=== PATIENT | male | born 1955 | race Caucasian/White ===

== ENCOUNTER 2016-03-16 15:25 | Inpatient (IN) | payer MEDICARE, OTHER ==
[~2016-03-16] VITALS: Ht 172.7 cm; Wt 88.5 kg
[2016-03-16] VITALS (8 sets, daily range): BP systolic 135–156; BP diastolic 63–73; PULSE 76–83; RESP 20; TEMP 98.2; Ht 172.7 cm; Wt 88.5 kg
[~2016-03-16 15:25] MED LIST: ASPI-664 PO; ATEN-51 PO; ATOR80TA18 PO; BENA5TAB2 PO; CELE200C PO; COLC0.6T6 PO; DEXL60CA2 PO; FENO145T19 PO; FISH OIL 1,2001 EAC2 PO; GEMF600T60 PO; HYDR-3671 PO; INSU100C3 SC; LORA10TA3 PO; MEGE40TA17 PO; NAPR-685 PO; NIFE90TA21 PO; SEVE800T7 PO
--- NOTE | 2016-03-16 20:37 | RADRPT ---
PROCEDURE: XR Chest. CLINICAL INDICATION: Chest pain. Abdominal pain TECHNIQUE: Portable AP semi erect view of the chest was obtained. COMPARISON: 09/30/2014 FINDINGS: The cardiomediastinal silhouette is mildly enlarged, stable. Bilateral lower lobe consolidation is likely atelectasis. Mild basilar dominant pulmonary vascular congestion and small pleural effusions are new. Sternotomy wires are present with mediastinal clips presumably from prior CABG. There is no evidence for acute osseous abnormality. RPTAT:HJJR IMPRESSION: 1. Development of pulmonary vascular congestion and small pleural effusions in this patient with sta ble cardiomegaly and post CABG changes is concerning for congestive heart failure in the proper clin ical setting. 2. Bibasilar subsegmental atelectasis. Physician Marquita Date Time Electronically viewed and signed by Physician Marquita on 03/16/2016 20:37 /
[2016-03-16] MEDS ORDERED: NPH SQ (20:40)
[2016-03-16] MEDS ORDERED: GEMF600T60 PO (20:41)
[2016-03-16] MEDS ORDERED: BENA20TA48 PO (20:41)
[2016-03-16] MEDS ORDERED: ALLO100T PO (20:41)
[2016-03-16] MEDS ORDERED: CNC30T PO (20:42)
[2016-03-16] MEDS ORDERED: FENO145T19 PO (20:42)
--- NOTE | 2016-03-16 20:42 | RADRPT ---
PROCEDURE: CT Brain without. CLINICAL INDICATION: Headache, concern for bleed. TECHNIQUE: A CT of the brain was performed on multidetector high-resolution CT scanner utilizing a xial sections from the skull base through the vertex without contrast. The scan was reviewed in sof t tissue brain and high frequency resolution bone algorithm windows. Images were reviewed on a high -resolution PACS workstation. One or more the following does reduction techniques were utilized: Aut omated exposure control, adjustment of the mA/ or kV according to patient's size, or use of iterativ e reconstruction technique. The exam CTDI = 43.40 mGy and the DLP = 720.23 mGy-cm. COMPARISON: None available. FINDINGS: There is subtle linear hyperdensity in the right cerebellar hemisphere sulcus which is concerning fo r a tiny hemorrhage versus artifact. The ventricles and sulci are mildly prominent indicative of volume loss. There is no intracranial he morrhage, mass effect or midline shift. No abnormal intra-axial or extra-axial fluid collections ar e seen. The grover/white matter differentiation is preserved. There are mild scattered foci of hypoattenuation in the white matter, which are nonspecific in etiol ogy but likely reflect chronic small vessel ischemic changes. There are mild intracranial vascular calcifications consistent with atherosclerosis. The visualized paranasal sinuses are essentially bouchra ar. The right mastoid air cells are underpneumatized. The left mastoid air cells are essentially cl ear. IMPRESSION: 1. Subtle hyperdensity in the right cerebellar hemisphere sulcus which is concerning for a tiny hem orrhage versus artifact. Follow-up CT or MR can be obtained as clinically warranted. 2. No acute intracranial transcortical infarction or mass effect. 3. Mild intracranial atherosclerosis and chronic small vessel ischemic changes. 4. Mild generalized cerebral volume loss. A call report was made and above findings were discussed and acknowledged by Dr. Kee on 03/16/19 17 8:38 PM. RPTAT: HH .Timmy Echols MD, Date Time Electronically viewed and signed by .Timmy Echols MD, MD on 03/16/2016 20:42 .N/
[2016-03-16] MEDS ORDERED: ASPI-664 PO (20:43)
[2016-03-16] MEDS ORDERED: HYDR-3671 PO (20:43)
[2016-03-16] MEDS ORDERED: LORA10TA3 PO (20:44)
[2016-03-16] MEDS ORDERED: OMEP20CA16 PO (20:45)
[2016-03-16 20:52] LABS: HEMATOCRIT 19.2 % (42.0-52.0); MEAN CORPUSCULAR HEMOGLOBIN 31.7 pg (29.0-33.0); MEAN CORPUSCULAR HGB CONC 34.4 g/dl (32.0-37.0); MEAN CORPUSCULAR VOLUME 92.2 fl (82.0-101.0); MEAN PLATELET VOLUME 10.8 fl (7.4-10.4); PLATELET COUNT 187 10^3/UL (140-440); RED BLOOD COUNT 2.09 10^6/ul (4.70-6.10); RED CELL DISTRIBUTION WIDTH 14.7 % (11.5-14.5); UNCORRECTED WBC 10.9 10^3/ul (4.8-10.8); WHITE BLOOD COUNT 10.9 10^3/ul (4.8-10.8)
[2016-03-16 20:59] LABS: CONDITION 1; HEMOGLOBIN 6.6 g/dl (14.0-18.0); LH ANALYZER COMMENTS 1
[2016-03-16] MEDS ORDERED: CEFTRIAXONE 1 GM/50 ML (PMX) 50 ML IVPB ONE (21:00)
[2016-03-16] MEDS ORDERED: CALCIUM GLUCONATE 10% 1 GM in SOD CHLORIDE 0.9% 100 ML IVPB ONE (21:00)
[2016-03-16 21:02] LABS: ALBUMIN/GLOBULIN RATIO 1.42; CALCIUM 8.1 mg/dl (8.4-10.2); TOTAL PROTEIN 6.8 g/dl (6.1-8.1)
[2016-03-16 21:14] LABS: POTASSIUM 7.1 mmol/L (3.5-5.1); TROPONIN-I 0.024 ng/ml (0.00-0.12)
[2016-03-16 21:15] LABS: CREATININE 16.33 mg/dl (0.61-1.24)
--- NOTE | 2016-03-16 21:15 | ERA ---
ER Documentation Chief Complaint Date/Time DATE: 03/16/16 TIME: 21:13 Chief Complaint HEADACHE DIARRHEA FOR 3 DAYS. FEELING VERY WEAK. NO BLOOD IN STOOL HPI 60-year-old man brought in by for headache, diarrhea, and feeling very weak for the last 3 days. He has end-stage kidney disease and has not had his last 2 dialysis sessions, one was due today which she did not go to. Patient has had no vomiting or chest pain, no fevers or chills, no slurred speech or focal weakness, no melena or blood per rectum. ROS All systems reviewed and are negative except as per history of present illness. Medications Home Meds Reported Medications Omeprazole* (Omeprazole*) 20 Mg Capsule.dr, 20 MG PO BID, #60 CAP 03/16/16 Loratadine* (Loratadine*) 10 Mg Tablet, 10 MG PO DAILY, #30 TAB 03/16/16 Aspirin* (Aspirin* EC) 81 Mg Tablet.dr, 81 MG PO DAILY, TAB 03/16/16 Hydralazine Hcl* (Hydralazine Hcl*) 25 Mg Tab, 25 MG PO Q8, #90 TAB 03/16/16 Fenofibrate Nanocrystallized* (Fenofibrate*) 145 Mg Tablet, 145 MG PO DAILY, TAB 03/16/16 Cinacalcet* (Sensipar*) 30 Mg Tab, 30 MG PO BID, TAB 03/16/16 Benazepril Hcl* (Benazepril Hcl*) 20 Mg Tablet, 20 MG PO DAILY, #30 TAB 03/16/16 Gemfibrozil* (Gemfibrozil*) 600 Mg Tablet, 600 MG PO BID, TAB 03/16/16 Allopurinol* (Allopurinol*) 100 Mg Tablet, 100 MG PO DAILY, TAB 03/16/16 Insulin Human Nph (Novolin-N) 100 Units/Ml Susp, 2 UNITS SQ TID 03/16/16 Discontinued Reported Medications Dexlansoprazole (Dexilant) 60 Mg Cap., 60 MG PO QAM, CAP 09/30/14 Nifedipine* (Nifedipine ER*) 90 Mg Tablet.sa, 90 MG PO DAILY, TAB.SA 08/07/14 Gemfibrozil* (Gemfibrozil*) 600 Mg Tablet, 600 MG PO BID, TAB 08/07/14 Celecoxib* (Celebrex*) 200 Mg Capsule, 200 MG PO DAILY, CAP 08/07/14 Naproxen* (Naproxen*) 375 Mg Tablet, 375 MG PO BID, TAB 08/07/14 Hydralazine Hcl* (Hydralazine Hcl*) 25 Mg Tab, 25 MG PO TID, TAB 08/07/14 Benazepril Hcl* (Benazepril Hcl*) 5 Mg Tablet, 5 MG PO DAILY, TAB 08/07/14 Fenofibrate Nanocrystallized* (Fenofibrate*) 145 Mg Tablet, 145 MG PO DAILY, TAB 08/07/14 Megestrol Acetate* (Megestrol Acetate*) 40 Mg Tablet, 40 MG PO DAILY, TAB 08/07/14 Colchicine* (Colcrys*) 0.6 Mg Tablet, 0.6 MG PO BID, TAB 08/07/14 Loratadine* (Loratadine*) 10 Mg Tablet, 10 MG PO DAILY, TAB 08/07/14 Insulin Aspart (Novolog) 100 U/Ml Cartridge, 0 SC SLIDING SCALE ACHS, EA 04/30/14 Sevelamer Carbonate* (Renvela*) 800 Mg Tablet, 2400 TAB PO TID 06/19/13 Aspirin* (Aspirin* EC) 81 Mg Tablet.dr, 81 MG PO DAILY 06/19/13 Dorothy-3 Fatty Acids/Fish Oil (FISH OIL 1,200 MG SOFTGEL) 1 Each Capsule, 1 TAB PO DAILY 06/19/13 Atenolol* (Atenolol*) 25 Mg Tablet, 25 MG PO DAILY 06/21/12 Atorvastatin (Lipitor) 80 Mg Tablet, 80 MG PO QHS 08/09/11 Allergies Allergies: Coded Allergies: No Known Drug Allergies (Verified Allergy, Mild, 03/16/16) PMhx/Soc Hypertension, end-stage kidney disease on hemodialysis, hypercholesterolemia, diabetes mellitus, obesity History of Surgery: Yes (TRIPLE BYPASS) Anesthesia Reaction: No Hx Neurological Disorder: No Hx Respiratory Disorders: No Hx Cardiac Disorders: Yes (CAD) Hx Psychiatric Problems: No Hx Miscellaneous Medical Probl: Yes (HTN, HIGH CHOLESTEROL, DM, DYALISIS) Hx Alcohol Use: No Hx Substance Use: No Hx Tobacco Use: No Smoking Status: Never smoker FmHx Family History: diabetes Physical Exam Vitals Vital Signs Date Time Temp Pulse Resp B/P Pulse Ox O2 Delivery O2 Flow Rate FiO2 03/16/16 21:57 98.2 76 20 156/68 100 Nasal Cannula 3.0 03/16/16 21:25 69 22 100 Nasal Cannula 3.0 03/16/16 19:10 Nasal Cannula 3 03/16/16 15:30 96.4 64 20 113/52 97 Physical Exam GENERAL: Well-developed, well-nourished, well-hydrated, in no apparent distress , nauseous, afebrile HEENT: Moist mucous membranes, pale conjunctival no cervical spine tenderness or step-off deformities, no goiter, no jaundice or icterus, extraocular movements intact without pain. No submandibular induration, and no pharyngeal erythema NEURO: Alert and oriented 3, cranial nerves II through XII intact bilaterally, pupils equal round reactive to light, no focal deficits or facial asymmetry, sensation intact distally Strength 5/5 in upper and lower extremities bilaterally CARDIAC: Regular rate and rhythm, no murmurs rubs or gallops LUNGS: Clear bilaterally no wheezing crackles or stridor ABDOMEN: Soft nontender, no guarding, no rigidity, no rebound, no psoas sign no obturator sign. Normoactive bowel sounds SKIN: Warm and dry to touch, no abrasions, contusions, or hematomas, no lacerations, no ecchymosis, no target lesions, and without ulcers EXTREMITIES: No clubbing cyanosis or edema, calves are bilaterally symmetrical, no Homans sign, no popliteal cord sign. Distal pulses equal and bilateral PSYCH: Normal affect without agitation or irritability Result Diagram: 03/16/16202903/16/162029 Results 24 hrs Laboratory Tests Test 03/16/16 15:33 03/16/16 20:30 03/16/16 22:00 Bedside Glucose 156mg/dL Alanine Aminotransferase (ALT/SGPT) 15IU/L Albumin 4.0g/dl Albumin/Globulin Ratio 1.42 Alkaline Phosphatase 134IU/L Anion Gap 32 Anisocytosis 1+ Aspartate Amino Transf (AST/SGOT) 15IU/L Band Neutrophils % 1.0% Basophils # 0.110^3/ul Basophils % 1.0% Blood Morphology Comment Blood Urea Nitrogen 120mg/dl Calcium Level 8.1mg/dl Carbon Dioxide Level 17mmol/L Chloride Level 100mmol/L Creatinine 16.33mg/dl Direct Bilirubin 0.00mg/dl Eosinophils # 0.210^3/ul Eosinophils % 2.0% Globulin 2.80g/dl Glucose Level 114mg/dl Hematocrit 19.2% Hemoglobin 6.6g/dl Indirect Bilirubin 0.0mg/dl Lipase 503U/L Lymphocytes # 0.210^3/ul Lymphocytes % 2.0% Mean Corpuscular Hemoglobin 31.7pg Mean Corpuscular Hemoglobin Concent 34.4g/dl Mean Corpuscular Volume 92.2fl Mean Platelet Volume 10.8fl Monocytes # 0.810^3/ul Monocytes % 7.0% Neutrophils # 9.510^3/ul Neutrophils % 87.0% Platelet Count 89161^3/UL Platelet Estimate PLT APPEAR ADEQUATE Potassium Level 7.1mmol/L Red Blood Count 2.0910^6/ul Red Cell Distribution Width 14.7% Sodium Level 142mmol/L Total Bilirubin 0.0mg/dl Total Protein 6.8g/dl Troponin I 0.024ng/ml White Blood Count 10.910^3/ul Urine Bilirubin NEGATIVE Urine Clarity CLEAR Urine Color LT. YELLOW Urine Glucose 0.1%% Urine Hemoglobin 1+ Urine Ketones NEGATIVE Urine Leukocyte Esterase TRACE Urine Microscopic RBC Pending Urine Microscopic WBC Pending Urine Nitrite NEGATIVE Urine Specific [place] 1.010 Urine Total Protein 2+ Urine Urobilinogen 0.2 E.U./dL Urine pH 7.5 Current Medications Medications (Trade) Dose Ordered Sig/Josefina Route PRN Reason Start Time Stop Time Status Last Admin Dose Admin Calcium Gluconate 1 gm/Sodium Chloride 110 ml @ 110 mls/hr ONCE ONCE IVPB 03/16/16 21:00 03/16/16 21:59 DC 03/16/16 21:42 Ceftriaxone Sodium (Rocephin) 50 ml @ 100 mls/hr ONCE ONCE IVPB 03/16/16 21:00 03/16/16 21:29 DC 03/16/16 21:22 Albuterol (Proventil 0.5% (Neb)) 10 mg ONCE STAT NEB 03/16/16 21:16 03/16/16 21:17 DC 03/16/16 21:25 Dextrose (D50w Syringe) 50 ml ONCE STAT IV 03/16/16 21:18 03/16/16 21:19 DC 03/16/16 21:26 Insulin Human Regular (Humulin R) 8 unit ONCE ONCE IV 03/16/16 21:30 03/16/16 21:31 DC 03/16/16 21:27 Procedures/MDM IV line was established patient was placed on phototypesetting equipment monitor rhythm strip revealed a sinus rhythm at about 70 bpm. Patient was afebrile. Urine culture has been ordered results are pending I will follow-up. Given his headache a CT scan of the brain was performed that was negative for acute bleed mass or shift although a hyperdensity was noted in the right cerebellar hemisphere concerning for tiny hemorrhage versus artifact, recommendation was for follow-up MRI. My suspicion for acute hemorrhage is low although this will have to be followed up. Patient's neurologic exam is without focal deficits. EKG performed, read by me revealed a normal sinus rhythm at 66 bpm, normal axis , narrow QRS complex with peaked tented T waves in all leads concerning for hyperkalemia. One view chest x-ray performed, read by me there is bilateral pulmonary vascular congestion and cardiomegaly, sternotomy wires in place, no acute infiltrates, no pneumothorax. CBC reveals anemia with a hemoglobin of 6.6, electrolytes are abnormal with a BUN/creatinine of 120/16, potassium critically elevated at 7.1, liver function tests unremarkable, troponin was negative. Urinalysis was unremarkable. Patient was given ceftriaxone 1 g IV empirically. I administered calcium gluconate 1 g IV, also administered dextrose 25 g IV and regular insulin 8 units IV, and albuterol 10 mg via nebulizer for hyperkalemia. I transfused 2 units PRBCs IV over 4 hours for severe anemia. Critical Care: Time: 40 minutes, this was time separate from other procedures. Treatments/Evaluations: Close monitoring and treatment of unstable vital signs, cardiorespiratory, and neurologic status, while maintaining tight balance of fluid, respiratory, and cardiac interventions. Patient will be admitted to telemetry setting for continued medical management and emergent dialysis. Support Services Rep is Dr. Hahn. Departure Diagnosis: Primary Impression: Diarrhea Qualified Code: R19.7 - Diarrhea, unspecified type Additional Impressions: Severe anemia Hyperkalemia End stage kidney disease Pulmonary edema Qualified Code: J81.0 - Acute pulmonary edema Headache Qualified Code: R51 - Acute nonintractable headache, unspecified headache type Condition: Serious LASHAY NAVARRO MD Mar 16, 2016 21:15
[2016-03-16] MEDS ORDERED: ALBUTEROL 0.5% (NEB) 2.5 MG/0.5 ML AMP NEB STA (21:16)
[2016-03-16] MEDS ORDERED: DEXTROSE 50% 50 ML SYRINGE IV STA (21:18)
[2016-03-16] MEDS ORDERED: INSULIN REGULAR, HUMAN 100 UNIT/1 ML 3ML VIAL IV ONE (21:30)
[2016-03-16 21:46] LABS: BASOPHIL # 0.1 10^3/ul (0.0-0.1); EOSINOPHILS # 0.2 10^3/ul (0.0-0.5); LYMPHOCYTES # 0.2 10^3/ul (0.8-2.9); MONOCYTE # 0.8 10^3/ul (0.3-0.9); NEUTROPHIL # 9.5 10^3/ul (1.6-7.5)
[2016-03-16 21:47] LABS: ANISOCYTOSIS 1+
[2016-03-16 21:55] LABS: PLATELET ESTIMATE PLT APPEAR ADEQUATE
[2016-03-16 22:21] LABS: ADD UMIC YES; URINE BILIRUBIN (Dip) NEGATIVE (NEGATIVE); URINE BLOOD (Dip) 1+ (NEGATIVE); URINE COLOR LT. YELLOW (YELLOW); URINE KETONES (Dip) NEGATIVE (NEGATIVE); URINE LEUKOCYTE ESTERASE (Dip) TRACE (NEGATIVE); URINE NITRITE (Dip) NEGATIVE (NEGATIVE); URINE TOTAL PROTEIN (Dip) 2+ (NEGATIVE); URINE UROBILINOGEN (Dip) 0.2 E.U./dL (0.1-1.0)
[2016-03-16 22:37] LABS: BACTERIA,URINE FEW; SQUAMOUS EPITHELIAL CELL,UR FEW
[2016-03-17] VITALS (25 sets, daily range): BP systolic 112–177; BP diastolic 53–79; PULSE 53–76; RESP 16–20
--- NOTE | 2016-03-17 06:35 | CONS ---
Date/Time of Note Date/Time of Note DATE: 03/17/16 TIME: 06:33 Assessment/Plan Assessment/Plan Additional Assessment/Plan 60 yo Male with 1) Severe Anemia likely acute blood loss, Pt with baseline Anemia Chronic Disease, ESRD 2) Dark Stool, Possible GIB 3) ESRD on HD, TTS 4) Chronic, Hypertension 5) Diabetes Mellitus 6) Mineral bone disease, CKD 7) Hyperkalemia Pt is S/p HD last night without complication, -2.5L UF S/p PRBC transfusion Please repeat CBC and Chemistry this am Plan for another HD session today as well Repeat CXR in AM Consultation Date/Type/Reason Admit Date/Time Mar 16, 2016 at 22:13 Date of Consultation: Mar 17, 2016 Type of Consultation: Nephrology Reason for Consultation ESRD Referring Provider: MIKE SCHAFER Hx of Present Illness 60 yo male with ESRD on HD every TTS, missed HD yesterday due to feeling unwell and fatigued, has been have dark stool now x 4 days, presented to ED at [facility] and found to have severe anemia, hyperkalemia and admitted to hospital. S/p HD last night, no complication, S/p 1 unit PRBC transfusion. Nephrology consultated for ESRD management. Constitutional: No requiring O2 Past Medical History Medical History: renal disease Past Surgical History Past Surgical Hx: other (AVF) Family History Significant Family History: no pertinent family hx Social History Alcohol Use: none Smoking Status: Never smoker Drug Use: none Exam/Review of Systems Vital Signs Vitals Vital Signs Date Time Temp Pulse Resp B/P Pulse Ox O2 Delivery O2 Flow Rate FiO2 03/17/16 04:28 66 03/17/16 04:00 98.2 20 155/70 98 03/16/16 22:00 Nasal Cannula 2.0 Intake and Output 03/16/16 03/16/16 03/17/16 15:00 23:00 07:00 Intake Total 1600 ml Output Total 6000 ml Balance -4400 ml Exam Constitutional: No distress ENMT: mucosa pink and moist Neck: No jvd Respiratory: No crackles/rales, No diminished breath sounds, No labored breathing Cardiovascular: regular rate and rhythm, No edema Gastrointestinal: non-tender, soft, No distended, No rebound or guarding Neurological: ESCALATOR MECHANIC II-XII intact, nl mental status, No confused, No lethargic Skin: other (LUE AVF, good thrill), No diaphoresis Results Result Diagram: 03/16/16202903/16/162029 Results 24 hrs Laboratory Tests Test 03/16/16 15:33 03/16/16 20:30 03/16/16 22:00 Bedside Glucose 156 Alanine Aminotransferase (ALT/SGPT) 15 Albumin 4.0 Albumin/Globulin Ratio 1.42 Alkaline Phosphatase 134 H Anion Gap 32 H Anisocytosis 1+ Aspartate Amino Transf (AST/SGOT) 15 Band Neutrophils % 1.0 Basophils # 0.1 Basophils % 1.0 Blood Morphology Comment Blood Urea Nitrogen 120 H Calcium Level 8.1 L Carbon Dioxide Level 17 L Chloride Level 100 Creatinine 16.33 H Direct Bilirubin 0.00 Eosinophils # 0.2 Eosinophils % 2.0 Globulin 2.80 Glucose Level 114 Hematocrit 19.2 #L Hemoglobin 6.6 #*L Indirect Bilirubin 0.0 Lipase 503 H Lymphocytes # 0.2 L Lymphocytes % 2.0 L Mean Corpuscular Hemoglobin 31.7 Mean Corpuscular Hemoglobin Concent 34.4 Mean Corpuscular Volume 92.2 Mean Platelet Volume 10.8 H Monocytes # 0.8 Monocytes % 7.0 Neutrophils # 9.5 H Neutrophils % 87.0 H Platelet Count 187 Platelet Estimate PLT APPEAR ADEQUATE Potassium Level 7.1 *H Red Blood Count 2.09 #L Red Cell Distribution Width 14.7 H Sodium Level 142 Total Bilirubin 0.0 L Total Protein 6.8 Troponin I 0.024 White Blood Count 10.9 #H Urine Bacteria FEW Urine Bilirubin NEGATIVE Urine Clarity CLEAR Urine Color LT. YELLOW Urine Glucose 0.1% H Urine Hemoglobin 1+ H Urine Ketones NEGATIVE Urine Leukocyte Esterase TRACE H Urine Microscopic RBC 2-5 Urine Microscopic WBC 5-10 Urine Nitrite NEGATIVE Urine Specific [place] 1.010 Urine Squamous Epithelial Cells FEW Urine Total Protein 2+ H Urine Urobilinogen 0.2 E.U./dL Urine pH 7.5 Procedures Procedures PROCEDURE: XR Chest. CLINICAL INDICATION: Chest pain. Abdominal pain TECHNIQUE: Portable AP semi erect view of the chest was obtained. COMPARISON: 09/30/2014 FINDINGS: The cardiomediastinal silhouette is mildly enlarged, stable. Bilateral lower lobe consolidation is likely atelectasis. Mild basilar dominant pulmonary vascular congestion and small pleural effusions are new. Sternotomy wires are present with mediastinal clips presumably from prior CABG. There is no evidence for acute osseous abnormality. RPTAT:HJJR IMPRESSION: 1. Development of pulmonary vascular congestion and small pleural effusions in this patient with stable cardiomegaly and post CABG changes is concerning for congestive heart failure in the proper clinical setting. 2. Bibasilar subsegmental atelectasis. Physician Marquita Date Time Electronically viewed and signed by Everett Perrin Physician on 03/16/2016 20:37 RAPHAEL WINTERS MD Mar 17, 2016 06:35
[2016-03-17] MEDS ORDERED: PANTOPRAZOLE 40 MG INJ IV SCH ×2 (07:30→18:00)
--- NOTE | 2016-03-17 09:10 | HP ---
DATE OF ADMISSION: 03/16/2016 PRESENTING COMPLAINT: Headache. Lethargy and previous diarrhea. HISTORY OF PRESENTING COMPLAINT: Mr. Herbert is a 60-year-old pleasant gentleman with a history of end-stage renal disease on hemodialysis who usually receives his care in [place] under the care o narda Hahn, who was brought in by his yesterday after he had missed 2 sessions of dialysis . The patient reports being very lethargic and weak for the last couple of days and being unable to walk. Based on that, he missed his dialysis on Tuesday. He usually goes Tuesdays, and Saturdays; however he went to see his primary physician who ordered lab work on him and told him to return on Tuesday for results. He returned on Tuesday to his primary care physician, however, the resu lts were not ready and they told him the results would be ready by Tuesday, which is the day of his presentation in the ER. Also, that was the day today he was supposed to get his dialysis but because he continued to feel very ill he chose to come to the emergency room instead of going to dialysis. In the emergency room, he was found to be severely anemic with a hemoglobin of 6.6 and imaging stud ies showed pulmonary vascular congestion concerning for congestive heart failure on his chest x-ray. Upon further evaluation the patient has been having diarrhea and he does report a 4-day history of dark stools prior to presentation. The patient also was found to have a potassium of 7.1 and is caitlin ng admitted for emergent dialysis as well as transfusion and probable GI review. PAST MEDICAL HISTORY: 1. End-stage renal disease. 2. GERD. 3. Diabetes mellitus. 4. Coronary artery disease, status post coronary artery bypass graft in 2012. 5. Hypertension. 6. Dyslipidemia. PAST SURGICAL HISTORY: CABG. ALLERGIES: NO KNOWN DRUG ALLERGIES. SOCIAL HISTORY: Denies tobacco, alcohol or illicit drug use. FAMILY HISTORY: Positive for diabetes and cardiac disease in mother and siblings. REVIEW OF SYSTEMS: A 12-point review of system was done. The patient denies chest pain, denies pal pitations, denies passing out episodes. Denies extremity weakness or swelling. Denies skin changes . PHYSICAL EXAMINATION VITAL SIGNS: Temperature 98.2, pulse 76, respirations 20, blood pressure 156/60, saturations 100% o n oxygen via nasal cannula at 3 liters a minute. GENERAL: Obese male, alert and oriented. Currently comfortable. HEENT: Head normocephalic. Pupils equal and reactive. No scleral jaundice. Positive conjunctival pallor. Mucous membranes dry. Posterior pharynx clear of exudate. NECK: Supple without JVD. CHEST: With reduced air entry bilaterally, but clear to auscultation. CARDIOVASCULAR: Heart sounds S1 and S2, no added sounds or murmurs. ABDOMEN: Obese, soft, nontender, nondistended, normoactive bowel sounds. EXTREMITIES: There was no lower extremity edema. NEUROLOGIC: No gross focal deficits. PSYCHIATRIC: Calm, cooperative with exam. LABORATORY VALUES: The following abnormalities were concerning: a WBC of 10.9, mildly elevated. He moglobin of 6.6 with hematocrit of 19.2, platelet count of 187, neutrophilia with a 7% bandemia of 1 %. His chemistry: Potassium was 7.1. Anion gap of 32 with a carbon dioxide of 17, BUN of 120, cre atinine of 16, glucose was 156, calcium 8.1, low. Alkaline phosphatase mildly elevated at 134, lipa se elevated at 5.3. Urinalysis was done shows trace leukocyte esterase, 5 to 10 white cells, few ba cteria, 1+ hemoglobin, glycosuria as well as proteinuria. IMAGING: A chest x-ray showed the development of pulmonary vascular congestion and small pleural effusions in this patient with stable cardiomegaly and post-CABG changes concerning for 1. Congestive heart failure. 2. Bibasilar subsegmental atelectasis. A CT scan of the brain showed subtotal hyperdensity in the right cerebellar hemisphere so it was con cerning for a tiny hemorrhage versus infarct without any acute intracranial infarction or mass effec t. Also noted was atherosclerosis and chronic small vessel ischemic changes and mild generalized cer ebral volume loss. EKG: Reviewed by myself and it was concerning for some tall T waves that was suggestive of hy perkalemia. ASSESSMENT: A 60-year-old male who has been having lethargy and diarrhea for the last 4 to 5 days w ith the followin. Severe anemia with a history of black stools concerning for gastrointestinal bleed. 2. Fluid overload secondary to missed dialysis. 3. Generalized weakness likely secondary to severe anemia. 4. Small tiny cerebellar hemorrhage versus artifact on CT. 5. Mild pancreatitis. 6. End-stage renal disease on hemodialysis. 7. History of gastroesophageal reflux disease. 8. Systemic inflammatory response syndrome with bandemia, rule out an occult infection. 9. Hyperkalemia with EKG abnormalities. PLAN OF CARE: Admit the patient to a telemetry monitored floor and I have spoken with Dr. Eyad grove who will assist in instituting emergent dialysis tonight with hyperkalemia and concerning EKG f indings. The patient to be given 1 unit of packed red cells during dialysis, Dr. Tello is okay with this. We will rule out sepsis because the patient has mild hypothermia. He is also having bandemia and so we will get urinalysis and urine cultures. We will also obtain blood cultures and will cons ider repeating the chest x-ray after dialysis to make sure that there is no underlying pneumonia. T he patient had a history of diarrhea, but has had no further diarrheal episodes now but if he does w e will obtain stool for Clostridium difficile testing as well. For his hyperkalemia, he is being tr eated with calcium as well as insulin and D50. Again, he is going to get dialysis tonight. For his pancreatitis, we will trend his lipase levels. This could be reactive. We will not aggressively r ehydrate at this time because of his fluid overload, but will basically closely monitor him and star t him on IV PPI therapy for comfort. So this plan of care has been discussed with the patient and hi s . We will also be doing an MRI of the brain to evaluate this bleed versus artifact and get I w ill get him a 2D echo as well to evaluate for CHF. Of note is that patient has had no chest pain, b ut he could have some demand ischemia, so we will complete an ACS rule out as well. So this plan of care has been discussed with the patient and his . Questions have been answered. For further i nformation and clarification, please review the patient's chart and my orders. For prophylaxis, the patient will be on SCDs only because of concerns of GI bleed versus intracranial hemorrhage and int ravenous proton pump inhibitor. Dictated By: MIKE SCHAFER MD, BA/FATOU Conf#: [id number] DID#: [id number]
--- NOTE | 2016-03-17 10:39 | RADRPT ---
PROCEDURE: MRI Brain without contrast. CLINICAL INDICATION: Headache TECHNIQUE: Multiplanar MRI of the brain without contrast was performed on a 3.0 T scanner with the following sequences obtained: T1-weighted, T2-weighted/FLAIR, diffusion weighted (with ADC map), GR E. COMPARISON: CT brain 03/16/2016 FINDINGS: No acute/recent ischemic infarction or intracranial hemorrhage / blood degradation products are iden tified. No extra-axial fluid collection is seen. There is no mass effect. No midline shift is identified. The ventricles and sulci are mildly enlarged, compatible with generalized volume loss. Subtle tiny chronic infarcts are identified in the bilateral cerebellar hemispheres. Mild areas of increased T2 / FLAIR signal intensity are present in the periventricular and deep white matter, nons pecific but likely related to chronic small vessel ischemic changes. Flow voids are identified in the proximal intracranial arteries and dural sinuses suggesting patency . There is partial left mastoid air cell opacification and mild right maxillary sinus mucosal thickeni ng. IMPRESSION: 1. No evidence of acute intracranial pathology. 2. Tiny chronic bilateral cerebellar infarcts. 3. Mild generalized volume loss, with mild chronic small vessel ischemic changes. RPTAT: VV .Fracisco Womack MD, MD Date Time Electronically viewed and signed by .Fracisco Womack MD, on 03/17/2016 10:39 .O/
[2016-03-17 10:58] LABS: BASOPHILS % 0.6 % (0.0-2.0); EOSINOPHILS # 0.1 10^3/ul (0.0-0.5); EOSINOPHILS % 1.4 % (0.0-7.0); HEMATOCRIT 23.3 % (42.0-52.0); HEMOGLOBIN 8.1 g/dl (14.0-18.0); LYMPHOCYTES # 0.7 10^3/ul (0.8-2.9); LYMPHOCYTES % 10.3 % (15.0-51.0); MEAN CORPUSCULAR HEMOGLOBIN 31.5 pg (29.0-33.0); MEAN CORPUSCULAR HGB CONC 34.7 g/dl (32.0-37.0); MEAN CORPUSCULAR VOLUME 90.9 fl (82.0-101.0); MEAN PLATELET VOLUME 9.6 fl (7.4-10.4); MONOCYTE # 0.7 10^3/ul (0.3-0.9); MONOCYTES % 9.8 % (0.0-11.0); NEUTROPHIL # 5.2 10^3/ul (1.6-7.5); NEUTROPHILS % 77.9 % (39.0-77.0); PLATELET COUNT 159 10^3/UL (140-440); RED BLOOD COUNT 2.56 10^6/ul (4.70-6.10); RED CELL DISTRIBUTION WIDTH 14.7 % (11.5-14.5); UNCORRECTED WBC 6.6 10^3/ul (4.8-10.8); WHITE BLOOD COUNT 6.6 10^3/ul (4.8-10.8)
[2016-03-17 10:59] LABS: CONDITION 1; LH ANALYZER COMMENTS 1
[2016-03-17] MEDS ORDERED: EPOETIN 4000 UNITS/1 ML INJ (ESRD) IV ONE (11:00)
[2016-03-17 11:11] LABS: AMYLASE 137 U/L (11-123); MAGNESIUM 2.3 mg/dl (1.7-2.5)
[2016-03-17 11:16] LABS: POTASSIUM 5.1 mmol/L (3.5-5.1)
[2016-03-17 11:18] LABS: CREATININE 11.29 mg/dl (0.61-1.24)
[2016-03-17 11:19] LABS: CALCIUM 7.7 mg/dl (8.4-10.2)
[2016-03-17 11:23] LABS: CK-MB 2.04 ng/ml (0.0-2.4)
--- NOTE | 2016-03-17 11:35 | CONS ---
Date/Time of Note Date/Time of Note DATE: 03/17/16 TIME: 11:30 Assessment/Plan Assessment/Plan Additional Assessment/Plan Anemia * Monitor H&H every 6 hours, transfuse 2 units for hemoglobin less than 7.5 * PPI therapy * Stool OB Diarrhea * CT abdomen * C. difficile stool test ESRD * Continue hemodialysis per nephrology Hypertension Diabetes mellitus type 2 Further recommendations depend on clinical course Patient seen in collaboration with Dr. Lopez Consultation Date/Type/Reason Admit Date/Time Mar 16, 2016 at 22:13 Type of Consultation: GI Hx of Present Illness 60 YO M presented to ED due to increased weakness. Pt reports melena stool, nausea, and non bloody bilious vomiting that started last . Pt also reported chills and non bloody diarrhea that has since resolved. Pt reports previous colonoscopy last year but unaware of results and timing to repeat procedure. Pt denies fever, abdominal pain, sick contacts, new medications, EtOH consumption, and previous episode. Pt has PMH of ESRD on HD, HTN, and DM2. Constitutional: No requiring O2 Past Medical History Medical History: diabetes, hypertension, renal disease Past Surgical History Past Surgical Hx: other (AVF) Social History Alcohol Use: none Smoking Status: Never smoker Drug Use: none Exam/Review of Systems Vital Signs Vitals Vital Signs Date Time Temp Pulse Resp B/P Pulse Ox O2 Delivery O2 Flow Rate FiO2 03/17/16 11:20 97.9 59 18 130/59 98 03/16/16 22:00 Nasal Cannula 2.0 Intake and Output 03/16/16 03/16/16 03/17/16 15:00 23:00 07:00 Intake Total 1600 ml Output Total 6000 ml Balance -4400 ml Exam Constitutional: alert, oriented, well developed Psych: nl mood/affect Head: normocephalic Eyes: EOMI, nl conjunctiva, nl lids ENMT: nl external ears & nose, nl lips & teeth, nl nasal mucosa & septum Respiratory: clear to auscultation Cardiovascular: regular rate and rhythm Gastrointestinal: non-tender, soft Musculoskeletal: nl extremities to inspection Results Result Diagram: 03/17/16 1045 03/17/16 1045 Results 24 hrs Laboratory Tests Test 03/16/16 15:33 03/16/16 20:30 03/16/16 22:00 03/17/16 10:45 Bedside Glucose 156 Alanine Aminotransferase (ALT/SGPT) 15 Albumin 4.0 Albumin/Globulin Ratio 1.42 Alkaline Phosphatase 134 H Anion Gap 32 H 23 #H Anisocytosis 1+ Aspartate Amino Transf (AST/SGOT) 15 Band Neutrophils % 1.0 Basophils # 0.1 0.0 Basophils % 1.0 0.6 Blood Morphology Comment Blood Urea Nitrogen 120 H 82 #H Calcium Level 8.1 L 7.7 L Carbon Dioxide Level 17 L 27 # Chloride Level 100 93 L Creatinine 16.33 H 11.29 #H Direct Bilirubin 0.00 Eosinophils # 0.2 0.1 Eosinophils % 2.0 1.4 Globulin 2.80 Glucose Level 114 146 Hematocrit 19.2 #L 23.3 #L Hemoglobin 6.6 #*L 8.1 #L Indirect Bilirubin 0.0 Lipase 503 H 466 H Lymphocytes # 0.2 L 0.7 L Lymphocytes % 2.0 L 10.3 L Mean Corpuscular Hemoglobin 31.7 31.5 Mean Corpuscular Hemoglobin Concent 34.4 34.7 Mean Corpuscular Volume 92.2 90.9 Mean Platelet Volume 10.8 H 9.6 Monocytes # 0.8 0.7 Monocytes % 7.0 9.8 Neutrophils # 9.5 H 5.2 Neutrophils % 87.0 H 77.9 H Platelet Count 187 159 Platelet Estimate PLT APPEAR ADEQUATE Potassium Level 7.1 *H 5.1 # Red Blood Count 2.09 #L 2.56 #L Red Cell Distribution Width 14.7 H 14.7 H Sodium Level 142 138 Total Bilirubin 0.0 L Total Protein 6.8 Troponin I 0.024 Pending White Blood Count 10.9 #H 6.6 # Urine Bacteria FEW Urine Bilirubin NEGATIVE Urine Clarity CLEAR Urine Color LT. YELLOW Urine Glucose 0.1% H Urine Hemoglobin 1+ H Urine Ketones NEGATIVE Urine Leukocyte Esterase TRACE H Urine Microscopic RBC 2-5 Urine Microscopic WBC 5-10 Urine Nitrite NEGATIVE Urine Specific [place] 1.010 Urine Squamous Epithelial Cells FEW Urine Total Protein 2+ H Urine Urobilinogen 0.2 E.U./dL Urine pH 7.5 Amylase Level 137 H Cholesterol Level 132 Cholesterol/HDL Ratio 6.0 Creatine Kinase 236 H Creatine Kinase Index 0.9 Creatinine Kinase MB (Mass) 2.04 HDL Cholesterol 22 L LDL Cholesterol, Calculated 56 Magnesium Level 2.3 Nucleated Red Blood Cells # 0.0 Nucleated Red Blood Cells % 0.0 Triglycerides Level 271 H Medications Medications Current Medications Pantoprazole (Protonix Iv) 40 mg DAILY@06 IV Last administered on 03/17/16t 07: 59; Admin Dose 40 MG; Start 03/17/16 at 07:[address] MAYNARD Mar 17, 2016 11:34
[2016-03-17 11:44] LABS: TROPONIN-I 0.173 ng/ml (0.00-0.12)
--- NOTE | 2016-03-17 14:11 | PN ---
Date/Time of Note Date/Time of Note DATE: 03/17/16 TIME: 14:05 Assessment/Plan VTE Prophylaxis VTE Prophylaxis Intervention: contraindicated VTE Contraindication Reason: bleeding Lines/Catheters IV [facility]ter [facility]from [facility] Saline Lock Urinary Cath still in place: No Assessment/Plan Assessment/Plan A 60-year-old male who has been having lethargy and diarrhea for the last 4 to 5 days with the followin. Severe anemia with a history of black stools concerning for gastrointestinal bleed - appreciate GI recs, f/u CT abd/pelvis - protonix 2. Fluid overload secondary to missed dialysis - dialyze as per renal 3. Generalized weakness likely secondary to severe anemia - monitor acute changes 4. Small tiny cerebellar hemorrhage versus artifact on CT - possible new CVA vs old - MRI shows chronic - will consult neurology 5. Mild pancreatitis - NPO 6. End-stage renal disease on hemodialysis - as per renal 7. Gastroesophageal reflux disease - protonix 8. Systemic inflammatory response syndrome with bandemia, rule out an occult infection - CT abd/pelvis pending 9. Hyperkalemia with EKG abnormalities - 2/2 missed dialysis, k protocol called - monitor acute changes 10. GI ppx - protonix 11. DVT ppx - scds dispo - f/u recs, monitor acute changes. as per clinical course. this progress note took greater than 40 minutes to complete Subjective 24 Hr Interval Summary Free Text/Dictation Patient admitted overnight for abdominal pain and dark stools. the patient states that he has had generalized weakness for quite some time. Otherwise spoke to him about the results of the MRI brain. The son was at bedside, and conversed with him as well. 30 minutes spent. Exam/Review of Systems Vital Signs Vitals Vital Signs Date Time Temp Pulse Resp B/P Pulse Ox O2 Delivery O2 Flow Rate FiO2 03/17/16 12:28 60 03/17/16 11:20 97.9 18 130/59 98 03/16/16 22:00 Nasal Cannula 2.0 Intake and Output 03/16/16 03/16/16 03/17/16 15:00 23:00 07:00 Intake Total 1600 ml Output Total 6000 ml Balance -4400 ml Exam Gen Raul: mild distress 2/2 headache, AAOx4 HEENT: NC/AT, PERRLA, EOMI, no pharyngeal erythema, no tonsillar exudates, no lymphadenopathy, no JVD, no carotid bruits NECK: supple, no thyromegaly THORAX: symmetrical, no obvious deformities CV: S1S2, RRR, no M/G/R Lungs: CTAB no W/C/R/R Abd: soft, NT/ND, +BS, no rebound, no guarding, neg HSM EXT: no edema, no ecchymosis, no clubbing, FROM, left upper extremity bruit heard Neuro: CN II-XII grossly intact, no focal deficits Psych: fair mood and affect Skin: C/D/I Results Result Diagram: 03/17/16 1045 03/17/16 1045 Results 24 hrs Laboratory Tests Test 03/16/16 15:33 03/16/16 20:30 03/16/16 22:00 03/17/16 10:45 Bedside Glucose 156 Alanine Aminotransferase (ALT/SGPT) 15 Albumin 4.0 Albumin/Globulin Ratio 1.42 Alkaline Phosphatase 134 H Anion Gap 32 H 23 #H Anisocytosis 1+ Aspartate Amino Transf (AST/SGOT) 15 Band Neutrophils % 1.0 Basophils # 0.1 0.0 Basophils % 1.0 0.6 Blood Morphology Comment Blood Urea Nitrogen 120 H 82 #H Calcium Level 8.1 L 7.7 L Carbon Dioxide Level 17 L 27 # Chloride Level 100 93 L Creatinine 16.33 H 11.29 #H Direct Bilirubin 0.00 Eosinophils # 0.2 0.1 Eosinophils % 2.0 1.4 Globulin 2.80 Glucose Level 114 146 Hematocrit 19.2 #L 23.3 #L Hemoglobin 6.6 #*L 8.1 #L Indirect Bilirubin 0.0 Lipase 503 H 466 H Lymphocytes # 0.2 L 0.7 L Lymphocytes % 2.0 L 10.3 L Mean Corpuscular Hemoglobin 31.7 31.5 Mean Corpuscular Hemoglobin Concent 34.4 34.7 Mean Corpuscular Volume 92.2 90.9 Mean Platelet Volume 10.8 H 9.6 Monocytes # 0.8 0.7 Monocytes % 7.0 9.8 Neutrophils # 9.5 H 5.2 Neutrophils % 87.0 H 77.9 H Platelet Count 187 159 Platelet Estimate PLT APPEAR ADEQUATE Potassium Level 7.1 *H 5.1 # Red Blood Count 2.09 #L 2.56 #L Red Cell Distribution Width 14.7 H 14.7 H Sodium Level 142 138 Total Bilirubin 0.0 L Total Protein 6.8 Troponin I 0.024 0.173 *H White Blood Count 10.9 #H 6.6 # Urine Bacteria FEW Urine Bilirubin NEGATIVE Urine Clarity CLEAR Urine Color LT. YELLOW Urine Glucose 0.1% H Urine Hemoglobin 1+ H Urine Ketones NEGATIVE Urine Leukocyte Esterase TRACE H Urine Microscopic RBC 2-5 Urine Microscopic WBC 5-10 Urine Nitrite NEGATIVE Urine Specific [place] 1.010 Urine Squamous Epithelial Cells FEW Urine Total Protein 2+ H Urine Urobilinogen 0.2 E.U./dL Urine pH 7.5 Amylase Level 137 H Cholesterol Level 132 Cholesterol/HDL Ratio 6.0 Creatine Kinase 236 H Creatine Kinase Index 0.9 Creatinine Kinase MB (Mass) 2.04 HDL Cholesterol 22 L LDL Cholesterol, Calculated 56 Magnesium Level 2.3 Nucleated Red Blood Cells # 0.0 Nucleated Red Blood Cells % 0.0 Triglycerides Level 271 H Medications Medications Current Medications Bisacodyl (Dulcolax) 10 mg ONCE ONCE PO ; Start 03/18/16 at 14:00; Stop 03/18/16 at 14:01 Magnesium Citrate (Citroma) 300 ml ONCE ONCE PO ; Start 03/18/16 at 16:00; Stop 03/18/16 at 16:01 Polyethylene Glycol (Miralax) 119 gm ONCE ONCE PO ; Start 03/18/16 at 18:00; Stop 03/18/16 at 18:01 Pantoprazole (Protonix Iv) 40 mg BID@06,18 IV ; Start 03/17/16 at 18:00 Procedures Procedures MRI brain IMPRESSION: 1. No evidence of acute intracranial pathology. 2. Tiny chronic bilateral cerebellar infarcts. 3. Mild generalized volume loss, with mild chronic small vessel ischemic changes. BRII JAVED MD Mar 17, 2016 14:11
[2016-03-17] MEDS: PANTOPRAZOLE IV 80 MG in SOD CHLORIDE 0.9% 100 ML IV SCH ×2 (15:39→22:41)
--- NOTE | 2016-03-17 20:30 | CONS ---
DATE OF ADMISSION: 03/16/2016 DATE OF CONSULTATION: TYPE OF CONSULTATION: Neurology. Thank you, Dr. Vallecillo, for the kind referral for evaluation of headache, possible stroke. HISTORY OF PRESENT ILLNESS: The patient is a 60-year-old gentleman with extensive past medical hist ory of end-stage renal disease, diabetes, coronary artery disease, hypertension, dyslipidemia, GERD. The patient missed a couple sessions of dialysis and developed severe lethargy, generalized weakne ss and inability to walk. In the emergency room, he was also found to be severely anemic, hemoglobi n 6.6. A chest x-ray showed pulmonary congestion, possible congestive heart failure. Also, the pat ient complained of several days of dark stool prior to admission. The patient also had urinalysis w ith trace of leukocyte esterase, 5 to 10 WBCs and WBC count on CBC was 11, mildly elevated, but band emia, though neutrophils were only 9.5%. The patient had his dialysis, started on antibiotics, rece ived CAT scan of the head which shows a subtle hyperdensity in the right cerebellar hemisphere, sulc us concerning for a tiny hemorrhage versus artifact. MRI of the brain was done showing no evidence of acute pathology, tiny chronic bilateral cerebellar infarcts, generalized volume loss, white matte r disease. His mental status has improved. Currently, has no complaints and no headache. His hemoglobin 8.1, hematocrit 23.3 after transfusion. CURRENT MEDICATIONS: MiraLax, Dulcolax, pantoprazole. Repeated WBC count 6.6. Chemistry most recent which is today, chloride 93, bicarb 27, BUN 82, creat inine 11. He came with potassium 7.1 and BUN 120, creatinine 16. ALLERGIES: NONE. SOCIAL HISTORY: No alcohol, tobacco, drug use. FAMILY HISTORY: Noncontributory. REVIEW OF SYSTEMS: All pertinent positives included in the above history of present illness. PHYSICAL EXAMINATION: VITAL SIGNS: Today, 98.1 temperature, 55 pulse, 18 respirations, 159/70 blood pressure. GENERAL: Not in acute distress, lying in bed. HEENT: Normocephalic, atraumatic head. NECK: No carotid bruits. No thyromegaly. LUNGS: Clear to auscultation bilaterally. CARDIAC: Normal cardiac rhythm and sounds. ABDOMEN: Soft, nontender, present bowel sounds. EXTREMITIES: No cyanosis, clubbing or edema. NEUROLOGIC: He is awake, alert, and oriented x3 with fluent speech. Cranial nerve examination show s intact visual syed bilaterally. Pupils postsurgical bilaterally, fixed about 2 mm on the right and very sluggish also maybe 2.5 mm on the left. Extraocular movements intact without nystagmus. S ymmetrical face. Preserved facial strength and sensation. Tongue is in midline. Palate elevates s ymmetrically. Motor strength examination seems to be preserved in all extremities. Normal bulk, to ne, and strength. Sensory examination grossly intact to light touch and pain, though vibration perc eption is diminished in the toes and fingers. Deep tendon reflexes 2+ upper extremities, absent in lower extremities. Downgoing toes bilaterally. Coordination preserved on [id number] testing. No dysmetria or tremor. Gait was not assessed. According to the patient, has no abnormality of g ait. IMPRESSION: Transient encephalopathy in patient with multiple ongoing medical problems was related to toxic metabolic reasons and seems to be resolved by now. Medical problems included severe anemia , worsening of renal insufficiency as the patient missed several dialysis, congestive heart failure, hyperkalemia. Some cerebellar hyperdense lesions on CAT scan, more likely artifactual given that MRI does not show presence of any blood, but tiny old lacunes. Continue current treatment. No other suggestions for patient's management. Given multiple risk factors for stroke, patient could have benefited from an tiplatelet treatment but not in his case of severe recent anemia, so maybe in the future if his H an d H are stable that could be considered. Again, workup for etiology of blood loss per primary docto r. Thank you very much for this interesting consultation. Dictated By: LUIS GRUBBS/FATOU Conf#: [id number] DID#: [id number]
--- NOTE | 2016-03-17 21:26 | RADRPT ---
PROCEDURE: CT Abdomen and Pelvis without contrast. CLINICAL INDICATION: Diarrhea. TECHNIQUE: Multiple contiguous axial CT images of the abdomen and pelvis were obtained without the administration of intravenous contrast. Coronal and sagittal reconstructions were also performed. CTDIvol (mGy): 16.36; Total Exam DLP (mGy-cm): 1090.95. One or more of the following dose reduction techniques were utilized: - Automated exposure control. - Adjustment of the mA and/or kV according to patient size. - Use of iterative reconstruction technique. COMPARISON: 07/10/2014. FINDINGS: Limited imaging of the lower thorax demonstrates trace bilateral pleural effusions and scattered sub segmental atelectasis. The liver and spleen are homogeneous in density. Tiny stones layer dependently within the gallbladd er lumen. The pancreas and adrenal glands are unremarkable. The kidneys are symmetric in size. Bilateral cortical thinning is present. There are no nephrourete ral stones. There is no hydronephrosis or abnormal perinephric inflammation. Renal vascular calcif ications are present. Scattered tiny The abdominal aorta is normal in caliber. Atherosclerotic calcification is present. There is no pe riaortic / retroperitoneal lymphadenopathy. The stomach and small and large intestines are unremarkable. The appendix is normal. There are no focal inflammatory changes of the mesentery. There is no mesenteric lymphadenopathy. There is no a scites. The bladder is collapsed. The prostate is enlarged measuring approximately 4.8 x 4.7 x 4.6 cm yield ing a volume of 54 cc. The seminal vesicles are unremarkable. There is no free pelvic fluid. There is no pelvic sidewall or inguinal lymphadenopathy. There is a tiny fat containing left inguinal her marino. Degenerative changes of the spine are present. Body wall soft tissues are unremarkable. IMPRESSION: No evidence of abdominopelvic mass, lymphadenopathy or acute inflammatory pathology. Trace bilateral pleural effusions with scattered basilar atelectasis. Enlarged prostate. Cholelithiasis. RPTAT: HLST .Chata Mccollum MD, Date Time Electronically viewed and signed by .Chata Mccollum MD, on 03/17/2016 21:25 .T/
--- NOTE | 2016-03-17 21:49 | RADRPT ---
Echocardiogram Report Patient Name: TAHIR HENDERSON Gender: Male Date: 1955 Study Date: 17-Mar-2016 Parachute Packer: Ryan Russ MARCUS Location: [id number] Ref. Physician: MIKE SCHAFER Quality: Good Procedures: Transthoracic echocardiogram with complete 2D, M-Mode, and doppler examination. Indications: Congestive Heart Failure. 2D/M Mode Doppler Measurement Value Normal Ranges Measurement Value Normal Ranges LVIDd 2D 5.5 3.5 - 5.6 cm AV Peak Thiago 1.5 m/sec LVIDs 2D 3.3 2.1 - 4.1 cm AV Peak PG 9.2 mmHg LVPWd 2D 1.0 0.6 - 1.1 cm LVOT Peak Thiago 1.0 m/sec IVSd 2D 0.9 0.6 - 1.1 cm LVOT Peak PG 4.3 mmHg AoR Diam 2D 2.6 2.0 - 3.7 cm MV E Peak Thiago 1.2 m/sec EDV 2D 146.6 cm3 MV A Peak Thiago 1.3 m/sec ESV 2D 36.2 cm3 MV E/A 1.0 LA Dimen 2D 4.4 2.3 - 4.0 cm MV Decel Time 221 msec MV Decel [place] 6 MV E/A 1.0 TR Peak Thiago 3.2 m/sec TR Peak PG 40.5 mmHg RVSP 44.0 mmHg Findings Left Ventricle: Normal left ventricular systolic function. Normal left ventricular cavity size. Normal left ventricular wall thickness. Ejection fraction is visually estimated at 65 %. Tissue Doppler/Mitral Doppler indices are consistent with impaired relaxation (Stage I diastolic dysfunction). Right Ventricle: Normal right ventricular size. Normal right ventricular systolic function. Left Atrium: There is mild enlargement of left atrium. Right Atrium: The right atrium is normal in size. Mitral Valve: Mitral valve leaflets appear mildly thickened. Mild mitral annular calcification. Mild mitral valve regurgitation. Aortic Valve: No hemodynamically significant aortic stenosis by doppler. Aortic cusps appear mildly calcified. Trace aortic valve regurgitation. Tricuspid Valve: Normal appearance and function of the tricuspid valve with trace physiologic regurgitation. Estimated peak PA systolic pressure 44 mmHg. Pericardium: Normal pericardium with no significant pericardial effusion. Aorta: Normal aortic root. IVC: Normal size and normal respiratory collapse consistent with normal right atrial pressure. Conclusions Normal left ventricular systolic function. Normal left ventricular cavity size. Normal left ventricular wall thickness. Ejection fraction is visually estimated at 65 %. Tissue Doppler/Mitral Doppler indices are consistent with impaired relaxation (Stage I diastolic dysfunction). Normal right ventricular size. Normal right ventricular systolic function. There is mild enlargement of left atrium. The right atrium is normal in size. Mild mitral valve regurgitation. Estimated peak PA systolic pressure 44 mmHg. No significant valvular stenosis or regurgitation seen of remaining visualized valves. Normal pericardium with no significant pericardial effusion. Electronically Signed By: Piero Junior 17-Mar-2016 21:49:11 -0800 Patient Name: TAHIR HENDERSON Study Date: 17-Mar-2016 [id number]
[2016-03-18] VITALS (14 sets, daily range): BP systolic 130–197; BP diastolic 63–89; PULSE 58–96; RESP 16–20
[2016-03-18] MEDS: PANTOPRAZOLE IV 80 MG in SOD CHLORIDE 0.9% 100 ML IV SCH (00:30)
[2016-03-18 09:52] LABS: POTASSIUM 5.1 mmol/L (3.5-5.1)
[2016-03-18 09:53] LABS: BASOPHIL # 0.1 10^3/ul (0.0-0.1); BASOPHILS % 1.2 % (0.0-2.0); EOSINOPHILS # 0.2 10^3/ul (0.0-0.5); EOSINOPHILS % 2.7 % (0.0-7.0); HEMATOCRIT 27.6 % (42.0-52.0); HEMOGLOBIN 9.1 g/dl (14.0-18.0); LYMPHOCYTES # 0.8 10^3/ul (0.8-2.9); LYMPHOCYTES % 13.3 % (15.0-51.0); MEAN CORPUSCULAR HEMOGLOBIN 30.5 pg (29.0-33.0); MEAN CORPUSCULAR VOLUME 92.6 fl (82.0-101.0); MEAN PLATELET VOLUME 11.7 fl (7.4-10.4); MONOCYTE # 0.7 10^3/ul (0.3-0.9); MONOCYTES % 12.5 % (0.0-11.0); NEUTROPHIL # 4.2 10^3/ul (1.6-7.5); NEUTROPHILS % 70.1 % (39.0-77.0); PLATELET COUNT 177 10^3/UL (140-440); RED BLOOD COUNT 2.98 10^6/ul (4.70-6.10); RED CELL DISTRIBUTION WIDTH 13.6 % (11.5-14.5); WHITE BLOOD COUNT 5.9 10^3/ul (4.8-10.8)
[2016-03-18 09:55] LABS: CREATININE 10.59 mg/dl (0.61-1.24)
[2016-03-18 09:56] LABS: CALCIUM 8.2 mg/dl (8.4-10.2)
--- NOTE | 2016-03-18 10:10 | PN ---
Date/Time of Note Date/Time of Note DATE: 03/18/16 TIME: 10:05 Assessment/Plan VTE Prophylaxis VTE Prophylaxis Intervention: contraindicated VTE Contraindication Reason: bleeding Lines/Catheters IV [facility] (from [facility]): Saline Lock Urinary Cath still in place: No Assessment/Plan Assessment/Plan A 60-year-old male who has been having lethargy and diarrhea for the last 4 to 5 days with the followin. Severe anemia with a history of black stools concerning for gastrointestinal bleed - appreciate GI recs, CT abd/pelvis- negative for acute infection/inflammatory process. Colonoscopy and EGD tomorrow 2. Fluid overload secondary to missed dialysis - dialyze as per renal 3. Generalized weakness likely secondary to severe anemia - monitor acute changes 4. 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 Mild pancreatitis - NPO 6. End-stage renal disease on hemodialysis - as per renal 7. Gastroesophageal reflux disease - protonix 8. Systemic inflammatory response syndrome with bandemia, rule out an occult infection - CT abd/pelvis negative 9. Hyperkalemia with EKG abnormalities - 2/2 missed dialysis, k protocol called - monitor acute changes 10. GI ppx - protonix 11. DVT ppx - scds dispo - f/u recs, monitor acute changes. as per clinical course. EGD/ Colonoscopy tomorrow this progress note took greater than 30 minutes to complete Subjective 24 Hr Interval Summary Free Text/Dictation Patient is doing better. He still complaining of bilateral lower extremity weakness. No other complaints. Spoke to him about the care plan. 15 minutes spent. Exam/Review of Systems Vital Signs Vitals Vital Signs Date Time Temp Pulse Resp B/P Pulse Ox O2 Delivery O2 Flow Rate FiO2 03/18/16 08:30 64 03/18/16 07:27 98.6 16 161/67 96 03/16/16 22:00 Nasal Cannula 2.0 Intake and Output 03/17/16 03/17/16 03/18/16 15:00 23:00 07:00 Intake Total 240 ml 830 ml 60 ml Output Total 3000 ml Balance 240 ml -2170 ml 60 ml Exam Gen Raul: mild distress 2/2 headache, AAOx4 HEENT: NC/AT, PERRLA, EOMI, no pharyngeal erythema, no tonsillar exudates, no lymphadenopathy, no JVD, no carotid bruits NECK: supple, no thyromegaly THORAX: symmetrical, no obvious deformities CV: S1S2, RRR, no M/G/R Lungs: CTAB no W/C/R/R Abd: soft, NT/ND, +BS, no rebound, no guarding, neg HSM EXT: no edema, no ecchymosis, no clubbing, FROM, left upper extremity bruit heard, lower extremities 4/5 strength Neuro: CN II-XII grossly intact, no focal deficits Psych: fair mood and affect Skin: C/D/I Results Result Diagram: 03/18/1615 03/18/1615 Results 24 hrs Laboratory Tests Test 03/17/16 10:45 03/17/16 14:45 03/18/16 09:15 Amylase Level 137 H Anion Gap 23 #H 21 H Basophils # 0.0 0.1 Basophils % 0.6 1.2 Blood Morphology Comment Blood Urea Nitrogen 82 #H 59 H Calcium Level 7.7 L 8.2 L Carbon Dioxide Level 27 # 29 Chloride Level 93 L 93 L Cholesterol Level 132 Cholesterol/HDL Ratio 6.0 Creatine Kinase 236 H Creatine Kinase Index 0.9 Creatinine 11.29 #H 10.59 H Creatinine Kinase MB (Mass) 2.04 Eosinophils # 0.1 0.2 Eosinophils % 1.4 2.7 Glucose Level 146 110 HDL Cholesterol 22 L Hematocrit 23.3 #L 27.6 L Hemoglobin 8.1 #L 9.1 L LDL Cholesterol, Calculated 56 Lipase 466 H Lymphocytes # 0.7 L 0.8 Lymphocytes % 10.3 L 13.3 L Magnesium Level 2.3 Mean Corpuscular Hemoglobin 31.5 30.5 Mean Corpuscular Hemoglobin Concent 34.7 33.0 Mean Corpuscular Volume 90.9 92.6 Mean Platelet Volume 9.6 11.7 #H Monocytes # 0.7 0.7 Monocytes % 9.8 12.5 H Neutrophils # 5.2 4.2 Neutrophils % 77.9 H 70.1 Nucleated Red Blood Cells # 0.0 0.0 Nucleated Red Blood Cells % 0.0 0.0 Platelet Count 159 177 Potassium Level 5.1 # 5.1 Red Blood Count 2.56 #L 2.98 L Red Cell Distribution Width 14.7 H 13.6 Sodium Level 138 138 Triglycerides Level 271 H Troponin I 0.173 *H White Blood Count 6.6 # 5.9 Stool Occult Blood NEGATIVE Medications Medications Current Medications Bisacodyl (Dulcolax) 10 mg ONCE ONCE PO ; Start 03/18/16 at 14:00; Stop 03/18/16 at 14:01 Magnesium Citrate (Citroma) 300 ml ONCE ONCE PO ; Start 03/18/16 at 16:00; Stop 03/18/16 at 16:01 Polyethylene Glycol 119 gm 119 gm ONCE ONCE PO ; Start 03/18/16 at 18:00; Stop 03/18/16 at 18:01 Pantoprazole/ Sodium Chloride (Protonix Iv/NS) 100 ml @ 10 mls/hr Q10H IV Last administered on 03/17/16t 22:41; Admin Dose 10 MLS/HR; Start 03/17/16 at 14: [address] abd/pelvis IMPRESSION: No evidence of abdominopelvic mass, lymphadenopathy or acute inflammatory pathology. Trace bilateral pleural effusions with scattered basilar atelectasis. Enlarged prostate. Cholelithiasis. BRII JAVED MD Mar 18, 2016 10:10
--- NOTE | 2016-03-18 11:29 | CONS ---
Date/Time of Note Date/Time of Note DATE: 03/18/16 TIME: 11:25 Assessment/Plan Assessment/Plan Chief Complaint/Hosp Course 60 YO M presented to ED due to increased weakness. Pt reports melena stool, nausea, and non bloody bilious vomiting that started last . Pt also reported chills and non bloody diarrhea that has since resolved. Pt reports previous colonoscopy last year but unaware of results and timing to repeat procedure. Pt denies fever, abdominal pain, sick contacts, new medications, EtOH consumption, and previous episode. Pt has PMH of ESRD on HD, HTN, and DM2. Problems: Additional Assessment/Plan Anemia * Monitor H&H every 6 hours, transfuse 2 units for hemoglobin less than 7.5 * PPI therapy * Stool OB, negative * Iron profile * EGD and colonoscopy tomorrow afternoon Diarrhea * CT abdomen 03-17-16: No evidence of abdominopelvic mass, lymphadenopathy or acute inflammatory pathology. Enlarged prostate. Cholelithiasis. Trace bilateral pleural effusions with scattered basilar atelectasis. * C. difficile stool test ESRD * Continue hemodialysis per nephrology Hypertension Diabetes mellitus type 2 Further recommendations depend on clinical course Patient seen in collaboration with Dr. Lopez Consultation Date/Type/Reason Admit Date/Time Mar 16, 2016 at 22:13 Initial Consult Date 03/17/16 Type of Consultation: GI Referring Provider: MIKE SCHAFER 24 HR Interval Summary Free Text/Dictation Tolerating diet EGD and [place] planned for tomorrow Exam/Review of Systems Vital Signs Vitals Vital Signs Date Time Temp Pulse Resp B/P Pulse Ox O2 Delivery O2 Flow Rate FiO2 03/18/16 11:06 97.9 60 18 170/76 98 03/16/16 22:00 Nasal Cannula 2.0 Intake and Output 03/17/16 03/17/16 03/18/16 14:59 22:59 06:59 Intake Total 240 ml 830 ml 60 ml Output Total 3000 ml Balance 240 ml -2170 ml 60 ml Exam Constitutional: alert, oriented, well developed Psych: nl mood/affect Head: normocephalic Eyes: EOMI, nl conjunctiva, nl lids ENMT: nl external ears & nose, nl lips & teeth, nl nasal mucosa & septum Respiratory: clear to auscultation Cardiovascular: regular rate and rhythm Gastrointestinal: non-tender, soft Musculoskeletal: nl extremities to inspection Results Result Diagram: 03/18/1615 03/18/16 0915 Results 24 hrs Laboratory Tests Test 03/17/16 14:45 03/18/16 09:15 Stool Occult Blood NEGATIVE Anion Gap 21 H Basophils # 0.1 Basophils % 1.2 Blood Urea Nitrogen 59 H Calcium Level 8.2 L Carbon Dioxide Level 29 Chloride Level 93 L Creatinine 10.59 H Eosinophils # 0.2 Eosinophils % 2.7 Glucose Level 110 Hematocrit 27.6 L Hemoglobin 9.1 L Lymphocytes # 0.8 Lymphocytes % 13.3 L Mean Corpuscular Hemoglobin 30.5 Mean Corpuscular Hemoglobin Concent 33.0 Mean Corpuscular Volume 92.6 Mean Platelet Volume 11.7 #H Monocytes # 0.7 Monocytes % 12.5 H Neutrophils # 4.2 Neutrophils % 70.1 Nucleated Red Blood Cells # 0.0 Nucleated Red Blood Cells % 0.0 Platelet Count 177 Potassium Level 5.1 Red Blood Count 2.98 L Red Cell Distribution Width 13.6 Sodium Level 138 White Blood Count 5.9 Medications Medications Current Medications Bisacodyl (Dulcolax) 10 mg ONCE ONCE PO ; Start 03/18/16 at 14:00; Stop 03/18/16 at 14:01 Magnesium Citrate (Citroma) 300 ml ONCE ONCE PO ; Start 03/18/16 at 16:00; Stop 03/18/16 at 16:01 Polyethylene Glycol (Miralax) 119 gm ONCE ONCE PO ; Start 03/18/16 at 18:00; Stop 03/18/16 at 18:01 Pantoprazole (Protonix Iv) 40 mg BID@18 IV ; Start 03/18/16 at 18:[address] MAYNARD Mar 18, 2016 11:29
[2016-03-18 11:46] LABS: IRON 44 ug/dl (35-150)
[2016-03-18 11:55] LABS: TOTAL IRON BINDING CAPACITY 261 ug/dl (241-421)
[2016-03-18] MEDS ORDERED: hydrALAzine 20 MG INJ IV SCH (12:00)
[2016-03-18] MEDS ORDERED: hydrALAzine 20 MG INJ IV PRN (12:30)
[2016-03-18] MEDS ORDERED: BISACODYL (EC) 5 MG TAB PO ONE ×2 (14:00→20:00)
[2016-03-18] MEDS ORDERED: MAGNESIUM CITRATE 300 ML BTL PO ONE (16:00)
[2016-03-18] MEDS: PANTOPRAZOLE 40 MG INJ IV SCH (17:37)
[2016-03-18] MEDS ORDERED: POLYETHYLENE GLYCOL 3350 119 GM POWDER PO ONE ×2 (18:00→20:00)
--- NOTE | 2016-03-18 22:11 | CONS ---
Date/Time of Note Date/Time of Note DATE: 03/18/16 TIME: 22:10 Assessment/Plan Assessment/Plan Additional Assessment/Plan Await GI Plans, meanwhile continue HD per schedule Consultation Date/Type/Reason Admit Date/Time Mar 16, 2016 at 22:13 Initial Consult Date 03/17/16 Type of Consultation: renal Referring Provider: MIKE SCHAFER 24 HR Interval Summary Free Text/Dictation Son & at bedside, has several questions Pt to get colonoscopy in AM Will realign HD Schedule Hct ok, may give one more unit RBC Constitutional: improved Exam/Review of Systems Vital Signs Vitals Vital Signs Date Time Temp Pulse Resp B/P Pulse Ox O2 Delivery O2 Flow Rate FiO2 03/18/16 21:33 65 130/63 03/18/16 20:00 97.8 20 100 03/16/16 22:00 Nasal Cannula 2.0 Intake and Output 03/17/16 03/17/16 03/18/16 15:00 23:00 07:00 Intake Total 240 ml 830 ml 60 ml Output Total 3000 ml Balance 240 ml -2170 ml 60 ml Exam Constitutional: alert, oriented, well developed Psych: nl mood/affect, no complaints Head: atraumatic, normocephalic Eyes: EOMI, PERRL, nl conjunctiva, nl lids, nl sclera ENMT: nl external ears & nose, nl lips & teeth, nl nasal mucosa & septum Neck: non-tender, supple Respiratory: clear to auscultation, normal air movement Cardiovascular: nl pulses, regular rate and rhythm Gastrointestinal: nl liver, spleen, non-tender, soft Musculoskeletal: nl extremities to inspection, nl gait and stance Extremities: other (AVF functioning lt arm ) 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, nl mental status, nl speech, nl strength Skin: nl turgor, No rash or lesions Additional Comments wbc nl, chemistry stable Results Result Diagram: 03/18/1615 03/18/16 0915 Results 24 hrs Laboratory Tests Test 03/18/16 07:15 03/18/16 09:15 Iron Level 44 Percent Iron Saturation 17 L Total Iron Binding Capacity 261 Anion Gap 21 H Basophils # 0.1 Basophils % 1.2 Blood Urea Nitrogen 59 H Calcium Level 8.2 L Carbon Dioxide Level 29 Chloride Level 93 L Creatinine 10.59 H Eosinophils # 0.2 Eosinophils % 2.7 Glucose Level 110 Hematocrit 27.6 L Hemoglobin 9.1 L Lymphocytes # 0.8 Lymphocytes % 13.3 L Mean Corpuscular Hemoglobin 30.5 Mean Corpuscular Hemoglobin Concent 33.0 Mean Corpuscular Volume 92.6 Mean Platelet Volume 11.7 #H Monocytes # 0.7 Monocytes % 12.5 H Neutrophils # 4.2 Neutrophils % 70.1 Nucleated Red Blood Cells # 0.0 Nucleated Red Blood Cells % 0.0 Platelet Count 177 Potassium Level 5.1 Red Blood Count 2.98 L Red Cell Distribution Width 13.6 Sodium Level 138 White Blood Count 5.9 Medications Medications Current Medications Pantoprazole (Protonix Iv) 40 mg BID@06,18 IV Last administered on 03/18/16 17: 37; Admin Dose 40 MG; Start 03/18/16 at 18:00 Hydralazine HCl (Apresoline) 10 mg Q6 PRN IV sbp over 160 Last administered on 03/18/16 20:36; Admin Dose 10 MG; Start 03/18/16 at 12:30 CHAN EL MD Mar 18, 2016 22:11
[2016-03-19] VITALS (16 sets, daily range): BP systolic 97–181; BP diastolic 48–76; PULSE 58–70; RESP 14–20
[2016-03-19] MEDS: PANTOPRAZOLE 40 MG INJ IV SCH ×2 (04:13→18:35)
[2016-03-19 06:25] LABS: INR 1.11; PROTIME 14.3 Sec (12.2-14.2); PT RATIO 1.1
[2016-03-19 06:26] LABS: PARTIAL THROMBOPLASTIN TIME 32.6 Sec (25.0-35.0)
[2016-03-19 07:05] LABS: ADD SCAN DIFF NO
[2016-03-19 07:07] LABS: BASOPHIL # 0.1 10^3/ul (0.0-0.1); BASOPHILS % 0.9 % (0.0-2.0); EOSINOPHILS # 0.3 10^3/ul (0.0-0.5); HEMATOCRIT 27.1 % (42.0-52.0); HEMOGLOBIN 8.9 g/dl (14.0-18.0); LYMPHOCYTES # 0.9 10^3/ul (0.8-2.9); MEAN CORPUSCULAR HEMOGLOBIN 30.6 pg (29.0-33.0); MEAN CORPUSCULAR HGB CONC 32.8 g/dl (32.0-37.0); MEAN CORPUSCULAR VOLUME 93.1 fl (82.0-101.0); MONOCYTE # 0.9 10^3/ul (0.3-0.9); MONOCYTES % 13.2 % (0.0-11.0); NEUTROPHIL # 4.4 10^3/ul (1.6-7.5); NEUTROPHILS % 67.7 % (39.0-77.0); PLATELET COUNT 193 10^3/UL (140-415); RED BLOOD COUNT 2.91 10^6/ul (4.70-6.10); RED CELL DISTRIBUTION WIDTH 13.4 % (11.5-14.5); WHITE BLOOD COUNT 6.5 10^3/ul (4.8-10.8)
[2016-03-19 07:10] LABS: POTASSIUM 4.9 mmol/L (3.5-5.1)
[2016-03-19 07:12] LABS: CREATININE 13.05 mg/dl (0.61-1.24)
[2016-03-19 07:13] LABS: CALCIUM 8.3 mg/dl (8.4-10.2)
--- NOTE | 2016-03-19 11:07 | PN ---
Date/Time of Note Date/Time of Note DATE: 03/19/16 TIME: 11:05 Assessment/Plan VTE Prophylaxis VTE Prophylaxis Intervention: contraindicated VTE Contraindication Reason: bleeding Lines/Catheters IV [facility]from [facility] Saline Lock Urinary Cath still in place: No Assessment/Plan Assessment/Plan A 60-year-old male who has been having lethargy and diarrhea for the last 4 to 5 days with the followin. Severe anemia with a history of black stools concerning for gastrointestinal bleed - appreciate GI recs, CT abd/pelvis- negative for acute infection/inflammatory process. Colonoscopy and EGD today 2. Fluid overload secondary to missed dialysis - dialyze as per renal - dialysis today or tomorrow needed 3. Generalized weakness likely secondary to severe anemia - monitor acute changes 4. 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 Mild pancreatitis - NPO 6. End-stage renal disease on hemodialysis - as per renal 7. Gastroesophageal reflux disease - protonix 8. Systemic inflammatory response syndrome with bandemia, rule out an occult infection - CT abd/pelvis negative 9. Hyperkalemia with EKG abnormalities - 2/2 missed dialysis, k protocol called - monitor acute changes 10. GI ppx - protonix 11. DVT ppx - scds dispo - f/u recs, monitor acute changes. as per clinical course. EGD/ Colonoscopy today this progress note took greater than 30 minutes to complete Subjective 24 Hr Interval Summary Free Text/Dictation Patient is scheduled for EGD/Colonoscopy today. He still has lower extremity weakness. Spoke to him about the care plan. 15 minutes spent. Exam/Review of Systems Vital Signs Vitals Vital Signs Date Time Temp Pulse Resp B/P Pulse Ox O2 Delivery O2 Flow Rate FiO2 03/19/16 08:29 63 03/19/16 07:48 98.1 17 147/65 98 03/19/16 04:08 Room Air 03/16/16 22:00 2.0 Intake and Output 03/18/16 03/18/16 03/19/16 15:00 23:00 07:00 Intake Total 1220 ml Balance 1220 ml Exam Gen Raul: mild distress 2/2 generalized weakness, AAOx4 HEENT: NC/AT, PERRLA, EOMI, no pharyngeal erythema, no tonsillar exudates, no lymphadenopathy, no JVD, no carotid bruits NECK: supple, no thyromegaly THORAX: symmetrical, no obvious deformities CV: S1S2, RRR, no M/G/R Lungs: CTAB no W/C/R/R Abd: soft, NT/ND, +BS, no rebound, no guarding, neg HSM EXT: no edema, no ecchymosis, no clubbing, FROM, left upper extremity bruit heard, lower extremities 4/5 strength Neuro: CN II-XII grossly intact, no focal deficits Psych: fair mood and affect Skin: C/D/I Results Result Diagram: 03/19/16 0550 03/19/16 0550 Results 24 hrs Laboratory Tests Test 03/19/16 05:50 Activated Partial Thromboplast Time 32.6 Anion Gap 24 H Basophils # 0.1 Basophils % 0.9 Blood Urea Nitrogen 73 H Calcium Level 8.3 L Carbon Dioxide Level 25 Chloride Level 95 L Creatinine 13.05 #H Eosinophils # 0.3 Eosinophils % 4.0 Glucose Level 79 Hematocrit 27.1 L Hemoglobin 8.9 L INR International Normalized Ratio 1.11 Lymphocytes # 0.9 Lymphocytes % 14.0 L Mean Corpuscular Hemoglobin 30.6 Mean Corpuscular Hemoglobin Concent 32.8 Mean Corpuscular Volume 93.1 Mean Platelet Volume 12.0 H Monocytes # 0.9 Monocytes % 13.2 H Neutrophils # 4.4 Neutrophils % 67.7 Nucleated Red Blood Cells # 0.0 Nucleated Red Blood Cells % 0.0 Platelet Count 193 Potassium Level 4.9 Prothrombin Time 14.3 H Prothrombin Time Ratio 1.1 Red Blood Count 2.91 L Red Cell Distribution Width 13.4 Sodium Level 139 White Blood Count 6.5 Medications Medications Current Medications Pantoprazole (Protonix Iv) 40 mg BID@06,18 IV Last administered on 03/19/16 04 :13; Admin Dose 40 MG; Start 03/18/16 at 18:00 Hydralazine HCl (Apresoline) 10 mg Q6 PRN IV sbp over 160 Last administered on 03/18/16 20:36; Admin Dose 10 MG; Start 03/18/16 at 12:30 BRII JAVED MD Mar 19, 2016 11:07
[2016-03-19] MEDS ORDERED: MIDAZOLAM 1 MG/ML 2 ML INJ ONE ×2 (16:02→16:03)
[2016-03-19] MEDS ORDERED: PROPOFOL 20 ML ONE (16:02)
--- NOTE | 2016-03-19 20:59 | CONS ---
Date/Time of Note Date/Time of Note DATE: 03/19/16 TIME: 20:51 Assessment/Plan Assessment/Plan Additional Assessment/Plan Await colonoscopy & further GI Plans Cont'd Hospitalization Reason: Continue monitoring Hct closelly Consultation Date/Type/Reason Admit Date/Time Mar 16, 2016 at 22:13 Initial Consult Date 03/17/16 Type of Consultation: renal Referring Provider: MIKE SCHAFER 24 HR Interval Summary Free Text/Dictation No new complaints, no bleeding from any source Constitutional: improved Exam/Review of Systems Vital Signs Vitals Vital Signs Date Time Temp Pulse Resp B/P Pulse Ox O2 Delivery O2 Flow Rate FiO2 03/19/16 20:40 70 03/19/16 19:11 97.5 19 143/63 99 03/19/16 17:09 Room Air 03/16/16 22:00 2.0 Intake and Output 03/18/16 03/18/16 03/19/16 15:00 23:00 07:00 Intake Total 1220 ml Balance 1220 ml Exam Constitutional: alert, oriented, well developed Psych: nl mood/affect, no complaints Head: atraumatic, normocephalic Eyes: EOMI, PERRL, nl conjunctiva, nl lids, nl sclera ENMT: nl external ears & nose, nl lips & teeth, nl nasal mucosa & septum Neck: non-tender, supple Respiratory: clear to auscultation, normal air movement Cardiovascular: nl pulses, regular rate and rhythm Gastrointestinal: nl liver, spleen, non-tender, soft Musculoskeletal: nl extremities to inspection, nl gait and stance Extremities: normal pulses, other (AVF lt arm) 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, nl mental status, nl speech, nl strength Skin: nl turgor, No rash or lesions Results HD in AM to return to pts' schedule of TTS HD COntinue epo for anemia Result Diagram: 03/19/16 0550 03/19/16 0550 Results 24 hrs Laboratory Tests Test 03/19/16 05:50 Activated Partial Thromboplast Time 32.6 Anion Gap 24 H Basophils # 0.1 Basophils % 0.9 Blood Urea Nitrogen 73 H Calcium Level 8.3 L Carbon Dioxide Level 25 Chloride Level 95 L Creatinine 13.05 #H Eosinophils # 0.3 Eosinophils % 4.0 Glucose Level 79 Hematocrit 27.1 L Hemoglobin 8.9 L INR International Normalized Ratio 1.11 Lymphocytes # 0.9 Lymphocytes % 14.0 L Mean Corpuscular Hemoglobin 30.6 Mean Corpuscular Hemoglobin Concent 32.8 Mean Corpuscular Volume 93.1 Mean Platelet Volume 12.0 H Monocytes # 0.9 Monocytes % 13.2 H Neutrophils # 4.4 Neutrophils % 67.7 Nucleated Red Blood Cells # 0.0 Nucleated Red Blood Cells % 0.0 Platelet Count 193 Potassium Level 4.9 Prothrombin Time 14.3 H Prothrombin Time Ratio 1.1 Red Blood Count 2.91 L Red Cell Distribution Width 13.4 Sodium Level 139 White Blood Count 6.5 Medications Medications Current Medications Pantoprazole (Protonix Iv) 40 mg BID@06,18 IV Last administered on 03/19/16 18 :35; Admin Dose 40 MG; Start 03/18/16 at 18:00 Hydralazine HCl (Apresoline) 10 mg Q6 PRN IV sbp over 160 Last administered on 03/18/16 20:36; Admin Dose 10 MG; Start 03/18/16 at 12:30 CHAN EL MD Mar 19, 2016 20:59
[2016-03-20] VITALS (19 sets, daily range): BP systolic 121–162; BP diastolic 56–78; PULSE 60–70; RESP 16–20
[2016-03-20] MEDS: PANTOPRAZOLE 40 MG INJ IV SCH (05:46)
[2016-03-20 07:25] LABS: ADD SCAN DIFF NO
[2016-03-20 07:35] LABS: BASOPHIL # 0.1 10^3/ul (0.0-0.1); BASOPHILS % 1.1 % (0.0-2.0); EOSINOPHILS # 0.4 10^3/ul (0.0-0.5); EOSINOPHILS % 6.3 % (0.0-7.0); HEMOGLOBIN 8.7 g/dl (14.0-18.0); LYMPHOCYTES # 1.1 10^3/ul (0.8-2.9); LYMPHOCYTES % 17.9 % (15.0-51.0); MEAN CORPUSCULAR HEMOGLOBIN 31.8 pg (29.0-33.0); MEAN CORPUSCULAR HGB CONC 34.6 g/dl (32.0-37.0); MEAN CORPUSCULAR VOLUME 91.9 fl (82.0-101.0); MEAN PLATELET VOLUME 9.8 fl (7.4-10.4); MONOCYTE # 0.6 10^3/ul (0.3-0.9); MONOCYTES % 9.8 % (0.0-11.0); NEUTROPHIL # 3.9 10^3/ul (1.6-7.5); NEUTROPHILS % 64.9 % (39.0-77.0); PLATELET COUNT 205 10^3/UL (140-440); RED BLOOD COUNT 2.73 10^6/ul (4.70-6.10); RED CELL DISTRIBUTION WIDTH 14.2 % (11.5-14.5)
[2016-03-20 07:40] LABS: POTASSIUM 4.9 mmol/L (3.5-5.1)
[2016-03-20 07:43] LABS: CALCIUM 7.6 mg/dl (8.4-10.2)
[2016-03-20 07:54] LABS: CREATININE 15.61 mg/dl (0.61-1.24)
--- NOTE | 2016-03-20 09:54 | PN ---
Date/Time of Note Date/Time of Note DATE: 03/20/16 TIME: 09:52 Assessment/Plan VTE Prophylaxis VTE Prophylaxis Intervention: contraindicated VTE Contraindication Reason: bleeding Lines/Catheters IV [facility] Peripheral IV Urinary Cath still in place: No Assessment/Plan Assessment/Plan A 60-year-old male who has been having lethargy and diarrhea for the last 4 to 5 days with the followin. Severe anemia with a history of black stools concerning for gastrointestinal bleed - appreciate GI recs, CT abd/pelvis- negative for acute infection/inflammatory process. Colonoscopy -- large hemorrhoids, polyp 4mm bx awaiting path, EGD - moderate esophagitis/gastritis - protonix bid 2. Fluid overload secondary to missed dialysis - dialyze as per renal - dialysis today or tomorrow needed 3. Generalized weakness likely secondary to severe anemia - monitor acute changes 4. 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 Mild pancreatitis - NPO 6. End-stage renal disease on hemodialysis - as per renal 7. Gastroesophageal reflux disease - protonix 8. Systemic inflammatory response syndrome with bandemia, rule out an occult infection - CT abd/pelvis negative 9. Hyperkalemia with EKG abnormalities - 2/2 missed dialysis, k protocol called - monitor acute changes 10. GI ppx - protonix 11. DVT ppx - scds dispo - f/u recs, monitor acute changes. as per clinical course.continue with current care - possible dc tomorrow if cleared by consultants this progress note took greater than 30 minutes to complete Subjective 24 Hr Interval Summary Free Text/Dictation Patient underwent successful EGD/Colonoscopy yesterday. He also was able to participate with PT. He is asking about undergoing dialysis. Otherwise no other acute complaints. Spoke to him about the care plan. 15 minutes spent. Exam/Review of Systems Vital Signs Vitals Vital Signs Date Time Temp Pulse Resp B/P Pulse Ox O2 Delivery O2 Flow Rate FiO2 03/20/16 08:26 64 03/20/16 07:51 98.4 18 160/70 97 03/20/16 04:00 Room Air 03/16/16 22:00 2.0 Intake and Output 03/19/16 03/19/16 03/20/16 15:00 23:00 07:00 Intake Total 360 ml 250 ml Output Total 850 ml Balance -490 ml 250 ml Exam Gen Raul: mild distress 2/2 generalized weakness, AAOx4 HEENT: NC/AT, PERRLA, EOMI, no pharyngeal erythema, no tonsillar exudates, no lymphadenopathy, no JVD, no carotid bruits NECK: supple, no thyromegaly THORAX: symmetrical, no obvious deformities CV: S1S2, RRR, no M/G/R Lungs: CTAB no W/C/R/R Abd: soft, NT/ND, +BS, no rebound, no guarding, neg HSM EXT: no edema, no ecchymosis, no clubbing, FROM, left upper extremity bruit heard, lower extremities 4/5 strength Neuro: CN II-XII grossly intact, no focal deficits Psych: fair mood and affect Skin: C/D/I Results Result Diagram: 03/20/16 0630 03/20/16 0630 Results 24 hrs Laboratory Tests Test 03/20/16 06:30 Anion Gap 27 H Basophils # 0.1 Basophils % 1.1 Blood Urea Nitrogen 89 H Calcium Level 7.6 L Carbon Dioxide Level 22 Chloride Level 95 L Creatinine 15.61 #H Eosinophils # 0.4 Eosinophils % 6.3 Glucose Level 130 # Hematocrit 25.0 L Hemoglobin 8.7 L Lymphocytes # 1.1 Lymphocytes % 17.9 Mean Corpuscular Hemoglobin 31.8 Mean Corpuscular Hemoglobin Concent 34.6 Mean Corpuscular Volume 91.9 Mean Platelet Volume 9.8 Monocytes # 0.6 Monocytes % 9.8 Neutrophils # 3.9 Neutrophils % 64.9 Nucleated Red Blood Cells # 0.0 Nucleated Red Blood Cells % 0.0 Platelet Count 205 Potassium Level 4.9 Red Blood Count 2.73 L Red Cell Distribution Width 14.2 Sodium Level 139 White Blood Count 6.0 Medications Medications Current Medications Pantoprazole (Protonix Iv) 40 mg BID@06,18 IV Last administered on 03/20/16 05 :46; Admin Dose 40 MG; Start 03/18/16 at 18:00 Hydralazine HCl (Apresoline) 10 mg Q6 PRN IV sbp over 160 Last administered on 03/18/16 20:36; Admin Dose 10 MG; Start 03/18/16 at 12:30 Epoetin Eze (Epogen (Esrd)) 6,000 units [email or web address] [place] ; Start 03/20/16 at 17:00 BRII JAVED MD Mar 20, 2016 09:54
[2016-03-20] MEDS ORDERED: GLUCAGON 1 MG INJ IM PRN (10:30)
[2016-03-20] MEDS ORDERED: DEXTROSE 50% 50 ML SYRINGE IV PRN ×2 (10:30)
[2016-03-20] MEDS ORDERED: GLUCOSE GEL 15 GRAM TUBE PO PRN ×2 (10:30)
[2016-03-20] MEDS ORDERED: GLUCOSE GEL 15 GRAM TUBE BUCCAL PRN (10:30)
--- NOTE | 2016-03-20 10:54 | GILP ---
DATE OF PROCEDURE: 03/19/2016 DATE: 03/19/2016 NAME OF PROCEDURE: Esophagogastroduodenoscopy with biopsies. SURGEON: Aly Lopez MD. PREMEDICATION: Monitored anesthesia care by anesthesiologist. INSTRUMENT USED: Olympus panendoscope. TECHNIQUE: After informed consent, with the patient/relatives understanding the procedure, its indic ations, potential risks and complications, including but not limited to: allergic reaction, bleeding , perforation or infection, and after all pertinent questions were answered to the patients satisfac tion, the patient/relatives signed witnessed informed consent. Following this, premedication was administered slowly IV push under careful cardiovascular and respi ratory monitoring with pulse oximetry, automatic blood pressure and voting machine mechanic. Once the sedative effect was achieved the patient was place in the left lateral decubitus, the panen doscope was introduced and advanced under visual control. Careful examination of the upper gastrointestinal tract, both on insertion as well as withdrawal of the instrument disclosed the following findings: ESOPHAGUS: The distal esophagus shows erythema and edema of the mucosa of a moderate degree. STOMACH: Upon entrance to the stomach air was insufflated, the gastric ramsey distended normally. The re is erythema and edema of a moderate degree. Biopsies were obtained to rule out H. pylori infecti on. . PYLORUS: The pylorus appears patent and within normal limits, with no evidence of gastric outlet obs truction. DUODENUM: The duodenal mucosa was carefully examined in the duodenal bulb as well as the second port ion of the duodenum and appears unremarkable with no evidence of duodenitis, ulcer or neoplasm. The instrument was then withdrawn, the patient tolerated the procedure well and was transfer out of the endoscopy suite awake, and in good condition to continue recovery under observation IMPRESSION: 1. Distal esophagitis. 2. Gastritis, rule out H. pylori infection. Biopsies obtained. RECOMMENDATIONS: The patient will be treated with PPIs. Further recommendation will depend on the p atient's clinical course as well as review of biopsies. Dictated By: ALY LOPEZ MS/FATOU Conf#: [id number] DID#: [id number] CC: ALY LOPEZ;*EndCC*
--- NOTE | 2016-03-20 11:00 | GILP ---
DATE OF PROCEDURE: 03/19/2016 DATE: 03/19/2016 NAME OF PROCEDURE: Colonoscopy with polyp ablation. PREMEDICATION: Monitored anesthesia care by anesthesiologist. SURGEON: Aly Lopez MD. INSTRUMENT USED: Olympus colonoscope. PREPARATION: Adequate. TECHNIQUE: After informed consent, with the patient/relatives understanding the procedure, its indic ations potential risks and complications, including but not limited to allergic reaction, bleeding, perforation, infection, missed lesions and after all pertinent questions were answered to the patien t's satisfaction, the patient/relatives signed the witnessed informed consent. Following this, premedication was administered slowly IV push by under careful cardiovascular and re spiratory monitoring with pulse oximetry, automatic blood pressure and ocean freight forwarder. Once the sedativ e effect was achieved, the patient was placed in the left lateral decubitus position, digital rectal examination was performed. The colonoscope was then introduced and advanced under visual control th roughout all segments of the colon including: the rectum, sigmoid, descending colon, splenic flexure , transverse colon, hepatic flexure, ascending colon and finally reaching the cecum which was clearl y identified by transillumination, finger indentation and the ileocecal valve. Careful examination o f the mucosa of the lower gastrointestinal tract both on insertion as well as withdrawal of the inst rument disclosed the following findings: Rectal Examination: Normal. No evidence of perirectal disease, no masses. Colonic findings: There was a 4 mm polyp in the descending colon which was ablated with biopsy force ps. Two smaller 3 and 2 mm polyps were noted in the rectum and were also ablated with biopsy forceps . The remainder of colonic mucosa was unremarkable. The ileocecal valve was clearly identified and appears unremarkable. Instrument was withdrawn. On withdrawal of the instrument, no additional ab normalities are noted with exception of large internal hemorrhoids. The patient tolerated the procedure well and was transferred out of the Endoscopy Suite awake and in good condition to continue recovery under observation. IMPRESSION: 1. A 4 mm polyp descending colon ablated. 2. Two 3 and 2 mm polyps in the rectum ablated. 3. Large internal hemorrhoids. PLAN: Pathology will be reviewed as soon as available. Further recommendation will depend on patie nt's clinical course. Colonoscopy in 5 years is recommended. Annual Hemoccult stool testing is als o recommended. Dictated By: ALY LOPEZ MS/FATOU Conf#: [id number] [facility]#: [id number]
[2016-03-20] MEDS: NPH, HUMAN INSULIN ISOPHANE 3ML VIAL SC SCH ×2 (13:27→21:17)
--- NOTE | 2016-03-20 16:01 | PN ---
Date/Time of Note Date/Time of Note DATE: 03/20/16 TIME: 15:54 Assessment/Plan VTE Prophylaxis VTE Prophylaxis Intervention: SCD's Lines/Catheters IV [facility]from [facility] Peripheral IV Urinary Cath still in place: No Assessment/Plan Assessment/Plan Anemia * EGD 03/19/16 * Distal esophagitis. * Gastritis, rule out H. pylori infection. Biopsies obtained. * Colonoscopy 03/19/16 * 4 mm polyp descending colon ablated. * Two 3 and 2 mm polyps in the rectum ablated. * Large internal hemorrhoids. Diarrhea/improved ESRD * Continue hemodialysis per nephrology Hypertension Diabetes mellitus type 2 Plan: * Continue present regimen * Review pathology as soon as available Subjective 24 Hr Interval Summary Free Text/Dictation Records reviewed with nursing staff Undergoing dialysis at this point Denies abdominal pain or diarrhea Tolerating diet without problems Exam/Review of Systems Vital Signs Vitals Vital Signs Date Time Temp Pulse Resp B/P Pulse Ox O2 Delivery O2 Flow Rate FiO2 03/20/16 14:15 62 03/20/16 13:15 14 03/20/16 11:51 98.2 121/56 98 03/20/16 04:00 Room Air 03/16/16 22:00 2.0 Intake and Output 03/19/16 03/19/16 03/20/16 14:59 22:59 06:59 Intake Total 360 ml 250 ml Output Total 850 ml Balance -490 ml 250 ml Exam Constitutional: alert, oriented, well developed Head: atraumatic, normocephalic Neck: non-tender, supple Respiratory: clear to auscultation, normal air movement Cardiovascular: nl pulses, regular rate and rhythm Gastrointestinal: nl liver, spleen, non-tender, soft Musculoskeletal: nl extremities to inspection Extremities: normal pulses Neurological: MFG ASSOC II-XII intact, nl mental status, nl speech, nl strength Skin: nl turgor, No rash or lesions Lymph: nl lymph nodes Results Result Diagram: 03/20/16 0630 03/20/16 0630 Results 24 hrs Laboratory Tests Test 03/20/16 06:30 03/20/16 13:22 Anion Gap 27 H Basophils # 0.1 Basophils % 1.1 Blood Urea Nitrogen 89 H Calcium Level 7.6 L Carbon Dioxide Level 22 Chloride Level 95 L Creatinine 15.61 #H Eosinophils # 0.4 Eosinophils % 6.3 Glucose Level 130 # Hematocrit 25.0 L Hemoglobin 8.7 L Lymphocytes # 1.1 Lymphocytes % 17.9 Mean Corpuscular Hemoglobin 31.8 Mean Corpuscular Hemoglobin Concent 34.6 Mean Corpuscular Volume 91.9 Mean Platelet Volume 9.8 Monocytes # 0.6 Monocytes % 9.8 Neutrophils # 3.9 Neutrophils % 64.9 Nucleated Red Blood Cells # 0.0 Nucleated Red Blood Cells % 0.0 Platelet Count 205 Potassium Level 4.9 Red Blood Count 2.73 L Red Cell Distribution Width 14.2 Sodium Level 139 White Blood Count 6.0 Bedside Glucose 209 Medications Medications Current Medications Epoetin Eze (Epogen (Esrd)) 6,000 units TuThSa@17 SC ; Start 03/20/16 at 17:00 Allopurinol (Zyloprim) 100 mg DAILY PO ; Start 03/21/16 at 09:00 Benazepril HCl (Lotensin) 20 mg DAILY PO ; Start 03/21/16 at 09:00 Cinacalcet (Sensipar) 30 mg BID PO ; Start 03/20/16 at 21:00 Fenofibrate (Tricor) 145 mg DAILY PO ; Start 03/21/16 at 09:00 Gemfibrozil (Lopid) 600 mg BID PO ; Start 03/20/16 at 21:00 Hydralazine HCl (Apresoline) 25 mg Q8 PO Last administered on 03/20/16 13:22; Admin Dose 25 MG; Start 03/20/16 at 14:00 Insulin Human NPH (Humulin N) 2 unit TID SC Last administered on 03/20/16 13: 27; Admin Dose 2 UNIT; Start 03/20/16 at 13:00 Loratadine (Claritin) 10 mg DAILY PO ; Start 03/21/16 at 09:00 Miscellaneous Information 1 ea NOTE XX ; Start 03/20/16 at 10:30 Glucose (Glutose) 15 gm Q15M PRN PO DECREASED GLUCOSE; Start 03/20/16 at 10:30 Glucose (Glutose) 22.5 gm Q15M PRN PO DECREASED GLUCOSE; Start 03/20/16 at 10: 30 Dextrose (D50w Syringe) 25 ml Q15M PRN IV DECREASED GLUCOSE; Start 03/20/16 at 10:30 Dextrose (D50w Syringe) 50 ml Q15M PRN IV DECREASED GLUCOSE; Start 03/20/16 at 10:30 Glucagon (Glucagen) 1 mg Q15M PRN IM DECREASED GLUCOSE; Start 03/20/16 at 10:30 Glucose (Glutose) 15 gm Q15M PRN BUCCAL DECREASED GLUCOSE; Start 03/20/16 at 10 :30 Pantoprazole (Protonix Tab) 40 mg DAILY@06 PO ; Start 03/21/16 at 06:00 ALY PARRY MD Mar 20, 2016 16:00
[2016-03-20] MEDS ORDERED: EPOETIN 3000 UNITS/1 ML INJ (ESRD) SC SCH (17:00)
[2016-03-20] MEDS: CINACALCET 30 MG TAB PO SCH (20:07)
[2016-03-20] MEDS: GEMFIBROZIL 600 MG TAB PO SCH (20:07)
--- NOTE | 2016-03-20 22:03 | CONS ---
Date/Time of Note Date/Time of Note DATE: 03/20/16 TIME: 21:56 Assessment/Plan Assessment/Plan Additional Assessment/Plan Transfuse one unit Consultation Date/Type/Reason Admit Date/Time Mar 16, 2016 at 22:13 Initial Consult Date 03/17/16 Type of Consultation: renal Referring Provider: MIKE SCHAFER 24 HR Interval Summary Free Text/Dictation Pt quite comfortable & denies complaints. Exam/Review of Systems Vital Signs Vitals Vital Signs Date Time Temp Pulse Resp B/P Pulse Ox O2 Delivery O2 Flow Rate FiO2 03/20/16 16:30 70 03/20/16 16:30 15 03/20/16 16:29 98.3 162/67 98 03/20/16 04:00 Room Air 03/16/16 22:00 2.0 Intake and Output 03/19/16 03/19/16 03/20/16 15:00 23:00 07:00 Intake Total 360 ml 250 ml Output Total 850 ml Balance -490 ml 250 ml Exam Constitutional: alert, oriented, well developed Psych: nl mood/affect, no complaints Head: atraumatic, normocephalic Eyes: EOMI, PERRL, nl conjunctiva, nl lids, nl sclera ENMT: nl external ears & nose, nl lips & teeth, nl nasal mucosa & septum Neck: non-tender, supple Respiratory: clear to auscultation, normal air movement Cardiovascular: nl pulses, regular rate and rhythm Gastrointestinal: nl liver, spleen, non-tender, other (GI Note reviewed: Pt has multiple polyps which were ablated & he also has gastritis), soft Musculoskeletal: nl extremities to inspection, nl gait and stance Extremities: normal pulses Neurological: PRODUCT MGR II-XII intact, nl mental status, nl speech, nl strength Skin: nl turgor, No rash or lesions Additional Comments Note high Creat, hct has dropped Results Result Diagram: 03/20/16 0630 03/20/16 0630 Results 24 hrs Laboratory Tests Test 03/20/16 06:30 03/20/16 13:22 03/20/16 21:06 Anion Gap 27 H Basophils # 0.1 Basophils % 1.1 Blood Urea Nitrogen 89 H Calcium Level 7.6 L Carbon Dioxide Level 22 Chloride Level 95 L Creatinine 15.61 #H Eosinophils # 0.4 Eosinophils % 6.3 Glucose Level 130 # Hematocrit 25.0 L Hemoglobin 8.7 L Lymphocytes # 1.1 Lymphocytes % 17.9 Mean Corpuscular Hemoglobin 31.8 Mean Corpuscular Hemoglobin Concent 34.6 Mean Corpuscular Volume 91.9 Mean Platelet Volume 9.8 Monocytes # 0.6 Monocytes % 9.8 Neutrophils # 3.9 Neutrophils % 64.9 Nucleated Red Blood Cells # 0.0 Nucleated Red Blood Cells % 0.0 Platelet Count 205 Potassium Level 4.9 Red Blood Count 2.73 L Red Cell Distribution Width 14.2 Sodium Level 139 White Blood Count 6.0 Bedside Glucose 209 175 Medications Medications Current Medications Epoetin Eze (Epogen (Esrd)) 6,000 units TuThSa@17 SC Last administered on 03/20 17:31; Admin Dose 6,000 UNITS; Start 03/20/16 at 17:00 Allopurinol (Zyloprim) 100 mg DAILY PO ; Start 03/21/16 at 09:00 Benazepril HCl (Lotensin) 20 mg DAILY PO ; Start 03/21/16 at 09:00 Cinacalcet (Sensipar) 30 mg BID PO Last administered on 03/20/16 20:07; Admin Dose 30 MG; Start 03/20/16 at 21:00 Fenofibrate (Tricor) 145 mg DAILY PO ; Start 03/21/16 at 09:00 Gemfibrozil (Lopid) 600 mg BID PO Last administered on 03/20/16 20:07; Admin Dose 600 MG; Start 03/20/16 at 21:00 Hydralazine HCl (Apresoline) 25 mg Q8 PO Last administered on 03/20/16 21:07; Admin Dose 25 MG; Start 03/20/16 at 14:00 Insulin Human NPH (Humulin N) 2 unit TID SC Last administered on 03/20/16 21: 17; Admin Dose 2 UNIT; Start 03/20/16 at 13:00 Loratadine (Claritin) 10 mg DAILY PO ; Start 03/21/16 at 09:00 Miscellaneous Information 1 ea NOTE XX ; Start 03/20/16 at 10:30 Glucose (Glutose) 15 gm Q15M PRN PO DECREASED GLUCOSE; Start 03/20/16 at 10:30 Glucose (Glutose) 22.5 gm Q15M PRN PO DECREASED GLUCOSE; Start 03/20/16 at 10: 30 Dextrose (D50w Syringe) 25 ml Q15M PRN IV DECREASED GLUCOSE; Start 03/20/16 at 10:30 Dextrose (D50w Syringe) 50 ml Q15M PRN IV DECREASED GLUCOSE; Start 03/20/16 at 10:30 Glucagon (Glucagen) 1 mg Q15M PRN IM DECREASED GLUCOSE; Start 03/20/16 at 10:30 Glucose (Glutose) 15 gm Q15M PRN BUCCAL DECREASED GLUCOSE; Start 03/20/16 at 10 :30 Pantoprazole (Protonix Tab) 40 mg DAILY@06 PO ; Start 03/21/16 at 06:00 CHAN EL MD Mar 20, 2016 22:03
[2016-03-21] VITALS (22 sets, daily range): BP systolic 122–182; BP diastolic 63–79; PULSE 62–72; RESP 17–20
[2016-03-21] MEDS: PANTOPRAZOLE (EC) 40 MG TAB PO SCH (06:28)
[2016-03-21 07:34] LABS: BASOPHIL # 0.1 10^3/ul (0.0-0.1); BASOPHILS % 1.3 % (0.0-2.0); EOSINOPHILS # 0.3 10^3/ul (0.0-0.5); EOSINOPHILS % 5.2 % (0.0-7.0); HEMATOCRIT 27.6 % (42.0-52.0); HEMOGLOBIN 9.4 g/dl (14.0-18.0); LYMPHOCYTES # 1.1 10^3/ul (0.8-2.9); LYMPHOCYTES % 16.2 % (15.0-51.0); MEAN CORPUSCULAR HEMOGLOBIN 31.4 pg (29.0-33.0); MEAN CORPUSCULAR HGB CONC 34.2 g/dl (32.0-37.0); MEAN CORPUSCULAR VOLUME 91.8 fl (82.0-101.0); MEAN PLATELET VOLUME 9.3 fl (7.4-10.4); MONOCYTE # 0.5 10^3/ul (0.3-0.9); MONOCYTES % 8.2 % (0.0-11.0); NEUTROPHIL # 4.5 10^3/ul (1.6-7.5); NEUTROPHILS % 69.1 % (39.0-77.0); PLATELET COUNT 195 10^3/UL (140-440); RED BLOOD COUNT 3.01 10^6/ul (4.70-6.10); RED CELL DISTRIBUTION WIDTH 13.7 % (11.5-14.5); UNCORRECTED WBC 6.5 10^3/ul (4.8-10.8); WHITE BLOOD COUNT 6.5 10^3/ul (4.8-10.8)
[2016-03-21 07:42] LABS: CONDITION 1
[2016-03-21 07:48] LABS: POTASSIUM 4.3 mmol/L (3.5-5.1)
[2016-03-21 07:51] LABS: CREATININE 9.9 mg/dl (0.61-1.24)
[2016-03-21 07:52] LABS: CALCIUM 7.9 mg/dl (8.4-10.2)
[2016-03-21] MEDS: LORATADINE 10 MG TAB PO SCH (08:14)
[2016-03-21] MEDS: BENAZEPRIL 20 MG TAB PO SCH (08:15)
[2016-03-21] MEDS: GEMFIBROZIL 600 MG TAB PO SCH ×2 (08:15→20:49)
[2016-03-21] MEDS: ALLOPURINOL 100 MG TAB PO SCH (08:15)
[2016-03-21] MEDS: FENOFIBRATE 145 MG TAB PO SCH (08:16)
[2016-03-21] MEDS: NPH, HUMAN INSULIN ISOPHANE 3ML VIAL SC SCH ×3 (08:19→20:59)
[2016-03-21] MEDS: CINACALCET 30 MG TAB PO SCH ×2 (08:37→20:49)
--- NOTE | 2016-03-21 10:17 | PN ---
Date/Time of Note Date/Time of Note DATE: 03/21/16 TIME: 10:16 Assessment/Plan VTE Prophylaxis VTE Prophylaxis Intervention: contraindicated VTE Contraindication Reason: bleeding Lines/Catheters IV Catheter Type (from Nrs): Peripheral IV Urinary Cath still in place: No Assessment/Plan Assessment/Plan A 60-year-old male who has been having lethargy and diarrhea for the last 4 to 5 days with the followin. Severe anemia with a history of black stools concerning for gastrointestinal bleed - appreciate GI recs, CT abd/pelvis- negative for acute infection/inflammatory process. Colonoscopy -- large hemorrhoids, polyp 4mm bx awaiting path, EGD - moderate esophagitis/gastritis - protonix bid - path pending 2. Fluid overload secondary to missed dialysis - dialyze as per renal - dialysis completed yesterday 3. Generalized weakness likely secondary to severe anemia - monitor acute changes 4. 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 Mild pancreatitis - restart diet -renal 6. End-stage renal disease on hemodialysis - as per renal 7. Gastroesophageal reflux disease - protonix 8. Systemic inflammatory response syndrome with bandemia, rule out an occult infection - CT abd/pelvis negative 9. Hyperkalemia with EKG abnormalities - 2/2 missed dialysis, k protocol called - monitor acute changes 10. GI ppx - protonix 11. DVT ppx - scds dispo - f/u recs, monitor acute changes. as per clinical course.continue with current care - possible dc tomorrow if cleared by consultants and if path is negative this progress note took greater than 30 minutes to complete Subjective 24 Hr Interval Summary Free Text/Dictation Patient had no overnight events. Spoke to him in regards to the care plan. awaiting pathology to determine care plan. 15 minutes spent. Exam/Review of Systems Vital Signs Vitals Vital Signs Date Time Temp Pulse Resp B/P Pulse Ox O2 Delivery O2 Flow Rate FiO2 03/21/16 08:47 62 03/21/16 08:02 98.3 20 173/75 98 03/21/16 00:27 Room Air Intake and Output 03/20/16 03/20/16 03/21/16 15:00 23:00 07:00 Intake Total 2130 ml 350 ml Output Total 2350 ml Balance -220 ml 350 ml Exam Gen Raul: mild distress 2/2 generalized weakness, AAOx4 HEENT: NC/AT, PERRLA, EOMI, no pharyngeal erythema, no tonsillar exudates, no lymphadenopathy, no JVD, no carotid bruits NECK: supple, no thyromegaly THORAX: symmetrical, no obvious deformities CV: S1S2, RRR, no M/G/R Lungs: CTAB no W/C/R/R Abd: soft, NT/ND, +BS, no rebound, no guarding, neg HSM EXT: no edema, no ecchymosis, no clubbing, FROM, left upper extremity bruit heard, lower extremities 4/5 strength Neuro: CN II-XII grossly intact, no focal deficits Psych: fair mood and affect Skin: C/D/I Results Result Diagram: 03/21/16 0610 03/21/16 0610 Results 24 hrs Laboratory Tests Test 03/20/16 13:22 03/20/16 21:06 03/21/16 06:10 Bedside Glucose 209 175 Anion Gap 20 #H Basophils # 0.1 Basophils % 1.3 Blood Urea Nitrogen 45 #H Calcium Level 7.9 L Carbon Dioxide Level 29 Chloride Level 96 L Creatinine 9.90 #H Eosinophils # 0.3 Eosinophils % 5.2 Glucose Level 102 Hematocrit 27.6 L Hemoglobin 9.4 L Lymphocytes # 1.1 Lymphocytes % 16.2 Mean Corpuscular Hemoglobin 31.4 Mean Corpuscular Hemoglobin Concent 34.2 Mean Corpuscular Volume 91.8 Mean Platelet Volume 9.3 Monocytes # 0.5 Monocytes % 8.2 Neutrophils # 4.5 Neutrophils % 69.1 Nucleated Red Blood Cells # 0.0 Nucleated Red Blood Cells % 0.0 Platelet Count 195 Potassium Level 4.3 Red Blood Count 3.01 L Red Cell Distribution Width 13.7 Sodium Level 141 White Blood Count 6.5 Medications Medications Current Medications Epoetin Eze (Epogen (Esrd)) 6,000 units TuThSa@17 SC Last administered on 03/20 17:31; Admin Dose 6,000 UNITS; Start 03/20/16 at 17:00 Allopurinol (Zyloprim) 100 mg DAILY PO Last administered on 03/21/16 08:15; Admin Dose 100 MG; Start 03/21/16 at 09:00 Benazepril HCl (Lotensin) 20 mg DAILY PO Last administered on 03/21/16 08:15; Admin Dose 20 MG; Start 03/21/16 at 09:00 Cinacalcet (Sensipar) 30 mg BID PO Last administered on 03/21/16 08:37; Admin Dose 30 MG; Start 03/20/16 at 21:00 Fenofibrate (Tricor) 145 mg DAILY PO Last administered on 03/21/16 08:16; Admin Dose 145 MG; Start 03/21/16 at 09:00 Gemfibrozil (Lopid) 600 mg BID PO Last administered on 03/21/16 08:15; Admin Dose 600 MG; Start 03/20/16 at 21:00 Hydralazine HCl (Apresoline) 25 mg Q8 PO Last administered on 03/21/16 06:28; Admin Dose 25 MG; Start 03/20/16 at 14:00 Insulin Human NPH (Humulin N) 2 unit TID SC Last administered on 03/21/16 08: 19; Admin Dose 2 UNIT; Start 03/20/16 at 13:00 Loratadine (Claritin) 10 mg DAILY PO Last administered on 03/21/16 08:14; Admin Dose 10 MG; Start 03/21/16 at 09:00 Miscellaneous Information 1 ea NOTE XX ; Start 03/20/16 at 10:30 Glucose (Glutose) 15 gm Q15M PRN PO DECREASED GLUCOSE; Start 03/20/16 at 10:30 Glucose (Glutose) 22.5 gm Q15M PRN PO DECREASED GLUCOSE; Start 03/20/16 at 10: 30 Dextrose (D50w Syringe) 25 ml Q15M PRN IV DECREASED GLUCOSE; Start 03/20/16 at 10:30 Dextrose (D50w Syringe) 50 ml Q15M PRN IV DECREASED GLUCOSE; Start 03/20/16 at 10:30 Glucagon (Glucagen) 1 mg Q15M PRN IM DECREASED GLUCOSE; Start 03/20/16 at 10:30 Glucose (Glutose) 15 gm Q15M PRN BUCCAL DECREASED GLUCOSE; Start 03/20/16 at 10 :30 Pantoprazole (Protonix Tab) 40 mg DAILY@06 PO Last administered on 03/21/16 06 :28; Admin Dose 40 MG; Start 03/21/16 at 06:00 BRII JAVED MD Mar 21, 2016 10:17
--- NOTE | 2016-03-21 10:49 | PN ---
Date/Time of Note Date/Time of Note DATE: 03/21/16 TIME: 10:47 Assessment/Plan VTE Prophylaxis VTE Prophylaxis Intervention: other Lines/Catheters Urinary Cath still in place: No Assessment/Plan Problems: (1) End stage kidney disease Status: Chronic (2) Severe anemia Status: Chronic (3) Headache Status: Chronic Qualifiers: Headache type: unspecified Headache chronicity pattern: acute headache Intractability: not intractable Qualified Code: R51 - Acute nonintractable headache, unspecified headache type Assessment/Plan [id number] on hd d/w hd nurse Subjective 24 Hr Interval Summary Constitutional: no complaints Exam/Review of Systems Vital Signs Vitals Vital Signs Date Time Temp Pulse Resp B/P Pulse Ox O2 Delivery O2 Flow Rate FiO2 03/21/16 08:47 62 03/21/16 08:02 98.3 20 173/75 98 03/21/16 00:27 Room Air Intake and Output 03/20/16 03/20/16 03/21/16 15:00 23:00 07:00 Intake Total 2130 ml 350 ml Output Total 2350 ml Balance -220 ml 350 ml Exam Constitutional: alert, oriented, well developed Psych: no complaints Eyes: nl conjunctiva Neck: supple Respiratory: clear to auscultation, normal air movement Cardiovascular: nl pulses, regular rate and rhythm Gastrointestinal: nl liver, spleen, soft Extremities: normal pulses Results Result Diagram: 03/21/16 0610 03/21/16 0610 Results 24 hrs Laboratory Tests Test 03/20/16 13:22 03/20/16 21:06 03/21/16 06:10 Bedside Glucose 209 175 Anion Gap 20 #H Basophils # 0.1 Basophils % 1.3 Blood Urea Nitrogen 45 #H Calcium Level 7.9 L Carbon Dioxide Level 29 Chloride Level 96 L Creatinine 9.90 #H Eosinophils # 0.3 Eosinophils % 5.2 Glucose Level 102 Hematocrit 27.6 L Hemoglobin 9.4 L Lymphocytes # 1.1 Lymphocytes % 16.2 Mean Corpuscular Hemoglobin 31.4 Mean Corpuscular Hemoglobin Concent 34.2 Mean Corpuscular Volume 91.8 Mean Platelet Volume 9.3 Monocytes # 0.5 Monocytes % 8.2 Neutrophils # 4.5 Neutrophils % 69.1 Nucleated Red Blood Cells # 0.0 Nucleated Red Blood Cells % 0.0 Platelet Count 195 Potassium Level 4.3 Red Blood Count 3.01 L Red Cell Distribution Width 13.7 Sodium Level 141 White Blood Count 6.5 Medications Medications Current Medications Epoetin Eze (Epogen (Esrd)) 6,000 units TuThSa@17 SC Last administered on 03/20 17:31; Admin Dose 6,000 UNITS; Start 03/20/16 at 17:00 Allopurinol (Zyloprim) 100 mg DAILY PO Last administered on 03/21/16 08:15; Admin Dose 100 MG; Start 03/21/16 at 09:00 Benazepril HCl (Lotensin) 20 mg DAILY PO Last administered on 03/21/16 08:15; Admin Dose 20 MG; Start 03/21/16 at 09:00 Cinacalcet (Sensipar) 30 mg BID PO Last administered on 03/21/16 08:37; Admin Dose 30 MG; Start 03/20/16 at 21:00 Fenofibrate (Tricor) 145 mg DAILY PO Last administered on 03/21/16 08:16; Admin Dose 145 MG; Start 03/21/16 at 09:00 Gemfibrozil (Lopid) 600 mg BID PO Last administered on 03/21/16 08:15; Admin Dose 600 MG; Start 03/20/16 at 21:00 Hydralazine HCl (Apresoline) 25 mg Q8 PO Last administered on 03/21/16 06:28; Admin Dose 25 MG; Start 03/20/16 at 14:00 Insulin Human NPH (Humulin N) 2 unit TID SC Last administered on 03/21/16 08: 19; Admin Dose 2 UNIT; Start 03/20/16 at 13:00 Loratadine (Claritin) 10 mg DAILY PO Last administered on 03/21/16 08:14; Admin Dose 10 MG; Start 03/21/16 at 09:00 Miscellaneous Information 1 ea NOTE XX ; Start 03/20/16 at 10:30 Glucose (Glutose) 15 gm Q15M PRN PO DECREASED GLUCOSE; Start 03/20/16 at 10:30 Glucose (Glutose) 22.5 gm Q15M PRN PO DECREASED GLUCOSE; Start 03/20/16 at 10: 30 Dextrose (D50w Syringe) 25 ml Q15M PRN IV DECREASED GLUCOSE; Start 03/20/16 at 10:30 Dextrose (D50w Syringe) 50 ml Q15M PRN IV DECREASED GLUCOSE; Start 03/20/16 at 10:30 Glucagon (Glucagen) 1 mg Q15M PRN IM DECREASED GLUCOSE; Start 03/20/16 at 10:30 Glucose (Glutose) 15 gm Q15M PRN BUCCAL DECREASED GLUCOSE; Start 03/20/16 at 10 :30 Pantoprazole (Protonix Tab) 40 mg DAILY@06 PO Last administered on 03/21/16t 06 :28; Admin Dose 40 MG; Start 03/21/16 at 06:00 MARIA TERESA UGALDE MD Mar 21, 2016 10:49
--- NOTE | 2016-03-21 12:06 | PN ---
Date/Time of Note Date/Time of Note DATE: 03/21/16 TIME: 12:04 Assessment/Plan VTE Prophylaxis VTE Prophylaxis Intervention: SCD's Lines/Catheters Urinary Cath still in place: No Assessment/Plan Assessment/Plan Assessment: Anemia * EGD 03/19/16 * Distal esophagitis. * Gastritis, rule out H. pylori infection. Biopsies obtained. * Colonoscopy 03/19/16 * 4 mm polyp descending colon ablated. * Two 3 and 2 mm polyps in the rectum ablated. * Large internal hemorrhoids. Diarrhea/improved ESRD * Continue hemodialysis per nephrology Hypertension Diabetes mellitus type 2 Plan: * Continue present regimen * Review pathology as soon as available * Patient appears safe for outpatient follow-up Subjective 24 Hr Interval Summary Free Text/Dictation Course reviewed with nursing staff Patient is comfortable with no specific complaints Tolerating diet No diarrhea Pathology pending Exam/Review of Systems Vital Signs Vitals Vital Signs Date Time Temp Pulse Resp B/P Pulse Ox O2 Delivery O2 Flow Rate FiO2 03/21/16 12:00 63 20 03/21/16 11:43 98.3 168/75 100 03/21/16 00:27 Room Air Intake and Output 03/20/16 03/20/16 03/21/16 15:00 23:00 07:00 Intake Total 2130 ml 350 ml Output Total 2350 ml Balance -220 ml 350 ml Exam Constitutional: alert, obese, oriented, well developed Head: atraumatic, normocephalic Neck: non-tender, supple Respiratory: clear to auscultation, normal air movement Cardiovascular: nl pulses, regular rate and rhythm Gastrointestinal: nl liver, spleen, non-tender, soft Results Result Diagram: 03/21/16 0610 03/21/16 0610 Results 24 hrs Laboratory Tests Test 03/20/16 13:22 03/20/16 21:06 03/21/16 06:10 Bedside Glucose 209 175 Anion Gap 20 #H Basophils # 0.1 Basophils % 1.3 Blood Urea Nitrogen 45 #H Calcium Level 7.9 L Carbon Dioxide Level 29 Chloride Level 96 L Creatinine 9.90 #H Eosinophils # 0.3 Eosinophils % 5.2 Glucose Level 102 Hematocrit 27.6 L Hemoglobin 9.4 L Lymphocytes # 1.1 Lymphocytes % 16.2 Mean Corpuscular Hemoglobin 31.4 Mean Corpuscular Hemoglobin Concent 34.2 Mean Corpuscular Volume 91.8 Mean Platelet Volume 9.3 Monocytes # 0.5 Monocytes % 8.2 Neutrophils # 4.5 Neutrophils % 69.1 Nucleated Red Blood Cells # 0.0 Nucleated Red Blood Cells % 0.0 Platelet Count 195 Potassium Level 4.3 Red Blood Count 3.01 L Red Cell Distribution Width 13.7 Sodium Level 141 White Blood Count 6.5 Medications Medications Current Medications Epoetin Eze (Epogen (Esrd)) 6,000 units TuThSa@17 SC Last administered on 03/20 17:31; Admin Dose 6,000 UNITS; Start 03/20/16 at 17:00 Allopurinol (Zyloprim) 100 mg DAILY PO Last administered on 03/21/16 08:15; Admin Dose 100 MG; Start 03/21/16 at 09:00 Benazepril HCl (Lotensin) 20 mg DAILY PO Last administered on 03/21/16 08:15; Admin Dose 20 MG; Start 03/21/16 at 09:00 Cinacalcet (Sensipar) 30 mg BID PO Last administered on 03/21/16 08:37; Admin Dose 30 MG; Start 03/20/16 at 21:00 Fenofibrate (Tricor) 145 mg DAILY PO Last administered on 03/21/16 08:16; Admin Dose 145 MG; Start 03/21/16 at 09:00 Gemfibrozil (Lopid) 600 mg BID PO Last administered on 03/21/16 08:15; Admin Dose 600 MG; Start 03/20/16 at 21:00 Hydralazine HCl (Apresoline) 25 mg Q8 PO Last administered on 03/21/16 06:28; Admin Dose 25 MG; Start 03/20/16 at 14:00 Insulin Human NPH (Humulin N) 2 unit TID SC Last administered on 03/21/16 08: 19; Admin Dose 2 UNIT; Start 03/20/16 at 13:00 Loratadine (Claritin) 10 mg DAILY PO Last administered on 03/21/16 08:14; Admin Dose 10 MG; Start 03/21/16 at 09:00 Miscellaneous Information 1 ea NOTE XX ; Start 03/20/16 at 10:30 Glucose (Glutose) 15 gm Q15M PRN PO DECREASED GLUCOSE; Start 03/20/16 at 10:30 Glucose (Glutose) 22.5 gm Q15M PRN PO DECREASED GLUCOSE; Start 03/20/16 at 10: 30 Dextrose (D50w Syringe) 25 ml Q15M PRN IV DECREASED GLUCOSE; Start 03/20/16 at 10:30 Dextrose (D50w Syringe) 50 ml Q15M PRN IV DECREASED GLUCOSE; Start 03/20/16 at 10:30 Glucagon (Glucagen) 1 mg Q15M PRN IM DECREASED GLUCOSE; Start 03/20/16 at 10:30 Glucose (Glutose) 15 gm Q15M PRN BUCCAL DECREASED GLUCOSE; Start 03/20/16 at 10 :30 Pantoprazole (Protonix Tab) 40 mg DAILY@06 PO Last administered on 03/21/16t 06 :28; Admin Dose 40 MG; Start 03/21/16 at 06:00 ALY PARRY MD Mar 21, 2016 12:06
[2016-03-22] VITALS (13 sets, daily range): BP systolic 129–188; BP diastolic 60–83; PULSE 63–85; RESP 18–20
[2016-03-22] MEDS ORDERED: hydrALAzine 20 MG INJ IV PRN ×2 (00:30→10:30)
[2016-03-22 06:17] LABS: BASOPHIL # 0.1 10^3/ul (0.0-0.1); BASOPHILS % 1.5 % (0.0-2.0); EOSINOPHILS # 0.4 10^3/ul (0.0-0.5); EOSINOPHILS % 6.4 % (0.0-7.0); HEMATOCRIT 31.2 % (42.0-52.0); HEMOGLOBIN 10.6 g/dl (14.0-18.0); LYMPHOCYTES # 0.9 10^3/ul (0.8-2.9); LYMPHOCYTES % 15.6 % (15.0-51.0); MEAN CORPUSCULAR HEMOGLOBIN 31.4 pg (29.0-33.0); MEAN CORPUSCULAR VOLUME 92.3 fl (82.0-101.0); MONOCYTE # 0.6 10^3/ul (0.3-0.9); MONOCYTES % 10.3 % (0.0-11.0); NEUTROPHILS % 66.2 % (39.0-77.0); PLATELET COUNT 223 10^3/UL (140-440); RED BLOOD COUNT 3.38 10^6/ul (4.70-6.10); RED CELL DISTRIBUTION WIDTH 14.2 % (11.5-14.5); UNCORRECTED WBC 6.1 10^3/ul (4.8-10.8); WHITE BLOOD COUNT 6.1 10^3/ul (4.8-10.8)
[2016-03-22] MEDS: PANTOPRAZOLE (EC) 40 MG TAB PO SCH (06:18)
[2016-03-22 06:20] LABS: POTASSIUM 4.6 mmol/L (3.5-5.1)
[2016-03-22 06:22] LABS: CREATININE 9.23 mg/dl (0.61-1.24)
[2016-03-22 06:23] LABS: CALCIUM 8.5 mg/dl (8.4-10.2)
[2016-03-22 06:26] LABS: CONDITION 1
[2016-03-22] MEDS: BENAZEPRIL 20 MG TAB PO SCH (08:58)
[2016-03-22] MEDS: LORATADINE 10 MG TAB PO SCH (08:58)
[2016-03-22] MEDS: GEMFIBROZIL 600 MG TAB PO SCH ×2 (08:58→21:29)
[2016-03-22] MEDS: CINACALCET 30 MG TAB PO SCH ×2 (08:58→21:29)
[2016-03-22] MEDS: ALLOPURINOL 100 MG TAB PO SCH (08:59)
[2016-03-22] MEDS: FENOFIBRATE 145 MG TAB PO SCH (08:59)
[2016-03-22] MEDS: NPH, HUMAN INSULIN ISOPHANE 3ML VIAL SC SCH ×3 (09:05→21:42)
--- NOTE | 2016-03-22 09:59 | PN ---
Date/Time of Note Date/Time of Note DATE: 03/22/16 TIME: 09:52 Assessment/Plan VTE Prophylaxis VTE Prophylaxis Intervention: contraindicated VTE Contraindication Reason: bleeding Lines/Catheters [facility] [place] [facility] Urinary Cath still in place: No Assessment/Plan Chief Complaint/Hosp Course Assessment/Plan: 60-year-old male who has been having lethargy and diarrhea for the last 4 to 5 days with the followin. Severe anemia - with a history of black stools concerning for gastrointestinal bleed - appreciate GI recs, CT abd/pelvis- negative for acute infection/inflammatory process. Colonoscopy -- large hemorrhoids, polyp 4mm bx awaiting path, EGD - moderate esophagitis/gastritis - protonix bid - path pending. H/H stable. - monitor, f/u path results and GI rec's. 2. Fluid overload secondary to missed dialysis - - dialysis completed yesterday -continue dialyze as per renal 3. Generalized weakness likely secondary to severe anemia - monitor acute changes 4. Small tiny cerebellar hemorrhage versus artifact on CT - possible new CVA vs old - MRI shows chronic - appreciate neurology recs - monitor 5. Mild pancreatitis - stable now - restart diet -renal 6. End-stage renal disease on hemodialysis - as per renal 7. Gastroesophageal reflux disease - protonix 8. Systemic inflammatory response syndrome with bandemia, rule out an occult infection - CT abd/pelvis negative 9. Hyperkalemia with EKG abnormalities - 2/2 missed dialysis, k protocol called - K levels stable now - monitor acute changes 10. GI ppx - protonix 11. DVT ppx - scds dispo - f/u recs, monitor acute changes. as per clinical course.continue with current care - possible dc tomorrow if cleared by consultants and if path is negative Problems: Subjective 24 Hr Interval Summary Free Text/Dictation No acute events overnight, had HD yesterday. Exam/Review of Systems Vital Signs Vitals Vital Signs Date Time Temp Pulse Resp B/P Pulse Ox O2 Delivery O2 Flow Rate FiO2 03/22/16 09:44 69 03/22/16 07:46 98.1 18 135/60 99 Room Air Intake and Output 03/21/16 03/21/16 03/22/16 15:00 23:00 07:00 Intake Total 500 ml 850 ml 350 ml Output Total 3000 ml Balance -2500 ml 850 ml 350 ml Exam Gen Raul: sleeping, NAD, AAOx4 HEENT: NC/AT, PERRLA, EOMI NECK: supple, no thyromegaly THORAX: symmetrical, no obvious deformities CV: S1S2, RRR, no M/G/R Lungs: CTAB no W/C/R/R Abd: soft, NT/ND, +BS, no rebound, no guarding, neg HSM EXT: no edema, no ecchymosis, no clubbing, FROM, left upper extremity bruit heard, lower extremities 4/5 strength Neuro: CN II-XII grossly intact, no focal deficits Psych: fair mood and affect Skin: C/D/I Results Result Diagram: 03/22/1635 03/22/16534 Results 24 hrs Laboratory Tests Test 03/21/16 20:52 03/22/16 05:35 03/22/16 07:43 Bedside Glucose 126 130 Anion Gap 20 H Basophils # 0.1 Basophils % 1.5 Blood Urea Nitrogen 39 H Calcium Level 8.5 Carbon Dioxide Level 28 Chloride Level 101 Creatinine 9.23 H Eosinophils # 0.4 Eosinophils % 6.4 Glucose Level 115 Hematocrit 31.2 L Hemoglobin 10.6 L Lymphocytes # 0.9 Lymphocytes % 15.6 Mean Corpuscular Hemoglobin 31.4 Mean Corpuscular Hemoglobin Concent 34.0 Mean Corpuscular Volume 92.3 Mean Platelet Volume 9.0 Monocytes # 0.6 Monocytes % 10.3 Neutrophils # 4.0 Neutrophils % 66.2 Nucleated Red Blood Cells # 0.0 Nucleated Red Blood Cells % 0.0 Platelet Count 223 Potassium Level 4.6 Red Blood Count 3.38 L Red Cell Distribution Width 14.2 Sodium Level 144 White Blood Count 6.1 Medications Medications Current Medications Epoetin Eze (Epogen (Esrd)) 6,000 units TuThSa@17 SC Last administered on 03/20 17:31; Admin Dose 6,000 UNITS; Start 03/20/16 at 17:00 Allopurinol (Zyloprim) 100 mg DAILY PO Last administered on 03/22/16 08:59; Admin Dose 100 MG; Start 03/21/16 at 09:00 Benazepril HCl (Lotensin) 20 mg DAILY PO Last administered on 03/22/16 08:58; Admin Dose 20 MG; Start 03/21/16 at 09:00 Cinacalcet (Sensipar) 30 mg BID PO Last administered on 03/22/16 08:58; Admin Dose 30 MG; Start 03/20/16 at 21:00 Fenofibrate (Tricor) 145 mg DAILY PO Last administered on 03/22/16 08:59; Admin Dose 145 MG; Start 03/21/16 at 09:00 Gemfibrozil (Lopid) 600 mg BID PO Last administered on 03/22/16 08:58; Admin Dose 600 MG; Start 03/20/16 at 21:00 Hydralazine HCl (Apresoline) 25 mg Q8 PO Last administered on 03/22/16 06:18; Admin Dose 25 MG; Start 03/20/16 at 14:00 Insulin Human NPH (Humulin N) 2 unit TID SC Last administered on 03/22/16 09: 05; Admin Dose 2 UNIT; Start 03/20/16 at 13:00 Loratadine (Claritin) 10 mg DAILY PO Last administered on 03/22/16 08:58; Admin Dose 10 MG; Start 03/21/16 at 09:00 Miscellaneous Information 1 ea NOTE XX ; Start 03/20/16 at 10:30 Glucose (Glutose) 15 gm Q15M PRN PO DECREASED GLUCOSE; Start 03/20/16 at 10:30 Glucose (Glutose) 22.5 gm Q15M PRN PO DECREASED GLUCOSE; Start 03/20/16 at 10: 30 Dextrose (D50w Syringe) 25 ml Q15M PRN IV DECREASED GLUCOSE; Start 03/20/16 at 10:30 Dextrose (D50w Syringe) 50 ml Q15M PRN IV DECREASED GLUCOSE; Start 03/20/16 at 10:30 Glucagon (Glucagen) 1 mg Q15M PRN IM DECREASED GLUCOSE; Start 03/20/16 at 10:30 Glucose (Glutose) 15 gm Q15M PRN BUCCAL DECREASED GLUCOSE; Start 03/20/16 at 10 :30 Pantoprazole (Protonix Tab) 40 mg DAILY@06 PO Last administered on 03/22/16 06 :18; Admin Dose 40 MG; Start 03/21/16 at 06:00 Hydralazine HCl (Apresoline) 20 mg Q6H PRN IV ELEVATED BLOOD PRESSURE Last administered on 03/22/16t 00:42; Admin Dose 20 MG; Start 03/22/16 at 00:30 RAJAN STAHL Mar 22, 2016 09:58
--- NOTE | 2016-03-22 18:15 | CONS ---
Date/Time of Note Date/Time of Note DATE: 03/22/16 TIME: 18:08 Assessment/Plan Assessment/Plan Additional Assessment/Plan Await GI plans If still here will need hd in the hosp Consultation Date/Type/Reason Admit Date/Time Mar 16, 2016 at 22:13 Initial Consult Date 03/17/16 Type of Consultation: renal Referring Provider: MIKE SCHAFER 24 HR Interval Summary Free Text/Dictation pt denies complaints of gi bleeding Exam/Review of Systems Vital Signs Vitals Vital Signs Date Time Temp Pulse Resp B/P Pulse Ox O2 Delivery O2 Flow Rate FiO2 03/22/16 17:15 98.2 70 18 135/63 99 Room Air Intake and Output 03/21/16 03/21/16 03/22/16 15:00 23:00 07:00 Intake Total 500 ml 850 ml 350 ml Output Total 3000 ml Balance -2500 ml 850 ml 350 ml Exam Constitutional: alert, oriented, well developed Psych: nl mood/affect, no complaints Head: atraumatic, normocephalic Eyes: EOMI, PERRL, nl conjunctiva, nl lids, nl sclera ENMT: nl external ears & nose, nl lips & teeth, nl nasal mucosa & septum Neck: non-tender, supple Respiratory: clear to auscultation, normal air movement Cardiovascular: nl pulses, regular rate and rhythm Gastrointestinal: nl liver, spleen, non-tender, soft Musculoskeletal: nl extremities to inspection, nl gait and stance, other Extremities: normal pulses Neurological: LEGAL REFEREE II-XII intact, nl mental status, nl speech, nl strength Skin: nl turgor, No rash or lesions Additional Comments lt arm avf Results Hct improved 31% Result Diagram: 03/22/16 0535 03/22/16 0535 Results 24 hrs Laboratory Tests Test 03/21/16 20:52 03/22/16 05:35 03/22/16 07:43 Bedside Glucose 126 130 Anion Gap 20 H Basophils # 0.1 Basophils % 1.5 Blood Urea Nitrogen 39 H Calcium Level 8.5 Carbon Dioxide Level 28 Chloride Level 101 Creatinine 9.23 H Eosinophils # 0.4 Eosinophils % 6.4 Glucose Level 115 Hematocrit 31.2 L Hemoglobin 10.6 L Lymphocytes # 0.9 Lymphocytes % 15.6 Mean Corpuscular Hemoglobin 31.4 Mean Corpuscular Hemoglobin Concent 34.0 Mean Corpuscular Volume 92.3 Mean Platelet Volume 9.0 Monocytes # 0.6 Monocytes % 10.3 Neutrophils # 4.0 Neutrophils % 66.2 Nucleated Red Blood Cells # 0.0 Nucleated Red Blood Cells % 0.0 Platelet Count 223 Potassium Level 4.6 Red Blood Count 3.38 L Red Cell Distribution Width 14.2 Sodium Level 144 White Blood Count 6.1 Medications Medications Current Medications Epoetin Eze (Epogen (Esrd)) 6,000 units TuThSa@17 SC Last administered on 03/20 17:31; Admin Dose 6,000 UNITS; Start 03/20/16 at 17:00 Allopurinol (Zyloprim) 100 mg DAILY PO Last administered on 03/22/16 08:59; Admin Dose 100 MG; Start 03/21/16 at 09:00 Benazepril HCl (Lotensin) 20 mg DAILY PO Last administered on 03/22/16 08:58; Admin Dose 20 MG; Start 03/21/16 at 09:00 Cinacalcet (Sensipar) 30 mg BID PO Last administered on 03/22/16 08:58; Admin Dose 30 MG; Start 03/20/16 at 21:00 Fenofibrate (Tricor) 145 mg DAILY PO Last administered on 03/22/16 08:59; Admin Dose 145 MG; Start 03/21/16 at 09:00 Gemfibrozil (Lopid) 600 mg BID PO Last administered on 03/22/16 08:58; Admin Dose 600 MG; Start 03/20/16 at 21:00 Hydralazine HCl (Apresoline) 25 mg Q8 PO Last administered on 03/22/16 13:22; Admin Dose 25 MG; Start 03/20/16 at 14:00 Insulin Human NPH (Humulin N) 2 unit TID SC Last administered on 03/22/16 13: 25; Admin Dose 2 UNIT; Start 03/20/16 at 13:00 Loratadine (Claritin) 10 mg DAILY PO Last administered on 03/22/16 08:58; Admin Dose 10 MG; Start 03/21/16 at 09:00 Miscellaneous Information 1 ea NOTE XX ; Start 03/20/16 at 10:30 Glucose (Glutose) 15 gm Q15M PRN PO DECREASED GLUCOSE; Start 03/20/16 at 10:30 Glucose (Glutose) 22.5 gm Q15M PRN PO DECREASED GLUCOSE; Start 03/20/16 at 10: 30 Dextrose (D50w Syringe) 25 ml Q15M PRN IV DECREASED GLUCOSE; Start 03/20/16 at 10:30 Dextrose (D50w Syringe) 50 ml Q15M PRN IV DECREASED GLUCOSE; Start 03/20/16 at 10:30 Glucagon (Glucagen) 1 mg Q15M PRN IM DECREASED GLUCOSE; Start 03/20/16 at 10:30 Glucose (Glutose) 15 gm Q15M PRN BUCCAL DECREASED GLUCOSE; Start 03/20/16 at 10 :30 Pantoprazole (Protonix Tab) 40 mg DAILY@06 PO Last administered on 03/22/16t 06 :18; Admin Dose 40 MG; Start 03/21/16 at 06:00 Hydralazine HCl (Apresoline) 10 mg Q4H PRN IV ELEVATED BLOOD PRESSURE; Start at 10:30 CHAN EL MD Mar 22, 2016 18:15
[2016-03-23] VITALS (10 sets, daily range): BP systolic 120–171; BP diastolic 60–91; PULSE 72–82; RESP 19–20
[2016-03-23] MEDS: PANTOPRAZOLE (EC) 40 MG TAB PO SCH (06:18)
[2016-03-23 07:14] LABS: BASOPHIL # 0.1 10^3/ul (0.0-0.1); BASOPHILS % 1.3 % (0.0-2.0); EOSINOPHILS # 0.5 10^3/ul (0.0-0.5); EOSINOPHILS % 8.7 % (0.0-7.0); HEMOGLOBIN 9.9 g/dl (14.0-18.0); LYMPHOCYTES # 1.2 10^3/ul (0.8-2.9); MEAN CORPUSCULAR HEMOGLOBIN 31.6 pg (29.0-33.0); MEAN CORPUSCULAR HGB CONC 34.1 g/dl (32.0-37.0); MEAN CORPUSCULAR VOLUME 92.5 fl (82.0-101.0); MEAN PLATELET VOLUME 9.3 fl (7.4-10.4); MONOCYTE # 0.5 10^3/ul (0.3-0.9); NEUTROPHIL # 3.6 10^3/ul (1.6-7.5); PLATELET COUNT 214 10^3/UL (140-440); RED BLOOD COUNT 3.13 10^6/ul (4.70-6.10); RED CELL DISTRIBUTION WIDTH 13.9 % (11.5-14.5); UNCORRECTED WBC 5.8 10^3/ul (4.8-10.8); WHITE BLOOD COUNT 5.8 10^3/ul (4.8-10.8)
[2016-03-23 07:24] LABS: CREATININE 11.31 mg/dl (0.61-1.24)
[2016-03-23 07:25] LABS: CALCIUM 8.1 mg/dl (8.4-10.2)
[2016-03-23 07:36] LABS: CONDITION 1
[2016-03-23] MEDS: LORATADINE 10 MG TAB PO SCH ×2 (09:00→12:12)
[2016-03-23] MEDS: ALLOPURINOL 100 MG TAB PO SCH ×2 (09:00→12:11)
[2016-03-23] MEDS: CINACALCET 30 MG TAB PO SCH ×2 (09:00→12:12)
[2016-03-23] MEDS: GEMFIBROZIL 600 MG TAB PO SCH ×2 (09:00→12:12)
[2016-03-23] MEDS: BENAZEPRIL 20 MG TAB PO SCH ×2 (09:00→12:11)
[2016-03-23] MEDS: FENOFIBRATE 145 MG TAB PO SCH ×2 (09:00→12:12)
[2016-03-23] MEDS: NPH, HUMAN INSULIN ISOPHANE 3ML VIAL SC SCH ×2 (09:39→12:22)
--- NOTE | 2016-03-23 10:57 | PDOCDIS ---
Discharge Instructions CONDITION Patient Condition: Stable HOME CARE INSTRUCTIONS: Special Diet: renal diet ACTIVITY: Activity Restrictions: Slowly Increase Activity FOLLOW UP/APPOINTMENTS Appointments Take your medications, see your clinic doctor in 1 week. RAJAN STAHL. Mar 23, 2016 10:57
[2016-03-23] MEDS ORDERED: EPOE3000 SC (10:59)
[2016-03-23] MEDS ORDERED: PANT40TA4 PO (10:59)
--- NOTE | 2016-03-23 16:39 | DS ---
DATE OF ADMISSION: 03/16/2016 DATE OF DISCHARGE: 03/23/2016 A 60-year-old male originally admitted on 03/17/2014, being discharged home on 03/23/2016. HOSPITAL COURSE: Patient initially came in with headache and lethargy. He was admitted and seen by renal team during this hospital stay. He was also found with severe anemia and complaining of sherri k tarry stools. He was also seen by GI team during this hospital stay. He underwent echocardiogram initially that showed ejection fraction of 65%, normal left ventricular systolic function, normal l eft ventricular cavity size. There is some stage I diastolic dysfunction, however. Regarding his a nemia, he received a PRBC blood transfusion. He also had an EGD performed on that showed distal esophagitis and gastritis. He also had a colonoscopy the same day that showed a 4 mm polyp i n the descending colon that was ablated, and 3 and 2-mm polyps in the rectum that were ablated, and large internal hemorrhoids. The patient's hemoglobin was stable. His diarrhea improved. His patho logy results were negative for any signs of any malignancy of the polyps as well as of the stomach. Eventually, he continued dialysis under the care of the renal team. He was able to tolerate a p.o. diet. His vital signs were stable, and he will be discharged home later today in [facility]. MEDICATIONS: He will be sent with the following medications: 1. Epogen 6000 units 3 times a week. 2. Protonix 40 mg daily. 3. Allopurinol 100 mg daily. 4. Aspirin 81 mg daily. 5. Benazepril 20 mg daily. 6. Sensipar 30 mg b.i.d. 7. Fenofibrate 145 mg daily. 8. Gemfibrozil 600 mg b.i.d. 9. Hydralazine 25 mg q.8 h. 10. NPH insulin 2 units subcutaneous t.i.d. 11. Loratadine 10 mg daily. He will need to follow up with the primary care doctor and renal doctor in the clinic in the next 1 to 2 weeks. FINAL DIAGNOSES: 1. Severe anemia with history of black stools, with findings of gastritis and esophagitis on the es ophagogastroduodenoscopy, and also large internal hemorrhoids on colonoscopy this admission, now sta tus post packed red blood cell transfusion with stable hemoglobin. 2. Fluid overload secondary to missed dialysis, now improved. 3. Generalized weakness secondary to severe anemia, improved. 4. Mild pancreatitis, resolved. 5. End-stage renal disease on dialysis. 6. Gastroesophageal reflux disease. 7. Hyperkalemia, resolved. 8. Hypertension, essential. 9. Type 2 diabetes 10. History of coronary artery disease, status post coronary artery bypass grafting in 2012. Total time spent on patient was 45 minutes. Dictated By: RAJAN GUTIERREZ Conf#: [id number] DID#: [id number]
== END 2016-03-23 15:15 | disposition home or self-care (01) | DRG 811 ==
LOC: E/R 15:25 → TEL 22:05
PROVIDERS: ADMIT Family Medicine; ATTEND Family Medicine
PROC: 30233N1 Transfusion of Nonautologous Red Blood Cells into Peripheral Vein, Percutaneous Approach (ICD-10-PCS; principal; 2016-03-16)
PROC: 5A1D60Z (ICD-10-PCS; 2016-03-16)
PROC: 0DB78ZX Excision of Stomach, Pylorus, Via Natural or Artificial Opening Endoscopic, Diagnostic (ICD-10-PCS; 2016-03-19)
PROC: 0DBK8ZZ Excision of Ascending Colon, Via Natural or Artificial Opening Endoscopic (ICD-10-PCS; 2016-03-19)
PROC: 0DBP8ZX Excision of Rectum, Via Natural or Artificial Opening Endoscopic, Diagnostic (ICD-10-PCS; 2016-03-19)
DX: D62 Acute posthemorrhagic anemia (principal); N18.6 End stage renal disease; J81.0 Acute pulmonary edema; G92 Toxic encephalopathy; K85.90 Acute pancreatitis without necrosis or infection, unspecified; I12.0 Hypertensive chronic kidney disease with stage 5 chronic kidney disease or end stage renal disease; R65.10 Systemic inflammatory response syndrome (SIRS) of non-infectious origin without acute organ dysfunction; E87.70 Fluid overload, unspecified; K92.2 Gastrointestinal hemorrhage, unspecified; Z99.2 Dependence on renal dialysis; E87.5 Hyperkalemia; R51 Headache; Z95.1 Presence of aortocoronary bypass graft; K21.9 Gastro-esophageal reflux disease without esophagitis; R19.7 Diarrhea, unspecified; K20.9 Esophagitis, unspecified; K29.70 Gastritis, unspecified, without bleeding; K64.8 Other hemorrhoids; D12.2 Benign neoplasm of ascending colon; K62.1 Rectal polyp
CPT/HCPCS: 36415; 36430; 70450; 70551; 71010; 74176; 80048; 80053; 80061; 81001; 81003; 82150; 82270; 82550; 82553; 82962; 83540; 83690; 83735; 84484; 85025; 85610; 85730; 86850; 86900; 86901; 86920; 87040; 87075; 87081; 87086; 88305; 88312; 90935; 93005; 93306; 94664; 96374; 96375; 97162; C9113; J0360; J0610; J0696; J0886; J1815; J2250; P9016

== ENCOUNTER 2016-07-16 20:01 | Inpatient (IN) | payer MEDICARE, OTHER ==
[~2016-07-16] VITALS: Ht 172.7 cm; Wt 84.6 kg
[~2016-07-16 20:01] MED LIST changes: +ALLO100T PO; -ATEN-51 PO; -ATOR80TA18 PO; +BENA20TA48 PO; -BENA5TAB2 PO; -CELE200C PO; +CNC30T PO; -COLC0.6T6 PO; -DEXL60CA2 PO; +EPOE3000 SC; -FISH OIL 1,2001 EAC2 PO; -INSU100C3 SC; -MEGE40TA17 PO; -NAPR-685 PO; -NIFE90TA21 PO; +NPH SQ; +PANT40TA4 PO; -SEVE800T7 PO
--- NOTE | 2016-07-16 22:10 | ERA ---
ER Documentation Chief Complaint Date/Time DATE: 07/16/16 TIME: 22:10 Chief Complaint weaknes of both legs, hypertension, chest pain, dialyzed today HPI The patient is a 60-year-old male, presenting to the ER because of left-sided chest pain that began about 5 PM today, nonradiating. He vomited mostly mucus in the ER. He also complains of bilateral lower extremity weakness, but temporal headache and dizziness that began today. He denies dyspnea, denies chest pain with exertion or diaphoresis. He complains of epigastric abdominal pain of the vomiting, denies dysuria, diarrhea, constipation. He had dialysis today. He does not smoke or drink Past medical history: Chronic kidney disease, dyslipidemia, hypertension, diabetes mellitus, he had EGD and colonoscopy in March 2016 that showed esophagitis and hemorrhoids, GERD, CAD, migraine Past surgical history: CABG in 2012 ROS All systems reviewed and are negative except as per history of present illness. Medications Home Meds Active Scripts Epoetin vick* (Epogen*) 3,000 Unit/1 Ml Vial, 6000 UNITS SC TuThSa@17 for 30 Days, VIAL 2 Refills Prov:RAJAN STALH S. 03/23/16 Pantoprazole* (Pantoprazole*) 40 Mg Tablet., 40 MG PO DAILY@06, #30 3 Refills Prov:RAJAN STAHL S. 03/23/16 Reported Medications Acetaminophen* (Acetaminophen*) 500 MG Extra Strength Tablet, 500 MG PO Q4H Y for PAIN AND OR ELEVATED TEMP, TAB 07/16/16 Loratadine* (Loratadine*) 10 Mg Tablet, 10 MG PO DAILY, #30 TAB 03/16/16 Aspirin* (Aspirin* EC) 81 Mg Tablet., 81 MG PO DAILY, TAB 03/16/16 Fenofibrate Nanocrystallized* (Fenofibrate*) 145 Mg Tablet, 145 MG PO DAILY, TAB 03/16/16 Cinacalcet* (Sensipar*) 30 Mg Tab, 30 MG PO BID, TAB 03/16/16 Benazepril Hcl* (Benazepril Hcl*) 20 Mg Tablet, 20 MG PO DAILY, #30 TAB 03/16/16 Gemfibrozil* (Gemfibrozil*) 600 Mg Tablet, 600 MG PO BID, TAB 03/16/16 Allopurinol* (Allopurinol*) 100 Mg Tablet, 100 MG PO DAILY, TAB 03/16/16 Insulin Human Nph (Novolin-N) 100 Units/Ml Susp, 2 UNITS SQ TID 03/16/16 Discontinued Reported Medications Hydralazine Hcl* (Hydralazine Hcl*) 25 Mg Tab, 25 MG PO Q8, #90 TAB 03/16/16 Allergies Allergies: Coded Allergies: No Known Drug Allergies (Unverified Allergy, Mild, 07/16/16) PMhx/Soc History of Surgery: Yes (CABG (2012)) Anesthesia Reaction: No Hx Neurological Disorder: No Hx Respiratory Disorders: No Hx Cardiac Disorders: Yes (CABG, HTN, HYPERLIPIDEMIA) Hx Psychiatric Problems: No Hx Miscellaneous Medical Probl: Yes (OVERWEIGHT) Hx Alcohol Use: No Hx Substance Use: No Hx Tobacco Use: No Physical Exam Vitals Vital Signs Date Time Temp Pulse Resp B/P Pulse Ox O2 Delivery O2 Flow Rate FiO2 07/17/16 02:11 98.9 79 16 181/74 99 Room Air 07/16/16 20:05 97.7 67 20 234/95 99 Physical Exam Const: No acute distress. Head: Atraumatic. Eyes: Normal Conjunctiva. ENT: Normal External Ears, Nose and Mouth. Neck: Full range of motion. No meningismus. Resp: Clear to auscultation bilaterally. Cardio: Regular rate and rhythm. Abd: Soft, non distended, normal bowel sounds, non tender. Skin: No petechiae or rashes. Back: No midline or flank tenderness. Ext: No cyanosis, or edema. Neur: Awake and alert. No focal deficit Psych: Normal Mood and Affect. Result Diagram: 07/16/16 2215 07/16/16 2215 Results 24 hrs Laboratory Tests Test 07/16/16 22:15 07/16/16 22:51 White Blood Count 7.610^3/ul Red Blood Count 4.9410^6/ul Hemoglobin 13.7g/dl Hematocrit 41.4% Mean Corpuscular Volume 83.8fl Mean Corpuscular Hemoglobin 27.7pg Mean Corpuscular Hemoglobin Concent 33.1g/dl Red Cell Distribution Width 14.3% Platelet Count 69294^3/UL Mean Platelet Volume 11.4fl Neutrophils % 77.4% Lymphocytes % 11.7% Monocytes % 8.0% Eosinophils % 1.8% Basophils % 0.8% Nucleated Red Blood Cells % 0.0/100WBC Neutrophils # 5.910^3/ul Lymphocytes # 0.910^3/ul Monocytes # 0.610^3/ul Eosinophils # 0.110^3/ul Basophils # 0.110^3/ul Nucleated Red Blood Cells # 0.010^3/ul Prothrombin Time 13.5Sec Prothrombin Time Ratio 1.1 INR International Normalized Ratio 1.03 Activated Partial Thromboplast Time 30.3Sec Sodium Level 138mmol/L Potassium Level 4.7mmol/L Chloride Level 96mmol/L Carbon Dioxide Level 23mmol/L Anion Gap 24 Blood Urea Nitrogen 36mg/dl Creatinine 7.71mg/dl Glucose Level 119mg/dl Calcium Level 7.8mg/dl Phosphorus Level 6.7mg/dl Magnesium Level 2.5mg/dl Total Bilirubin 0.0mg/dl Direct Bilirubin 0.00mg/dl Indirect Bilirubin 0.0mg/dl Aspartate Amino Transf (AST/SGOT) 17IU/L Alanine Aminotransferase (ALT/SGPT) 22IU/L Alkaline Phosphatase 127IU/L Troponin I 0.028ng/ml Total Protein 8.4g/dl Albumin 5.2g/dl Globulin 3.20g/dl Albumin/Globulin Ratio 1.62 Lipase 322U/L Bedside Glucose 130mg/dL Current Medications Medications (Trade) Dose Ordered Sig/Josefina Route PRN Reason Start Time Stop Time Status Last Admin Dose Admin Ondansetron HCl (Zofran Inj) 4 mg ONCE STAT IV 07/16/16 22:16 07/16/16 22:18 DC 07/16/16 22:35 Hydralazine HCl (Apresoline) 20 mg ONCE ONCE IV 07/17/16 00:30 07/17/16 00:31 DC 07/17/16 00:16 Aspirin (Aspirin) 81 mg ONCE ONCE PO 07/17/16 00:30 07/17/16 00:31 DC 07/17/16 00:16 Nitroglycerin (Nitroglycerin 2% Oint) 1 inch ONCE ONCE TD 07/17/16 00:30 07/17/16 00:31 DC 07/17/16 00:17 Metoclopramide HCl (Reglan) 10 mg ONCE ONCE IV 07/17/16 01:00 07/17/16 01:01 DC 07/17/16 00:53 Lorazepam (Ativan) 0.5 mg ONCE ONCE IV 07/17/16 01:30 07/17/16 01:31 DC 07/17/16 01:32 Lorazepam (Ativan) 0.5 mg ONCE ONCE IV 07/17/16 01:30 07/17/16 01:31 DC Hydralazine HCl (Apresoline) 20 mg ONCE ONCE IV 07/17/16 02:30 07/17/16 02:31 DC 07/17/16 02:36 Prochlorperazine (Compazine Inj) 5 mg ONCE ONCE IV 07/17/16 02:30 07/17/16 02:31 DC 07/17/16 02:36 Procedures/[place] [address] Radiology Main Line: [phone] DIAGNOSTIC IMAGING REPORT Patient: TAHIR HENDERSON : 1955 Age: 60 Sex: M MR #: [id number] DOS: 07/16/16 2216 Ordering MD: HALYEY DEL REAL MD Location: E/R Room/Bed: PROCEDURE: XR Chest. CLINICAL INDICATION: Chest pain. TECHNIQUE: Single frontal view of the chest. COMPARISON: 03/16/2016. FINDINGS: Cardiomegaly. Discoid atelectasis at the left lung base at the costophrenic angle is similar in appearance to prior examination, given differences in plane film technique. Resolved failure. Improved lung inflation over interval. No signs of pleural fluid or pneumothorax are seen. The osseous structures and soft tissues are unremarkable. IMPRESSION: 1. Resolved failure. 2. Discoid atelectasis persists at the left costophrenic angle. RPTAT: [facility] Physician Jaelyn Date Time Electronically viewed and signed by Physician Jaelyn on 07/16/2016 23:24 RS/ CC: HAYLEY DEL REAL MD EKG: At 2026 hrs. read by emergency physician Rate/Rhythm: Normal Sinus Rhythm 66 beats/min QRS, ST, T-waves: No ST elevation, no T inversion, LVH, prolonged QT Impression: Abnormal EKG EKG: At 2307 hrs. read by emergency physician Rate/Rhythm: Normal Sinus Rhythm 63 beats/min QRS, ST, T-waves: No ST elevation, no T inversion, LVH, prolonged QT Impression: Abnormal EKG MEDICAL MAKING DECISION: The patient is a 60-year-old male with multiple cardiac risk factors, presenting with acute chest pain that is concerning for acute ACS, acute accelerated hypertension, acute hyperphosphatemia and acute vomiting of unclear etiology. He was treated with Zofran 4 mg IV 2, Reglan 10 mg IV 1, Compazine 5 mg IV for acute vomiting, Ativan 0.5 g IV for acute anxiety, rising 20 mg IV 2 for acute accelerated hypertension, aspirin 81 mg and 1 inch of nitroglycerin ointment to the chest wall for acute chest pain with good response The differential diagnoses considered include but are not limited to acute coronary syndrome, acute myocardial infarction, pericarditis, pulmonary embolism , aortic dissection, pneumonia, pleural effusion, pneumothorax, GERD, chest wall pain. Critical Care: Time: 35 minutes excluding all billable procedures. Treatments/Evaluations: Close monitoring and treatment of unstable vital signs, cardiorespiratory, and neurologic status, while maintaining tight balance of fluid, respiratory, and cardiac interventions. Departure Diagnosis: Primary Impression: Chest pain Additional Impressions: Accelerated hypertension Hyperphosphatemia Anemia Condition: Stable Comments I discussed the findings with the patient. I discussed the patient with the on- call hospitalist Dr. Pruett at 215 hours who was made aware of the lab, the treatment, the patient condition. The patient is admitted to telemetry HAYLEY DEL REAL MD Jul 16, 2016 22:10
[2016-07-16] MEDS ORDERED: ONDANSETRON 4 MG INJ IV STA (22:16)
[2016-07-16 22:50] LABS: ADD SCAN DIFF NO
[2016-07-16 22:51] LABS: BASOPHIL # 0.1 10^3/ul (0.0-0.1); BASOPHILS % 0.8 % (0.0-2.0); EOSINOPHILS # 0.1 10^3/ul (0.0-0.5); EOSINOPHILS % 1.8 % (0.0-7.0); HEMATOCRIT 41.4 % (42.0-52.0); HEMOGLOBIN 13.7 g/dl (14.0-18.0); LYMPHOCYTES # 0.9 10^3/ul (0.8-2.9); LYMPHOCYTES % 11.7 % (15.0-51.0); MEAN CORPUSCULAR HEMOGLOBIN 27.7 pg (29.0-33.0); MEAN CORPUSCULAR HGB CONC 33.1 g/dl (32.0-37.0); MEAN CORPUSCULAR VOLUME 83.8 fl (82.0-101.0); MEAN PLATELET VOLUME 11.4 fl (7.4-10.4); MONOCYTE # 0.6 10^3/ul (0.3-0.9); NEUTROPHIL # 5.9 10^3/ul (1.6-7.5); NEUTROPHILS % 77.4 % (39.0-77.0); PLATELET COUNT 223 10^3/UL (140-415); RED BLOOD COUNT 4.94 10^6/ul (4.70-6.10); RED CELL DISTRIBUTION WIDTH 14.3 % (11.5-14.5); WHITE BLOOD COUNT 7.6 10^3/ul (4.8-10.8)
[2016-07-16 23:12] LABS: INR 1.03; PROTIME 13.5 Sec (12.2-14.2); PT RATIO 1.1
[2016-07-16 23:13] LABS: PARTIAL THROMBOPLASTIN TIME 30.3 Sec (25.0-35.0)
[2016-07-16 23:14] LABS: ALBUMIN 5.2 g/dl (3.3-4.9); ALBUMIN/GLOBULIN RATIO 1.62; CALCIUM 7.8 mg/dl (8.4-10.2); CREATININE 7.71 mg/dl (0.61-1.24); POTASSIUM 4.7 mmol/L (3.5-5.1); TOTAL PROTEIN 8.4 g/dl (6.1-8.1)
[2016-07-16 23:15] LABS: MAGNESIUM 2.5 mg/dl (1.7-2.5); PHOSPHORUS 6.7 mg/dl (2.5-4.9)
[2016-07-16 23:25] LABS: TROPONIN-I 0.028 ng/ml (0.00-0.12)
--- NOTE | 2016-07-16 23:25 | RADRPT ---
PROCEDURE: XR Chest. CLINICAL INDICATION: Chest pain. TECHNIQUE: Single frontal view of the chest. COMPARISON: 03/16/2016. FINDINGS: Cardiomegaly. Discoid atelectasis at the left lung base at the costophrenic angle is similar in juan die[place] earance to prior examination, given differences in plane film technique. Resolved failure. Improve d lung inflation over interval. No signs of pleural fluid or pneumothorax are seen. The osseous stru ctures and soft tissues are unremarkable. IMPRESSION: 1. Resolved failure. 2. Discoid atelectasis persists at the left costophrenic angle. RPTAT: [facility] Physician Jaelyn Date Time Electronically viewed and signed by Physician Jaelyn on 07/16/2016 23:24 RS/
[2016-07-16] MEDS ORDERED: ACET-141 PO (23:48)
[2016-07-17] VITALS (12 sets, daily range): BP systolic 123–189; BP diastolic 60–87; PULSE 67–73; RESP 16–18; TEMP 98.9; Ht 172.7 cm; Wt 84.6 kg
[2016-07-17] MEDS ORDERED: hydrALAzine 20 MG INJ IV ONE ×2 (00:30→02:30)
[2016-07-17] MEDS ORDERED: NITROGLYCERIN 2% 1 GM OINT PKT TD ONE (00:30)
[2016-07-17] MEDS ORDERED: ASPIRIN 81 MG TAB PO ONE (00:30)
[2016-07-17] MEDS ORDERED: METOCLOPRAMIDE 10 MG INJ IV ONE (01:00)
[2016-07-17] MEDS ORDERED: LORAZEPAM 2 MG INJ IV ONE ×2 (01:30)
[2016-07-17] MEDS ORDERED: PROCHLORPERAZINE 10 MG INJ IV ONE (02:30)
[2016-07-17] MEDS ORDERED: ALBUTEROL/IPRATROPIUM (NEB) 3 ML AMP HHN PRN (04:00)
[2016-07-17] MEDS ORDERED: ACETAMINOPHEN 500 MG TAB PO PRN (04:00)
[2016-07-17] MEDS ORDERED: morphine 2 MG INJ IV PRN (04:00)
[2016-07-17] MEDS ORDERED: GLUCAGON 1 MG INJ IM PRN (04:00)
[2016-07-17] MEDS ORDERED: NACL 0.9% 3 ML SYG IV SCH (04:00)
[2016-07-17] MEDS ORDERED: LORAZEPAM 0.5 MG TAB PO PRN (04:00)
[2016-07-17] MEDS ORDERED: GLUCOSE GEL 15 GRAM TUBE PO PRN ×2 (04:00)
[2016-07-17] MEDS ORDERED: DEXTROSE 50% 50 ML SYRINGE IV PRN ×2 (04:00)
[2016-07-17] MEDS ORDERED: NITROGLYCERIN (SL) 0.4 MG TAB SL PRN (04:00)
[2016-07-17] MEDS ORDERED: ACETAMINOPHEN 325 MG TAB PO PRN (04:00)
[2016-07-17] MEDS ORDERED: ONDANSETRON 4 MG INJ IV PRN (04:00)
[2016-07-17] MEDS ORDERED: GLUCOSE GEL 15 GRAM TUBE BUCCAL PRN (04:00)
[2016-07-17] MEDS: PANTOPRAZOLE (EC) 40 MG TAB PO SCH (05:40)
--- NOTE | 2016-07-17 06:25 | HP ---
DATE OF ADMISSION: 07/17/2016 TIME SEEN: 3 a.m. CHIEF COMPLAINT: Headache and chest pain. HISTORY OF PRESENT ILLNESS: The patient is a 60-year-old male with a history of hypertension, diabe yoselyn, GERD, anemia, gastritis, esophagitis, hemorrhoid, coronary artery disease, status post CABG, an d end-stage renal disease, on dialysis on Tuesday, and Saturdays. The patient presented co mplaining of a headache and chest pain. The headache is diffuse and it was associated with "pain in the back of my eyes". The chest pain is left-sided with no radiation and described as sharp. The p atient's main focus is his headache, as well as his associated nausea and nonbilious, nonbloody emes is, and he is really minimizing his chest pain and not really concerned about it. According to the patient and family who is at the bedside, the patient's systolic blood pressure is usually in the 20 0s. The patient usually gets his dialysis on Tuesday, and Tuesday, but this week he was d ialyzed both on and Tuesday, which was yesterday. The reason for the extra dialysis is ridge use "I wasn't feeling well". The patient was last admitted to this hospital in March of this yea r after he presented with dark stool. At that time he had an EGD and colonoscopy which showed dista l esophagitis and gastritis, as well as polyps and large internal hemorrhoids. When the patient presented to the ER today his blood pressure was severely elevated at 234/95. Othe rwise, the rest of his vitals were stable. He was given 20 mg of IV hydralazine x2. Laboratory valu e shows BUN 36, creatinine 7.71, calcium 7.8 with albumin of 5.2, phosphorus 6.7. Otherwise, the re st of CBC and CMP are within acceptable range. First troponin is 0.028. Chest x-ray shows discoid atelectasis persists at the left costophrenic angle and the previously seen failure is resolved as c ompared to a chest x-ray from March of this year. The patient was also given 81 mg of aspirin an d nitroglycerin ointment while he was in the ER. REVIEW OF SYSTEMS: A 12-point review of systems was performed and negative except as mentioned in th e HPI. PAST SURGICAL HISTORY: 1. CABG in 2013. 2. Bilateral cataract surgery. 3. AV fistula placement. SOCIAL HISTORY: Denied a history of tobacco, alcohol or illicit drug use. ALLERGIES: NO KNOWN DRUG ALLERGIES. HOME MEDICATIONS: 1. Loratadine. 2. Epogen. 3. Benazepril. 4. Fenofibrate. 5. Gemfibrozil. 6. Tylenol. 7. Aspirin. 8. Protonix. 9. Insulin. 10. Allopurinol. 11. Sensipar. PHYSICAL EXAMINATION: VITAL SIGNS: Blood pressure 167/91, heart rate 76, respiratory rate 22, temperature 98.9, oxygen sa turation 99% on room air. GENERAL: The patient is sleepy but arousable, but at times he goes back to sleep again during inter view. Otherwise in no acute distress. HEENT: No obvious head deformity. Pupils are reactive to light. Extraocular muscles are intact. CARDIOVASCULAR: Regular rate and rhythm, with no extra sounds. LUNGS: Clear. ABDOMEN: Soft, nontender, nondistended. Positive bowel sounds. EXTREMITIES: No edema. NEUROLOGIC: No focal deficits. LABORATORY: Pertinent positives as mentioned in the HPI. IMAGING: Chest x-ray results as mentioned in the HPI. IMPRESSION: 1. Hypertensive urgency. 2. Headache, most likely secondary to severely elevated blood pressure. 3. Chest pain, currently resolved, but will rule out acute coronary syndrome. 4. History of coronary artery disease with a history of coronary artery bypass graft. 5. History of type 2 diabetes. 6. History of gastritis/esophagitis. 7. End stage renal disease, on dialysis on Tuesday, and Tuesday. PLAN: The patient's headache is most likely secondary to severely elevated blood pressure. His blo od pressure is better controlled now. Will continue to monitor/adjust medication for better blood p ressure control. The patient is currently sleepy and it is most likely secondary to the morphine th at he received in the ER. If the patient continues to be sleepy or if he does show any neurological abnormality, then will obtain a CT of the brain, but I do not think it is warranted at this point. His first troponin is negative, but will send additional troponins to rule out ACS. The patient ely d a 2D echo about 4 months ago which showed a preserved EF of 65%, with stage I diastolic dysfunctio n and mild mitral regurgitation, otherwise it was normal. Will not be repeating an echo at this poi nt, but will do so as needed. Will consider a cardiology consult as needed. As far as his dialysis is concerned, will notify his finish sander, Dr. Hahn. The patient will also be continued with his h ome medication, with adjustment as needed. For diabetes he will be placed on insulin. Further workup and management per clinical course. Dictated By: LACY VALLE/FATOU Conf#: [id number] DID#: [id number]
[2016-07-17 07:16] LABS: ADD SCAN DIFF NO
[2016-07-17 07:37] LABS: ABNORMAL IP MESSAGE 1; BASOPHILS % 0.3 % (0.0-2.0); EOSINOPHILS % 0.2 % (0.0-7.0); HEMATOCRIT 38.8 % (42.0-52.0); HEMOGLOBIN 12.6 g/dl (14.0-18.0); LYMPHOCYTES # 0.5 10^3/ul (0.8-2.9); MEAN CORPUSCULAR HEMOGLOBIN 27.8 pg (29.0-33.0); MEAN CORPUSCULAR HGB CONC 32.5 g/dl (32.0-37.0); MEAN CORPUSCULAR VOLUME 85.5 fl (82.0-101.0); MEAN PLATELET VOLUME 11.3 fl (7.4-10.4); MONOCYTE # 0.3 10^3/ul (0.3-0.9); MONOCYTES % 4.4 % (0.0-11.0); NEUTROPHIL # 5.8 10^3/ul (1.6-7.5); NEUTROPHILS % 87.8 % (39.0-77.0); PLATELET COUNT 191 10^3/UL (140-415); RED BLOOD COUNT 4.54 10^6/ul (4.70-6.10); RED CELL DISTRIBUTION WIDTH 14.5 % (11.5-14.5); WHITE BLOOD COUNT 6.6 10^3/ul (4.8-10.8)
[2016-07-17] MEDS: INSULIN ASPART [NOVOLOG] 3 ML PEN SC SCH ×4 (07:55→21:00)
[2016-07-17] MEDS: ASPIRIN (EC) 81 MG TAB PO SCH (08:05)
[2016-07-17] MEDS: LORATADINE 10 MG TAB PO SCH (08:05)
[2016-07-17] MEDS: BENAZEPRIL 20 MG TAB PO SCH (08:06)
[2016-07-17] MEDS: GEMFIBROZIL 600 MG TAB PO SCH ×2 (08:06→20:59)
[2016-07-17 08:07] LABS: ALBUMIN 4.7 g/dl (3.3-4.9); ALBUMIN/GLOBULIN RATIO 1.95; CALCIUM 7.6 mg/dl (8.4-10.2); CHOL/HDL RATIO 5.1 RATIO; CREATININE 8.18 mg/dl (0.61-1.24); POTASSIUM 4.8 mmol/L (3.5-5.1); TOTAL PROTEIN 7.1 g/dl (6.1-8.1)
[2016-07-17] MEDS: FENOFIBRATE 145 MG TAB PO SCH (08:07)
[2016-07-17] MEDS: ALLOPURINOL 100 MG TAB PO SCH (08:07)
[2016-07-17 08:08] LABS: TROPONIN-I 0.023 ng/ml (0.00-0.12)
[2016-07-17 08:10] LABS: CK-MB 1.35 ng/ml (0.0-2.4)
[2016-07-17] MEDS: INSULIN GLARGINE [LANtus] 3 ML PEN SC SCH (08:10)
[2016-07-17 08:28] LABS: THYROID STIMULATING HORMONE 1.29 MIU/L (0.465-4.680)
[2016-07-17] MEDS ORDERED: CINACALCET 30 MG TAB PO SCH (09:00)
[2016-07-17 10:48] LABS: TROPONIN-I 0.024 ng/ml (0.00-0.12)
[2016-07-17 10:55] LABS: CK-MB 1.18 ng/ml (0.0-2.4)
--- NOTE | 2016-07-17 15:29 | CONS ---
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 Consultation Date/Type/Reason Admit Date/Time Jul 17, 2016 at 02:35 Date of Consultation: Jul 17, 2016 Type of Consultation: Nephrology Reason for Consultation ESRD Referring Provider: LACY DORMAN MD Hx of Present Illness 60-year-old male with a history ESRD 2nd to hypertension/ nephrosclerosis and diabetes, GERD, anemia, gastritis, esophagitis, hemorrhoid, coronary artery disease, status post CABG who present with headache and chest pain. His normal schedule for HD is TTS however had HD yesterday at outpt center. In the ER blood pressure was elevated to 234/95 and was given 20 mg of IV hydralazine with improvement. Pt admitted to telemetry under hospitalist and nephrology consulted for ESRD. Constitutional: No requiring O2 Respiratory: shortness of breath Cardiovascular: chest pain Neurologic: dizziness Past Medical History Medical History: coronary artery disease, hypertension, renal disease Past Surgical History Past Surgical Hx: coronary bypass surgery, other (avf) Family History Significant Family History: no pertinent family hx Social History Alcohol Use: none Smoking Status: Never smoker Drug Use: none Exam/Review of Systems Vital Signs Vitals Vital Signs Date Time Temp Pulse Resp B/P Pulse Ox O2 Delivery O2 Flow Rate FiO2 07/17/16 15:20 98.5 68 18 156/70 95 07/17/16 02:38 Room Air Intake and Output 07/16/16 07/16/16 07/17/16 15:00 23:00 07:00 Intake Total 50 ml Balance 50 ml Exam Constitutional: alert, oriented, No distress Head: atraumatic, normocephalic Eyes: EOMI ENMT: mucosa pink and moist Neck: No jvd Respiratory: clear to auscultation, No crackles/rales, No diminished breath sounds, No labored breathing Cardiovascular: regular rate and rhythm, No edema Gastrointestinal: non-tender, soft, No distended, No rebound or guarding Musculoskeletal: nl extremities to inspection Extremities: No edema Neurological: TRAFFIC INSPECTOR II-XII intact, nl mental status, nl speech, nl strength, No confused, No focal weakness, No lethargic, No numbness Skin: nl turgor, No diaphoresis, No rash or lesions Results Result Diagram: 07/17/1662607/17/16626 Results 24 hrs Laboratory Tests Test 07/16/16 22:15 07/16/16 22:51 07/17/16 06:27 07/17/16 07:32 White Blood Count 7.6 # 6.6 Red Blood Count 4.94 # 4.54 L Hemoglobin 13.7 #L 12.6 L Hematocrit 41.4 #L 38.8 L Mean Corpuscular Volume 83.8 85.5 Mean Corpuscular Hemoglobin 27.7 L 27.8 L Mean Corpuscular Hemoglobin Concent 33.1 32.5 Red Cell Distribution Width 14.3 14.5 Platelet Count 223 191 Mean Platelet Volume 11.4 #H 11.3 H Neutrophils % 77.4 H 87.8 H Lymphocytes % 11.7 L 7.0 L Monocytes % 8.0 4.4 Eosinophils % 1.8 0.2 Basophils % 0.8 0.3 Nucleated Red Blood Cells % 0.0 0.0 Neutrophils # 5.9 5.8 Lymphocytes # 0.9 0.5 L Monocytes # 0.6 0.3 Eosinophils # 0.1 0.0 Basophils # 0.1 0.0 Nucleated Red Blood Cells # 0.0 0.0 Prothrombin Time 13.5 Prothrombin Time Ratio 1.1 INR International Normalized Ratio 1.03 Activated Partial Thromboplast Time 30.3 Sodium Level 138 137 Potassium Level 4.7 4.8 Chloride Level 96 L 95 L Carbon Dioxide Level 23 26 Anion Gap 24 H 21 H Blood Urea Nitrogen 36 H 42 H Creatinine 7.71 H 8.18 H Glucose Level 119 120 Calcium Level 7.8 L 7.6 L Phosphorus Level 6.7 H Magnesium Level 2.5 Total Bilirubin 0.0 L 0.0 L Direct Bilirubin 0.00 0.00 Indirect Bilirubin 0.0 0.0 Aspartate Amino Transf (AST/SGOT) 17 15 Alanine Aminotransferase (ALT/SGPT) 22 24 Alkaline Phosphatase 127 H 105 Troponin I 0.028 0.023 Total Protein 8.4 H 7.1 # Albumin 5.2 H 4.7 Globulin 3.20 2.40 Albumin/Globulin Ratio 1.62 1.95 Lipase 322 H Bedside Glucose 130 108 Hemoglobin A1c 5.8 Creatine Kinase 113 Creatine Kinase Index 1.2 Creatinine Kinase MB (Mass) 1.35 Triglycerides Level 158 H Cholesterol Level 150 LDL Cholesterol, Calculated 89 HDL Cholesterol 29 L Cholesterol/HDL Ratio 5.1 Thyroid Stimulating Hormone (TSH) 1.290 Test 07/17/16 09:43 07/17/16 11:22 Creatine Kinase 127 Creatine Kinase Index 0.9 Creatinine Kinase MB (Mass) 1.18 Troponin I 0.024 Bedside Glucose 95 Medications Medications Current Medications Lorazepam (Ativan) 0.5 mg Q8H PRN PO ANXIETY; Start 07/17/16 at 04:00 Ondansetron HCl (Zofran Inj) 4 mg Q6H PRN IV NAUSEA AND/OR VOMITING; Start 11/23 at 04:00 Nitroglycerin (Nitroglycerin (Sl Tab) 0.4 Mg) 1 tab Q5M PRN SL CHEST PAIN; Start 07/17/16 at 04:00 Acetaminophen (Tylenol Tab) 650 mg Q6H PRN PO PAIN LEVEL 1-3 OR FEVER; Start at 04:00 Morphine Sulfate (morphine) 2 mg Q4H PRN IV PAIN LEVEL 7-10; Start 07/17/16 at 04:00 Insulin Glargine (Lantus) 12 unit DAILY@08 SC Last administered on 07/17/16 08 :10; Admin Dose 12 UNIT; Start 07/17/16 at 08:00 Hydralazine HCl (Apresoline) 10 mg Q4H PRN IV SBP > 160; Start 07/17/16 at 04: 00 Acetaminophen (Tylenol Tab) 500 mg Q4H PRN PO PAIN AND OR ELEVATED TEMP; Start 07/17/16 at 04:00 Allopurinol (Zyloprim) 100 mg DAILY PO Last administered on 07/17/16 08:07; Admin Dose 100 MG; Start 07/17/16 at 09:00 Aspirin (Halfprin) 81 mg DAILY PO Last administered on 07/17/16 08:05; Admin Dose 81 MG; Start 07/17/16 at 09:00 Benazepril HCl (Lotensin) 20 mg DAILY PO Last administered on 07/17/16 08:06; Admin Dose 20 MG; Start 07/17/16 at 09:00 Cinacalcet (Sensipar) 30 mg BID PO Last administered on 07/17/16 08:06; Admin Dose 30 MG; Start 07/17/16 at 09:00 Epoetin Eze (Epogen (Neserd)) 6,000 units TuThSa@17 SC ; Start 07/17/16 at 17: 00 Fenofibrate (Tricor) 145 mg DAILY PO Last administered on 07/17/16 08:07; Admin Dose 145 MG; Start 07/17/16 at 09:00 Gemfibrozil (Lopid) 600 mg BID PO Last administered on 07/17/16 08:06; Admin Dose 600 MG; Start 07/17/16 at 09:00 Loratadine (Claritin) 10 mg DAILY PO Last administered on 07/17/16 08:05; Admin Dose 10 MG; Start 07/17/16 at 09:00 Pantoprazole (Protonix Tab) 40 mg DAILY@06 PO Last administered on 07/17/16 05 :40; Admin Dose 40 MG; Start 07/17/16 at 06:00 Diagnostic Test (Pha) (Accu-Chek) 1 ea 02 XX ; Start 07/18/16 at 02:00 Miscellaneous Information 1 ea NOTE XX ; Start 07/17/16 at 04:00 Glucose (Glutose) 15 gm Q15M PRN PO DECREASED GLUCOSE; Start 07/17/16 at 04:00 Glucose (Glutose) 22.5 gm Q15M PRN PO DECREASED GLUCOSE; Start 07/17/16 at 04: 00 Dextrose (D50w Syringe) 25 ml Q15M PRN IV DECREASED GLUCOSE; Start 07/17/16 at 04:00 Dextrose (D50w Syringe) 50 ml Q15M PRN IV DECREASED GLUCOSE; Start 07/17/16 at 04:00 Glucagon (Glucagen) 1 mg Q15M PRN IM DECREASED GLUCOSE; Start 07/17/16 at 04:00 Glucose (Glutose) 15 gm Q15M PRN BUCCAL DECREASED GLUCOSE; Start 07/17/16 at 04 :00 Procedures Procedures PROCEDURE: XR Chest. CLINICAL INDICATION: Chest pain. TECHNIQUE: Single frontal view of the chest. COMPARISON: 03/16/2016. FINDINGS: Cardiomegaly. Discoid atelectasis at the left lung base at the costophrenic angle is similar in appearance to prior examination, given differences in plane film technique. Resolved failure. Improved lung inflation over interval. No signs of pleural fluid or pneumothorax are seen. The osseous structures and soft tissues are unremarkable. IMPRESSION: 1. Resolved failure. 2. Discoid atelectasis persists at the left costophrenic angle. RPTAT: [facility] Physician Jaelyn Date Time Electronically viewed and signed by Physician Jaelyn on 07/16/2016 23:24 RAPHAEL WINTERS MD Jul 17, 2016 15:29
[2016-07-17] MEDS ORDERED: EPOETIN ALFA (NESRD) 3,000 UNITS/ML VIAL SC SCH (17:00)
[2016-07-18] VITALS (21 sets, daily range): BP systolic 140–198; BP diastolic 60–98; PULSE 67–79; RESP 16–18
[2016-07-18] MEDS: hydrALAzine 20 MG INJ IV PRN ×2 (00:42→11:40)
[2016-07-18] MEDS: ACCU-CHEK XX SCH (02:00)
[2016-07-18] MEDS: PANTOPRAZOLE (EC) 40 MG TAB PO SCH (05:49)
[2016-07-18 07:13] LABS: ADD SCAN DIFF NO
[2016-07-18 07:19] LABS: BASOPHILS % 0.6 % (0.0-2.0); EOSINOPHILS # 0.1 10^3/ul (0.0-0.5); EOSINOPHILS % 1.9 % (0.0-7.0); HEMATOCRIT 39.5 % (42.0-52.0); HEMOGLOBIN 12.5 g/dl (14.0-18.0); LYMPHOCYTES % 16.1 % (15.0-51.0); MEAN CORPUSCULAR HEMOGLOBIN 26.9 pg (29.0-33.0); MEAN CORPUSCULAR HGB CONC 31.6 g/dl (32.0-37.0); MEAN CORPUSCULAR VOLUME 85.1 fl (82.0-101.0); MEAN PLATELET VOLUME 11.3 fl (7.4-10.4); MONOCYTE # 0.7 10^3/ul (0.3-0.9); MONOCYTES % 10.9 % (0.0-11.0); NEUTROPHIL # 4.5 10^3/ul (1.6-7.5); NEUTROPHILS % 70.3 % (39.0-77.0); PLATELET COUNT 199 10^3/UL (140-415); RED BLOOD COUNT 4.64 10^6/ul (4.70-6.10); RED CELL DISTRIBUTION WIDTH 14.4 % (11.5-14.5); WHITE BLOOD COUNT 6.4 10^3/ul (4.8-10.8)
[2016-07-18 07:42] LABS: CALCIUM 7.3 mg/dl (8.4-10.2); CREATININE 10.67 mg/dl (0.61-1.24); MAGNESIUM 2.5 mg/dl (1.7-2.5); PHOSPHORUS 9.4 mg/dl (2.5-4.9); POTASSIUM 4.5 mmol/L (3.5-5.1)
[2016-07-18] MEDS: INSULIN ASPART [NOVOLOG] 3 ML PEN SC SCH ×4 (07:55→20:48)
[2016-07-18] MEDS: INSULIN GLARGINE [LANtus] 3 ML PEN SC SCH ×2 (08:00→09:42)
[2016-07-18] MEDS: LORATADINE 10 MG TAB PO SCH (08:29)
[2016-07-18] MEDS: ASPIRIN (EC) 81 MG TAB PO SCH (08:29)
[2016-07-18] MEDS: GEMFIBROZIL 600 MG TAB PO SCH ×2 (08:29→20:47)
[2016-07-18] MEDS: ALLOPURINOL 100 MG TAB PO SCH (08:31)
[2016-07-18] MEDS: BENAZEPRIL 20 MG TAB PO SCH (08:31)
[2016-07-18] MEDS: FENOFIBRATE 145 MG TAB PO SCH (08:31)
--- NOTE | 2016-07-18 11:23 | PN ---
Date/Time of Note Date/Time of Note DATE: 07/18/16 TIME: : Assessment/Plan VTE Prophylaxis VTE Prophylaxis Intervention: SCD's Lines/Catheters IV [facility]ter Type (from [facility] Saline Lock Urinary Cath still in place: No Assessment/Plan Chief Complaint/Hosp Course Assessment and plan 1. Hypertensive urgency. Noted with uncontrolled blood pressure still. Amlodipine added. Will follow. 2. Headache secondary to #1. Improved at present. Will provide with analgesics as needed 3. Chest pain secondary to #1. ACS ruled out. Will continue with measures for better blood pressure control. 4. History of CAD. Continue on ASA for now. Continue on gemfibrozil medication 5. Diabetes. Continue his regimen. Stable at present. 6. End-stage renal disease. 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 Patient to be continued on his dialysis Tuesday, , Tuesday. History of gastritis. Continue PPI medication Disposition and plan: Still with uncontrolled blood pressure. Medications adjusted. Will await for clinical improvement. Discussed plan of care with Dr. Servin Problems: Subjective 24 Hr Interval Summary Free Text/Dictation no reported chest pain or headache at this time Exam/Review of Systems Vital Signs Vitals Vital Signs Date Time Temp Pulse Resp B/P Pulse Ox O2 Delivery O2 Flow Rate FiO2 07/18/16 08:11 75 07/18/16 08:05 198/85 07/18/16 07:22 97.6 18 97 07/17/16 02:38 Room Air Intake and Output 07/17/16 07/17/16 07/18/16 14:59 22:59 06:59 Intake Total 650 ml 350 ml Balance 650 ml 350 ml Exam Constitutional: alert, oriented Psych: no complaints Head: normocephalic Eyes: nl conjunctiva Neck: supple, No jvd Respiratory: clear to auscultation Gastrointestinal: non-tender, soft Extremities: normal pulses Neurological: [employer] OPERATIONS SUPERINTENDENT II-XII intact, nl mental status, nl speech Skin: nl turgor Results Result Diagram: 07/18/16 0607/18/16 0605 Results 24 hrs Laboratory Tests Test 07/17/16 11:22 07/17/16 17:31 07/17/16 20:18 07/18/16 06:05 Bedside Glucose 95 89 108 White Blood Count 6.4 Red Blood Count 4.64 L Hemoglobin 12.5 L Hematocrit 39.5 L Mean Corpuscular Volume 85.1 Mean Corpuscular Hemoglobin 26.9 L Mean Corpuscular Hemoglobin Concent 31.6 L Red Cell Distribution Width 14.4 Platelet Count 199 Mean Platelet Volume 11.3 H Neutrophils % 70.3 Lymphocytes % 16.1 Monocytes % 10.9 Eosinophils % 1.9 Basophils % 0.6 Nucleated Red Blood Cells % 0.0 Neutrophils # 4.5 Lymphocytes # 1.0 Monocytes # 0.7 Eosinophils # 0.1 Basophils # 0.0 Nucleated Red Blood Cells # 0.0 Sodium Level 137 Potassium Level 4.5 Chloride Level 94 L Carbon Dioxide Level 25 Anion Gap 23 H Blood Urea Nitrogen 58 H Creatinine 10.67 #H Glucose Level 66 #L Calcium Level 7.3 L Phosphorus Level 9.4 #H Magnesium Level 2.5 Test 07/18/16 07:57 07/18/16 08:23 07/18/16 08:46 Bedside Glucose 66 L 83 111 Medications Medications Current Medications Lorazepam (Ativan) 0.5 mg Q8H PRN PO ANXIETY; Start 07/17/16 at 04:00 Ondansetron HCl (Zofran Inj) 4 mg Q6H PRN IV NAUSEA AND/OR VOMITING; Start 11/23 at 04:00 Nitroglycerin (Nitroglycerin (Sl Tab) 0.4 Mg) 1 tab Q5M PRN SL CHEST PAIN; Start 07/17/16 at 04:00 Acetaminophen (Tylenol Tab) 650 mg Q6H PRN PO PAIN LEVEL 1-3 OR FEVER; Start at 04:00 Morphine Sulfate (morphine) 2 mg Q4H PRN IV PAIN LEVEL 7-10; Start 07/17/16 at 04:00 Hydralazine HCl (Apresoline) 10 mg Q4H PRN IV SBP > 160 Last administered on t 00:42; Admin Dose 10 MG; Start 07/17/16 at 04:00 Acetaminophen (Tylenol Tab) 500 mg Q4H PRN PO PAIN AND OR ELEVATED TEMP; Start 07/17/16 at 04:00 Allopurinol (Zyloprim) 100 mg DAILY PO Last administered on 07/18/16t 08:31; Admin Dose 100 MG; Start 07/17/16 at 09:00 Aspirin (Halfprin) 81 mg DAILY PO Last administered on 07/18/16 08:29; Admin Dose 81 MG; Start 07/17/16 at 09:00 Benazepril HCl (Lotensin) 20 mg DAILY PO Last administered on 07/18/16 08:31; Admin Dose 20 MG; Start 07/17/16 at 09:00 Fenofibrate (Tricor) 145 mg DAILY PO Last administered on 07/18/16 08:31; Admin Dose 145 MG; Start 07/17/16 at 09:00 Gemfibrozil (Lopid) 600 mg BID PO Last administered on 07/18/16 08:29; Admin Dose 600 MG; Start 07/17/16 at 09:00 Loratadine (Claritin) 10 mg DAILY PO Last administered on 07/18/16 08:29; Admin Dose 10 MG; Start 07/17/16 at 09:00 Pantoprazole (Protonix Tab) 40 mg DAILY@06 PO Last administered on 07/18/16 05 :49; Admin Dose 40 MG; Start 07/17/16 at 06:00 Diagnostic Test (Pha) (Accu-Chek) 1 ea 02 XX ; Start 07/18/16 at 02:00 Miscellaneous Information 1 ea NOTE XX ; Start 07/17/16 at 04:00 Glucose (Glutose) 15 gm Q15M PRN PO DECREASED GLUCOSE; Start 07/17/16 at 04:00 Glucose (Glutose) 22.5 gm Q15M PRN PO DECREASED GLUCOSE; Start 07/17/16 at 04: 00 Dextrose (D50w Syringe) 25 ml Q15M PRN IV DECREASED GLUCOSE; Start 07/17/16 at 04:00 Dextrose (D50w Syringe) 50 ml Q15M PRN IV DECREASED GLUCOSE; Start 07/17/16 at 04:00 Glucagon (Glucagen) 1 mg Q15M PRN IM DECREASED GLUCOSE; Start 07/17/16 at 04:00 Glucose (Glutose) 15 gm Q15M PRN BUCCAL DECREASED GLUCOSE; Start 07/17/16 at 04 :00 Insulin Glargine (Lantus) 9 unit DAILY@08 SC Last administered on 07/18/16 09: 42; Admin Dose 9 UNIT; Start 07/19/16 at 08:00 Amlodipine Besylate (Norvasc) 5 mg BID PO ; Start 07/18/16 at 11:00 CHRISTIANO LAO Jul 18, 2016 11:23
[2016-07-18] MEDS: AMLODIPINE 5 MG TAB PO SCH ×2 (11:39→20:47)
--- NOTE | 2016-07-18 18:33 | CONS ---
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 Consultation Date/Type/Reason Admit Date/Time Jul 17, 2016 at 02:35 Initial Consult Date 07/17/16 Type of Consultation: Nephrology Referring Provider: LACY DORMAN MD 24 HR Interval Summary Free Text/Dictation Still has Dizziness, S/p HD this am Constitutional: No requiring O2 Exam/Review of Systems Vital Signs Vitals Vital Signs Date Time Temp Pulse Resp B/P Pulse Ox O2 Delivery O2 Flow Rate FiO2 07/18/16 17:40 79 07/18/16 15:44 98.1 17 140/69 98 07/17/16 02:38 Room Air Intake and Output 07/17/16 07/17/16 07/18/16 15:00 23:00 07:00 Intake Total 650 ml 350 ml Balance 650 ml 350 ml Exam Constitutional: alert, oriented, No distress ENMT: mucosa pink and moist Neck: No jvd Respiratory: No diminished breath sounds, No labored breathing Cardiovascular: regular rate and rhythm, No edema Gastrointestinal: non-tender, soft Neurological: STATE'S ATTORNEY II-XII intact, nl speech, nl strength, No confused, No lethargic Skin: No diaphoresis Results Result Diagram: 07/18/16 0605 07/18/16 0605 Results 24 hrs Laboratory Tests Test 07/17/16 20:18 07/18/16 06:05 07/18/16 07:57 07/18/16 08:23 Bedside Glucose 108 66 L 83 White Blood Count 6.4 Red Blood Count 4.64 L Hemoglobin 12.5 L Hematocrit 39.5 L Mean Corpuscular Volume 85.1 Mean Corpuscular Hemoglobin 26.9 L Mean Corpuscular Hemoglobin Concent 31.6 L Red Cell Distribution Width 14.4 Platelet Count 199 Mean Platelet Volume 11.3 H Neutrophils % 70.3 Lymphocytes % 16.1 Monocytes % 10.9 Eosinophils % 1.9 Basophils % 0.6 Nucleated Red Blood Cells % 0.0 Neutrophils # 4.5 Lymphocytes # 1.0 Monocytes # 0.7 Eosinophils # 0.1 Basophils # 0.0 Nucleated Red Blood Cells # 0.0 Sodium Level 137 Potassium Level 4.5 Chloride Level 94 L Carbon Dioxide Level 25 Anion Gap 23 H Blood Urea Nitrogen 58 H Creatinine 10.67 #H Glucose Level 66 #L Calcium Level 7.3 L Phosphorus Level 9.4 #H Magnesium Level 2.5 Test 07/18/16 08:46 07/18/16 11:43 07/18/16 17:11 Bedside Glucose 111 115 135 Medications Medications Current Medications Lorazepam (Ativan) 0.5 mg Q8H PRN PO ANXIETY; Start 07/17/16 at 04:00 Ondansetron HCl (Zofran Inj) 4 mg Q6H PRN IV NAUSEA AND/OR VOMITING; Start 11/23 at 04:00 Nitroglycerin (Nitroglycerin (Sl Tab) 0.4 Mg) 1 tab Q5M PRN SL CHEST PAIN; Start 07/17/16 at 04:00 Acetaminophen (Tylenol Tab) 650 mg Q6H PRN PO PAIN LEVEL 1-3 OR FEVER; Start at 04:00 Morphine Sulfate (morphine) 2 mg Q4H PRN IV PAIN LEVEL 7-10; Start 07/17/16 at 04:00 Hydralazine HCl (Apresoline) 10 mg Q4H PRN IV SBP > 160 Last administered on 11:40; Admin Dose 10 MG; Start 07/17/16 at 04:00 Acetaminophen (Tylenol Tab) 500 mg Q4H PRN PO PAIN AND OR ELEVATED TEMP; Start 07/17/16 at 04:00 Allopurinol (Zyloprim) 100 mg DAILY PO Last administered on 07/18/16 08:31; Admin Dose 100 MG; Start 07/17/16 at 09:00 Aspirin (Halfprin) 81 mg DAILY PO Last administered on 07/18/16 08:29; Admin Dose 81 MG; Start 07/17/16 at 09:00 Benazepril HCl (Lotensin) 20 mg DAILY PO Last administered on 07/18/16 08:31; Admin Dose 20 MG; Start 07/17/16 at 09:00 Fenofibrate (Tricor) 145 mg DAILY PO Last administered on 07/18/16 08:31; Admin Dose 145 MG; Start 07/17/16 at 09:00 Gemfibrozil (Lopid) 600 mg BID PO Last administered on 07/18/16 08:29; Admin Dose 600 MG; Start 07/17/16 at 09:00 Loratadine (Claritin) 10 mg DAILY PO Last administered on 07/18/16 08:29; Admin Dose 10 MG; Start 07/17/16 at 09:00 Pantoprazole (Protonix Tab) 40 mg DAILY@06 PO Last administered on 07/18/16 05 :49; Admin Dose 40 MG; Start 07/17/16 at 06:00 Diagnostic Test (Pha) (Accu-Chek) 1 ea 02 XX ; Start 07/18/16 at 02:00 Miscellaneous Information 1 ea NOTE XX ; Start 07/17/16 at 04:00 Glucose (Glutose) 15 gm Q15M PRN PO DECREASED GLUCOSE; Start 07/17/16 at 04:00 Glucose (Glutose) 22.5 gm Q15M PRN PO DECREASED GLUCOSE; Start 07/17/16 at 04: 00 Dextrose (D50w Syringe) 25 ml Q15M PRN IV DECREASED GLUCOSE; Start 07/17/16 at 04:00 Dextrose (D50w Syringe) 50 ml Q15M PRN IV DECREASED GLUCOSE; Start 07/17/16 at 04:00 Glucagon (Glucagen) 1 mg Q15M PRN IM DECREASED GLUCOSE; Start 07/17/16 at 04:00 Glucose (Glutose) 15 gm Q15M PRN BUCCAL DECREASED GLUCOSE; Start 07/17/16 at 04 :00 Insulin Glargine (Lantus) 9 unit DAILY@08 SC Last administered on 07/18/16 09: 42; Admin Dose 9 UNIT; Start 07/19/16 at 08:00 Amlodipine Besylate (Norvasc) 5 mg BID PO Last administered on 07/18/16 11:39 ; Admin Dose 5 MG; Start 07/18/16 at 11:00 RAPHAEL WINTERS MD Jul 18, 2016 18:33
[2016-07-19] VITALS (11 sets, daily range): BP systolic 148–182; BP diastolic 67–78; PULSE 65–79; RESP 16–20
[2016-07-19] MEDS: ACCU-CHEK XX SCH (02:00)
[2016-07-19] MEDS: PANTOPRAZOLE (EC) 40 MG TAB PO SCH (05:36)
[2016-07-19 05:43] LABS: ADD SCAN DIFF NO
[2016-07-19 06:01] LABS: BASOPHIL # 0.1 10^3/ul (0.0-0.1); BASOPHILS % 0.8 % (0.0-2.0); EOSINOPHILS # 0.3 10^3/ul (0.0-0.5); HEMATOCRIT 39.1 % (42.0-52.0); HEMOGLOBIN 12.5 g/dl (14.0-18.0); LYMPHOCYTES % 16.5 % (15.0-51.0); MEAN CORPUSCULAR HEMOGLOBIN 26.9 pg (29.0-33.0); MEAN CORPUSCULAR VOLUME 84.3 fl (82.0-101.0); MEAN PLATELET VOLUME 11.4 fl (7.4-10.4); MONOCYTE # 0.9 10^3/ul (0.3-0.9); MONOCYTES % 13.6 % (0.0-11.0); NEUTROPHIL # 4.1 10^3/ul (1.6-7.5); NEUTROPHILS % 64.9 % (39.0-77.0); PLATELET COUNT 205 10^3/UL (140-415); RED BLOOD COUNT 4.64 10^6/ul (4.70-6.10); RED CELL DISTRIBUTION WIDTH 14.4 % (11.5-14.5); WHITE BLOOD COUNT 6.3 10^3/ul (4.8-10.8)
[2016-07-19 06:25] LABS: CALCIUM 7.7 mg/dl (8.4-10.2); CREATININE 9.89 mg/dl (0.61-1.24); POTASSIUM 4.6 mmol/L (3.5-5.1)
[2016-07-19] MEDS ORDERED: HYDROCODONE/APAP (5/325) TAB PO PRN (06:30)
[2016-07-19] MEDS: INSULIN ASPART [NOVOLOG] 3 ML PEN SC SCH ×4 (07:47→21:00)
[2016-07-19] MEDS: AMLODIPINE 5 MG TAB PO SCH (09:21)
[2016-07-19] MEDS: LORATADINE 10 MG TAB PO SCH (09:21)
[2016-07-19] MEDS: ALLOPURINOL 100 MG TAB PO SCH (09:21)
[2016-07-19] MEDS: GEMFIBROZIL 600 MG TAB PO SCH ×2 (09:21→21:27)
[2016-07-19] MEDS: FENOFIBRATE 145 MG TAB PO SCH (09:21)
[2016-07-19] MEDS: ASPIRIN (EC) 81 MG TAB PO SCH (09:21)
[2016-07-19] MEDS: BENAZEPRIL 20 MG TAB PO SCH (09:21)
[2016-07-19] MEDS: INSULIN GLARGINE [LANtus] 3 ML PEN SC SCH (09:27)
--- NOTE | 2016-07-19 14:54 | PN ---
Date/Time of Note Date/Time of Note DATE: 07/19/16 TIME: 14:53 Assessment/Plan VTE Prophylaxis VTE Prophylaxis Intervention: SCD's Lines/Catheters IV Catheter Type (from Nrs): Saline Lock Urinary Cath still in place: No Assessment/Plan Assessment/Plan 60 yo M with ESRD on HD 2/2 HTN admitted for LAUREN and HTN urgency. BPs improved with HD and adjustement of BP meds though still suboptimal. 1. Hypertensive urgency. Noted with uncontrolled blood pressure still. inc home benezapril to 40 mg daily goal for hospital stay is <160/90 2. Headache secondary to #1. resolved 3. Chest pain secondary to #1. ACS ruled out. Will continue with measures for better blood pressure control. 4. History of CAD. Continue on ASA for now. Continue on gemfibrozil medication 5. Diabetes. Continue his regimen. Stable at present. 6. End-stage renal disease. 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 Patient to be continued on his dialysis Tuesday, , Tuesday. History of gastritis. Continue PPI medication Disposition and plan: Still with uncontrolled blood pressure. Medications adjusted. Will await for clinical improvement. Subjective 24 Hr Interval Summary Free Text/Dictation Pt feels well today. Headache has totally resolved. Exam/Review of Systems Vital Signs Vitals Vital Signs Date Time Temp Pulse Resp B/P Pulse Ox O2 Delivery O2 Flow Rate FiO2 07/19/16 12:11 65 07/19/16 11:26 98.0 19 182/78 99 07/17/16 02:38 Room Air Intake and Output 07/18/16 07/18/16 07/19/16 15:00 23:00 07:00 Intake Total 400 ml 480 ml 400 ml Output Total 2400 ml Balance -2000 ml 480 ml 400 ml Exam nad, laying in bed no mrg lungs clear abd soft no le edema Results Result Diagram: 07/19/16 0520 07/19/16 0520 Results 24 hrs Laboratory Tests Test 07/18/16 17:11 07/18/16 20:21 07/19/16 05:20 07/19/16 07:44 Bedside Glucose 135 113 74 White Blood Count 6.3 Red Blood Count 4.64 L Hemoglobin 12.5 L Hematocrit 39.1 L Mean Corpuscular Volume 84.3 Mean Corpuscular Hemoglobin 26.9 L Mean Corpuscular Hemoglobin Concent 32.0 Red Cell Distribution Width 14.4 Platelet Count 205 Mean Platelet Volume 11.4 H Neutrophils % 64.9 Lymphocytes % 16.5 Monocytes % 13.6 H Eosinophils % 4.0 Basophils % 0.8 Nucleated Red Blood Cells % 0.0 Neutrophils # 4.1 Lymphocytes # 1.0 Monocytes # 0.9 Eosinophils # 0.3 Basophils # 0.1 Nucleated Red Blood Cells # 0.0 Sodium Level 136 Potassium Level 4.6 Chloride Level 94 L Carbon Dioxide Level 26 Anion Gap 21 H Blood Urea Nitrogen 52 H Creatinine 9.89 H Glucose Level 92 Calcium Level 7.7 L Test 07/19/16 11:54 Bedside Glucose 109 Medications Medications Current Medications Lorazepam (Ativan) 0.5 mg Q8H PRN PO ANXIETY; Start 07/17/16 at 04:00 Ondansetron HCl (Zofran Inj) 4 mg Q6H PRN IV NAUSEA AND/OR VOMITING; Start 11/23 at 04:00 Nitroglycerin (Nitroglycerin (Sl Tab) 0.4 Mg) 1 tab Q5M PRN SL CHEST PAIN; Start 07/17/16 at 04:00 Acetaminophen (Tylenol Tab) 650 mg Q6H PRN PO PAIN LEVEL 1-3 OR FEVER Last administered on 07/18/16 20:19; Admin Dose 650 MG; Start 07/17/16 at 04:00 Morphine Sulfate (morphine) 2 mg Q4H PRN IV PAIN LEVEL 7-10; Start 07/17/16 at 04:00 Hydralazine HCl (Apresoline) 10 mg Q4H PRN IV SBP > 160 Last administered on 11:40; Admin Dose 10 MG; Start 07/17/16 at 04:00 Acetaminophen (Tylenol Tab) 500 mg Q4H PRN PO PAIN AND OR ELEVATED TEMP; Start 07/17/16 at 04:00 Allopurinol (Zyloprim) 100 mg DAILY PO Last administered on 07/19/16 09:21; Admin Dose 100 MG; Start 07/17/16 at 09:00 Aspirin (Halfprin) 81 mg DAILY PO Last administered on 07/19/16 09:21; Admin Dose 81 MG; Start 07/17/16 at 09:00 Benazepril HCl (Lotensin) 20 mg DAILY PO Last administered on 07/19/16 09:21; Admin Dose 20 MG; Start 07/17/16 at 09:00 Fenofibrate (Tricor) 145 mg DAILY PO Last administered on 07/19/16 09:21; Admin Dose 145 MG; Start 07/17/16 at 09:00 Gemfibrozil (Lopid) 600 mg BID PO Last administered on 07/19/16 09:21; Admin Dose 600 MG; Start 07/17/16 at 09:00 Loratadine (Claritin) 10 mg DAILY PO Last administered on 07/19/16 09:21; Admin Dose 10 MG; Start 07/17/16 at 09:00 Pantoprazole (Protonix Tab) 40 mg DAILY@06 PO Last administered on 07/19/16 05 :36; Admin Dose 40 MG; Start 07/17/16 at 06:00 Diagnostic Test (Pha) (Accu-Chek) 1 ea 02 XX ; Start 07/18/16 at 02:00 Miscellaneous Information 1 ea NOTE XX ; Start 07/17/16 at 04:00 Glucose (Glutose) 15 gm Q15M PRN PO DECREASED GLUCOSE; Start 07/17/16 at 04:00 Glucose (Glutose) 22.5 gm Q15M PRN PO DECREASED GLUCOSE; Start 07/17/16 at 04: 00 Dextrose (D50w Syringe) 25 ml Q15M PRN IV DECREASED GLUCOSE; Start 07/17/16 at 04:00 Dextrose (D50w Syringe) 50 ml Q15M PRN IV DECREASED GLUCOSE; Start 07/17/16 at 04:00 Glucagon (Glucagen) 1 mg Q15M PRN IM DECREASED GLUCOSE; Start 07/17/16 at 04:00 Glucose (Glutose) 15 gm Q15M PRN BUCCAL DECREASED GLUCOSE; Start 07/17/16 at 04 :00 Insulin Glargine (Lantus) 9 unit DAILY@08 SC Last administered on 07/19/16 09: 27; Admin Dose 9 UNIT; Start 07/19/16 at 08:00 Amlodipine Besylate (Norvasc) 5 mg BID PO Last administered on 07/19/16 09:21 ; Admin Dose 5 MG; Start 07/18/16 at 11:00 Acetaminophen/ Hydrocodone Bitart ([place] (5/325)) 1 tab Q4H PRN PO PAIN; Start 07/19/16 at 06:30 MELISSA HADDAD MD Jul 19, 2016 14:54
[2016-07-19] MEDS ORDERED: BENAZEPRIL 20 MG TAB PO ONE (15:00)
--- NOTE | 2016-07-19 20:35 | CONS ---
Date/Time of Note Date/Time of Note DATE: 07/19/16 TIME: 20:22 Assessment/Plan Assessment/Plan Chief Complaint/Hosp Course Pt on Heparin drip for Supefician Vein thrombosis. Will leave further plans per PM with this regard Problems: Additional Assessment/Plan BP continues to fluctuate tho a reading of over 180 systolic just recorded In light of that I'd add low dose nitely procordia Cont'd Hospitalization Reason: HD tomorrow per schedule. Wi;ll also add meclizine for dizziness & obseve Consultation Date/Type/Reason Admit Date/Time Jul 19, 2016 at 14:51 Initial Consult Date 07/17/16 Type of Consultation: Nephrology Referring Provider: LACY DORMAN MD 24 HR Interval Summary Free Text/Dictation c/o dizziness Exam/Review of Systems Vital Signs Vitals Vital Signs Date Time Temp Pulse Resp B/P Pulse Ox O2 Delivery O2 Flow Rate FiO2 07/19/16 20:05 98.0 75 20 159/71 97 07/17/16 02:38 Room Air Intake and Output 07/18/16 07/18/16 07/19/16 15:00 23:00 07:00 Intake Total 400 ml 480 ml 400 ml Output Total 2400 ml Balance -2000 ml 480 ml 400 ml Exam Pt is sitting up comfortably in his chair Constitutional: alert, oriented, well developed Psych: nl mood/affect, no complaints Head: atraumatic, normocephalic Eyes: EOMI, PERRL, nl conjunctiva, nl lids, nl sclera ENMT: nl external ears & nose, nl lips & teeth, nl nasal mucosa & septum Neck: non-tender, supple Respiratory: clear to auscultation, normal air movement Cardiovascular: nl pulses, regular rate and rhythm Gastrointestinal: nl liver, spleen, non-tender, soft Musculoskeletal: nl extremities to inspection, nl gait and stance Extremities: normal pulses, other (lt arm avf bruit +) Neurological: 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 ENGINEER II-XII 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, nl mental status, nl speech, nl strength Skin: nl turgor, No rash or lesions Lymph: nl lymph nodes Results Hct stable at 39% Result Diagram: 07/19/16 0520 07/19/16 0520 Results 24 hrs Laboratory Tests Test 07/19/16 05:20 07/19/16 07:44 07/19/16 11:54 07/19/16 17:38 White Blood Count 6.3 Red Blood Count 4.64 L Hemoglobin 12.5 L Hematocrit 39.1 L Mean Corpuscular Volume 84.3 Mean Corpuscular Hemoglobin 26.9 L Mean Corpuscular Hemoglobin Concent 32.0 Red Cell Distribution Width 14.4 Platelet Count 205 Mean Platelet Volume 11.4 H Neutrophils % 64.9 Lymphocytes % 16.5 Monocytes % 13.6 H Eosinophils % 4.0 Basophils % 0.8 Nucleated Red Blood Cells % 0.0 Neutrophils # 4.1 Lymphocytes # 1.0 Monocytes # 0.9 Eosinophils # 0.3 Basophils # 0.1 Nucleated Red Blood Cells # 0.0 Sodium Level 136 Potassium Level 4.6 Chloride Level 94 L Carbon Dioxide Level 26 Anion Gap 21 H Blood Urea Nitrogen 52 H Creatinine 9.89 H Glucose Level 92 Calcium Level 7.7 L Bedside Glucose 74 109 99 Medications Medications Current Medications Lorazepam (Ativan) 0.5 mg Q8H PRN PO ANXIETY; Start 07/17/16 at 04:00 Ondansetron HCl (Zofran Inj) 4 mg Q6H PRN IV NAUSEA AND/OR VOMITING; Start 11/23 at 04:00 Nitroglycerin (Nitroglycerin (Sl Tab) 0.4 Mg) 1 tab Q5M PRN SL CHEST PAIN; Start 07/17/16 at 04:00 Morphine Sulfate (morphine) 2 mg Q4H PRN IV PAIN LEVEL 7-10; Start 07/17/16 at 04:00 Acetaminophen (Tylenol Tab) 500 mg Q4H PRN PO PAIN AND OR ELEVATED TEMP; Start 07/17/16 at 04:00 Allopurinol (Zyloprim) 100 mg DAILY PO Last administered on 07/19/16 09:21; Admin Dose 100 MG; Start 07/17/16 at 09:00 Aspirin (Halfprin) 81 mg DAILY PO Last administered on 07/19/16 09:21; Admin Dose 81 MG; Start 07/17/16 at 09:00 Fenofibrate (Tricor) 145 mg DAILY PO Last administered on 07/19/16 09:21; Admin Dose 145 MG; Start 07/17/16 at 09:00 Gemfibrozil (Lopid) 600 mg BID PO Last administered on 07/19/16 09:21; Admin Dose 600 MG; Start 07/17/16 at 09:00 Loratadine (Claritin) 10 mg DAILY PO Last administered on 07/19/16 09:21; Admin Dose 10 MG; Start 07/17/16 at 09:00 Pantoprazole (Protonix Tab) 40 mg DAILY@06 PO Last administered on 07/19/16 05 :36; Admin Dose 40 MG; Start 07/17/16 at 06:00 Diagnostic Test (Pha) (Accu-Chek) 1 ea 02 XX ; Start 07/18/16 at 02:00 Miscellaneous Information 1 ea NOTE XX ; Start 07/17/16 at 04:00 Glucose (Glutose) 15 gm Q15M PRN PO DECREASED GLUCOSE; Start 07/17/16 at 04:00 Glucose (Glutose) 22.5 gm Q15M PRN PO DECREASED GLUCOSE; Start 07/17/16 at 04: 00 Dextrose (D50w Syringe) 25 ml Q15M PRN IV DECREASED GLUCOSE; Start 07/17/16 at 04:00 Dextrose (D50w Syringe) 50 ml Q15M PRN IV DECREASED GLUCOSE; Start 07/17/16 at 04:00 Glucagon (Glucagen) 1 mg Q15M PRN IM DECREASED GLUCOSE; Start 07/17/16 at 04:00 Glucose (Glutose) 15 gm Q15M PRN BUCCAL DECREASED GLUCOSE; Start 07/17/16 at 04 :00 Insulin Glargine (Lantus) 9 unit DAILY@08 SC Last administered on 07/19/16 09: 27; Admin Dose 9 UNIT; Start 07/19/16 at 08:00 Acetaminophen/ Hydrocodone Bitart ([place] (5/325)) 1 tab Q4H PRN PO PAIN; Start 07/19/16 at 06:30 Benazepril HCl (Lotensin) 40 mg DAILY PO ; Start 07/20/16 at 09:00 CAHN EL MD Jul 19, 2016 20:33
[2016-07-19] MEDS: NIFEdipine (XL) 30 MG TAB PO SCH (21:56)
[2016-07-19] MEDS: MECLIZINE 12.5 MG TAB PO SCH (21:56)
[2016-07-20] VITALS (10 sets, daily range): BP systolic 150–162; BP diastolic 58–80; PULSE 76–88; RESP 18–19
[2016-07-20] MEDS: ACCU-CHEK XX SCH (02:00)
[2016-07-20] MEDS: PANTOPRAZOLE (EC) 40 MG TAB PO SCH (06:14)
[2016-07-20] MEDS: ASPIRIN (EC) 81 MG TAB PO SCH (08:12)
[2016-07-20] MEDS: ALLOPURINOL 100 MG TAB PO SCH (08:12)
[2016-07-20] MEDS: NIFEdipine (XL) 30 MG TAB PO SCH (08:14)
[2016-07-20] MEDS: GEMFIBROZIL 600 MG TAB PO SCH (08:14)
[2016-07-20] MEDS: FENOFIBRATE 145 MG TAB PO SCH (08:14)
[2016-07-20] MEDS: LORATADINE 10 MG TAB PO SCH (08:14)
[2016-07-20] MEDS: MECLIZINE 12.5 MG TAB PO SCH ×2 (08:15→12:36)
[2016-07-20] MEDS: INSULIN GLARGINE [LANtus] 3 ML PEN SC SCH (08:37)
[2016-07-20] MEDS: INSULIN ASPART [NOVOLOG] 3 ML PEN SC SCH ×2 (08:58→11:50)
[2016-07-20] MEDS ORDERED: AMLODIPINE 5 MG TAB PO SCH (09:00)
[2016-07-20] MEDS ORDERED: BENAZEPRIL 20 MG TAB PO SCH (09:00)
--- NOTE | 2016-07-20 12:20 | CONS ---
Date/Time of Note Date/Time of Note DATE: 07/20/16 TIME: 12:20 Consultation Date/Type/Reason Admit Date/Time Jul 19, 2016 at 14:51 Initial Consult Date 07/17/16 Type of Consultation: Nephrology Referring Provider: LAYC DORMAN MD Exam/Review of Systems Vital Signs Vitals Vital Signs Date Time Temp Pulse Resp B/P Pulse Ox O2 Delivery O2 Flow Rate FiO2 07/20/16 11:04 98.2 80 19 162/80 99 07/17/16 02:38 Room Air Intake and Output 07/19/16 07/19/16 07/20/16 15:00 23:00 07:00 Intake Total 400 ml 480 ml Balance 400 ml 480 ml Results Result Diagram: 07/19/1651907/19/16519 Results 24 hrs Laboratory Tests Test 07/19/16 17:38 07/19/16 21:10 07/20/16 08:08 07/20/16 12:05 Bedside Glucose 99 101 157 94 Medications Medications Current Medications Lorazepam (Ativan) 0.5 mg Q8H PRN PO ANXIETY; Start 07/17/16 at 04:00 Ondansetron HCl (Zofran Inj) 4 mg Q6H PRN IV NAUSEA AND/OR VOMITING; Start 11/23 at 04:00 Nitroglycerin (Nitroglycerin (Sl Tab) 0.4 Mg) 1 tab Q5M PRN SL CHEST PAIN; Start 07/17/16 at 04:00 Morphine Sulfate (morphine) 2 mg Q4H PRN IV PAIN LEVEL 7-10; Start 07/17/16 at 04:00 Acetaminophen (Tylenol Tab) 500 mg Q4H PRN PO PAIN AND OR ELEVATED TEMP Last administered on 07/19/16 21:27; Admin Dose 500 MG; Start 07/17/16 at 04:00 Allopurinol (Zyloprim) 100 mg DAILY PO Last administered on 07/20/16 08:12; Admin Dose 100 MG; Start 07/17/16 at 09:00 Aspirin (Halfprin) 81 mg DAILY PO Last administered on 07/20/16 08:12; Admin Dose 81 MG; Start 07/17/16 at 09:00 Fenofibrate (Tricor) 145 mg DAILY PO Last administered on 07/20/16 08:14; Admin Dose 145 MG; Start 07/17/16 at 09:00 Gemfibrozil (Lopid) 600 mg BID PO Last administered on 07/20/16 08:14; Admin Dose 600 MG; Start 07/17/16 at 09:00 Loratadine (Claritin) 10 mg DAILY PO Last administered on 07/20/16 08:14; Admin Dose 10 MG; Start 07/17/16 at 09:00 Pantoprazole (Protonix Tab) 40 mg DAILY@06 PO Last administered on 07/20/16 06 :14; Admin Dose 40 MG; Start 07/17/16 at 06:00 Diagnostic Test (Pha) (Accu-Chek) 1 ea 02 XX ; Start 07/18/16 at 02:00 Miscellaneous Information 1 ea NOTE XX ; Start 07/17/16 at 04:00 Glucose (Glutose) 15 gm Q15M PRN PO DECREASED GLUCOSE; Start 07/17/16 at 04:00 Glucose (Glutose) 22.5 gm Q15M PRN PO DECREASED GLUCOSE; Start 07/17/16 at 04: 00 Dextrose (D50w Syringe) 25 ml Q15M PRN IV DECREASED GLUCOSE; Start 07/17/16 at 04:00 Dextrose (D50w Syringe) 50 ml Q15M PRN IV DECREASED GLUCOSE; Start 07/17/16 at 04:00 Glucagon (Glucagen) 1 mg Q15M PRN IM DECREASED GLUCOSE; Start 07/17/16 at 04:00 Glucose (Glutose) 15 gm Q15M PRN BUCCAL DECREASED GLUCOSE; Start 07/17/16 at 04 :00 Insulin Glargine (Lantus) 9 unit DAILY@08 SC Last administered on 07/20/16 08: 37; Admin Dose 9 UNIT; Start 07/19/16 at 08:00 Acetaminophen/ Hydrocodone Bitart ([place] (5/325)) 1 tab Q4H PRN PO PAIN; Start 07/19/16 at 06:30 Benazepril HCl (Lotensin) 40 mg DAILY PO Last administered on 07/20/16 08:14; Admin Dose 40 MG; Start 07/20/16 at 09:00 Nifedipine (Procardia Xl) 30 mg DAILY PO Last administered on 07/20/16 08:14; Admin Dose 30 MG; Start 6/12/17 at 20:30 Meclizine HCl (Antivert) 12.5 mg TID PO Last administered on 07/20/16t 08:15; Admin Dose 12.5 MG; Start 07/19/16 at 21:00 RAPHAEL WINTERS MD Jul 20, 2016 12:20
--- NOTE | 2016-07-20 12:31 | PDOCDIS ---
Discharge Instructions DIAGNOSIS Discharge Diagnosis: Hypertensive urgency CONDITION Patient Condition: Good HOME CARE INSTRUCTIONS: Diet Instructions: Special Diet: carb-conrolled renal ACTIVITY: Activity Restrictions: Slowly Increase Activity FOLLOW UP/APPOINTMENTS Appointments follow up with your regular doctor within 1 week for a blood pressure check Proceed to your regular dialysis on MELISSA HADDAD MD Jul 20, 2016 12:31
[2016-07-20] MEDS ORDERED: NIFE30TA2 PO (12:33)
[2016-07-20] MEDS ORDERED: BENA20TA48 PO (12:33)
--- NOTE | 2016-07-20 12:35 | DS ---
Date/Time of Note Date/Time of Note DATE: 07/20/16 TIME: 12:33 Discharge Summary Admission/Discharge Info Admit Date/Time Jul 19, 2016 at 14:51 Discharge Date/Time Final Diagnosis hypertensive urgency Patient Condition: Good Consults nephrology Procedures CXR 6.9: IMPRESSION: 1. Resolved failure. 2. Discoid atelectasis persists at the left costophrenic angle. Hx of Present Illness The patient is a 60-year-old male with a history of hypertension, diabetes, GERD , anemia, gastritis, esophagitis, hemorrhoid, coronary artery disease, status post CABG, and end-stage renal disease, on dialysis on Tuesday, and Saturdays. The patient presented complaining of a headache and chest pain. The headache is diffuse and it was associated with "pain in the back of my eyes ". The chest pain is left-sided with no radiation and described as sharp. The patient's main focus is his headache, as well as his associated nausea and nonbilious, nonbloody emesis, and he is really minimizing his chest pain and not really concerned about it. According to the patient and family who is at the bedside, the patient's systolic blood pressure is usually in the 200s. The patient usually gets his dialysis on Tuesday, and Tuesday, but this week he was dialyzed both on and Tuesday, which was yesterday. The reason for the extra dialysis is because "I wasn't feeling well". The patient was last admitted to this hospital in March of this year after he presented with dark stool. At that time he had an EGD and colonoscopy which showed distal esophagitis and gastritis, as well as polyps and large internal hemorrhoids. When the patient presented to the ER today his blood pressure was severely elevated at 234/95. Otherwise, the rest of his vitals were stable. He was given 20 mg of IV hydralazine x2. Laboratory value shows BUN 36, creatinine 7.71 , calcium 7.8 with albumin of 5.2, phosphorus 6.7. Otherwise, the rest of CBC and CMP are within acceptable range. First troponin is 0.028. Chest x-ray shows discoid atelectasis persists at the left costophrenic angle and the previously seen failure is resolved as compared to a chest x-ray from March of this year. The patient was also given 81 mg of aspirin and nitroglycerin ointment while he was in the ER. Hospital Course 60 yo M with ESRD on HD 2/2 HTN admitted for LAUREN and HTN urgency. BPs improved with HD and adjustment of BP meds. Home benazepril dose was increased and patient was started on Procardia with significant BP improvement. Re headache, improved with improved BP control. Neurological exam on date of discharge CN 2-12 intact bl, full AROM bl U and LEs, 5/5 strength bl UEs and LEs. Home DM regimen unchanged. Pt got regular HD via renal service. Home Meds Active Scripts Benazepril Hcl* (Benazepril Hcl*) 20 Mg Tablet, 40 MG PO DAILY for 7 Days, #7 TAB Prov:MELISSA HADDAD MD 07/20/16 Nifedipine (Procardia Xl) 30 Mg Tab.er.24, 30 MG PO DAILY for 7 Days, #7 TAB Prov:MELISSA HADDAD MD 07/20/16 Epoetin vick* (Epogen*) 3,000 Unit/1 Ml Vial, 6000 UNITS SC TuThSa@17 for 30 Days, VIAL 2 Refills Prov:RAJAN STAHL S. 03/23/16 Pantoprazole* (Pantoprazole*) 40 Mg Tablet., 40 MG PO DAILY@06, #30 3 Refills Prov:RAJAN STAHL S. 03/23/16 Reported Medications Acetaminophen* (Acetaminophen*) 500 MG Extra Strength Tablet, 500 MG PO Q4H Y for PAIN AND OR ELEVATED TEMP, TAB 07/16/16 Loratadine* (Loratadine*) 10 Mg Tablet, 10 MG PO DAILY, #30 TAB 03/16/16 Aspirin* (Aspirin* EC) 81 Mg Tablet.dr, 81 MG PO DAILY, TAB 03/16/16 Fenofibrate Nanocrystallized* (Fenofibrate*) 145 Mg Tablet, 145 MG PO DAILY, TAB 03/16/16 Cinacalcet* (Sensipar*) 30 Mg Tab, 30 MG PO BID, TAB 03/16/16 Benazepril Hcl* (Benazepril Hcl*) 20 Mg Tablet, 20 MG PO DAILY, #30 TAB 03/16/16 Gemfibrozil* (Gemfibrozil*) 600 Mg Tablet, 600 MG PO BID, TAB 03/16/16 Allopurinol* (Allopurinol*) 100 Mg Tablet, 100 MG PO DAILY, TAB 03/16/16 Insulin Human Nph (Novolin-N) 100 Units/Ml Susp, 2 UNITS SQ TID 03/16/16 Discontinued Reported Medications Hydralazine Hcl* (Hydralazine Hcl*) 25 Mg Tab, 25 MG PO Q8, #90 TAB 03/16/16 Primary Care Provider Kyle Leonardo MD Pending Labs Laboratory Tests Test 07/19/16 17:38 07/19/16 21:10 07/20/16 08:08 07/20/16 12:05 Bedside Glucose 99mg/dL (70-220) 101mg/dL (70-220) 157mg/dL (70-220) 94mg/dL (70-220) MELISSA HADDAD MD Jul 20, 2016 12:35
[2016-07-20] MEDS ORDERED: EPOETIN 3000 UNITS/1 ML INJ (ESRD) SC SCH (17:00)
== END 2016-07-20 14:00 | disposition home or self-care (01) | DRG 304 ==
LOC: E/R 20:01 → TEL 07-17 02:35 → INTOOBSV 07-17 02:35 → OBSVTOIN 07-19 14:51
PROVIDERS: ADMIT Internal Medicine; ATTEND Internal Medicine
PROC: 5A1D60Z (ICD-10-PCS; principal; 2016-07-18)
DX: I16.0 Hypertensive urgency (principal); N18.6 End stage renal disease; E11.22 Type 2 diabetes mellitus with diabetic chronic kidney disease; J98.11 Atelectasis; I12.0 Hypertensive chronic kidney disease with stage 5 chronic kidney disease or end stage renal disease; Z99.2 Dependence on renal dialysis; R07.9 Chest pain, unspecified; I25.10 Atherosclerotic heart disease of native coronary artery without angina pectoris; Z95.1 Presence of aortocoronary bypass graft; D64.9 Anemia, unspecified; E83.51 Hypocalcemia; E83.89 Other disorders of mineral metabolism; M89.9 Disorder of bone, unspecified
CPT/HCPCS: 36415; 71010; 80048; 80053; 80061; 82550; 82553; 82962; 83036; 83690; 83735; 84100; 84443; 84484; 85025; 85610; 85730; 87081; 90935; 93005; 96374; 96375; 96376; 99217; G0378; J0360; J0780; J0885; J1815; J2060; J2270; J2765

== ENCOUNTER 2016-10-31 19:09 | Inpatient (IN) | payer MEDICARE, OTHER ==
[~2016-10-31] VITALS: Ht 172.7 cm; Wt 86.0 kg
[~2016-10-31 19:09] MED LIST changes: +ACET-141 PO; -HYDR-3671 PO; +NIFE30TA2 PO
[2016-10-31] MEDS ORDERED: ASPIRIN 325 MG TAB PO STA (19:31)
[2016-10-31] MEDS ORDERED: NITROGLYCERIN (SL) 0.4 MG TAB SL PRN (20:00)
[2016-10-31 20:05] LABS: ABNORMAL IP MESSAGE 1; HEMATOCRIT 20.1 % (42.0-52.0); MEAN CORPUSCULAR HEMOGLOBIN 31.1 pg (29.0-33.0); MEAN CORPUSCULAR HGB CONC 33.8 g/dl (32.0-37.0); MEAN CORPUSCULAR VOLUME 91.8 fl (82.0-101.0); MEAN PLATELET VOLUME 12.2 fl (7.4-10.4); NUCLEATED RED BLOOD CELLS% 0.2 /100WBC (0.0-0.0); PLATELET COUNT 179 10^3/UL (140-415); POSITIVE DIFF @See below; RED BLOOD COUNT 2.19 10^6/ul (4.70-6.10); RED CELL DISTRIBUTION WIDTH 16.9 % (11.5-14.5)
[2016-10-31 20:11] LABS: HEMOGLOBIN 6.8 g/dl (14.0-18.0)
[2016-10-31 20:11] LABS: INR 1.02; PROTIME 13.4 Sec (12.2-14.2)
[2016-10-31 20:12] LABS: PARTIAL THROMBOPLASTIN TIME 28.1 Sec (25.0-35.0)
[2016-10-31 20:16] LABS: ALBUMIN 4.1 g/dl (3.3-4.9); ALBUMIN/GLOBULIN RATIO 1.28; CALCIUM 9.4 mg/dl (8.4-10.2); CREATININE 7.9 mg/dl (0.61-1.24); POTASSIUM 4.7 mmol/L (3.5-5.1); TOTAL PROTEIN 7.3 g/dl (6.1-8.1)
--- NOTE | 2016-10-31 20:20 | RADRPT ---
PROCEDURE: XR Chest. CLINICAL INDICATION: Chest pain. TECHNIQUE: Single frontal view. COMPARISON: 07/16/2016. FINDINGS: There is linear atelectasis at the left lung base. The lungs are otherwise clear. The heart size is normal. There is calcification in the aorta consistent with atherosclerosis. There are sternal wires and mediastinal clips. There is no pleural effusion. There is no pneumothorax. IMPRESSION: 1. Linear atelectasis at the left lung base. 2. Atherosclerosis. 3. Previous median sternotomy. RPTAT: QQ .Ludin Mackenzie MD, MD Date Time Electronically viewed and signed by .Ludin Mackenzie MD, MD on 10/31/2016 20:19 .R/
--- NOTE | 2016-10-31 20:25 | ERA ---
ER Documentation Chief Complaint Date/Time DATE: 10/31/16 TIME: 20:24 Chief Complaint chest pain/sob/generalize body weakness x 2 weeks., hx of esrd HPI This is a 61-year-old male with a history of end-stage renal disease which he receives every Tuesday and Tuesday. His last full run of dialysis was 24 hours ago and his staff anesthetist is Dr. Hahn. The patient presents to the emergency department today complaining of intermittent chest pain for the past 2 weeks. Indicates the pain is a sharp shooting pain more prominent on the left than the right. There is no alleviating or exacerbating factors. He has had generalized weakness but denies any hemoptysis hematemesis or melanotic stools. He has had no fevers or shaking or chills. He produces a small amount of urine. He did have a CABG 3 years prior to arrival. The patient has a history of anemia and had a blood transfusion 3 months prior to arrival. He has a left upper extremity AV fistula. ROS All systems reviewed and are negative except as per history of present illness. Medications Home Meds Active Scripts Benazepril Hcl* (Benazepril Hcl*) 20 Mg Tablet, 40 MG PO DAILY for 7 Days, #7 TAB Prov:MELISSA HADDAD MD 07/20/16 Nifedipine (Procardia Xl) 30 Mg Tab.er.24, 30 MG PO DAILY for 7 Days, #7 TAB Prov:MELISSA HADDAD MD 07/20/16 Epoetin vick* (Epogen*) 3,000 Unit/1 Ml Vial, 6000 UNITS SC [facility]@17 for 30 Days, VIAL 2 Refills Prov:RAJAN STAHL S. 03/23/16 Pantoprazole* (Pantoprazole*) 40 Mg Tablet., 40 MG PO DAILY@06, #30 3 Refills Prov:RAJAN STAHL S. 03/23/16 Reported Medications Acetaminophen* (Acetaminophen*) 500 MG Extra Strength Tablet, 500 MG PO Q4H Y for PAIN AND OR ELEVATED TEMP, TAB 07/16/16 Loratadine* (Loratadine*) 10 Mg Tablet, 10 MG PO DAILY, #30 TAB 03/16/16 Aspirin* (Aspirin* EC) 81 Mg Tablet., 81 MG PO DAILY, TAB 03/16/16 Fenofibrate Nanocrystallized* (Fenofibrate*) 145 Mg Tablet, 145 MG PO DAILY, TAB 03/16/16 Cinacalcet* (Sensipar*) 30 Mg Tab, 30 MG PO BID, TAB 03/16/16 Gemfibrozil* (Gemfibrozil*) 600 Mg Tablet, 600 MG PO BID, TAB 03/16/16 Allopurinol* (Allopurinol*) 100 Mg Tablet, 100 MG PO DAILY, TAB 03/16/16 Insulin Human Nph (Novolin-N) 100 Units/Ml Susp, 2 UNITS SQ TID 03/16/16 Allergies Allergies: Coded Allergies: No Known Drug Allergies (Unverified Allergy, Mild, 10/31/16) PMhx/Soc History of Surgery: Yes (CABG(2012),BILATERAL CATARACT SURGERY;COLONOSCOPY;EGD; AVF PLACEMENT;) Anesthesia Reaction: No Hx Neurological Disorder: No Hx Respiratory Disorders: No Hx Cardiac Disorders: Yes (HTN;DYSLIPIDEMIA;CAD;) Hx Psychiatric Problems: No Hx Miscellaneous Medical Probl: No (DM) Hx Alcohol Use: No Hx Substance Use: No Hx Tobacco Use: No Smoking Status: Never smoker Physical Exam Vitals Vital Signs Date Time Temp Pulse Resp B/P Pulse Ox O2 Delivery O2 Flow Rate FiO2 10/31/16 19:15 98.7 67 20 94/46 94 Physical Exam Constitutional:Well-developed. Well-nourished. HEENT:Normocephalic. Atraumatic.Pupils were equal round reactive to light. Moist mucous membranes.No tonsillar exudates. Conjunctival pallor Neck: No nuchal rigidity. No lymphadenopathy. No posterior cervical spine tenderness or step-offs. Respiratory: Not using accessory muscles of respiration.Lungs were clear to auscultation bilaterally. No rhonchi. No rales. No wheezing. Cardiovascular: Regular rate regular rhythm.No murmurs. No rubs were appreciated.S1, S2 normal. Distal pulses are palpable 2+ bilaterally. GI: Abdomen was soft. Nontender. Non Distended. No pulsatile abdominal masses or bruits. No rebound. No guarding. Bowel sounds were present and normal. Muscle skeletal: Full range of motion of both the upper and lower extremities bilaterally.Normal muscle tone.No assymetrical calf tenderness or swelling. Skin: No petechia, no purpura. No lesions on the palms or the soles of the feet. No maculopapular rash. Thrill and bruit at the left upper extremity AV fistula NEURO: Patient was alert, awake, orientated x3.No facial droop. Gait observed and normal with no ataxia.Speech had regular rate and rhythm. No focal neurological deficits. Result Diagram: 10/31/16 2030 10/31/161935 Results 24 hrs Laboratory Tests Test 10/31/16 19:30 10/31/16 19:36 10/31/16 20:30 White Blood Count 8.010^3/ul 7.210^3/ul Red Blood Count 2.1910^6/ul 1.9510^6/ul Hemoglobin 6.8g/dl 5.9g/dl Hematocrit 20.1% 17.9% Mean Corpuscular Volume 91.8fl 91.8fl Mean Corpuscular Hemoglobin 31.1pg 30.3pg Mean Corpuscular Hemoglobin Concent 33.8g/dl 33.0g/dl Red Cell Distribution Width 16.9% 16.8% Platelet Count 38104^3/UL 32748^3/UL Mean Platelet Volume 12.2fl 11.3fl Neutrophils % % 74.2% Segmented Neutrophils % (Manual) 57% Lymphocytes % % 13.6% Lymphocytes % (Manual) 31% Monocytes % % 9.2% Monocytes % (Manual) 4% Eosinophils % % 2.4% Eosinophils % (Manual) 4% Basophils % % 0.3% Basophils % (Manual) 4% Nucleated Red Blood Cells % 2% 0.3/100WBC Neutrophils # 10^3/ul 5.310^3/ul Absolute Lymphocytes (Manual) 2.410^3/ul Lymphocytes # 10^3/ul 1.010^3/ul Monocytes # 10^3/ul 0.710^3/ul Absolute Monocytes (Manual) 0.310^3/ul Eosinophils # 10^3/ul 0.210^3/ul Basophils # 10^3/ul 0.010^3/ul Basophils # (Manual) 0.310^3/ul Nucleated Red Blood Cells # 10^3/ul 0.010^3/ul Platelet Estimate NORMAL Polychromasia 1+ Anisocytosis 1+ Microcytosis 1+ Prothrombin Time 13.4Sec Prothrombin Time Ratio 1.0 INR International Normalized Ratio 1.02 Activated Partial Thromboplast Time 28.1Sec Sodium Level 135mmol/L Potassium Level 4.7mmol/L Chloride Level 95mmol/L Carbon Dioxide Level 28mmol/L Anion Gap 17 Blood Urea Nitrogen 51mg/dl Creatinine 7.90mg/dl Glucose Level 196mg/dl Calcium Level 9.4mg/dl Total Bilirubin 0.0mg/dl Direct Bilirubin 0.00mg/dl Indirect Bilirubin 0.0mg/dl Aspartate Amino Transf (AST/SGOT) 16IU/L Alanine Aminotransferase (ALT/SGPT) 19IU/L Alkaline Phosphatase 87IU/L Creatine Kinase 116IU/L Creatine Kinase Index 1.3 Creatinine Kinase MB (Mass) 1.46ng/ml Troponin I 0.074ng/ml B-Type Natriuretic Peptide 25406ZW/ML Total Protein 7.3g/dl Albumin 4.1g/dl Globulin 3.20g/dl Albumin/Globulin Ratio 1.28 Lipase 143U/L Iron Level 87ug/dl Total Iron Binding Capacity 299ug/dl Percent Iron Saturation 29% SAT Ferritin 142.0ng/ml Current Medications Medications (Trade) Dose Ordered Sig/Josefina Route PRN Reason Start Time Stop Time Status Last Admin Dose Admin Aspirin (Aspirin) 325 mg ONCE STAT PO 10/31/16 19:31 10/31/16 19:32 DC 10/31/16 20:06 Nitroglycerin (Nitroglycerin (Sl Tab) 0.4 Mg) 1 tab Q5M UP TO 3 DOSES PRN SL CHEST PAIN 10/31/16 20:00 10/31/16 20:06 Procedures/[facility] The patient presented to the emergency department with chest pain. My clinical evaluation and workup was to distinguish minor causes of chest pain from acute life threatening conditions such as myocardial infarction, pulmonary embolism, aortic dissection, esophageal rupture, cardiac tamponade. The patient was placed on a desk monitor and continuous pulse oximetry. IV access established by nursing staff. She received 325 mg of aspirin and nitroglycerin. His chest pain had improved. He should not had no elevation of his troponin and no acute changes on his 12- lead EKG tracing. However given his multiple cardiac risk factors with a history of insulin-dependent diabetes mellitus he will be admitted for serial 12 -lead EKG tracings and cardiac set of enzymes. 12 Lead EKG tracing ordered and reviewed by myself showed: Normal sinus rhythm of 61 bpm and no arrhythmia. VT interval normal. QRS duration normal. No ST segment elevation No ST segment depression. No changes consistent with acute ischemia. The patient was also anemic globin of 6.8. This was repeated on the patient's anemia had worsened to 5.9. There is no active hemoptysis hematemesis or melanotic stools. I did feel this was due to the patient's renal failure. He did receive 1 unit packed red blood cells in the emergency department and will be admitted for further evaluation to the hospitalist. Departure Diagnosis: Primary Impression: Chest pain Qualified Code: R07.9 - Chest pain, unspecified type Additional Impression: Anemia Qualified Code: D64.89 - Anemia due to other cause, not classified Condition: Serious HERBER BOOTHE Oct 31, 2016 20:25
[2016-10-31 20:29] LABS: CK-MB 1.46 ng/ml (0.0-2.4); TROPONIN-I 0.074 ng/ml (0.00-0.12)
[2016-10-31 20:36] LABS: ABNORMAL IP MESSAGE 1; BASOPHILS % 0.3 % (0.0-2.0); EOSINOPHILS # 0.2 10^3/ul (0.0-0.5); EOSINOPHILS % 2.4 % (0.0-7.0); HEMATOCRIT 17.9 % (42.0-52.0); LYMPHOCYTES % 13.6 % (15.0-51.0); MEAN CORPUSCULAR HEMOGLOBIN 30.3 pg (29.0-33.0); MEAN CORPUSCULAR VOLUME 91.8 fl (82.0-101.0); MEAN PLATELET VOLUME 11.3 fl (7.4-10.4); MONOCYTE # 0.7 10^3/ul (0.3-0.9); MONOCYTES % 9.2 % (0.0-11.0); NEUTROPHIL # 5.3 10^3/ul (1.6-7.5); NEUTROPHILS % 74.2 % (39.0-77.0); NUCLEATED RED BLOOD CELLS% 0.3 /100WBC (0.0-0.0); PLATELET COUNT 142 10^3/UL (140-415); POSITIVE DIFF @See below; RED BLOOD COUNT 1.95 10^6/ul (4.70-6.10); RED CELL DISTRIBUTION WIDTH 16.8 % (11.5-14.5); WHITE BLOOD COUNT 7.2 10^3/ul (4.8-10.8)
[2016-10-31 20:51] LABS: HEMOGLOBIN 5.9 g/dl (14.0-18.0)
[2016-10-31 20:59] LABS: ANISOCYTOSIS 1+ (0-0); BASOPHILS % (M) 4 % (0-2); EOSINOPHILS % (M) 4 % (0-7); ERYTHROBLAST% (NRBC) (M) 2 % (0-0); MICROCYTOSIS 1+ (0-0); MONOCYTES % (M) 4 % (0-11); PLATELET ESTIMATE NORMAL; POLYCHROMASIA 1+ (0-0)
[2016-10-31 21:04] LABS: IRON 87 ug/dl (35-150)
[2016-10-31 21:13] LABS: TOTAL IRON BINDING CAPACITY 299 ug/dl (241-421)
[2016-10-31 22:41] VITALS: TEMP 98.7
[2016-11-01] VITALS (14 sets, daily range): BP systolic 133–172; BP diastolic 62–74; PULSE 53–65; RESP 16–20; Ht 172.7 cm; Wt 86.0 kg
[2016-11-01] MEDS ORDERED: NITROGLYCERIN (SL) 0.4 MG TAB SL PRN
[2016-11-01] MEDS ORDERED: NACL 0.9% 3 ML SYG IV SCH
[2016-11-01] MEDS ORDERED: morphine 2 MG INJ IV PRN
[2016-11-01] MEDS ORDERED: ACETAMINOPHEN 325 MG TAB PO PRN
[2016-11-01] MEDS ORDERED: ONDANSETRON 4 MG INJ IV PRN
[2016-11-01 01:48] LABS: TROPONIN-I 0.064 ng/ml (0.00-0.12)
[2016-11-01 01:53] LABS: CK-MB 1.09 ng/ml (0.0-2.4)
[2016-11-01] MEDS ORDERED: INSULIN ASPART [NOVOLOG] 3 ML PEN SC ONE (03:00)
--- NOTE | 2016-11-01 05:55 | HP ---
Date/Time of Note Date/Time of Note DATE: 11/01/16 TIME: 05:36 Assessment/Plan VTE Prophylaxis VTE Prophylaxis Intervention: contraindicated (symptomatic anemia) Lines/Catheters IV C[facility]ter Type (from [facility] Saline Lock Urinary Cath still in place: No Assessment/Plan Chief Complaint/Hosp Course This is a 61-year-old male being admitted to the telemetry floor for: #1 chest pain: Rule out ACS versus GI etiology. The current time will trend cardiac enzymes 3. First set is negative. Will obtain an echocardiogram. Of note one question further patient's symptoms appear more likely GI related in the setting of patient's low hemoglobin and dark stools. Last hemoglobin was 12 in July 2016. Nonetheless with his extensive cardiac history we will continue cardiac workup and GI workup. Will put the patient on Protonix twice daily. Zofran for nausea. Will consult GI for possible endoscopy/colonoscopy. Will also order a fecal occult stool. 2 units of PRBCs were ordered in the ED. Will initiate H&H every 6 hours once second unit of blood is finished. #2 symptomatic anemia: Patient does report being tired. This likely could be secondary to upper GI bleed. The current time will put on patient on Protonix twice daily. Zofran as needed nausea. Will check iron studies. 2 units PRBCs were ordered. Will check H&H every 6 hours after the second unit. Will consult GI. #3 diabetes mellitus: We will check a hemoglobin A1c, insulin sliding scale #4 end-stage renal disease: BUN is 51. Patient does not appear uremic. Will consult patient's spiral winder [place]. He is on a Tuesday schedule. Will avoid nephrotoxic agents #5 coronary artery disease: We will hold aspirin at this time secondary to #2. Will continue statin. Will hold blood pressure medications including the beta- farzad until his volume status is improved transfusion. #6 elevated BNP: Patient has a BNP level of 14,000. He denies any previous history of CHF. Echocardiogram from March shows an ejection fraction of 65% . Will obtain an echocardiogram. #7 DVT and GI prophylaxis: SCDs, Protonix Further treatment strategy will be implemented as per the clinical course Problems: HPI/ROS Admit Date/Time Admit Date/Time Oct 31, 2016 at 21:13 Hx of Present Illness Chief complaint: Chest pain This is a 61-year-old male with a history of end-stage renal disease which he receives every Tuesday and Tuesday. His last full run of dialysis was 24 hours ago and his spiral winder is Dr. Hahn. History was obtained from the ED physician documentation as well as mild examination. The patient presents to the emergency department today complaining of intermittent chest pain for the past 2 weeks. He indicated to the ED physician that the pain is a sharp shooting pain more prominent on the left than the right. There is no alleviating or exacerbating factors. He has had generalized weakness but denies any hemoptysis hematemesis or melanotic stools. He has had no fevers or shaking or chills. He produces a small amount of urine. He did have a CABG 3 years ago. The patient has a history of anemia and had a blood transfusion 3 months prior to arrival. He has a left upper extremity AV fistula. Of note upon my examination patient described his chest pain as a burning sensation mainly over the middle chest. He did report also that he has noticed dark stools. Denies any bright red blood per rectum or any hematemesis or hematuria. Also reports that he has been feeling more fatigued lately and tired. Allergies: NKDA Medications: See MAR ROS Const: As per HPI Eyes : No pain discharge or redness or change in visual acuity ENT: No pain, sore throat, congestion, congestion, dysphagia or discharge Respiratory: No shortness of breath, cough, sputum, wheezing, or pleuritic pain Cardiovascular: As per HPI GI : As per HPI Genitourinary: No dysuria, hematuria, flank pain , discharge or CVA tenderness Musculoskeletal: No joint pain, back pain, neck pain, restricted range of motion in neck or joints Skin: No rash, bruising or hives Neuro: No headache, dizziness, syncope, seizure, focal weakness Endocrine: No polyuria, polydipsia, temperature intolerance Psych: No hallucination, depression, anxiety or suicidal ideation PMH/Family/Social Past Medical History Diabetes mellitus, end-stage renal disease, hypertension, hyperlipidemia, coronary artery disease Past Surgical History CABG 3 years ago, left arm AV fistula, bilateral cataract surgery Past Surgical Hx: coronary bypass surgery, other Family History Significant Family History: diabetes, renal disease Social History Alcohol Use: none Smoking Status: Former smoker (Quit 20 years ago, smoked 1 pack per day 15 years) Drug Use: none Exam/Review of Systems Vital Signs Vitals Vital Signs Date Time Temp Pulse Resp B/P Pulse Ox O2 Delivery O2 Flow Rate FiO2 11/01/16 04:13 97.6 59 20 172/74 98 11/01/16 01:00 Room Air Exam Exam General: Patient is a well-developed male initially sleeping comfortably in bed he is easily arousable. HEENT: Atraumatic, normocephalic. The pupils are equal, round and reactive. Extraocular motor are intact Neck: Supple with full range of motion. No rigidity or meningismus Chest: Nontender Lungs: Clear to auscultation bilaterally no crackles rales or wheezing Heart: Normal S1-S2, Regular rhythm and rate. No murmur, S3, or S4 Abdomen: Soft, tenderness to palpation at the epigastric region, normal bowel sounds, nondistended Extremities: Normal to inspection, no edema no cyanosis Neurologic: Normal mental status, speech normal, cranial nerves II through XII are intact, motor and sensory are intact, no focal weakness Additional Comments PROCEDURE: XR Chest. CLINICAL INDICATION: Chest pain. TECHNIQUE: Single frontal view. COMPARISON: 07/16/2016. FINDINGS: There is linear atelectasis at the left lung base. The lungs are otherwise clear. The heart size is normal. There is calcification in the aorta consistent with atherosclerosis. There are sternal wires and mediastinal clips. There is no pleural effusion. There is no pneumothorax. IMPRESSION: 1. Linear atelectasis at the left lung base. 2. Atherosclerosis. 3. Previous median sternotomy. RPTAT: QQ .Ludin Mackenzie MD, MD Date Time Electronically viewed and signed by .Ludin Mackenzie MD, on 10/31/2016 20:19 .R/ CC: HERBER BOOTHE EKG: Normal sinus rhythm of 61 bpm and no arrhythmia. CA interval normal. QRS duration normal. No ST segment elevation No ST segment depression. No changes consistent with acute ischemia. As per ED physician documentation Labs Result Diagram: 10/31/16202910/31/161935 Medications Medications Current Medications Ondansetron HCl (Zofran Inj) 4 mg Q6H PRN IV NAUSEA AND/OR VOMITING; Start at 00:00 Nitroglycerin (Nitroglycerin (Sl Tab) 0.4 Mg) 1 tab Q5M PRN SL CHEST PAIN; Start 11/01/16 at 00:00 Acetaminophen (Tylenol Tab) 650 mg Q6H PRN PO PAIN LEVEL 1-3 OR FEVER; Start at 00:00 Morphine Sulfate (morphine) 2 mg Q4H PRN IV PAIN LEVEL 7-10; Start 11/01/16 at 00:00 Famotidine (Pepcid) 20 mg Q48H PO ; Start 11/01/16 at 09:00 Diagnostic Test (Pha) (Accu-Chek) 1 ea 02 XX ; Start 11/02/16 at 02:00 Diagnostic Test (Pha) (Accu-Chek) 1 ea 02 XX ; Start 11/02/16 at 02:00 Acetaminophen (Tylenol Tab) 500 mg Q4H PRN PO PAIN AND OR ELEVATED TEMP; Start 11/01/16 at 03:30 Allopurinol (Zyloprim) 100 mg DAILY PO ; Start 11/01/16 at 09:00 Benazepril HCl (Lotensin) 40 mg DAILY PO ; Start 11/01/16 at 09:00 Cinacalcet (Sensipar) 30 mg BID PO ; Start 11/01/16 at 09:00 Epoetin Eze (Epogen (Neserd)) 6,000 units TuThSa@17 SC ; Start 11/02/16 at 17: 00 Loratadine (Claritin) 10 mg DAILY PO ; Start 11/01/16 at 09:00 Al Hydrox/Mg Hydrox/Simethicone (Mag-Al Plus) 30 ml Q6H PRN PO GASTROINTESTINAL UPSET; Start 11/01/16 at 04:00 Hydralazine HCl (Apresoline) 10 mg Q6H PRN IV ELEVATED BLOOD PRESSURE; Start at 04:00 AMISHA STEWART Nov 01, 2016 05:47
[2016-11-01] MEDS: PANTOPRAZOLE 40 MG INJ IV SCH ×2 (06:05→17:23)
[2016-11-01] MEDS: hydrALAzine 20 MG INJ IV PRN ×2 (06:06→13:55)
[2016-11-01] MEDS: AL HYDROX/MG HYDROX/SIMETH 30 ML CUP PO PRN ×2 (06:13→10:54)
[2016-11-01] MEDS: INSULIN ASPART [NOVOLOG] 3 ML PEN SC SCH ×4 (07:55→22:00)
[2016-11-01] MEDS: LORATADINE 10 MG TAB PO SCH (08:10)
[2016-11-01] MEDS: CINACALCET 30 MG TAB PO SCH ×2 (08:12→21:56)
[2016-11-01] MEDS: ALLOPURINOL 100 MG TAB PO SCH (08:12)
[2016-11-01] MEDS: BENAZEPRIL 20 MG TAB PO SCH (08:12)
[2016-11-01 08:52] LABS: ALBUMIN 3.5 g/dl (3.3-4.9); ALBUMIN/GLOBULIN RATIO 1.4; CALCIUM 8.6 mg/dl (8.4-10.2); CHOL/HDL RATIO 6.1 RATIO; CREATININE 8.91 mg/dl (0.61-1.24); IRON 124 ug/dl (35-150); MAGNESIUM 2.5 mg/dl (1.7-2.5); POTASSIUM 4.7 mmol/L (3.5-5.1)
[2016-11-01] MEDS ORDERED: FAMOTIDINE 20 MG TAB PO SCH (09:00)
[2016-11-01 09:01] LABS: TOTAL IRON BINDING CAPACITY 262 ug/dl (241-421)
[2016-11-01 09:04] LABS: TROPONIN-I 0.072 ng/ml (0.00-0.12)
[2016-11-01 09:17] LABS: CK-MB 1.83 ng/ml (0.0-2.4)
[2016-11-01 10:07] LABS: THYROID STIMULATING HORMONE 1.75 MIU/L (0.465-4.680)
[2016-11-01 11:31] LABS: ABNORMAL IP MESSAGE 1; BASOPHILS % 0.4 % (0.0-2.0); EOSINOPHILS # 0.2 10^3/ul (0.0-0.5); EOSINOPHILS % 3.1 % (0.0-7.0); HEMATOCRIT 19.9 % (42.0-52.0); LYMPHOCYTES # 1.1 10^3/ul (0.8-2.9); LYMPHOCYTES % 14.3 % (15.0-51.0); MEAN CORPUSCULAR HEMOGLOBIN 30.1 pg (29.0-33.0); MEAN CORPUSCULAR HGB CONC 33.2 g/dl (32.0-37.0); MEAN CORPUSCULAR VOLUME 90.9 fl (82.0-101.0); MEAN PLATELET VOLUME 12.2 fl (7.4-10.4); MONOCYTE # 0.8 10^3/ul (0.3-0.9); MONOCYTES % 10.5 % (0.0-11.0); NEUTROPHIL # 5.3 10^3/ul (1.6-7.5); NEUTROPHILS % 71.4 % (39.0-77.0); PLATELET COUNT 130 10^3/UL (140-415); POSITIVE DIFF @See below; RED BLOOD COUNT 2.19 10^6/ul (4.70-6.10); RED CELL DISTRIBUTION WIDTH 16.7 % (11.5-14.5); WHITE BLOOD COUNT 7.4 10^3/ul (4.8-10.8)
[2016-11-01 11:41] LABS: HEMOGLOBIN 6.6 g/dl (14.0-18.0)
[2016-11-01 12:56] LABS: BASOPHILS % 0.5 % (0.0-2.0); EOSINOPHILS # 0.2 10^3/ul (0.0-0.5); LYMPHOCYTES % 12.7 % (15.0-51.0); MEAN CORPUSCULAR HEMOGLOBIN 31.4 pg (29.0-33.0); MEAN CORPUSCULAR VOLUME 89.7 fl (82.0-101.0); MONOCYTE # 0.7 10^3/ul (0.3-0.9); NEUTROPHIL # 5.9 10^3/ul (1.6-7.5); NEUTROPHILS % 74.4 % (39.0-77.0); NUCLEATED RED BLOOD CELLS% 0.3 /100WBC (0.0-0.0); PLATELET COUNT 130 10^3/UL (140-415); RED BLOOD COUNT 2.23 10^6/ul (4.70-6.10); RED CELL DISTRIBUTION WIDTH 16.6 % (11.5-14.5); WHITE BLOOD COUNT 7.9 10^3/ul (4.8-10.8)
--- NOTE | 2016-11-01 13:57 | PN ---
Date/Time of Note Date/Time of Note DATE: 11/01/16 TIME: 13:51 Assessment/Plan VTE Prophylaxis VTE Prophylaxis Intervention: SCD's Lines/Catheters IV [facility]ter [facility]from [facility] Urinary Cath still in place: No Assessment/Plan Chief Complaint/Hosp Course A/P: 61-year-old male being admitted to the telemetry floor for: #1 chest pain: Rule out ACS versus GI etiology. Troponins are negative 3. Presently denies chest pain. Patient's symptoms more likely GI related in the setting of patient's low hemoglobin and dark stools. Last hemoglobin was 12 in July 2016. -Follow-up echocardiogram. -Continue Protonix twice daily. Zofran for nausea. -Follow-up fecal occult stool. Will initiate H&H every 6 hours once second unit of blood is finished. #2 symptomatic anemia: 2 units of PRBCs were ordered in the ED. -Continue Protonix twice daily. Zofran as needed nausea. -We will check hemoglobin every 6 hours and will check iron studies. --Follow-up consult from GI for possible endoscopy/colonoscopy. #3 diabetes mellitus: Follow-up hemoglobin A1c, continue insulin sliding scale #4 end-stage renal disease: BUN is 51. Patient does not appear uremic. -Will consult patient's hospice team lead [place]. He is on a Tuesday schedule. Will avoid nephrotoxic agents #5 coronary artery disease: We will hold aspirin at this time secondary to #2. Will continue statin. - Will hold blood pressure medications including the beta-farzad until his volume status is improved transfusion. #6 elevated BNP: Patient has a BNP level of 14,000. He denies any previous history of CHF. Echocardiogram from March shows an ejection fraction of 65% . -Again, will obtain an echocardiogram. #7 DVT and GI prophylaxis: SCDs, Protonix 8. Hypertension: Hydralazine IV as needed systolic greater than 160 Problems: Subjective 24 Hr Interval Summary Free Text/Dictation Patient received 1 unit PRBC transfusion, no acute events overnight. Exam/Review of Systems Vital Signs Vitals Vital Signs Date Time Temp Pulse Resp B/P Pulse Ox O2 Delivery O2 Flow Rate FiO2 11/01/16 12:00 53 11/01/16 11:16 98.0 18 133/64 100 11/01/16 01:00 Room Air Exam General: Patient is a well-developed male, no acute distress HEENT: Atraumatic, normocephalic. The pupils are equal, round and reactive. Extraocular motor are intact Neck: Supple with full range of motion. No rigidity or meningismus Chest: Nontender Lungs: Clear to auscultation bilaterally no crackles rales or wheezing Heart: Normal S1-S2, Regular rhythm and rate. No murmur, S3, or S4 Abdomen: Soft, some tenderness to palpation at the epigastric region, normal bowel sounds, nondistended Extremities: Normal to inspection, no edema no cyanosis Neurologic: Normal mental status, speech normal, cranial nerves II through XII are intact, motor and sensory are intact, no focal weakness Results Result Diagram: 11/01/16 1232 11/01/16 0743 Results 24 hrs Laboratory Tests Test 10/31/16 19:30 10/31/16 19:36 10/31/16 20:30 11/01/16 00:57 White Blood Count 8.0 # 7.2 Red Blood Count 2.19 #L 1.95 L Hemoglobin 6.8 #*L 5.9 *L Hematocrit 20.1 #L 17.9 L Mean Corpuscular Volume 91.8 91.8 Mean Corpuscular Hemoglobin 31.1 30.3 Mean Corpuscular Hemoglobin Concent 33.8 33.0 Red Cell Distribution Width 16.9 H 16.8 H Platelet Count 179 142 # Mean Platelet Volume 12.2 H 11.3 H Neutrophils % 74.2 Segmented Neutrophils % (Manual) 57 Lymphocytes % 13.6 L Lymphocytes % (Manual) 31 Monocytes % 9.2 Monocytes % (Manual) 4 Eosinophils % 2.4 Eosinophils % (Manual) 4 Basophils % 0.3 Basophils % (Manual) 4 H Nucleated Red Blood Cells % 2 H 0.3 H Neutrophils # 5.3 Absolute Lymphocytes (Manual) 2.4 Lymphocytes # 1.0 Monocytes # 0.7 Absolute Monocytes (Manual) 0.3 Eosinophils # 0.2 Basophils # 0.0 Basophils # (Manual) 0.3 H Nucleated Red Blood Cells # 0.0 Platelet Estimate NORMAL Polychromasia 1+ Anisocytosis 1+ Microcytosis 1+ Prothrombin Time 13.4 Prothrombin Time Ratio 1.0 INR International Normalized Ratio 1.02 Activated Partial Thromboplast Time 28.1 Sodium Level 135 Potassium Level 4.7 Chloride Level 95 L Carbon Dioxide Level 28 Anion Gap 17 H Blood Urea Nitrogen 51 H Creatinine 7.90 H Glucose Level 196 Calcium Level 9.4 Total Bilirubin 0.0 L Direct Bilirubin 0.00 Indirect Bilirubin 0.0 Aspartate Amino Transf (AST/SGOT) 16 Alanine Aminotransferase (ALT/SGPT) 19 Alkaline Phosphatase 87 Creatine Kinase 116 93 Creatine Kinase Index 1.3 1.2 Creatinine Kinase MB (Mass) 1.46 1.09 Troponin I 0.074 0.064 B-Type Natriuretic Peptide 02758 H Total Protein 7.3 Albumin 4.1 Globulin 3.20 Albumin/Globulin Ratio 1.28 Lipase 143 Iron Level 87 Total Iron Binding Capacity 299 Percent Iron Saturation 29 Ferritin 142.0 Test 11/01/16 02:49 11/01/16 05:24 11/01/16 07:43 11/01/16 08:08 Bedside Glucose 184 122 119 Sodium Level 137 Potassium Level 4.7 Chloride Level 100 Carbon Dioxide Level 24 Anion Gap 18 H Blood Urea Nitrogen 58 H Creatinine 8.91 H Glucose Level 111 # Hemoglobin A1c 6.5 H Calcium Level 8.6 Magnesium Level 2.5 Iron Level 124 Total Iron Binding Capacity 262 Percent Iron Saturation 47 Total Bilirubin 0.0 L Direct Bilirubin 0.00 Indirect Bilirubin 0.0 Aspartate Amino Transf (AST/SGOT) 31 # Alanine Aminotransferase (ALT/SGPT) 26 Alkaline Phosphatase 65 Creatine Kinase 451 #H Creatine Kinase Index 0.4 Creatinine Kinase MB (Mass) 1.83 Troponin I 0.072 Total Protein 6.0 #L Albumin 3.5 Globulin 2.50 Albumin/Globulin Ratio 1.40 Triglycerides Level 305 H Cholesterol Level 123 LDL Cholesterol, Calculated 42 HDL Cholesterol 20 L Cholesterol/HDL Ratio 6.1 Thyroid Stimulating Hormone (TSH) 1.750 Test 11/01/16 10:24 11/01/16 12:03 11/01/16 12:32 White Blood Count 7.4 7.9 Red Blood Count 2.19 L 2.23 L Hemoglobin 6.6 *L 7.0 L Hematocrit 19.9 L 20.0 L Mean Corpuscular Volume 90.9 89.7 Mean Corpuscular Hemoglobin 30.1 31.4 Mean Corpuscular Hemoglobin Concent 33.2 35.0 Red Cell Distribution Width 16.7 H 16.6 H Platelet Count 130 L 130 L Mean Platelet Volume 12.2 H 12.0 H Neutrophils % 71.4 74.4 Lymphocytes % 14.3 L 12.7 L Monocytes % 10.5 9.0 Eosinophils % 3.1 3.0 Basophils % 0.4 0.5 Nucleated Red Blood Cells % 0.0 0.3 H Neutrophils # 5.3 5.9 Lymphocytes # 1.1 1.0 Monocytes # 0.8 0.7 Eosinophils # 0.2 0.2 Basophils # 0.0 0.0 Nucleated Red Blood Cells # 0.0 0.0 Bedside Glucose 129 Medications Medications Current Medications Ondansetron HCl (Zofran Inj) 4 mg Q6H PRN IV NAUSEA AND/OR VOMITING; Start at 00:00 Nitroglycerin (Nitroglycerin (Sl Tab) 0.4 Mg) 1 tab Q5M PRN SL CHEST PAIN; Start 11/01/16 at 00:00 Acetaminophen (Tylenol Tab) 650 mg Q6H PRN PO PAIN LEVEL 1-3 OR FEVER; Start at 00:00 Morphine Sulfate (morphine) 2 mg Q4H PRN IV PAIN LEVEL 7-10; Start 11/01/16 at 00:00 Diagnostic Test (Pha) (Accu-Chek) 1 ea 02 XX ; Start 11/02/16 at 02:00 Diagnostic Test (Pha) (Accu-Chek) 1 ea 02 XX ; Start 11/02/16 at 02:00 Acetaminophen (Tylenol Tab) 500 mg Q4H PRN PO PAIN AND OR ELEVATED TEMP; Start 11/01/16 at 03:30 Allopurinol (Zyloprim) 100 mg DAILY PO Last administered on 11/01/16 08:12; Admin Dose 100 MG; Start 11/01/16 at 09:00 Benazepril HCl (Lotensin) 40 mg DAILY PO Last administered on 11/01/16 08:12; Admin Dose 40 MG; Start 11/01/16 at 09:00 Cinacalcet (Sensipar) 30 mg BID PO Last administered on 11/01/16 08:12; Admin Dose 30 MG; Start 11/01/16 at 09:00 Epoetin Eze (Epogen (Neserd)) 6,000 units TuThSa@17 SC ; Start 11/02/16 at 17: 00 Loratadine (Claritin) 10 mg DAILY PO Last administered on 11/01/16 08:10; Admin Dose 10 MG; Start 11/01/16 at 09:00 Al Hydrox/Mg Hydrox/Simethicone (Mag-Al Plus) 30 ml Q6H PRN PO GASTROINTESTINAL UPSET Last administered on 11/01/16 10:54; Admin Dose 30 ML; Start 11/01/16 at 04:00 Hydralazine HCl (Apresoline) 10 mg Q6H PRN IV ELEVATED BLOOD PRESSURE Last administered on 11/01/16 06:06; Admin Dose 10 MG; Start 11/01/16 at 04:00 Pantoprazole (Protonix Iv) 40 mg BID@06,18 IV Last administered on 11/01/16 06 :05; Admin Dose 40 MG; Start 11/01/16 at 06:00 RAJAN STAHL Nov 01, 2016 13:57
--- NOTE | 2016-11-01 18:02 | QN ---
Documentation Comment Interim note. Full consult to follow Patient been rule out for coronary artery disease ALY PARRY MD Nov 01, 2016 18:02
[2016-11-01 18:37] LABS: BASOPHIL # 0.1 10^3/ul (0.0-0.1); BASOPHILS % 0.7 % (0.0-2.0); EOSINOPHILS # 0.2 10^3/ul (0.0-0.5); HEMATOCRIT 23.9 % (42.0-52.0); HEMOGLOBIN 7.6 g/dl (14.0-18.0); LYMPHOCYTES # 1.1 10^3/ul (0.8-2.9); MEAN CORPUSCULAR HEMOGLOBIN 28.9 pg (29.0-33.0); MEAN CORPUSCULAR HGB CONC 31.8 g/dl (32.0-37.0); MEAN CORPUSCULAR VOLUME 90.9 fl (82.0-101.0); MEAN PLATELET VOLUME 11.5 fl (7.4-10.4); MONOCYTE # 0.7 10^3/ul (0.3-0.9); MONOCYTES % 9.6 % (0.0-11.0); NEUTROPHIL # 5.4 10^3/ul (1.6-7.5); NEUTROPHILS % 71.3 % (39.0-77.0); PLATELET COUNT 134 10^3/UL (140-415); RED BLOOD COUNT 2.63 10^6/ul (4.70-6.10); RED CELL DISTRIBUTION WIDTH 16.9 % (11.5-14.5); WHITE BLOOD COUNT 7.6 10^3/ul (4.8-10.8)
--- NOTE | 2016-11-01 20:28 | CONS ---
Date/Time of Note Date/Time of Note DATE: 11/01/16 TIME: 20:27 Assessment/Plan Assessment/Plan Additional Assessment/Plan 61 yo male with 1) Severe Symptomatic Anemia, Improved after PRBC 2) Baseline anemia, Chronic, CKD 3) ESRD on HD TTS 4) LUE AVF 5) DM with Renal complication ESRD 6) Chronic HTN HD TTS HD ordered for tomorrow am UF as tolerated Will order GHANSHYAM with HD Planned for endoscopy tomorrow Restart Binder when tolerating PO and on Diet Thank you for the opportunity to participate in the care of MR Herbert. Consultation Date/Type/Reason Admit Date/Time Oct 31, 2016 at 21:13 Date of Consultation: Nov 01, 2016 Type of Consultation: Renal Reason for Consultation ESRD Referring Provider: RAJAN STAHL Hx of Present Illness 61 yo male with ESRD on HD, TTS, Last HD Tuesday who presented with CP and SOB to ER at [facility]. He was found to have severe anemia and admitted for further evaluation. Patient states he has had dark stool recently however no BRBPR. Nephrology consulted for management of ESRD. Pt is S/p PRBC transfusion. Does not complain of SOB at this time. Constitutional: No requiring O2 Past Medical History Medical History: diabetes, hypertension, renal disease Past Surgical History Past Surgical Hx: coronary bypass surgery, other (Avf) Family History Significant Family History: no pertinent family hx Social History Alcohol Use: none Smoking Status: Former smoker (Quit 20 years ago, smoked 1 pack per day 15 years) Drug Use: none Exam/Review of Systems Vital Signs Vitals Vital Signs Date Time Temp Pulse Resp B/P Pulse Ox O2 Delivery O2 Flow Rate FiO2 11/01/16 16:00 58 11/01/16 15:26 98.0 19 151/67 100 11/01/16 01:00 Room Air Exam Constitutional: alert, oriented, No distress Eyes: EOMI, nl conjunctiva ENMT: mucosa pink and moist Neck: supple, No jvd Respiratory: clear to auscultation, No diminished breath sounds, No labored breathing Cardiovascular: regular rate and rhythm, No edema Gastrointestinal: non-tender, soft, No distended, No rebound or guarding Extremities: No pitting pedal edema Neurological: GLYCERIN OPERATOR II-XII intact, nl mental status, No lethargic Skin: nl turgor, No diaphoresis Results Result Diagram: 11/01/16 1818 11/01/16 0743 Results 24 hrs Laboratory Tests Test 10/31/16 20:30 11/01/16 00:57 11/01/16 02:49 11/01/16 05:24 White Blood Count 7.2 Red Blood Count 1.95 L Hemoglobin 5.9 *L Hematocrit 17.9 L Mean Corpuscular Volume 91.8 Mean Corpuscular Hemoglobin 30.3 Mean Corpuscular Hemoglobin Concent 33.0 Red Cell Distribution Width 16.8 H Platelet Count 142 # Mean Platelet Volume 11.3 H Neutrophils % 74.2 Lymphocytes % 13.6 L Monocytes % 9.2 Eosinophils % 2.4 Basophils % 0.3 Nucleated Red Blood Cells % 0.3 H Neutrophils # 5.3 Lymphocytes # 1.0 Monocytes # 0.7 Eosinophils # 0.2 Basophils # 0.0 Nucleated Red Blood Cells # 0.0 Iron Level 87 Total Iron Binding Capacity 299 Percent Iron Saturation 29 Ferritin 142.0 Creatine Kinase 93 Creatine Kinase Index 1.2 Creatinine Kinase MB (Mass) 1.09 Troponin I 0.064 Bedside Glucose 184 122 Test 11/01/16 07:43 11/01/16 08:08 11/01/16 09:35 11/01/16 10:24 Sodium Level 137 Potassium Level 4.7 Chloride Level 100 Carbon Dioxide Level 24 Anion Gap 18 H Blood Urea Nitrogen 58 H Creatinine 8.91 H Glucose Level 111 # Hemoglobin A1c 6.5 H Calcium Level 8.6 Magnesium Level 2.5 Iron Level 124 Total Iron Binding Capacity 262 Percent Iron Saturation 47 Total Bilirubin 0.0 L Direct Bilirubin 0.00 Indirect Bilirubin 0.0 Aspartate Amino Transf (AST/SGOT) 31 # Alanine Aminotransferase (ALT/SGPT) 26 Alkaline Phosphatase 65 Creatine Kinase 451 #H Creatine Kinase Index 0.4 Creatinine Kinase MB (Mass) 1.83 Troponin I 0.072 Total Protein 6.0 #L Albumin 3.5 Globulin 2.50 Albumin/Globulin Ratio 1.40 Triglycerides Level 305 H Cholesterol Level 123 LDL Cholesterol, Calculated 42 HDL Cholesterol 20 L Cholesterol/HDL Ratio 6.1 Thyroid Stimulating Hormone (TSH) 1.750 Bedside Glucose 119 Stool Occult Blood POSITIVE White Blood Count 7.4 Red Blood Count 2.19 L Hemoglobin 6.6 *L Hematocrit 19.9 L Mean Corpuscular Volume 90.9 Mean Corpuscular Hemoglobin 30.1 Mean Corpuscular Hemoglobin Concent 33.2 Red Cell Distribution Width 16.7 H Platelet Count 130 L Mean Platelet Volume 12.2 H Neutrophils % 71.4 Lymphocytes % 14.3 L Monocytes % 10.5 Eosinophils % 3.1 Basophils % 0.4 Nucleated Red Blood Cells % 0.0 Neutrophils # 5.3 Lymphocytes # 1.1 Monocytes # 0.8 Eosinophils # 0.2 Basophils # 0.0 Nucleated Red Blood Cells # 0.0 Test 11/01/16 12:03 11/01/16 12:32 11/01/16 17:23 11/01/16 18:18 Bedside Glucose 129 183 White Blood Count 7.9 7.6 Red Blood Count 2.23 L 2.63 L Hemoglobin 7.0 L 7.6 L Hematocrit 20.0 L 23.9 L Mean Corpuscular Volume 89.7 90.9 Mean Corpuscular Hemoglobin 31.4 28.9 L Mean Corpuscular Hemoglobin Concent 35.0 31.8 L Red Cell Distribution Width 16.6 H 16.9 H Platelet Count 130 L 134 L Mean Platelet Volume 12.0 H 11.5 H Neutrophils % 74.4 71.3 Lymphocytes % 12.7 L 15.0 Monocytes % 9.0 9.6 Eosinophils % 3.0 3.0 Basophils % 0.5 0.7 Nucleated Red Blood Cells % 0.3 H 0.0 Neutrophils # 5.9 5.4 Lymphocytes # 1.0 1.1 Monocytes # 0.7 0.7 Eosinophils # 0.2 0.2 Basophils # 0.0 0.1 Nucleated Red Blood Cells # 0.0 0.0 Imaging Free Text/Dictation PROCEDURE: XR Chest. CLINICAL INDICATION: Chest pain. TECHNIQUE: Single frontal view. COMPARISON: 07/16/2016. FINDINGS: There is linear atelectasis at the left lung base. The lungs are otherwise clear. The heart size is normal. There is calcification in the aorta consistent with atherosclerosis. There are sternal wires and mediastinal clips. There is no pleural effusion. There is no pneumothorax. IMPRESSION: 1. Linear atelectasis at the left lung base. 2. Atherosclerosis. 3. Previous median sternotomy. RPTAT: QQ .Ludin Mackenzie MD, MD Date Time Electronically viewed and signed by .Ludin Mackenzie MD, on 10/31/2016 20:19 Medications Medications Current Medications Ondansetron HCl (Zofran Inj) 4 mg Q6H PRN IV NAUSEA AND/OR VOMITING; Start at 00:00 Nitroglycerin (Nitroglycerin (Sl Tab) 0.4 Mg) 1 tab Q5M PRN SL CHEST PAIN; Start 11/01/16 at 00:00 Acetaminophen (Tylenol Tab) 650 mg Q6H PRN PO PAIN LEVEL 1-3 OR FEVER; Start at 00:00 Morphine Sulfate (morphine) 2 mg Q4H PRN IV PAIN LEVEL 7-10; Start 11/01/16 at 00:00 Diagnostic Test (Pha) (Accu-Chek) 1 ea 02 XX ; Start 11/02/16 at 02:00 Diagnostic Test (Pha) (Accu-Chek) 1 ea 02 XX ; Start 11/02/16 at 02:00 Acetaminophen (Tylenol Tab) 500 mg Q4H PRN PO PAIN AND OR ELEVATED TEMP; Start 11/01/16 at 03:30 Allopurinol (Zyloprim) 100 mg DAILY PO Last administered on 11/01/16 08:12; Admin Dose 100 MG; Start 11/01/16 at 09:00 Benazepril HCl (Lotensin) 40 mg DAILY PO Last administered on 11/01/16 08:12; Admin Dose 40 MG; Start 11/01/16 at 09:00 Cinacalcet (Sensipar) 30 mg BID PO Last administered on 11/01/16 08:12; Admin Dose 30 MG; Start 11/01/16 at 09:00 Epoetin Eze (Epogen (Neserd)) 6,000 units TuThSa@17 SC ; Start 11/02/16 at 17: 00 Loratadine (Claritin) 10 mg DAILY PO Last administered on 11/01/16 08:10; Admin Dose 10 MG; Start 11/01/16 at 09:00 Al Hydrox/Mg Hydrox/Simethicone (Mag-Al Plus) 30 ml Q6H PRN PO GASTROINTESTINAL UPSET Last administered on 11/01/16 10:54; Admin Dose 30 ML; Start 11/01/16 at 04:00 Hydralazine HCl (Apresoline) 10 mg Q6H PRN IV ELEVATED BLOOD PRESSURE Last administered on 11/01/16 13:55; Admin Dose 10 MG; Start 11/01/16 at 04:00 Pantoprazole (Protonix Iv) 40 mg BID@,18 IV Last administered on 11/01/16 17 :23; Admin Dose 40 MG; Start 11/01/16 at 06:00 RAPHAEL WINTERS MD Nov 01, 2016 20:28
[2016-11-02] VITALS (21 sets, daily range): BP systolic 130–199; BP diastolic 60–103; PULSE 54–69; RESP 18–19
[2016-11-02 01:20] LABS: BASOPHILS % 0.5 % (0.0-2.0); EOSINOPHILS # 0.3 10^3/ul (0.0-0.5); HEMATOCRIT 22.1 % (42.0-52.0); HEMOGLOBIN 7.6 g/dl (14.0-18.0); LYMPHOCYTES # 1.2 10^3/ul (0.8-2.9); LYMPHOCYTES % 13.7 % (15.0-51.0); MEAN CORPUSCULAR HEMOGLOBIN 30.6 pg (29.0-33.0); MEAN CORPUSCULAR HGB CONC 34.4 g/dl (32.0-37.0); MEAN CORPUSCULAR VOLUME 89.1 fl (82.0-101.0); MEAN PLATELET VOLUME 11.7 fl (7.4-10.4); MONOCYTE # 0.8 10^3/ul (0.3-0.9); MONOCYTES % 8.7 % (0.0-11.0); NEUTROPHIL # 6.5 10^3/ul (1.6-7.5); NEUTROPHILS % 73.9 % (39.0-77.0); PLATELET COUNT 141 10^3/UL (140-415); RED BLOOD COUNT 2.48 10^6/ul (4.70-6.10); RED CELL DISTRIBUTION WIDTH 16.9 % (11.5-14.5); WHITE BLOOD COUNT 8.8 10^3/ul (4.8-10.8)
[2016-11-02] MEDS: ACCU-CHEK XX SCH (02:00)
[2016-11-02] MEDS ORDERED: ACCU-CHEK XX SCH (02:00)
[2016-11-02] MEDS: PANTOPRAZOLE 40 MG INJ IV SCH ×2 (05:25→17:02)
--- NOTE | 2016-11-02 06:44 | CONS ---
DATE OF ADMISSION: 10/31/2016 DATE OF CONSULTATION: 11/01/2016 REASON FOR CONSULTATION: Chest pain. Assess for acute coronary syndrome. REFERRING PHYSICIAN: Dr. Reyes from the hospitalist service. HISTORY OF PRESENT ILLNESS: Mr. Herbert is a 61-year-old male, with history of diabetes mellitus, end-stage renal disease, coronary artery disease, status post coronary artery bypass graft surgery 3 years prior, who initially had complaints of chest pain. The patient's chest pain is pressure-like, as well as a burning sensation. The patient did state chest pain is worse with exertion. Upon arrival in the emergency department, temperature of 98.7, blood pressure 94/46, pulse 67, respiratory rate 20, satting 94 percent. Patient's labs revealed a sodium 135, potassium 4.7, creatinine 7.9, BUN 51. T-bili 0. Troponin 0.074. Negative BNP of 14,500. White blood cell count 8, hemoglobin 6.8, platelet count of 179. INR of 1.0. Occult blood positive. The patient underwent a chest x-ray, revealing linear atelectasis, left lung base, atherosclerosis and previous median sternotomy. Patient's electrocardiogram revealed normal sinus rhythm, rate of 61, normal axis, normal intervals, with increased QT corrected interval 481, and ICD lateral T-wave inversion. The patient has subsequently been admitted to the floor and since admitted to the floor, has had negative troponins. He had a hemoglobin of 6.8, dropped to 5.9. Patient subsequently admitted to the floor. Since admitted to floor, he has had a total of 2 negative troponins. PAST MEDICAL HISTORY: As above in HPI with the patient's last echo being March 2016, revealing preserved EF of 65 percent. MEDICATION: Currently in the hospital: 1. Epogen. 2. Allopurinol. 3. Benazepril. 4. Sensipar. 5. Insulin. 6. P.r.n. Tylenol. P.r.n., morphine. ALLERGIES: NO KNOWN DRUG ALLERGIES. SOCIAL HISTORY: No tobacco, EtOH or illicit drug use. FAMILY HISTORY: Negative for sudden cardiac or early CAD. REVIEW OF SYSTEMS: As above in HPI. CONSTITUTIONAL: No fevers or chills. RESPIRATORY: No current shortness of breath. CARDIOVASCULAR: No current chest pain. GASTROINTESTINAL: No vomiting. Possible GI bleed. GENITOURINARY: No hematuria. MUSCULOSKELETAL: No significant myalgias or arthralgias. ENDOCRINE: Positive for diabetes mellitus. PHYSICAL EXAMINATION: VITAL SIGNS: Temperature of 98, blood pressure 161/51 , pulse 58, respiratory rate 19, satting 100 percent. GENERAL: The patient is alert, awake, in no acute distress. NECK: JVP approximately 8-9 cm of water. LUNGS: Fair air movement throughout. HEART: Regular rate and rhythm. Normal S1, S2. 1/6 systolic murmur. Nondisplaced PMI. ABDOMEN: Positive bowel sounds. Soft. EXTREMITIES: No edema. 1+ pulses bilateral posterior tibial. LABORATORY: As above in HPI, with most recently from today hemoglobin of 7, white blood count of 7.9, platelet count of 130. IMAGING STUDIES: As above in HPI. No further imaging studies are reviewed at this time. ELECTROCARDIOGRAM: As above in HPI. No further electrocardiograms are reviewed at this time. IMPRESSION: 1. Chest pain, in the setting of severe anemia, but history of coronary bypass graft surgery. 2. Abnormal electrocardiogram with lateral T-wave inversions. 3. Severe anemia. 4. Anemia/gastrointestinal bleed. 5. Hypertension, under reasonable control. 6. Diabetes mellitus. 7. End-stage renal disease, on hemodialysis. 8. Increased BNP. RECOMMENDATIONS: 1. At this time, the patient should be maintained on telemetry monitoring to follow rhythm and rate control closely. 2. We will continue to check serial EKGs to assess for any significant ongoing changes and reasonable to reassess patient's ejection fraction with 2D echo. 3. The patient should be consulted by the GI services for evaluation of anemia and GI bleed. 4. We will consider stress test in this patient, although the patient's pain is likely due to severe anemia in the setting of possible known coronary obstructions, status post CABG. 5. We will hold any antiplatelet agents at this time, given anemia, GI bleed and would check a fasting lipid panel for general risk stratification, initiate lipid medication if necessary. 6. Dyspnea. Continue hemodialysis for volume removal. Thank you for allowing me to take part in the care of this patient. I will continue to follow him along very closely with you. Further recommendations will be made as the patient progresses though his inpatient hospital course. Dictated By: Ford Paige MD /anthony/fran /Document#: [id number] ; Dr. Reyes, hospitalist service; Dr. Weinstein, hospitalist service
[2016-11-02] MEDS: INSULIN ASPART [NOVOLOG] 3 ML PEN SC SCH ×4 (07:55→20:07)
[2016-11-02] MEDS: BENAZEPRIL 20 MG TAB PO SCH (08:00)
[2016-11-02] MEDS: ALLOPURINOL 100 MG TAB PO SCH (08:00)
[2016-11-02] MEDS: LORATADINE 10 MG TAB PO SCH (08:00)
[2016-11-02] MEDS: CINACALCET 30 MG TAB PO SCH ×2 (08:00→20:16)
[2016-11-02 08:16] LABS: CALCIUM 8.8 mg/dl (8.4-10.2); CREATININE 11.25 mg/dl (0.61-1.24)
[2016-11-02 08:23] LABS: POTASSIUM 5.2 mmol/L (3.5-5.1)
--- NOTE | 2016-11-02 09:03 | CONS ---
Date/Time of Note Date/Time of Note DATE: 11/02/16 TIME: 09:00 Assessment/Plan Assessment/Plan Additional Assessment/Plan 1. Chest pain, in the setting of severe anemia, but history of coronary bypass graft surgery - no CP now, will monitor clinically. 2. Abnormal electrocardiogram with lateral T-wave inversions- no CP noted, will R/O Mi. 3. Severe anemia- blood transfusion as tolerated. 4. Anemia/gastrointestinal bleed- GI team follows. 5. Hypertension, under reasonable control. 6. Diabetes mellitus. 7. End-stage renal disease, on hemodialysis- remove fluid as tolerated . 8. Increased BNP. Consultation Date/Type/Reason Admit Date/Time Oct 31, 2016 at 21:13 Initial Consult Date 11/01/16 Type of Consultation: Renal Referring Provider: RAJAN STAHL 24 HR Interval Summary Free Text/Dictation No acute events - BP HIGH - remove fluid with HD. NO sustained ectopy on tele. ROS: No fever, no chills, no nausea, no vomiting, no diarrhea/constipation No recent weight changes No chest pain, no PND, no orthopnea + SOB No dizziness, blurred vision No thirst, no heat or cold intolerance Exam/Review of Systems Vital Signs Vitals Vital Signs Date Time Temp Pulse Resp B/P Pulse Ox O2 Delivery O2 Flow Rate FiO2 11/02/16 08:02 Room Air 11/02/16 08:00 55 11/02/16 07:10 97.8 18 181/82 97 Intake and Output 11/01/16 11/01/16 11/02/16 14:59 22:59 06:59 Intake Total 1500 ml 360 ml Output Total 100 ml Balance 1500 ml 260 ml Exam General: WN/WD/NAD, AOx 3 HEENT: Unicetric/atraumatic/EOMI (follows commands) NECK: JVD elevated, no thyromegaly Lymph: no lymphadenopathy HEART: regular with no S3, II/ systolic murmur at apex LUNGS: Coarse sounds ABD: soft, NT, ND, +BS : Intact Neuro: non focal SKIN: chronic changes EXT: trace edema Results Result Diagram: 11/02/16 0106 11/02/16 0652 Results 24 hrs Laboratory Tests Test 11/01/16 09:35 11/01/16 10:24 11/01/16 12:03 11/01/16 12:32 Stool Occult Blood POSITIVE White Blood Count 7.4 7.9 Red Blood Count 2.19 L 2.23 L Hemoglobin 6.6 *L 7.0 L Hematocrit 19.9 L 20.0 L Mean Corpuscular Volume 90.9 89.7 Mean Corpuscular Hemoglobin 30.1 31.4 Mean Corpuscular Hemoglobin Concent 33.2 35.0 Red Cell Distribution Width 16.7 H 16.6 H Platelet Count 130 L 130 L Mean Platelet Volume 12.2 H 12.0 H Neutrophils % 71.4 74.4 Lymphocytes % 14.3 L 12.7 L Monocytes % 10.5 9.0 Eosinophils % 3.1 3.0 Basophils % 0.4 0.5 Nucleated Red Blood Cells % 0.0 0.3 H Neutrophils # 5.3 5.9 Lymphocytes # 1.1 1.0 Monocytes # 0.8 0.7 Eosinophils # 0.2 0.2 Basophils # 0.0 0.0 Nucleated Red Blood Cells # 0.0 0.0 Bedside Glucose 129 Test 11/01/16 17:23 11/01/16 18:18 11/01/16 22:00 11/02/16 01:06 Bedside Glucose 183 103 White Blood Count 7.6 8.8 Red Blood Count 2.63 L 2.48 L Hemoglobin 7.6 L 7.6 L Hematocrit 23.9 L 22.1 L Mean Corpuscular Volume 90.9 89.1 Mean Corpuscular Hemoglobin 28.9 L 30.6 Mean Corpuscular Hemoglobin Concent 31.8 L 34.4 Red Cell Distribution Width 16.9 H 16.9 H Platelet Count 134 L 141 Mean Platelet Volume 11.5 H 11.7 H Neutrophils % 71.3 73.9 Lymphocytes % 15.0 13.7 L Monocytes % 9.6 8.7 Eosinophils % 3.0 3.0 Basophils % 0.7 0.5 Nucleated Red Blood Cells % 0.0 0.0 Neutrophils # 5.4 6.5 Lymphocytes # 1.1 1.2 Monocytes # 0.7 0.8 Eosinophils # 0.2 0.3 Basophils # 0.1 0.0 Nucleated Red Blood Cells # 0.0 0.0 Test 11/02/16 02:44 11/02/16 05:41 11/02/16 06:52 11/02/16 07:57 Bedside Glucose 126 117 Lab Scanned Report BLOOD TRANSFUSION Sodium Level 136 Potassium Level 5.2 H Chloride Level 98 Carbon Dioxide Level 25 Anion Gap 18 H Blood Urea Nitrogen 65 H Creatinine 11.25 #H Glucose Level 114 Calcium Level 8.8 Medications Medications Current Medications Ondansetron HCl (Zofran Inj) 4 mg Q6H PRN IV NAUSEA AND/OR VOMITING; Start at 00:00 Nitroglycerin (Nitroglycerin (Sl Tab) 0.4 Mg) 1 tab Q5M PRN SL CHEST PAIN; Start 11/01/16 at 00:00 Acetaminophen (Tylenol Tab) 650 mg Q6H PRN PO PAIN LEVEL 1-3 OR FEVER Last administered on 11/02/16 05:25; Admin Dose 650 MG; Start 11/01/16 at 00:00 Morphine Sulfate (morphine) 2 mg Q4H PRN IV PAIN LEVEL 7-10; Start 11/01/16 at 00:00 Diagnostic Test (Pha) (Accu-Chek) 1 ea 02 XX ; Start 11/02/16 at 02:00 Acetaminophen (Tylenol Tab) 500 mg Q4H PRN PO PAIN AND OR ELEVATED TEMP; Start 11/01/16 at 03:30 Allopurinol (Zyloprim) 100 mg DAILY PO Last administered on 11/02/16 08:00; Admin Dose 100 MG; Start 11/01/16 at 09:00 Benazepril HCl (Lotensin) 40 mg DAILY PO Last administered on 11/02/16 08:00; Admin Dose 40 MG; Start 11/01/16 at 09:00 Cinacalcet (Sensipar) 30 mg BID PO Last administered on 11/02/16 08:00; Admin Dose 30 MG; Start 11/01/16 at 09:00 Epoetin Eze (Epogen (Neserd)) 6,000 units TuThSa@17 SC ; Start 11/02/16 at 17: 00 Loratadine (Claritin) 10 mg DAILY PO Last administered on 11/02/16 08:00; Admin Dose 10 MG; Start 11/01/16 at 09:00 Al Hydrox/Mg Hydrox/Simethicone (Mag-Al Plus) 30 ml Q6H PRN PO GASTROINTESTINAL UPSET Last administered on 11/01/16 10:54; Admin Dose 30 ML; Start 11/01/16 at 04:00 Hydralazine HCl (Apresoline) 10 mg Q6H PRN IV ELEVATED BLOOD PRESSURE Last administered on 11/01/16 13:55; Admin Dose 10 MG; Start 11/01/16 at 04:00 Pantoprazole (Protonix Iv) 40 mg BID@06,18 IV Last administered on 11/02/16 05 :25; Admin Dose 40 MG; Start 11/01/16 at 06:00 MARCE GOLDBERG MD Nov 02, 2016 09:03
--- NOTE | 2016-11-02 10:32 | CONS ---
Date/Time of Note Date/Time of Note DATE: 11/02/16 TIME: 10:30 Assessment/Plan Assessment/Plan Additional Assessment/Plan 61 yo male with 1) Severe Symptomatic Anemia, Improved after PRBC 2) Baseline anemia, Chronic, CKD 3) ESRD on HD TTS 4) LUE AVF 5) DM with Renal complication ESRD 6) Chronic HTN HD TTS on HD stable, cont current treatment UF as tolerated Will order GHANSHYAM with HD Planned for endoscopy today Restart Binder when tolerating PO and on Diet Thank you for the opportunity to participate in the care of MR Herbert. Consultation Date/Type/Reason Admit Date/Time Oct 31, 2016 at 21:13 Initial Consult Date 11/01/16 Type of Consultation: Renal Referring Provider: RAJAN STAHL 24 HR Interval Summary Free Text/Dictation On HD no new complaints Constitutional: No requiring O2 Exam/Review of Systems Vital Signs Vitals Vital Signs Date Time Temp Pulse Resp B/P Pulse Ox O2 Delivery O2 Flow Rate FiO2 11/02/16 08:02 Room Air 11/02/16 08:00 55 11/02/16 07:10 97.8 18 181/82 97 Intake and Output 11/01/16 11/01/16 11/02/16 15:00 23:00 07:00 Intake Total 1500 ml 360 ml Output Total 100 ml Balance 1500 ml 260 ml Exam Constitutional: alert, No distress Eyes: EOMI Neck: No jvd Respiratory: clear to auscultation, No diminished breath sounds, No labored breathing Cardiovascular: regular rate and rhythm, No edema Gastrointestinal: non-tender, soft Extremities: No edema Neurological: GUM PULLER II-XII intact, nl mental status, No lethargic Results Result Diagram: 11/02/16 0106 11/02/16 0652 Results 24 hrs Laboratory Tests Test 11/01/16 12:03 11/01/16 12:32 11/01/16 17:23 11/01/16 18:18 Bedside Glucose 129 183 White Blood Count 7.9 7.6 Red Blood Count 2.23 L 2.63 L Hemoglobin 7.0 L 7.6 L Hematocrit 20.0 L 23.9 L Mean Corpuscular Volume 89.7 90.9 Mean Corpuscular Hemoglobin 31.4 28.9 L Mean Corpuscular Hemoglobin Concent 35.0 31.8 L Red Cell Distribution Width 16.6 H 16.9 H Platelet Count 130 L 134 L Mean Platelet Volume 12.0 H 11.5 H Neutrophils % 74.4 71.3 Lymphocytes % 12.7 L 15.0 Monocytes % 9.0 9.6 Eosinophils % 3.0 3.0 Basophils % 0.5 0.7 Nucleated Red Blood Cells % 0.3 H 0.0 Neutrophils # 5.9 5.4 Lymphocytes # 1.0 1.1 Monocytes # 0.7 0.7 Eosinophils # 0.2 0.2 Basophils # 0.0 0.1 Nucleated Red Blood Cells # 0.0 0.0 Test 11/01/16 22:00 11/02/16 01:06 11/02/16 02:44 11/02/16 05:41 Bedside Glucose 103 126 White Blood Count 8.8 Red Blood Count 2.48 L Hemoglobin 7.6 L Hematocrit 22.1 L Mean Corpuscular Volume 89.1 Mean Corpuscular Hemoglobin 30.6 Mean Corpuscular Hemoglobin Concent 34.4 Red Cell Distribution Width 16.9 H Platelet Count 141 Mean Platelet Volume 11.7 H Neutrophils % 73.9 Lymphocytes % 13.7 L Monocytes % 8.7 Eosinophils % 3.0 Basophils % 0.5 Nucleated Red Blood Cells % 0.0 Neutrophils # 6.5 Lymphocytes # 1.2 Monocytes # 0.8 Eosinophils # 0.3 Basophils # 0.0 Nucleated Red Blood Cells # 0.0 Lab Scanned Report BLOOD TRANSFUSION Test 11/02/16 06:52 11/02/16 07:57 Sodium Level 136 Potassium Level 5.2 H Chloride Level 98 Carbon Dioxide Level 25 Anion Gap 18 H Blood Urea Nitrogen 65 H Creatinine 11.25 #H Glucose Level 114 Calcium Level 8.8 Bedside Glucose 117 Medications Medications Current Medications Ondansetron HCl (Zofran Inj) 4 mg Q6H PRN IV NAUSEA AND/OR VOMITING; Start at 00:00 Nitroglycerin (Nitroglycerin (Sl Tab) 0.4 Mg) 1 tab Q5M PRN SL CHEST PAIN; Start 11/01/16 at 00:00 Acetaminophen (Tylenol Tab) 650 mg Q6H PRN PO PAIN LEVEL 1-3 OR FEVER Last administered on 11/02/16t 05:25; Admin Dose 650 MG; Start 11/01/16 at 00:00 Morphine Sulfate (morphine) 2 mg Q4H PRN IV PAIN LEVEL 7-10; Start 11/01/16 at 00:00 Diagnostic Test (Pha) (Accu-Chek) 1 XX ; Start 11/02/16 at 02:00 Acetaminophen (Tylenol Tab) 500 mg Q4H PRN PO PAIN AND OR ELEVATED TEMP; Start 11/01/16 at 03:30 Allopurinol (Zyloprim) 100 mg DAILY PO Last administered on 11/02/16 08:00; Admin Dose 100 MG; Start 11/01/16 at 09:00 Benazepril HCl (Lotensin) 40 mg DAILY PO Last administered on 11/02/16 08:00; Admin Dose 40 MG; Start 11/01/16 at 09:00 Cinacalcet (Sensipar) 30 mg BID PO Last administered on 11/02/16 08:00; Admin Dose 30 MG; Start 11/01/16 at 09:00 Epoetin Eze (Epogen (Neserd)) 6,000 units TuThSa@17 SC ; Start 11/02/16 at 17: 00 Loratadine (Claritin) 10 mg DAILY PO Last administered on 11/02/16 08:00; Admin Dose 10 MG; Start 11/01/16 at 09:00 Al Hydrox/Mg Hydrox/Simethicone (Mag-Al Plus) 30 ml Q6H PRN PO GASTROINTESTINAL UPSET Last administered on 11/01/16 10:54; Admin Dose 30 ML; Start 11/01/16 at 04:00 Hydralazine HCl (Apresoline) 10 mg Q6H PRN IV ELEVATED BLOOD PRESSURE Last administered on 11/01/16 13:55; Admin Dose 10 MG; Start 11/01/16 at 04:00 Pantoprazole (Protonix Iv) 40 mg BID@06,18 IV Last administered on 11/02/16 05 :25; Admin Dose 40 MG; Start 11/01/16 at 06:00 RAPHAEL WINTERS MD Nov 02, 2016 10:32
--- NOTE | 2016-11-02 12:31 | PN ---
Date/Time of Note Date/Time of Note DATE: 11/02/16 TIME: 12:29 Assessment/Plan VTE Prophylaxis VTE Prophylaxis Intervention: SCD's Lines/Catheters IV Catheter Type (from [facility]): Saline Lock Urinary Cath still in place: No (none) Assessment/Plan Chief Complaint/Hosp Course A/P: 61-year-old male being admitted to the telemetry floor for: #1 chest pain: Rule out ACS versus GI etiology. Troponins are negative 3. Presently denies chest pain. Patient's symptoms more likely GI related in the setting of patient's low hemoglobin and dark stools. Last hemoglobin was 12 in July 2016. -Follow-up echocardiogram. -Continue Protonix twice daily. Zofran for nausea. -Follow-up fecal occult stool. Will initiate H&H every 6 hours once second unit of blood is finished. #2 symptomatic anemia: 2 units of PRBCs given to the patient -Continue Protonix twice daily. Zofran as needed nausea. -Follow-up iron studies. --Follow-up consult from GI for possible endoscopy/colonoscopy. #3 diabetes mellitus:continue insulin sliding scale #4 end-stage renal disease: BUN is 51. Patient does not appear uremic. -Dialysis per renal recommendations, normally he is Tuesday schedule. Will avoid nephrotoxic agents #5 coronary artery disease: We will hold aspirin at this time secondary to #2. Will continue statin. - Will hold blood pressure medications including the beta-farzad until his volume status is improved transfusion. #6 elevated BNP: Patient has a BNP level of 14,000. He denies any previous history of CHF. Echocardiogram from March shows an ejection fraction of 65% . -Follow-up echocardiogram. #7 DVT and GI prophylaxis: SCDs, Protonix 8. Hypertension: Hydralazine IV as needed systolic greater than 160 Problems: Subjective 24 Hr Interval Summary Free Text/Dictation Received PRBC transfusion. Presently getting hemodialysis. Exam/Review of Systems Vital Signs Vitals Vital Signs Date Time Temp Pulse Resp B/P Pulse Ox O2 Delivery O2 Flow Rate FiO2 11/02/16 12:00 54 17 11/02/16 11:29 Room Air 11/02/16 11:08 97.4 199/91 92 Intake and Output 11/01/16 11/01/16 11/02/16 15:00 23:00 07:00 Intake Total 1500 ml 360 ml Output Total 100 ml Balance 1500 ml 260 ml Exam General: Patient is a well-developed male, no acute distress HEENT: Atraumatic, normocephalic. The pupils are equal, round and reactive. Extraocular motor are intact Neck: Supple with full range of motion. No rigidity or meningismus Chest: Nontender Lungs: Clear to auscultation bilaterally no crackles rales or wheezing Heart: Normal S1-S2, Regular rhythm and rate. No murmur, S3, or S4 Abdomen: Soft, some tenderness to palpation at the epigastric region, normal bowel sounds, nondistended Extremities: Normal to inspection, no edema no cyanosis Neurologic: Normal mental status, speech normal, cranial nerves II through XII are intact, motor and sensory are intact, no focal weakness Results Result Diagram: 11/02/16 0106 11/02/16 0652 Results 24 hrs Laboratory Tests Test 11/01/16 12:32 11/01/16 17:23 11/01/16 18:18 11/01/16 22:00 White Blood Count 7.9 7.6 Red Blood Count 2.23 L 2.63 L Hemoglobin 7.0 L 7.6 L Hematocrit 20.0 L 23.9 L Mean Corpuscular Volume 89.7 90.9 Mean Corpuscular Hemoglobin 31.4 28.9 L Mean Corpuscular Hemoglobin Concent 35.0 31.8 L Red Cell Distribution Width 16.6 H 16.9 H Platelet Count 130 L 134 L Mean Platelet Volume 12.0 H 11.5 H Neutrophils % 74.4 71.3 Lymphocytes % 12.7 L 15.0 Monocytes % 9.0 9.6 Eosinophils % 3.0 3.0 Basophils % 0.5 0.7 Nucleated Red Blood Cells % 0.3 H 0.0 Neutrophils # 5.9 5.4 Lymphocytes # 1.0 1.1 Monocytes # 0.7 0.7 Eosinophils # 0.2 0.2 Basophils # 0.0 0.1 Nucleated Red Blood Cells # 0.0 0.0 Bedside Glucose 183 103 Test 11/02/16 01:06 11/02/16 02:44 11/02/16 05:41 11/02/16 06:52 White Blood Count 8.8 Red Blood Count 2.48 L Hemoglobin 7.6 L Hematocrit 22.1 L Mean Corpuscular Volume 89.1 Mean Corpuscular Hemoglobin 30.6 Mean Corpuscular Hemoglobin Concent 34.4 Red Cell Distribution Width 16.9 H Platelet Count 141 Mean Platelet Volume 11.7 H Neutrophils % 73.9 Lymphocytes % 13.7 L Monocytes % 8.7 Eosinophils % 3.0 Basophils % 0.5 Nucleated Red Blood Cells % 0.0 Neutrophils # 6.5 Lymphocytes # 1.2 Monocytes # 0.8 Eosinophils # 0.3 Basophils # 0.0 Nucleated Red Blood Cells # 0.0 Bedside Glucose 126 Lab Scanned Report BLOOD TRANSFUSION Sodium Level 136 Potassium Level 5.2 H Chloride Level 98 Carbon Dioxide Level 25 Anion Gap 18 H Blood Urea Nitrogen 65 H Creatinine 11.25 #H Glucose Level 114 Calcium Level 8.8 Test 11/02/16 07:57 Bedside Glucose 117 Medications Medications Current Medications Ondansetron HCl (Zofran Inj) 4 mg Q6H PRN IV NAUSEA AND/OR VOMITING; Start at 00:00 Nitroglycerin (Nitroglycerin (Sl Tab) 0.4 Mg) 1 tab Q5M PRN SL CHEST PAIN; Start 11/01/16 at 00:00 Morphine Sulfate (morphine) 2 mg Q4H PRN IV PAIN LEVEL 7-10; Start 11/01/16 at 00:00 Diagnostic Test (Pha) (Accu-Chek) 1 ea 02 XX ; Start 11/02/16 at 02:00 Acetaminophen (Tylenol Tab) 500 mg Q4H PRN PO PAIN AND OR ELEVATED TEMP; Start 11/01/16 at 03:30 Allopurinol (Zyloprim) 100 mg DAILY PO Last administered on 11/02/16 08:00; Admin Dose 100 MG; Start 11/01/16 at 09:00 Benazepril HCl (Lotensin) 40 mg DAILY PO Last administered on 11/02/16 08:00; Admin Dose 40 MG; Start 11/01/16 at 09:00 Cinacalcet (Sensipar) 30 mg BID PO Last administered on 11/02/16 08:00; Admin Dose 30 MG; Start 11/01/16 at 09:00 Epoetin Eze (Epogen (Neserd)) 6,000 units TuThSa@17 SC ; Start 11/02/16 at 17: 00 Loratadine (Claritin) 10 mg DAILY PO Last administered on 11/02/16 08:00; Admin Dose 10 MG; Start 11/01/16 at 09:00 Al Hydrox/Mg Hydrox/Simethicone (Mag-Al Plus) 30 ml Q6H PRN PO GASTROINTESTINAL UPSET Last administered on 11/01/16 10:54; Admin Dose 30 ML; Start 11/01/16 at 04:00 Pantoprazole (Protonix Iv) 40 mg BID@,18 IV Last administered on 11/02/16 05 :25; Admin Dose 40 MG; Start 11/01/16 at 06:00 Hydralazine HCl (Apresoline) 10 mg Q4H PRN IV ELEVATED BLOOD PRESSURE; Start at 14:00 Nifedipine (Procardia Xl) 30 mg DAILY PO ; Start 11/02/16 at 14:00 RAJAN STAHL Nov 02, 2016 12:31
[2016-11-02] MEDS: NIFEdipine (XL) 30 MG TAB PO SCH (14:54)
[2016-11-02] MEDS: hydrALAzine 20 MG INJ IV PRN ×2 (14:54→20:15)
[2016-11-02] MEDS: EPOETIN ALFA (NESRD) 3,000 UNITS/ML VIAL SC SCH (14:55)
--- NOTE | 2016-11-02 18:29 | PN ---
Date/Time of Note Date/Time of Note DATE: 11/02/16 TIME: 18:22 Assessment/Plan VTE Prophylaxis VTE Prophylaxis Intervention: SCD's Lines/Catheters IV Catheter Type (from [facility]): Saline Lock Urinary Cath still in place: No (none) Assessment/Plan Assessment/Plan Assessment * Anemia acute vs chronic bleeding peptic ulcer disease vs Britney rachel vs others * Chest pain Non cardiac vs cardiac * ESRD Plan * EGD tomorrow risk and benefit explained to patient and agreed with the procedure * continue present management * case discussed with Dr Lopez * Further orders will depend on clinical course Subjective 24 Hr Interval Summary Free Text/Dictation * Course reviewed * Patient seen and examined * no chest pain * Latest hemoglobin 7.6 Exam/Review of Systems Vital Signs Vitals Vital Signs Date Time Temp Pulse Resp B/P Pulse Ox O2 Delivery O2 Flow Rate FiO2 11/02/16 17:03 154/82 11/02/16 16:00 62 11/02/16 15:10 98.8 18 100 11/02/16 11:29 Room Air Intake and Output 11/01/16 11/01/16 11/02/16 15:00 23:00 07:00 Intake Total 1500 ml 360 ml Output Total 100 ml Balance 1500 ml 260 ml Exam Constitutional: alert, oriented Head: atraumatic, normocephalic ENMT: nl external ears & nose, nl lips & teeth Neck: non-tender, supple Respiratory: clear to auscultation, normal air movement Cardiovascular: nl pulses, regular rate and rhythm Gastrointestinal: non-tender, soft Musculoskeletal: nl extremities to inspection, nl gait and stance Neurological: nl mental status Results Result Diagram: 11/02/16 0106 11/02/16 0652 Results 24 hrs Laboratory Tests Test 11/01/16 22:00 11/02/16 01:06 11/02/16 02:44 11/02/16 05:41 Bedside Glucose 103 126 White Blood Count 8.8 Red Blood Count 2.48 L Hemoglobin 7.6 L Hematocrit 22.1 L Mean Corpuscular Volume 89.1 Mean Corpuscular Hemoglobin 30.6 Mean Corpuscular Hemoglobin Concent 34.4 Red Cell Distribution Width 16.9 H Platelet Count 141 Mean Platelet Volume 11.7 H Neutrophils % 73.9 Lymphocytes % 13.7 L Monocytes % 8.7 Eosinophils % 3.0 Basophils % 0.5 Nucleated Red Blood Cells % 0.0 Neutrophils # 6.5 Lymphocytes # 1.2 Monocytes # 0.8 Eosinophils # 0.3 Basophils # 0.0 Nucleated Red Blood Cells # 0.0 Lab Scanned Report BLOOD TRANSFUSION Test 11/02/16 06:52 11/02/16 07:57 11/02/16 12:22 11/02/16 17:01 Sodium Level 136 Potassium Level 5.2 H Chloride Level 98 Carbon Dioxide Level 25 Anion Gap 18 H Blood Urea Nitrogen 65 H Creatinine 11.25 #H Glucose Level 114 Calcium Level 8.8 Bedside Glucose 117 155 115 Medications Medications Current Medications Ondansetron HCl (Zofran Inj) 4 mg Q6H PRN IV NAUSEA AND/OR VOMITING; Start at 00:00 Nitroglycerin (Nitroglycerin (Sl Tab) 0.4 Mg) 1 tab Q5M PRN SL CHEST PAIN; Start 11/01/16 at 00:00 Morphine Sulfate (morphine) 2 mg Q4H PRN IV PAIN LEVEL 7-10 Last administered on 11/02/16 17:02; Admin Dose 2 MG; Start 11/01/16 at 00:00 Diagnostic Test (Pha) (Accu-Chek) 1 ea 02 XX ; Start 11/02/16 at 02:00 Acetaminophen (Tylenol Tab) 500 mg Q4H PRN PO PAIN AND OR ELEVATED TEMP; Start 11/01/16 at 03:30 Allopurinol (Zyloprim) 100 mg DAILY PO Last administered on 11/02/16 08:00; Admin Dose 100 MG; Start 11/01/16 at 09:00 Benazepril HCl (Lotensin) 40 mg DAILY PO Last administered on 11/02/16 08:00; Admin Dose 40 MG; Start 11/01/16 at 09:00 Cinacalcet (Sensipar) 30 mg BID PO Last administered on 11/02/16 08:00; Admin Dose 30 MG; Start 11/01/16 at 09:00 Epoetin Eze (Epogen (Neserd)) 6,000 units TuThSa@17 SC Last administered on 14:55; Admin Dose 6,000 UNITS; Start 11/02/16 at 17:00 Loratadine (Claritin) 10 mg DAILY PO Last administered on 11/02/16 08:00; Admin Dose 10 MG; Start 11/01/16 at 09:00 Al Hydrox/Mg Hydrox/Simethicone (Mag-Al Plus) 30 ml Q6H PRN PO GASTROINTESTINAL UPSET Last administered on 11/01/16 10:54; Admin Dose 30 ML; Start 11/01/16 at 04:00 Pantoprazole (Protonix Iv) 40 mg BID@,18 IV Last administered on 11/02/16 17 :02; Admin Dose 40 MG; Start 11/01/16 at 06:00 Hydralazine HCl (Apresoline) 10 mg Q4H PRN IV ELEVATED BLOOD PRESSURE Last administered on 11/02/16 14:54; Admin Dose 10 MG; Start 11/02/16 at 14:00 Nifedipine (Procardia Xl) 30 mg DAILY PO Last administered on 11/02/16 14:54; Admin Dose 30 MG; Start 11/02/16 at 14:00 ROBBIN LIU NP Nov 02, 2016 18:29
[2016-11-02] MEDS: ACETAMINOPHEN 500 MG TAB PO PRN (20:32)
[2016-11-03] VITALS (25 sets, daily range): BP systolic 115–157; BP diastolic 53–68; PULSE 52–110; RESP 13–20
[2016-11-03] MEDS: ACCU-CHEK XX SCH (02:00)
[2016-11-03] MEDS: PANTOPRAZOLE 40 MG INJ IV SCH ×2 (05:23→18:22)
[2016-11-03] MEDS: INSULIN ASPART [NOVOLOG] 3 ML PEN SC SCH ×4 (07:55→20:33)
[2016-11-03 08:32] LABS: BASOPHILS % 0.6 % (0.0-2.0); EOSINOPHILS # 0.1 10^3/ul (0.0-0.5); EOSINOPHILS % 1.9 % (0.0-7.0); HEMATOCRIT 23.7 % (42.0-52.0); HEMOGLOBIN 7.6 g/dl (14.0-18.0); LYMPHOCYTES # 0.8 10^3/ul (0.8-2.9); LYMPHOCYTES % 11.6 % (15.0-51.0); MEAN CORPUSCULAR HEMOGLOBIN 29.6 pg (29.0-33.0); MEAN CORPUSCULAR HGB CONC 32.1 g/dl (32.0-37.0); MEAN CORPUSCULAR VOLUME 92.2 fl (82.0-101.0); MONOCYTE # 0.8 10^3/ul (0.3-0.9); MONOCYTES % 11.1 % (0.0-11.0); NEUTROPHIL # 5.2 10^3/ul (1.6-7.5); NEUTROPHILS % 74.5 % (39.0-77.0); PLATELET COUNT 145 10^3/UL (140-415); RED BLOOD COUNT 2.57 10^6/ul (4.70-6.10); RED CELL DISTRIBUTION WIDTH 17.2 % (11.5-14.5)
[2016-11-03] MEDS: ALLOPURINOL 100 MG TAB PO SCH (08:58)
[2016-11-03] MEDS: CINACALCET 30 MG TAB PO SCH ×2 (08:58→20:34)
[2016-11-03] MEDS: LORATADINE 10 MG TAB PO SCH (08:58)
[2016-11-03] MEDS: NIFEdipine (XL) 30 MG TAB PO SCH (08:59)
[2016-11-03] MEDS: BENAZEPRIL 20 MG TAB PO SCH (08:59)
[2016-11-03 09:02] LABS: CREATININE 9.28 mg/dl (0.61-1.24); POTASSIUM 4.3 mmol/L (3.5-5.1)
--- NOTE | 2016-11-03 09:13 | CONS ---
Date/Time of Note Date/Time of Note DATE: 11/03/16 TIME: 09:12 Assessment/Plan Assessment/Plan Additional Assessment/Plan 1. Chest pain, in the setting of severe anemia, but history of coronary bypass graft surgery - no CP now, will monitor clinically. NO change. 2. Abnormal electrocardiogram with lateral T-wave inversions- no CP noted, will R/O Mi. 3. Severe anemia- blood transfusion as tolerated. H/H better now. 4. Anemia/gastrointestinal bleed- GI team follows. 5. Hypertension, under reasonable control. Donis Rx as needed. 6. Diabetes mellitus. 7. End-stage renal disease, on hemodialysis- remove fluid as tolerated . 8. Increased BNP. Consultation Date/Type/Reason Admit Date/Time Oct 31, 2016 at 21:13 Initial Consult Date 11/01/16 Type of Consultation: Renal Referring Provider: RAJAN STAHL 24 HR Interval Summary Free Text/Dictation No acute events - no significant ectopy on tele. ROS: No fever, no chills, no nausea, no vomiting, no diarrhea/constipation No recent weight changes No chest pain, no PND, no orthopnea No dizziness, blurred vision No thirst, no heat or cold intolerance Exam/Review of Systems Vital Signs Vitals Vital Signs Date Time Temp Pulse Resp B/P Pulse Ox O2 Delivery O2 Flow Rate FiO2 11/03/16 08:20 56 11/03/16 06:51 97.8 18 129/63 95 11/02/16 11:29 Room Air Intake and Output 11/02/16 11/02/16 11/03/16 15:00 23:00 07:00 Intake Total 500 ml 900 ml 500 ml Output Total 3000 ml 100 ml Balance -2500 ml 900 ml 400 ml Exam General: WN/WD/NAD, AOx 3 HEENT: Unicetric/atraumatic/EOMI (follows commands) NECK: JVD elevated, no thyromegaly Lymph: no lymphadenopathy HEART: regular with no S3, II/ systolic murmur at apex LUNGS: Coarse sounds ABD: soft, NT, ND, +BS : Intact Neuro: non focal SKIN: chronic changes EXT: trace edema Results Result Diagram: 11/03/16 0707 11/03/16 0707 Results 24 hrs Laboratory Tests Test 11/02/16 12:22 11/02/16 17:01 11/02/16 20:00 11/03/16 07:07 Bedside Glucose 155 115 127 White Blood Count 7.0 # Red Blood Count 2.57 L Hemoglobin 7.6 L Hematocrit 23.7 L Mean Corpuscular Volume 92.2 Mean Corpuscular Hemoglobin 29.6 Mean Corpuscular Hemoglobin Concent 32.1 Red Cell Distribution Width 17.2 H Platelet Count 145 Mean Platelet Volume 12.0 H Neutrophils % 74.5 Lymphocytes % 11.6 L Monocytes % 11.1 H Eosinophils % 1.9 Basophils % 0.6 Nucleated Red Blood Cells % 0.0 Neutrophils # 5.2 Lymphocytes # 0.8 Monocytes # 0.8 Eosinophils # 0.1 Basophils # 0.0 Nucleated Red Blood Cells # 0.0 Sodium Level 137 Potassium Level 4.3 Chloride Level 99 Carbon Dioxide Level 29 Anion Gap 13 Blood Urea Nitrogen 39 #H Creatinine 9.28 H Glucose Level 97 Calcium Level 8.0 L Test 11/03/16 08:13 Bedside Glucose 122 Medications Medications Current Medications Ondansetron HCl (Zofran Inj) 4 mg Q6H PRN IV NAUSEA AND/OR VOMITING Last administered on 11/02/16 20:14; Admin Dose 4 MG; Start 11/01/16 at 00:00 Nitroglycerin (Nitroglycerin (Sl Tab) 0.4 Mg) 1 tab Q5M PRN SL CHEST PAIN; Start 11/01/16 at 00:00 Morphine Sulfate (morphine) 2 mg Q4H PRN IV PAIN LEVEL 7-10 Last administered on 11/02/16 17:02; Admin Dose 2 MG; Start 11/01/16 at 00:00 Diagnostic Test (Pha) (Accu-Chek) 1 ea 02 XX ; Start 11/02/16 at 02:00 Acetaminophen (Tylenol Tab) 500 mg Q4H PRN PO PAIN AND OR ELEVATED TEMP Last administered on 11/02/16 20:32; Admin Dose 500 MG; Start 11/01/16 at 03:30 Allopurinol (Zyloprim) 100 mg DAILY PO Last administered on 11/03/16 08:58; Admin Dose 100 MG; Start 11/01/16 at 09:00 Benazepril HCl (Lotensin) 40 mg DAILY PO Last administered on 11/03/16 08:59; Admin Dose 40 MG; Start 11/01/16 at 09:00 Cinacalcet (Sensipar) 30 mg BID PO Last administered on 11/03/16 08:58; Admin Dose 30 MG; Start 11/01/16 at 09:00 Epoetin Eze (Epogen (Neserd)) 6,000 units TuThSa@17 SC Last administered on 14:55; Admin Dose 6,000 UNITS; Start 11/02/16 at 17:00 Loratadine (Claritin) 10 mg DAILY PO Last administered on 11/03/16 08:58; Admin Dose 10 MG; Start 11/01/16 at 09:00 Al Hydrox/Mg Hydrox/Simethicone (Mag-Al Plus) 30 ml Q6H PRN PO GASTROINTESTINAL UPSET Last administered on 11/01/16 10:54; Admin Dose 30 ML; Start 11/01/16 at 04:00 Pantoprazole (Protonix Iv) 40 mg BID@06,18 IV Last administered on 11/03/16 05 :23; Admin Dose 40 MG; Start 11/01/16 at 06:00 Hydralazine HCl (Apresoline) 10 mg Q4H PRN IV ELEVATED BLOOD PRESSURE Last administered on 11/02/16 20:15; Admin Dose 10 MG; Start 11/02/16 at 14:00 Nifedipine (Procardia Xl) 30 mg DAILY PO Last administered on 11/03/16 08:59; Admin Dose 30 MG; Start 11/02/16 at 14:00 MARCE GOLDBERG MD Nov 03, 2016 09:13
--- NOTE | 2016-11-03 10:46 | RADRPT ---
Echocardiogram Report Patient Name: TAHIR HENDERSON Gender: Male Date: 1955 Study Date: 02-Nov-2016 Watch Train Assembler: Annalee Carrillo [facility] Location: [id number] Ref. Physician: TAE BARAKAT Quality: Adequate Procedures: Transthoracic echocardiogram with complete 2D, M-Mode, and doppler examination. Indications: Chest Pain. 2D/M Mode Doppler Measurement Value Normal Ranges Measurement Value Normal Ranges LVIDd 2D 4.9 3.5 - 5.6 cm AV Peak Thiago 1.7 m/sec LVIDs 2D 3.2 2.1 - 4.1 cm AV Peak PG 12.2 mmHg LVPWd 2D 1.2 0.6 - 1.1 cm LVOT Peak Thiago 1.0 m/sec IVSd 2D 1.3 0.6 - 1.1 cm LVOT Peak PG 4.2 mmHg AoR Diam 2D 2.6 2.0 - 3.7 cm MV E Peak Thiago 1.1 m/sec LA Dimen 2D 3.9 2.3 - 4.0 cm MV A Peak Thiago 1.3 m/sec MV Decel Time 461 msec TR Peak Thiago 3.0 m/sec TR Peak PG 35.2 mmHg Findings Left Ventricle: Normal left ventricular systolic function. Normal left ventricular cavity size. Mild concentric left ventricular hypertrophy. Ejection fraction is visually estimated at 60 %. Tissue Doppler/Mitral Doppler indices are consistent with impaired relaxation (Stage I diastolic dysfunction). Right Ventricle: Normal right ventricular size. Normal right ventricular systolic function. Left Atrium: The left atrium is normal in size. Right Atrium: The right atrium is normal in size. Mitral Valve: Normal appearance and function of the mitral valve with trace physiologic regurgitation. Aortic Valve: No hemodynamically significant aortic stenosis by doppler. Aortic cusps appear mildly calcified. Trace aortic valve regurgitation. Tricuspid Valve: Normal appearance and function of the tricuspid valve with trace physiologic regurgitation. Normal right ventricular systolic pressure. Pulmonic Valve: Normal pulmonic valve appearance. Pericardium: Normal pericardium with no significant pericardial effusion. Aorta: Normal aortic root. IVC: Normal size and normal respiratory collapse consistent with normal right atrial pressure. Conclusions 1.Normal left ventricular systolic function. Normal left ventricular cavity size. Mild concentric left ventricular hypertrophy. Ejection fraction is visually estimated at 60 %. Tissue Doppler/Mitral Doppler indices are consistent with impaired relaxation (Stage I diastolic dysfunction). 2.Normal appearance and function of the tricuspid valve with trace physiologic regurgitation. Normal right ventricular systolic pressure. 3.Normal appearance and function of the mitral valve with trace physiologic regurgitation. Electronically Signed By: Sam Barboza 03-Nov-2016 10:45:55 -0700 Patient Name: TAHIR HENDERSON Study Date: 02-Nov-2016 [id number]
--- NOTE | 2016-11-03 12:41 | PN ---
Date/Time of Note Date/Time of Note DATE: 11/03/16 TIME: 12:36 Assessment/Plan VTE Prophylaxis VTE Prophylaxis Intervention: SCD's Lines/Catheters IV Catheter Type (from [facility]): [facility] Urinary Cath still in place: No (none) Assessment/Plan Chief Complaint/Hosp Course A/P: 61-year-old male being admitted to the telemetry floor for: #1 chest pain: Rule out ACS versus GI etiology. Troponins are negative 3. Presently denies chest pain. Patient's symptoms more likely GI related in the setting of patient's low hemoglobin and dark stools. Last hemoglobin was 12 in July 2016. -Continue nifedipine and benazepril. -Follow-up cardiology recommendations #2 symptomatic anemia: 2 units of PRBCs given to the patient. Stool occult test is positive. Hemoglobin stable at 7.6 the last 72 hours. -Continue Protonix twice daily. Zofran as needed nausea. -Follow-up iron studies. -- for endoscopy/colonoscopy #3 diabetes mellitus:continue insulin sliding scale #4 end-stage renal disease: BUN is 51. Patient does not appear uremic. -Dialysis per renal recommendations, normally he is Tuesday schedule. Will avoid nephrotoxic agents #5 coronary artery disease: -Holding aspirin at this time secondary to #2. - Will continue statin. #6 elevated BNP: Patient had a BNP level of 14,000 on admission. -Monitor #7 DVT and GI prophylaxis: SCDs, Protonix 8. Hypertension: BLADIMIR inhibitor, calcium channel farzad, hydralazine IV as needed systolic greater than 160 Problems: Subjective 24 Hr Interval Summary Free Text/Dictation Patient had dialysis yesterday. Awaiting EGD for later today. Exam/Review of Systems Vital Signs Vitals Vital Signs Date Time Temp Pulse Resp B/P Pulse Ox O2 Delivery O2 Flow Rate FiO2 11/03/16 12:26 58 11/03/16 11:46 Room Air 11/03/16 11:11 98.5 18 148/68 96 Intake and Output 11/02/16 11/02/16 11/03/16 15:00 23:00 07:00 Intake Total 500 ml 900 ml 500 ml Output Total 3000 ml 100 ml Balance -2500 ml 900 ml 400 ml Exam General: Patient is a well-developed male, no acute distress HEENT: Atraumatic, normocephalic. The pupils are equal, round and reactive. Extraocular motor are intact Neck: Supple with full range of motion. No rigidity or meningismus Chest: Nontender Lungs: Clear to auscultation bilaterally no crackles rales or wheezing Heart: Normal S1-S2, Regular rhythm and rate. No murmur, S3, or S4 Abdomen: Soft, some tenderness to palpation at the epigastric region, normal bowel sounds, nondistended Extremities: Normal to inspection, no edema no cyanosis Neurologic: Normal mental status, speech normal, cranial nerves II through XII are intact, motor and sensory are intact, no focal weakness Results Result Diagram: 11/03/16 0707 11/03/16 0707 Results 24 hrs Laboratory Tests Test 11/02/16 17:01 11/02/16 20:00 11/03/16 07:07 11/03/16 08:13 Bedside Glucose 115 127 122 White Blood Count 7.0 # Red Blood Count 2.57 L Hemoglobin 7.6 L Hematocrit 23.7 L Mean Corpuscular Volume 92.2 Mean Corpuscular Hemoglobin 29.6 Mean Corpuscular Hemoglobin Concent 32.1 Red Cell Distribution Width 17.2 H Platelet Count 145 Mean Platelet Volume 12.0 H Neutrophils % 74.5 Lymphocytes % 11.6 L Monocytes % 11.1 H Eosinophils % 1.9 Basophils % 0.6 Nucleated Red Blood Cells % 0.0 Neutrophils # 5.2 Lymphocytes # 0.8 Monocytes # 0.8 Eosinophils # 0.1 Basophils # 0.0 Nucleated Red Blood Cells # 0.0 Sodium Level 137 Potassium Level 4.3 Chloride Level 99 Carbon Dioxide Level 29 Anion Gap 13 Blood Urea Nitrogen 39 #H Creatinine 9.28 H Glucose Level 97 Calcium Level 8.0 L Test 11/03/16 12:26 Bedside Glucose 105 Medications Medications Current Medications Ondansetron HCl (Zofran Inj) 4 mg Q6H PRN IV NAUSEA AND/OR VOMITING Last administered on 11/02/16 20:14; Admin Dose 4 MG; Start 11/01/16 at 00:00 Nitroglycerin (Nitroglycerin (Sl Tab) 0.4 Mg) 1 tab Q5M PRN SL CHEST PAIN; Start 11/01/16 at 00:00 Morphine Sulfate (morphine) 2 mg Q4H PRN IV PAIN LEVEL 7-10 Last administered on 11/02/16 17:02; Admin Dose 2 MG; Start 11/01/16 at 00:00 Diagnostic Test (Pha) (Accu-Chek) 1 ea 02 XX ; Start 11/02/16 at 02:00 Acetaminophen (Tylenol Tab) 500 mg Q4H PRN PO PAIN AND OR ELEVATED TEMP Last administered on 11/02/16 20:32; Admin Dose 500 MG; Start 11/01/16 at 03:30 Allopurinol (Zyloprim) 100 mg DAILY PO Last administered on 11/03/16 08:58; Admin Dose 100 MG; Start 11/01/16 at 09:00 Benazepril HCl (Lotensin) 40 mg DAILY PO Last administered on 11/03/16 08:59; Admin Dose 40 MG; Start 11/01/16 at 09:00 Cinacalcet (Sensipar) 30 mg BID PO Last administered on 11/03/16 08:58; Admin Dose 30 MG; Start 11/01/16 at 09:00 Epoetin Eze (Epogen (Neserd)) 6,000 units TuThSa@17 SC Last administered on 14:55; Admin Dose 6,000 UNITS; Start 11/02/16 at 17:00 Loratadine (Claritin) 10 mg DAILY PO Last administered on 11/03/16 08:58; Admin Dose 10 MG; Start 11/01/16 at 09:00 Al Hydrox/Mg Hydrox/Simethicone (Mag-Al Plus) 30 ml Q6H PRN PO GASTROINTESTINAL UPSET Last administered on 11/01/16 10:54; Admin Dose 30 ML; Start 11/01/16 at 04:00 Pantoprazole (Protonix Iv) 40 mg BID@06,18 IV Last administered on 11/03/16 05 :23; Admin Dose 40 MG; Start 11/01/16 at 06:00 Hydralazine HCl (Apresoline) 10 mg Q4H PRN IV ELEVATED BLOOD PRESSURE Last administered on 11/02/16 20:15; Admin Dose 10 MG; Start 11/02/16 at 14:00 Nifedipine (Procardia Xl) 30 mg DAILY PO Last administered on 11/03/16 08:59; Admin Dose 30 MG; Start 11/02/16 at 14:00 Procedures Procedures 2D ECHO: Conclusions 1. Normal left ventricular systolic function. Normal left ventricular cavity size. Mild concentric left ventricular hypertrophy. Ejection fraction is visually estimated at 60 %. Tissue Doppler/Mitral Doppler indices are consistent with impaired relaxation (Stage I diastolic dysfunction). 2. Normal appearance and function of the tricuspid valve with trace physiologic regurgitation. Normal right ventricular systolic pressure. 3. Normal appearance and function of the mitral valve with trace physiologic regurgitation. RAJAN STAHL. Nov 03, 2016 12:41
--- NOTE | 2016-11-03 14:09 | RADRPT ---
Vent Rate: 55 bpm RR Interval: 0 msec FL Interval: 156 msec QRS Duration: 100 msec QT Interval: 508 msec QTC Interval: 485 msec P-R-T [place]: 13 - 48 - 74 degrees Sinus bradycardia Prolonged QT Abnormal ECG Electronically Signed By: Piero Junior [id number]
[2016-11-03] MEDS ORDERED: LIDOCAINE 2% (SDV) 5 ML INJ ONE (17:02)
[2016-11-03] MEDS ORDERED: PROPOFOL 40 ML ONE (17:02)
--- NOTE | 2016-11-03 17:20 | CONS ---
Date/Time of Note Date/Time of Note DATE: 11/03/16 TIME: 17:19 Assessment/Plan Assessment/Plan Additional Assessment/Plan 61 yo male with 1) Severe Symptomatic Anemia, Improved after PRBC 2) Baseline anemia, Chronic, CKD 3) ESRD on HD TTS 4) LUE AVF 5) DM with Renal complication ESRD 6) Chronic HTN HD TTS HD tomorrow. UF as tolerated Will order GHANSHYAM with HD Thank you for the opportunity to participate in the care of MR Herbert. Consultation Date/Type/Reason Admit Date/Time Oct 31, 2016 at 21:13 Initial Consult Date 11/01/16 Type of Consultation: Renal Referring Provider: RAJAN STAHL 24 HR Interval Summary Free Text/Dictation No new complaints Constitutional: No requiring O2 Exam/Review of Systems Vital Signs Vitals Vital Signs Date Time Temp Pulse Resp B/P Pulse Ox O2 Delivery O2 Flow Rate FiO2 11/03/16 16:34 57 11/03/16 15:53 97.9 18 157/67 96 Room Air Intake and Output 11/02/16 11/02/16 11/03/16 15:00 23:00 07:00 Intake Total 500 ml 900 ml 500 ml Output Total 3000 ml 100 ml Balance -2500 ml 900 ml 400 ml Exam Constitutional: No distress ENMT: mucosa pink and moist Respiratory: clear to auscultation, No crackles/rales Cardiovascular: regular rate and rhythm, No edema Gastrointestinal: soft 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, nl mental status Skin: No diaphoresis Results Result Diagram: 11/03/16 0707 11/03/16 0707 Results 24 hrs Laboratory Tests Test 11/02/16 20:00 11/03/16 07:07 11/03/16 08:13 11/03/16 12:26 Bedside Glucose 127 122 105 White Blood Count 7.0 # Red Blood Count 2.57 L Hemoglobin 7.6 L Hematocrit 23.7 L Mean Corpuscular Volume 92.2 Mean Corpuscular Hemoglobin 29.6 Mean Corpuscular Hemoglobin Concent 32.1 Red Cell Distribution Width 17.2 H Platelet Count 145 Mean Platelet Volume 12.0 H Neutrophils % 74.5 Lymphocytes % 11.6 L Monocytes % 11.1 H Eosinophils % 1.9 Basophils % 0.6 Nucleated Red Blood Cells % 0.0 Neutrophils # 5.2 Lymphocytes # 0.8 Monocytes # 0.8 Eosinophils # 0.1 Basophils # 0.0 Nucleated Red Blood Cells # 0.0 Sodium Level 137 Potassium Level 4.3 Chloride Level 99 Carbon Dioxide Level 29 Anion Gap 13 Blood Urea Nitrogen 39 #H Creatinine 9.28 H Glucose Level 97 Calcium Level 8.0 L Test 11/03/16 15:56 Bedside Glucose 95 Medications Medications Current Medications Ondansetron HCl (Zofran Inj) 4 mg Q6H PRN IV NAUSEA AND/OR VOMITING Last administered on 11/02/16 20:14; Admin Dose 4 MG; Start 11/01/16 at 00:00 Nitroglycerin (Nitroglycerin (Sl Tab) 0.4 Mg) 1 tab Q5M PRN SL CHEST PAIN; Start 11/01/16 at 00:00 Morphine Sulfate (morphine) 2 mg Q4H PRN IV PAIN LEVEL 7-10 Last administered on 11/02/16 17:02; Admin Dose 2 MG; Start 11/01/16 at 00:00 Diagnostic Test (Pha) (Accu-Chek) 1 ea 02 XX ; Start 11/02/16 at 02:00 Acetaminophen (Tylenol Tab) 500 mg Q4H PRN PO PAIN AND OR ELEVATED TEMP Last administered on 11/02/16 20:32; Admin Dose 500 MG; Start 11/01/16 at 03:30 Allopurinol (Zyloprim) 100 mg DAILY PO Last administered on 11/03/16 08:58; Admin Dose 100 MG; Start 11/01/16 at 09:00 Benazepril HCl (Lotensin) 40 mg DAILY PO Last administered on 11/03/16 08:59; Admin Dose 40 MG; Start 11/01/16 at 09:00 Cinacalcet (Sensipar) 30 mg BID PO Last administered on 11/03/16 08:58; Admin Dose 30 MG; Start 11/01/16 at 09:00 Epoetin Eze (Epogen (Neserd)) 6,000 units TuThSa@17 SC Last administered on 14:55; Admin Dose 6,000 UNITS; Start 11/02/16 at 17:00 Loratadine (Claritin) 10 mg DAILY PO Last administered on 11/03/16 08:58; Admin Dose 10 MG; Start 11/01/16 at 09:00 Al Hydrox/Mg Hydrox/Simethicone (Mag-Al Plus) 30 ml Q6H PRN PO GASTROINTESTINAL UPSET Last administered on 11/01/16 10:54; Admin Dose 30 ML; Start 11/01/16 at 04:00 Pantoprazole (Protonix Iv) 40 mg BID@,18 IV Last administered on 11/03/16 05 :23; Admin Dose 40 MG; Start 11/01/16 at 06:00 Hydralazine HCl (Apresoline) 10 mg Q4H PRN IV ELEVATED BLOOD PRESSURE Last administered on 11/02/16 20:15; Admin Dose 10 MG; Start 11/02/16 at 14:00 Nifedipine (Procardia Xl) 30 mg DAILY PO Last administered on 11/03/16 08:59; Admin Dose 30 MG; Start 11/02/16 at 14:00 RAPHAEL WINTERS MD Nov 03, 2016 17:19
--- NOTE | 2016-11-03 17:23 | OPPN ---
Date/Time of Note Date/Time of Note DATE: 11/03/16 TIME: 17:18 Proc Note GI Procedure Date 11/03/16 Pre-procedure Diagnosis * Anemia Post-procedure Diagnosis Impression: * 2 small antral gastric ulcerations. Benign endoscopic appearance. No stigmata of recent bleeding * Rule out H. pylori infection. Biopsies obtained * Mild distal esophagitis * Otherwise normal EGD Plan: * Continue PPI twice daily * Review pathology * Consider colonoscopy to clear from cardiovascular point of view . 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 pylori infection Grafts/Implants none Tubes/Drains none Complication(s) none Pt Condition post procedure: stable Disposition: PACU Indications: other (Anemia) Procedure Description After informed consent, with the patient/relatives understanding the procedure, its indications, potential risks and complications, including but not limited to : allergic reaction, bleeding, perforation or infection, and after all pertinent questions were answered to the patients satisfaction, the patient/ relatives signed witnessed informed consent. Following this, premedication was administered slowly IV push under careful cardiovascular and respiratory monitoring with pulse oximetry, automatic blood pressure, and cardiac monitor. Once the sedative effect was achieved the patient was place in the left lateral decubitus, the panendoscope was introduced and advanced under visual control. Careful examination of the upper gastrointestinal tract, both on insertion as well as withdrawal of the instrument disclosing the following findings: ESOPHAGUS: the mucosa of the entire esophagus was carefully examined and showed the following findings: There is mild erythema and edema of the mucosa distal esophagus. Otherwise the mucosa appears within normal limits. There is no evidence of varices, neoplasm, or stricture. No Hiatal Hernia identified. STOMACH: Upon entrance to the stomach air was insufflated, the gastric ramsey distended normally. The mucosa of the fundus, body and antrum of the stomach was carefully examined both head-on and on retroflexion, and showed the following findings: There are 2 small antral gastric ulcerations benign endoscopic appearance, no stigmata of recent bleeding. There is erythema and edema of the mucosa of the body and antrum of the stomach. Biopsies were obtained to rule out H. pylori infection. Otherwise the mucosa appears within normal limits with no abnormalities. There is no evidence of neoplasm. PYLORUS: The pylorus was carefully examined and showed the following findings: the pylorus appears patent and within normal limits, with no evidence of gastric outlet obstruction. DUODENUM: The duodenal mucosa was carefully examined in the duodenal bulb as well as the second portion of the duodenum and showed the following findings: the mucosa appears unremarkable with no evidence of duodenitis, ulcer or neoplasm. Copies To: CC: ALY PARRY MD, MORDO MD Nov 03, 2016 17:23
--- NOTE | 2016-11-03 17:29 | CONS ---
Date/Time of Note Date/Time of Note DATE: 11/02/16 Assessment/Plan Assessment/Plan Chief Complaint/Hosp Course REASON FOR CONSULTATION (CONS): Anemia HISTORY OF PRESENT ILLNESS 59-year-old man with multiple comorbidities including diabetes mellitus, hypertension, coronary artery disease, status post CABG. The patient presented to the hospital complaining of chest pain. Has been evaluated with cardiology and is also found to have a significant anemia. There is no evidence of overt gastrointestinal bleeding. The patient cannot recall previous endoscopic evaluation. REVIEW OF SYSTEMS: GASTROINTESTINAL AND LIVER: Negative for: Anorexia, dysphagia, odynophagia, pyrosis, regurgitation, nausea, vomiting, early satiety, bloating, abdominal pain, food intolerance, diarrhea, constipation, change in Bowel Habits, laxative use, hematemesis, melena, hematochezia, anorectal symptoms, incontinence, jaundice. GENERAL AND CONSTITUTIONAL: Negative for: Weakness, tiredness, fever, chills, weight loss, weight gain, skin lesions. New mass, adenopathy. HEENT: Negative for: Headaches, vision changes, icterus, hearing loss, dizziness , vertigo, earache, sore throat. CARDIOVASCULAR: Positive for nonexertional chest pain. Negative for: SOB, RUBI, orthopnea, palpitations, lightheadedness, edemas, claudication. RESPIRATORY: Negative for: SOB, cough, sputum production, hemoptysis, pleuritic chest pain, wheezing. GENITOURINARY: Negative for: Dysuria, hematuria, flank pain, urgency, nocturia, polyuria. MUSCULO-SKELETAL: Negative for: Bone pain, arthralgias, deformity, myalgias. HEMATOLOGIC-LYMPHATIC: Negative for: Echymosis, petechia, excessive bleeding, adenopathy, new mass. PAST MEDICAL HISTORY: MEDICAL: Coronary artery disease/post CABG End-stage renal disease Diabetes mellitus type 2 Hypertension SURGICAL: CABG TRANSFUSIONS: Positive TATOOS: [None] HABITS: SMOKING: [Negative] ALCOHOL: [Negative] DRUGS: [Negative] MEDICATION HISTORY: [As noted] ALLERGIES: [No known allergies] FAMILY HISTORY: [Negative for gastrointestinal neoplasm, non contributory] PHYSICAL EXAMINATION: GENERAL: Well developed, well nourished, alert & oriented x 3, in no acute distress SKIN: No lesions, no stigmata chronic liver disease, no evidence of bleeding diathesis LYMPHATIC: No palpable lymphadenopathy. HEAD: Normocephalic, atraumatic, no tenderness. EYES: Pupils equal reactive to light and accommodation, full extraocular movements, sclera clear, non-icteric, no discharge. EARS/NOSE AND THROAT: Ears normal, nose normal, oropharynx normal, oral membranes well hydrated without lesions. NECK: Supple, no masses, thyroid normal, JVP within normal limits, carotids normal without bruits. CHEST: Inspection within normal limits, breasts grossly normal. CARDIOVASCULAR: Heart: Regular rate and rhythm, no murmurs, gallops or rubs. Peripheral pulses present within normal limits, no cyanosis, clubbing or edemas. No pulsatile abdominal mass RESPIRATORY: Lungs clear to auscultation and percussion, no wheezing, no rubs GASTROINTESTINAL AND LIVER: Abdomen: Soft, non tender, non-distended, no hernias , no masses, no organomegaly, no ascites, no guarding, no rebound tenderness, normoactive bowel sounds. Rectal: no perianal disease, no masses, stool normal, occult blood negative. GENITOURINARY: [Male genitalia within normal limits, Prostate normal for age.] MUSCULO-SKELETAL: Gait and station within normal limits, range of motion adequate. NEUROLOGIC: Cranial nerves II-XII intact, Motor within normal limits, Sensory within normal limits. Reflexes within normal limits. PSYCHIATRIC: Alert & oriented x 3, mood/affect/judgement adequate IMPRESSION: Severe anemia, likely multifactorial Rule out GI bleeding Chest pain likely related to demand ischemia Coronary artery disease/CABG End-stage renal disease on chronic hemodialysis Diabetes mellitus type 2 Hypertension DISCUSSION & RECOMMENDATIONS: EGD once cleared by cardiology. ALY Lopez's office Fax copy to Attn Medical Records Problems: Consultation Date/Type/Reason Admit Date/Time Oct 31, 2016 at 21:13 Date of Consultation: Nov 02, 2016 Constitutional: No requiring O2 Social History Alcohol Use: none Exam/Review of Systems Vital Signs Vitals Vital Signs Date Time Temp Pulse Resp B/P Pulse Ox O2 Delivery O2 Flow Rate FiO2 11/03/16 16:34 57 11/03/16 15:53 97.9 18 157/67 96 Room Air Intake and Output 11/02/16 11/02/16 11/03/16 15:00 23:00 07:00 Intake Total 500 ml 900 ml 500 ml Output Total 3000 ml 100 ml Balance -2500 ml 900 ml 400 ml Results Result Diagram: 11/03/16 0707 11/03/16 0707 Results 24 hrs Laboratory Tests Test 11/02/16 20:00 11/03/16 07:07 11/03/16 08:13 11/03/16 12:26 Bedside Glucose 127 122 105 White Blood Count 7.0 # Red Blood Count 2.57 L Hemoglobin 7.6 L Hematocrit 23.7 L Mean Corpuscular Volume 92.2 Mean Corpuscular Hemoglobin 29.6 Mean Corpuscular Hemoglobin Concent 32.1 Red Cell Distribution Width 17.2 H Platelet Count 145 Mean Platelet Volume 12.0 H Neutrophils % 74.5 Lymphocytes % 11.6 L Monocytes % 11.1 H Eosinophils % 1.9 Basophils % 0.6 Nucleated Red Blood Cells % 0.0 Neutrophils # 5.2 Lymphocytes # 0.8 Monocytes # 0.8 Eosinophils # 0.1 Basophils # 0.0 Nucleated Red Blood Cells # 0.0 Sodium Level 137 Potassium Level 4.3 Chloride Level 99 Carbon Dioxide Level 29 Anion Gap 13 Blood Urea Nitrogen 39 #H Creatinine 9.28 H Glucose Level 97 Calcium Level 8.0 L Test 11/03/16 15:56 Bedside Glucose 95 Medications Medications Current Medications Ondansetron HCl (Zofran Inj) 4 mg Q6H PRN IV NAUSEA AND/OR VOMITING Last administered on 11/02/16 20:14; Admin Dose 4 MG; Start 11/01/16 at 00:00 Nitroglycerin (Nitroglycerin (Sl Tab) 0.4 Mg) 1 tab Q5M PRN SL CHEST PAIN; Start 11/01/16 at 00:00 Morphine Sulfate (morphine) 2 mg Q4H PRN IV PAIN LEVEL 7-10 Last administered on 11/02/16 17:02; Admin Dose 2 MG; Start 11/01/16 at 00:00 Diagnostic Test (Pha) (Accu-Chek) 1 ea 02 XX ; Start 11/02/16 at 02:00 Acetaminophen (Tylenol Tab) 500 mg Q4H PRN PO PAIN AND OR ELEVATED TEMP Last administered on 11/02/16 20:32; Admin Dose 500 MG; Start 11/01/16 at 03:30 Allopurinol (Zyloprim) 100 mg DAILY PO Last administered on 11/03/16 08:58; Admin Dose 100 MG; Start 11/01/16 at 09:00 Benazepril HCl (Lotensin) 40 mg DAILY PO Last administered on 11/03/16 08:59; Admin Dose 40 MG; Start 11/01/16 at 09:00 Cinacalcet (Sensipar) 30 mg BID PO Last administered on 11/03/16 08:58; Admin Dose 30 MG; Start 11/01/16 at 09:00 Epoetin Eze (Epogen (Neserd)) 6,000 units TuThSa@17 SC Last administered on 14:55; Admin Dose 6,000 UNITS; Start 11/02/16 at 17:00 Loratadine (Claritin) 10 mg DAILY PO Last administered on 11/03/16 08:58; Admin Dose 10 MG; Start 11/01/16 at 09:00 Al Hydrox/Mg Hydrox/Simethicone (Mag-Al Plus) 30 ml Q6H PRN PO GASTROINTESTINAL UPSET Last administered on 11/01/16 10:54; Admin Dose 30 ML; Start 11/01/16 at 04:00 Pantoprazole (Protonix Iv) 40 mg BID@06,18 IV Last administered on 11/03/16 05 :23; Admin Dose 40 MG; Start 11/01/16 at 06:00 Hydralazine HCl (Apresoline) 10 mg Q4H PRN IV ELEVATED BLOOD PRESSURE Last administered on 11/02/16 20:15; Admin Dose 10 MG; Start 11/02/16 at 14:00 Nifedipine (Procardia Xl) 30 mg DAILY PO Last administered on 11/03/16 08:59; Admin Dose 30 MG; Start 11/02/16 at 14:00 ALY LOPEZ MD Nov 03, 2016 17:29
--- NOTE | 2016-11-03 17:37 | HPN ---
Date/Time of Note Date/Time of Note DATE: 11/03/16 TIME: 17:37 Interval H&P Admission Note Pt. seen H&P reviewed: No system changes ALY PARRY MD Nov 03, 2016 17:37
[2016-11-04] VITALS (21 sets, daily range): BP systolic 130–180; BP diastolic 60–77; PULSE 48–59; RESP 15–20
[2016-11-04] MEDS: ACETAMINOPHEN 500 MG TAB PO PRN (01:52)
[2016-11-04] MEDS: ACCU-CHEK XX SCH (02:00)
[2016-11-04] MEDS: PANTOPRAZOLE 40 MG INJ IV SCH ×2 (05:52→17:53)
[2016-11-04 06:15] LABS: BASOPHILS % 0.6 % (0.0-2.0); EOSINOPHILS # 0.2 10^3/ul (0.0-0.5); EOSINOPHILS % 3.3 % (0.0-7.0); HEMATOCRIT 23.1 % (42.0-52.0); HEMOGLOBIN 7.4 g/dl (14.0-18.0); LYMPHOCYTES # 0.7 10^3/ul (0.8-2.9); MEAN CORPUSCULAR HEMOGLOBIN 29.6 pg (29.0-33.0); MEAN CORPUSCULAR VOLUME 92.4 fl (82.0-101.0); MONOCYTE # 0.7 10^3/ul (0.3-0.9); MONOCYTES % 9.7 % (0.0-11.0); NEUTROPHIL # 5.3 10^3/ul (1.6-7.5); NEUTROPHILS % 76.1 % (39.0-77.0); PLATELET COUNT 157 10^3/UL (140-415); RED CELL DISTRIBUTION WIDTH 17.2 % (11.5-14.5)
[2016-11-04 06:35] LABS: CALCIUM 7.4 mg/dl (8.4-10.2); CREATININE 11.52 mg/dl (0.61-1.24)
[2016-11-04] MEDS: INSULIN ASPART [NOVOLOG] 3 ML PEN SC SCH ×4 (07:52→20:28)
[2016-11-04] MEDS: NIFEdipine (XL) 30 MG TAB PO SCH (08:41)
[2016-11-04] MEDS: BENAZEPRIL 20 MG TAB PO SCH (08:41)
[2016-11-04] MEDS: LORATADINE 10 MG TAB PO SCH (08:47)
[2016-11-04] MEDS: CINACALCET 30 MG TAB PO SCH ×2 (08:47→20:37)
[2016-11-04] MEDS: ALLOPURINOL 100 MG TAB PO SCH (08:47)
--- NOTE | 2016-11-04 10:28 | CONS ---
Date/Time of Note Date/Time of Note DATE: 11/04/16 TIME: 10:27 Assessment/Plan Assessment/Plan Additional Assessment/Plan 1. Chest pain, in the setting of severe anemia, but history of coronary bypass graft surgery - no CP now, will monitor clinically. NO change. s/p EGD - tolerated well 2. Abnormal electrocardiogram with lateral T-wave inversions- no CP noted, will R/O Mi. 3. Severe anemia- blood transfusion as tolerated. H/H better now. EGD done with Bx. Donis await GI recs. 4. Anemia/gastrointestinal bleed- GI team follows. 5. Hypertension, under reasonable control. Donis Rx as needed. 6. Diabetes mellitus. 7. End-stage renal disease, on hemodialysis- remove fluid as tolerated . HD now. 8. Increased BNP. Consultation Date/Type/Reason Admit Date/Time Oct 31, 2016 at 21:13 Initial Consult Date 11/01/16 Type of Consultation: Renal Referring Provider: RAJAN STAHL 24 HR Interval Summary Free Text/Dictation NO change. s/p EGD - tolerated well HD now. NO CP now. ROS: No fever, no chills, no nausea, no vomiting, no diarrhea/constipation No recent weight changes No chest pain, no PND, no orthopnea No dizziness, blurred vision No thirst, no heat or cold intolerance Exam/Review of Systems Vital Signs Vitals Vital Signs Date Time Temp Pulse Resp B/P Pulse Ox O2 Delivery O2 Flow Rate FiO2 11/04/16 08:00 53 11/04/16 07:16 98.6 18 148/69 95 11/03/16 18:06 Nasal Cannula 2.0 Intake and Output 11/03/16 11/03/16 11/04/16 15:00 23:00 07:00 Intake Total 500 ml 240 ml Balance 500 ml 240 ml Exam General: WN/WD/NAD, AOx 2-3 HEENT: Unicetric/atraumatic/EOMI (follows commands) NECK: JVD elevated, no thyromegaly Lymph: no lymphadenopathy HEART: regular with no S3, II/ systolic murmur at apex LUNGS: Coarse sounds ABD: soft, NT, ND, +BS : Intact Neuro: non focal SKIN: chronic changes EXT: trace edema Results Result Diagram: 11/04/16 0511/04/16 05 Results 24 hrs Laboratory Tests Test 11/03/16 12:26 11/03/16 15:56 11/03/16 18:21 11/03/16 20:31 Bedside Glucose 105 95 88 150 Test 11/04/16 05:41 11/04/16 07:45 White Blood Count 7.0 Red Blood Count 2.50 L Hemoglobin 7.4 L Hematocrit 23.1 L Mean Corpuscular Volume 92.4 Mean Corpuscular Hemoglobin 29.6 Mean Corpuscular Hemoglobin Concent 32.0 Red Cell Distribution Width 17.2 H Platelet Count 157 Mean Platelet Volume 12.0 H Neutrophils % 76.1 Lymphocytes % 10.0 L Monocytes % 9.7 Eosinophils % 3.3 Basophils % 0.6 Nucleated Red Blood Cells % 0.0 Neutrophils # 5.3 Lymphocytes # 0.7 L Monocytes # 0.7 Eosinophils # 0.2 Basophils # 0.0 Nucleated Red Blood Cells # 0.0 Sodium Level 137 Potassium Level 5.0 Chloride Level 102 Carbon Dioxide Level 26 Anion Gap 14 Blood Urea Nitrogen 54 H Creatinine 11.52 #H Glucose Level 99 Calcium Level 7.4 L Bedside Glucose 122 Medications Medications Current Medications Ondansetron HCl (Zofran Inj) 4 mg Q6H PRN IV NAUSEA AND/OR VOMITING Last administered on 11/02/16 20:14; Admin Dose 4 MG; Start 11/01/16 at 00:00 Nitroglycerin (Nitroglycerin (Sl Tab) 0.4 Mg) 1 tab Q5M PRN SL CHEST PAIN; Start 11/01/16 at 00:00 Morphine Sulfate (morphine) 2 mg Q4H PRN IV PAIN LEVEL 7-10 Last administered on 11/02/16 17:02; Admin Dose 2 MG; Start 11/01/16 at 00:00 Diagnostic Test (Pha) (Accu-Chek) 1 ea 02 XX ; Start 11/02/16 at 02:00 Acetaminophen (Tylenol Tab) 500 mg Q4H PRN PO PAIN AND OR ELEVATED TEMP Last administered on 11/04/16 01:52; Admin Dose 500 MG; Start 11/01/16 at 03:30 Allopurinol (Zyloprim) 100 mg DAILY PO Last administered on 11/04/16 08:47; Admin Dose 100 MG; Start 11/01/16 at 09:00 Benazepril HCl (Lotensin) 40 mg DAILY PO Last administered on 11/03/16 08:59; Admin Dose 40 MG; Start 11/01/16 at 09:00 Cinacalcet (Sensipar) 30 mg BID PO Last administered on 11/04/16 08:47; Admin Dose 30 MG; Start 11/01/16 at 09:00 Epoetin Eze (Epogen (Neserd)) 6,000 units TuThSa@17 SC Last administered on 14:55; Admin Dose 6,000 UNITS; Start 11/02/16 at 17:00 Loratadine (Claritin) 10 mg DAILY PO Last administered on 11/04/16 08:47; Admin Dose 10 MG; Start 11/01/16 at 09:00 Al Hydrox/Mg Hydrox/Simethicone (Mag-Al Plus) 30 ml Q6H PRN PO GASTROINTESTINAL UPSET Last administered on 11/01/16 10:54; Admin Dose 30 ML; Start 11/01/16 at 04:00 Pantoprazole (Protonix Iv) 40 mg BID@06,18 IV Last administered on 11/04/16 05 :52; Admin Dose 40 MG; Start 11/01/16 at 06:00 Hydralazine HCl (Apresoline) 10 mg Q4H PRN IV ELEVATED BLOOD PRESSURE Last administered on 11/02/16 20:15; Admin Dose 10 MG; Start 11/02/16 at 14:00 Nifedipine (Procardia Xl) 30 mg DAILY PO Last administered on 11/03/16 08:59; Admin Dose 30 MG; Start 11/02/16 at 14:00 MARCE GOLDBERG MD Nov 04, 2016 10:28
--- NOTE | 2016-11-04 11:01 | PN ---
Date/Time of Note Date/Time of Note DATE: 11/04/16 TIME: 10:58 Assessment/Plan VTE Prophylaxis VTE Prophylaxis Intervention: contraindicated, SCD's VTE Contraindication Reason: bleeding Lines/Catheters IV Catheter Type (from Nrs): Peripheral IV Urinary Cath still in place: No Assessment/Plan Chief Complaint/Hosp Course A/P: 61-year-old male being admitted to the telemetry floor for: #1 chest pain: Troponins are negative 3 -has ruled out for ACS. Presently denies chest pain. -Continue nifedipine and benazepril. -Follow-up cardiology recommendations #2 symptomatic anemia: 2 units of PRBCs given to the patient earlier this admission, and again stool occult test is positive. Patient had EGD yesterday that showed 2 small antral gastric ulcerations, otherwise benign endoscopic appearance. No stigmata of recent bleeding. Hemoglobin today 7.4 -Continue Protonix twice daily. Zofran as needed nausea. -Follow-up iron studies, consider giving another PRBC transfusion today. -- for possible colonoscopy as well, follow-up final GI recommendations on this #3 diabetes mellitus:continue insulin sliding scale #4 end-stage renal disease: BUN is 51. Patient does not appear uremic. -Dialysis per renal recommendations, normally he is Tuesday schedule. Will avoid nephrotoxic agents #5 coronary artery disease: -Holding aspirin at this time secondary to #2. - Will continue statin. #6 elevated BNP: Patient had a BNP level of 14,000 on admission. -Monitor #7 DVT and GI prophylaxis: SCDs, Protonix 8. Hypertension: Continue BLADIMIR inhibitor, calcium channel farzad, and hydralazine IV as needed for systolic BP greater than 160 Problems: Subjective 24 Hr Interval Summary Free Text/Dictation Patient presently getting dialysis. Had EGD performed yesterday. No acute events overnight, no signs of upper or lower GI bleeding presently. Exam/Review of Systems Vital Signs Vitals Vital Signs Date Time Temp Pulse Resp B/P Pulse Ox O2 Delivery O2 Flow Rate FiO2 11/04/16 08:00 53 11/04/16 07:16 98.6 18 148/69 95 11/03/16 18:06 Nasal Cannula 2.0 Intake and Output 11/03/16 11/03/16 11/04/16 15:00 23:00 07:00 Intake Total 500 ml 240 ml Balance 500 ml 240 ml Exam General: Patient is a well-developed male, no acute distress HEENT: Atraumatic, normocephalic. The pupils are equal, round and reactive. Extraocular motor are intact Neck: Supple with full range of motion. No rigidity or meningismus Chest: Nontender Lungs: Clear to auscultation bilaterally no crackles rales or wheezing Heart: Normal S1-S2, Regular rhythm and rate. No murmur, S3, or S4 Abdomen: Soft, some tenderness to palpation at the epigastric region, normal bowel sounds, nondistended Extremities: Normal to inspection, no edema no cyanosis Neurologic: Normal mental status, speech normal, cranial nerves II through XII are intact, motor and sensory are intact, no focal weakness Results Result Diagram: 11/04/16 0541 11/04/16 0541 Results 24 hrs Laboratory Tests Test 11/03/16 12:26 11/03/16 15:56 11/03/16 18:21 11/03/16 20:31 Bedside Glucose 105 95 88 150 Test 11/04/16 05:41 11/04/16 07:45 White Blood Count 7.0 Red Blood Count 2.50 L Hemoglobin 7.4 L Hematocrit 23.1 L Mean Corpuscular Volume 92.4 Mean Corpuscular Hemoglobin 29.6 Mean Corpuscular Hemoglobin Concent 32.0 Red Cell Distribution Width 17.2 H Platelet Count 157 Mean Platelet Volume 12.0 H Neutrophils % 76.1 Lymphocytes % 10.0 L Monocytes % 9.7 Eosinophils % 3.3 Basophils % 0.6 Nucleated Red Blood Cells % 0.0 Neutrophils # 5.3 Lymphocytes # 0.7 L Monocytes # 0.7 Eosinophils # 0.2 Basophils # 0.0 Nucleated Red Blood Cells # 0.0 Sodium Level 137 Potassium Level 5.0 Chloride Level 102 Carbon Dioxide Level 26 Anion Gap 14 Blood Urea Nitrogen 54 H Creatinine 11.52 #H Glucose Level 99 Calcium Level 7.4 L Bedside Glucose 122 Medications Medications Current Medications Ondansetron HCl (Zofran Inj) 4 mg Q6H PRN IV NAUSEA AND/OR VOMITING Last administered on 11/02/16t 20:14; Admin Dose 4 MG; Start 11/01/16 at 00:00 Nitroglycerin (Nitroglycerin (Sl Tab) 0.4 Mg) 1 tab Q5M PRN SL CHEST PAIN; Start 11/01/16 at 00:00 Morphine Sulfate (morphine) 2 mg Q4H PRN IV PAIN LEVEL 7-10 Last administered on 11/02/16 17:02; Admin Dose 2 MG; Start 11/01/16 at 00:00 Diagnostic Test (Pha) (Accu-Chek) 1 ea 02 XX ; Start 11/02/16 at 02:00 Acetaminophen (Tylenol Tab) 500 mg Q4H PRN PO PAIN AND OR ELEVATED TEMP Last administered on 11/04/16 01:52; Admin Dose 500 MG; Start 11/01/16 at 03:30 Allopurinol (Zyloprim) 100 mg DAILY PO Last administered on 11/04/16 08:47; Admin Dose 100 MG; Start 11/01/16 at 09:00 Benazepril HCl (Lotensin) 40 mg DAILY PO Last administered on 11/03/16 08:59; Admin Dose 40 MG; Start 11/01/16 at 09:00 Cinacalcet (Sensipar) 30 mg BID PO Last administered on 11/04/16 08:47; Admin Dose 30 MG; Start 11/01/16 at 09:00 Epoetin Eze (Epogen (Neserd)) 6,000 units TuThSa@17 SC Last administered on 14:55; Admin Dose 6,000 UNITS; Start 11/02/16 at 17:00 Loratadine (Claritin) 10 mg DAILY PO Last administered on 11/04/16 08:47; Admin Dose 10 MG; Start 11/01/16 at 09:00 Al Hydrox/Mg Hydrox/Simethicone (Mag-Al Plus) 30 ml Q6H PRN PO GASTROINTESTINAL UPSET Last administered on 11/01/16 10:54; Admin Dose 30 ML; Start 11/01/16 at 04:00 Pantoprazole (Protonix Iv) 40 mg BID@06,18 IV Last administered on 11/04/16 05 :52; Admin Dose 40 MG; Start 11/01/16 at 06:00 Hydralazine HCl (Apresoline) 10 mg Q4H PRN IV ELEVATED BLOOD PRESSURE Last administered on 11/02/16 20:15; Admin Dose 10 MG; Start 11/02/16 at 14:00 Nifedipine (Procardia Xl) 30 mg DAILY PO Last administered on 11/03/16t 08:59; Admin Dose 30 MG; Start 11/02/16 at 14:00 RAJAN STAHL Nov 04, 2016 11:01
[2016-11-04] MEDS ORDERED: SOD CHLORIDE 0.9% 250 ML IV* ONE (11:02)
[2016-11-04] MEDS ORDERED: GLUCAGON 1 MG INJ IM PRN (12:00)
[2016-11-04] MEDS ORDERED: GLUCOSE GEL 15 GRAM TUBE PO PRN ×2 (12:00)
[2016-11-04] MEDS ORDERED: GLUCOSE GEL 15 GRAM TUBE BUCCAL PRN (12:00)
[2016-11-04] MEDS ORDERED: DEXTROSE 50% 50 ML SYRINGE IV PRN ×2 (12:00)
[2016-11-04] MEDS: hydrALAzine 20 MG INJ IV PRN (15:08)
--- NOTE | 2016-11-04 16:49 | CONS ---
Date/Time of Note Date/Time of Note DATE: 11/04/16 TIME: 16:45 Assessment/Plan Assessment/Plan Additional Assessment/Plan 61 yo male with 1) Severe Symptomatic Anemia, Improved after PRBC 2) Baseline anemia, Chronic, CKD 3) ESRD on HD TTS 4) LUE AVF 5) DM with Renal complication ESRD 6) Chronic HTN HD TTS S/p HD UF as tolerated Cont GHANSHYAM with HD S/p EGD Pending Colonoscopy tomorrow. Thank you for the opportunity to participate in the care of MR Herbert. Consultation Date/Type/Reason Admit Date/Time Oct 31, 2016 at 21:13 Initial Consult Date 11/01/16 Type of Consultation: Renal Referring Provider: RAJAN STAHL 24 HR Interval Summary Free Text/Dictation S/p HD today, -500ml Exam/Review of Systems Vital Signs Vitals Vital Signs Date Time Temp Pulse Resp B/P Pulse Ox O2 Delivery O2 Flow Rate FiO2 11/04/16 16:00 54 11/04/16 15:28 98.5 16 151/66 96 Room Air 11/04/16 15:10 2.0 Intake and Output 11/03/16 11/03/16 11/04/16 15:00 23:00 07:00 Intake Total 500 ml 240 ml Balance 500 ml 240 ml Exam Constitutional: No distress Head: atraumatic Eyes: EOMI Neck: No jvd Respiratory: clear to auscultation Cardiovascular: regular rate and rhythm, No edema Gastrointestinal: non-tender, soft Extremities: edema Neurological: [employer] II-XII intact, nl mental status, No lethargic Results Result Diagram: 11/04/16 0541 11/04/16 0541 Results 24 hrs Laboratory Tests Test 11/03/16 18:21 11/03/16 20:31 11/04/16 05:41 11/04/16 07:45 Bedside Glucose 88 150 122 White Blood Count 7.0 Red Blood Count 2.50 L Hemoglobin 7.4 L Hematocrit 23.1 L Mean Corpuscular Volume 92.4 Mean Corpuscular Hemoglobin 29.6 Mean Corpuscular Hemoglobin Concent 32.0 Red Cell Distribution Width 17.2 H Platelet Count 157 Mean Platelet Volume 12.0 H Neutrophils % 76.1 Lymphocytes % 10.0 L Monocytes % 9.7 Eosinophils % 3.3 Basophils % 0.6 Nucleated Red Blood Cells % 0.0 Neutrophils # 5.3 Lymphocytes # 0.7 L Monocytes # 0.7 Eosinophils # 0.2 Basophils # 0.0 Nucleated Red Blood Cells # 0.0 Sodium Level 137 Potassium Level 5.0 Chloride Level 102 Carbon Dioxide Level 26 Anion Gap 14 Blood Urea Nitrogen 54 H Creatinine 11.52 #H Glucose Level 99 Calcium Level 7.4 L Test 11/04/16 12:04 Bedside Glucose 184 Medications Medications Current Medications Ondansetron HCl (Zofran Inj) 4 mg Q6H PRN IV NAUSEA AND/OR VOMITING Last administered on 11/02/16 20:14; Admin Dose 4 MG; Start 11/01/16 at 00:00 Nitroglycerin (Nitroglycerin (Sl Tab) 0.4 Mg) 1 tab Q5M PRN SL CHEST PAIN; Start 11/01/16 at 00:00 Morphine Sulfate (morphine) 2 mg Q4H PRN IV PAIN LEVEL 7-10 Last administered on 11/02/16 17:02; Admin Dose 2 MG; Start 11/01/16 at 00:00 Diagnostic Test (Pha) (Accu-Chek) 1 ea 02 XX ; Start 11/02/16 at 02:00 Acetaminophen (Tylenol Tab) 500 mg Q4H PRN PO PAIN AND OR ELEVATED TEMP Last administered on 11/04/16 01:52; Admin Dose 500 MG; Start 11/01/16 at 03:30 Allopurinol (Zyloprim) 100 mg DAILY PO Last administered on 11/04/16 08:47; Admin Dose 100 MG; Start 11/01/16 at 09:00 Benazepril HCl (Lotensin) 40 mg DAILY PO Last administered on 11/03/16 08:59; Admin Dose 40 MG; Start 11/01/16 at 09:00 Cinacalcet (Sensipar) 30 mg BID PO Last administered on 11/04/16 08:47; Admin Dose 30 MG; Start 11/01/16 at 09:00 Epoetin Eze (Epogen (Neserd)) 6,000 units TuThSa@17 SC Last administered on 14:55; Admin Dose 6,000 UNITS; Start 11/02/16 at 17:00 Loratadine (Claritin) 10 mg DAILY PO Last administered on 11/04/16 08:47; Admin Dose 10 MG; Start 11/01/16 at 09:00 Al Hydrox/Mg Hydrox/Simethicone (Mag-Al Plus) 30 ml Q6H PRN PO GASTROINTESTINAL UPSET Last administered on 11/01/16 10:54; Admin Dose 30 ML; Start 11/01/16 at 04:00 Pantoprazole (Protonix Iv) 40 mg BID@,18 IV Last administered on 11/04/16 05 :52; Admin Dose 40 MG; Start 11/01/16 at 06:00 Hydralazine HCl (Apresoline) 10 mg Q4H PRN IV ELEVATED BLOOD PRESSURE Last administered on 11/04/16 15:08; Admin Dose 10 MG; Start 11/02/16 at 14:00 Nifedipine (Procardia Xl) 30 mg DAILY PO Last administered on 11/03/16 08:59; Admin Dose 30 MG; Start 11/02/16 at 14:00 Miscellaneous Information 1 ea NOTE XX ; Start 11/04/16 at 12:00 Glucose (Glutose) 15 gm Q15M PRN PO DECREASED GLUCOSE; Start 11/04/16 at 12:00 Glucose (Glutose) 22.5 gm Q15M PRN PO DECREASED GLUCOSE; Start 11/04/16 at 12: 00 Dextrose (D50w Syringe) 25 ml Q15M PRN IV DECREASED GLUCOSE; Start 11/04/16 at 12:00 Dextrose (D50w Syringe) 50 ml Q15M PRN IV DECREASED GLUCOSE; Start 11/04/16 at 12:00 Glucagon (Glucagen) 1 mg Q15M PRN IM DECREASED GLUCOSE; Start 11/04/16 at 12:00 Glucose (Glutose) 15 gm Q15M PRN BUCCAL DECREASED GLUCOSE; Start 11/04/16 at 12 :00 RAPHAEL WINTERS MD Nov 04, 2016 16:49
[2016-11-04] MEDS ORDERED: MAGNESIUM CITRATE 300 ML BTL PO ONE (17:30)
[2016-11-04] MEDS: EPOETIN ALFA (NESRD) 3,000 UNITS/ML VIAL SC SCH (17:52)
[2016-11-04] MEDS ORDERED: POLYETHYLENE GLYCOL 3350 119 GM POWDER PO ONE (18:30)
[2016-11-04] MEDS ORDERED: BISACODYL (EC) 5 MG TAB PO ONE (19:00)
[2016-11-04] MEDS: POLYETHYLENE GLYCOL 3350 119 GM POWDER PO ONE (20:39)
[2016-11-05] VITALS (24 sets, daily range): BP systolic 132–198; BP diastolic 62–89; PULSE 52–64; RESP 10–23
[2016-11-05] MEDS: ACCU-CHEK XX SCH (01:19)
[2016-11-05] MEDS: hydrALAzine 20 MG INJ IV PRN ×2 (03:47→18:45)
[2016-11-05] MEDS: PANTOPRAZOLE 40 MG INJ IV SCH ×2 (05:59→18:00)
[2016-11-05] MEDS: POLYETHYLENE GLYCOL 3350 119 GM POWDER PO ONE (06:09)
[2016-11-05] MEDS ORDERED: LIDOCAINE 2% (SDV) 5 ML INJ ONE (07:00)
[2016-11-05] MEDS: INSULIN ASPART [NOVOLOG] 3 ML PEN SC SCH ×4 (07:54→20:58)
[2016-11-05] MEDS ORDERED: BISACODYL (EC) 5 MG TAB PO ONE (08:00)
[2016-11-05] MEDS: LORATADINE 10 MG TAB PO SCH (08:05)
[2016-11-05] MEDS: NIFEdipine (XL) 30 MG TAB PO SCH ×2 (08:06→20:51)
[2016-11-05] MEDS: CINACALCET 30 MG TAB PO SCH ×2 (08:06→20:51)
[2016-11-05] MEDS: BENAZEPRIL 20 MG TAB PO SCH (08:06)
[2016-11-05] MEDS: ALLOPURINOL 100 MG TAB PO SCH (08:11)
[2016-11-05 08:38] LABS: BASOPHIL # 0.1 10^3/ul (0.0-0.1); BASOPHILS % 0.6 % (0.0-2.0); EOSINOPHILS # 0.4 10^3/ul (0.0-0.5); EOSINOPHILS % 4.6 % (0.0-7.0); HEMATOCRIT 31.8 % (42.0-52.0); HEMOGLOBIN 10.5 g/dl (14.0-18.0); LYMPHOCYTES # 0.9 10^3/ul (0.8-2.9); LYMPHOCYTES % 11.1 % (15.0-51.0); MEAN CORPUSCULAR HEMOGLOBIN 30.1 pg (29.0-33.0); MEAN CORPUSCULAR VOLUME 91.1 fl (82.0-101.0); MEAN PLATELET VOLUME 11.8 fl (7.4-10.4); MONOCYTE # 0.9 10^3/ul (0.3-0.9); MONOCYTES % 11.4 % (0.0-11.0); NEUTROPHIL # 5.9 10^3/ul (1.6-7.5); NEUTROPHILS % 72.1 % (39.0-77.0); PLATELET COUNT 178 10^3/UL (140-415); RED BLOOD COUNT 3.49 10^6/ul (4.70-6.10); RED CELL DISTRIBUTION WIDTH 16.9 % (11.5-14.5); WHITE BLOOD COUNT 8.1 10^3/ul (4.8-10.8)
[2016-11-05 08:40] LABS: CALCIUM 8.4 mg/dl (8.4-10.2); CREATININE 9.58 mg/dl (0.61-1.24); POTASSIUM 4.5 mmol/L (3.5-5.1)
--- NOTE | 2016-11-05 10:54 | PN ---
Date/Time of Note Date/Time of Note DATE: 11/05/16 TIME: 10:52 Assessment/Plan VTE Prophylaxis VTE Prophylaxis Intervention: contraindicated, SCD's VTE Contraindication Reason: bleeding Lines/Catheters IV Catheter Type (from Nrs): Peripheral IV Urinary Cath still in place: No Assessment/Plan Chief Complaint/Hosp Course A/P: 61-year-old male being admitted to the telemetry floor for: #1 chest pain: Troponins are negative 3 -has ruled out for ACS. Presently denies chest pain. -Continue nifedipine and benazepril. -Follow-up cardiology recommendations #2 symptomatic anemia: 2 units of PRBCs given to the patient earlier this admission, and again stool occult test is positive. Patient had EGD 2 days ago that showed 2 small antral gastric ulcerations, otherwise benign endoscopic appearance. No stigmata of recent bleeding. Hemoglobin today 10 point 2:05 units PRBC given yesterday. -Continue Protonix twice daily. Zofran as needed nausea. -Follow-up iron studies -- for possible colonoscopy today as well #3 diabetes mellitus:continue insulin sliding scale #4 end-stage renal disease: BUN is 51. Patient does not appear uremic. -Dialysis per renal recommendations, normally he is Tuesday schedule. Will avoid nephrotoxic agents #5 coronary artery disease: -Holding aspirin at this time secondary to #2. - Will continue statin. #6 elevated BNP: Patient had a BNP level of 14,000 on admission. -Monitor #7 DVT and GI prophylaxis: SCDs, Protonix 8. Hypertension: Continue BLADIMIR inhibitor, calcium channel farzad, and hydralazine IV as needed for systolic BP greater than 160 Problems: Subjective 24 Hr Interval Summary Free Text/Dictation Patient had dialysis yesterday. Awaiting colonoscopy for later today. Also received 2 units PRBC transfusion yesterday. Exam/Review of Systems Vital Signs Vitals Vital Signs Date Time Temp Pulse Resp B/P Pulse Ox O2 Delivery O2 Flow Rate FiO2 11/05/16 08:13 59 11/05/16 07:28 98.0 18 190/81 98 11/04/16 19:30 Room Air 11/04/16 15:10 2.0 Intake and Output 11/04/16 11/04/16 11/05/16 15:00 23:00 07:00 Intake Total 750 ml 1200 ml 2270 ml Output Total 3800 ml Balance -3050 ml 1200 ml 2270 ml Exam General: Patient is a well-developed male, no acute distress HEENT: Atraumatic, normocephalic. The pupils are equal, round and reactive. Extraocular motor are intact Neck: Supple with full range of motion. No rigidity or meningismus Chest: Nontender Lungs: Clear to auscultation bilaterally no crackles rales or wheezing Heart: Normal S1-S2, Regular rhythm and rate. No murmur, S3, or S4 Abdomen: Soft, some tenderness to palpation at the epigastric region, normal bowel sounds, nondistended Extremities: Normal to inspection, no edema no cyanosis Neurologic: Normal mental status, speech normal, cranial nerves II through XII are intact, motor and sensory are intact, no focal weakness Results Result Diagram: 11/05/1672811/05/16 07 Results 24 hrs Laboratory Tests Test 11/04/16 12:04 11/04/16 17:03 11/04/16 20:26 11/05/16 07:29 Bedside Glucose 184 122 158 White Blood Count 8.1 Red Blood Count 3.49 #L Hemoglobin 10.5 #L Hematocrit 31.8 #L Mean Corpuscular Volume 91.1 Mean Corpuscular Hemoglobin 30.1 Mean Corpuscular Hemoglobin Concent 33.0 Red Cell Distribution Width 16.9 H Platelet Count 178 Mean Platelet Volume 11.8 H Neutrophils % 72.1 Lymphocytes % 11.1 L Monocytes % 11.4 H Eosinophils % 4.6 Basophils % 0.6 Nucleated Red Blood Cells % 0.0 Neutrophils # 5.9 Lymphocytes # 0.9 Monocytes # 0.9 Eosinophils # 0.4 Basophils # 0.1 Nucleated Red Blood Cells # 0.0 Sodium Level 139 Potassium Level 4.5 Chloride Level 99 Carbon Dioxide Level 29 Anion Gap 16 Blood Urea Nitrogen 45 H Creatinine 9.58 H Glucose Level 135 Calcium Level 8.4 Test 11/05/16 07:52 Bedside Glucose 128 Medications Medications Current Medications Ondansetron HCl (Zofran Inj) 4 mg Q6H PRN IV NAUSEA AND/OR VOMITING Last administered on 11/02/16t 20:14; Admin Dose 4 MG; Start 11/01/16 at 00:00 Nitroglycerin (Nitroglycerin (Sl Tab) 0.4 Mg) 1 tab Q5M PRN SL CHEST PAIN; Start 11/01/16 at 00:00 Morphine Sulfate (morphine) 2 mg Q4H PRN IV PAIN LEVEL 7-10 Last administered on 11/02/16 17:02; Admin Dose 2 MG; Start 11/01/16 at 00:00 Diagnostic Test (Pha) (Accu-Chek) 1 ea 02 XX ; Start 11/02/16 at 02:00 Acetaminophen (Tylenol Tab) 500 mg Q4H PRN PO PAIN AND OR ELEVATED TEMP Last administered on 11/04/16 01:52; Admin Dose 500 MG; Start 11/01/16 at 03:30 Allopurinol (Zyloprim) 100 mg DAILY PO Last administered on 11/05/16 08:11; Admin Dose 100 MG; Start 11/01/16 at 09:00 Benazepril HCl (Lotensin) 40 mg DAILY PO Last administered on 11/05/16 08:06; Admin Dose 40 MG; Start 11/01/16 at 09:00 Cinacalcet (Sensipar) 30 mg BID PO Last administered on 11/05/16 08:06; Admin Dose 30 MG; Start 11/01/16 at 09:00 Epoetin Eze (Epogen (Neserd)) 6,000 units TuThSa@17 SC Last administered on 17:52; Admin Dose 6,000 UNITS; Start 11/02/16 at 17:00 Loratadine (Claritin) 10 mg DAILY PO Last administered on 11/05/16 08:05; Admin Dose 10 MG; Start 11/01/16 at 09:00 Al Hydrox/Mg Hydrox/Simethicone (Mag-Al Plus) 30 ml Q6H PRN PO GASTROINTESTINAL UPSET Last administered on 11/01/16 10:54; Admin Dose 30 ML; Start 11/01/16 at 04:00 Pantoprazole (Protonix Iv) 40 mg BID@06,18 IV Last administered on 11/05/16 05 :59; Admin Dose 40 MG; Start 11/01/16 at 06:00 Hydralazine HCl (Apresoline) 10 mg Q4H PRN IV ELEVATED BLOOD PRESSURE Last administered on 11/05/16 03:47; Admin Dose 10 MG; Start 11/02/16 at 14:00 Nifedipine (Procardia Xl) 30 mg DAILY PO Last administered on 11/05/16t 08:06; Admin Dose 30 MG; Start 11/02/16 at 14:00 Miscellaneous Information 1 ea NOTE XX ; Start 11/04/16 at 12:00 Glucose (Glutose) 15 gm Q15M PRN PO DECREASED GLUCOSE; Start 11/04/16 at 12:00 Glucose (Glutose) 22.5 gm Q15M PRN PO DECREASED GLUCOSE; Start 11/04/16 at 12: 00 Dextrose (D50w Syringe) 25 ml Q15M PRN IV DECREASED GLUCOSE; Start 11/04/16 at 12:00 Dextrose (D50w Syringe) 50 ml Q15M PRN IV DECREASED GLUCOSE; Start 11/04/16 at 12:00 Glucagon (Glucagen) 1 mg Q15M PRN IM DECREASED GLUCOSE; Start 11/04/16 at 12:00 Glucose (Glutose) 15 gm Q15M PRN BUCCAL DECREASED GLUCOSE; Start 11/04/16 at 12 :00 RAJAN STAHL Nov 05, 2016 10:54
--- NOTE | 2016-11-05 14:04 | CONS ---
Date/Time of Note Date/Time of Note DATE: 11/05/16 TIME: 13:56 Assessment/Plan Assessment/Plan Chief Complaint/Hosp Course IMPRESSION: 1. Chest pain, in the setting of severe anemia, but history of coronary bypass graft surgery.-improved now with negative trop x 3/NL EF by echo this admit 2. Abnormal electrocardiogram with lateral T-wave inversions. 3. Severe anemia s/p transfusions with gastric ulcers seen by EGD 4. Anemia/gastrointestinal bleed. 5. Hypertension, under reasonable control. 6. Diabetes mellitus. 7. End-stage renal disease, on hemodialysis. 8. Increased BNP. 9. Bradycardia Recc: -Tele -serial ecg's -INcrease benazepril and procardia and f/u BP closely -Possible colonoscopy -Follow Hgb closely -TRansfuse PRBC's as necessary Problems: Consultation Date/Type/Reason Admit Date/Time Oct 31, 2016 at 21:13 Initial Consult Date 11/02/16 Type of Consultation: cardiology Reason for Consultation Chest pain Referring Provider: RAJAN STAHL Exam/Review of Systems Vital Signs Vitals Vital Signs Date Time Temp Pulse Resp B/P Pulse Ox O2 Delivery O2 Flow Rate FiO2 11/05/16 12:56 98.0 55 18 198/83 98 11/04/16 19:30 Room Air 11/04/16 15:10 2.0 Intake and Output 11/04/16 11/04/16 11/05/16 15:00 23:00 07:00 Intake Total 750 ml 1200 ml 2270 ml Output Total 3800 ml Balance -3050 ml 1200 ml 2270 ml Exam Review of Systems: CONSTITUTIONAL: No fevers, chills. PULMONARY: No sob CARDIOVASCULAR: No chest pain/palpitations GASTROINTESTINAL: No nausea/vomiting. GENITOURINARY: No hematuria/dysuria. MUSCULOSKELETAL: No myagias/arthalgias. PSYCHIATRIC: The patient denies depression. NEUROLOGIC: No weakness Constitutional: alert Psych: no complaints Head: normocephalic ENMT: mucosa pink and moist Neck: jvd (9 cm water), supple Respiratory: clear to auscultation Cardiovascular: regular rate and rhythm Gastrointestinal: non-tender, soft Musculoskeletal: muscle tone (normal) Extremities: edema (none) Neurological: other (No focal deficits) Results Result Diagram: 11/05/16 0729 11/05/16728 Results 24 hrs Laboratory Tests Test 11/04/16 17:03 11/04/16 20:26 11/05/16 07:29 11/05/16 07:52 Bedside Glucose 122 158 128 White Blood Count 8.1 Red Blood Count 3.49 #L Hemoglobin 10.5 #L Hematocrit 31.8 #L Mean Corpuscular Volume 91.1 Mean Corpuscular Hemoglobin 30.1 Mean Corpuscular Hemoglobin Concent 33.0 Red Cell Distribution Width 16.9 H Platelet Count 178 Mean Platelet Volume 11.8 H Neutrophils % 72.1 Lymphocytes % 11.1 L Monocytes % 11.4 H Eosinophils % 4.6 Basophils % 0.6 Nucleated Red Blood Cells % 0.0 Neutrophils # 5.9 Lymphocytes # 0.9 Monocytes # 0.9 Eosinophils # 0.4 Basophils # 0.1 Nucleated Red Blood Cells # 0.0 Sodium Level 139 Potassium Level 4.5 Chloride Level 99 Carbon Dioxide Level 29 Anion Gap 16 Blood Urea Nitrogen 45 H Creatinine 9.58 H Glucose Level 135 Calcium Level 8.4 Test 11/05/16 12:10 Bedside Glucose 120 Medications Medications Current Medications Ondansetron HCl (Zofran Inj) 4 mg Q6H PRN IV NAUSEA AND/OR VOMITING Last administered on 11/02/16 20:14; Admin Dose 4 MG; Start 11/01/16 at 00:00 Nitroglycerin (Nitroglycerin (Sl Tab) 0.4 Mg) 1 tab Q5M PRN SL CHEST PAIN; Start 11/01/16 at 00:00 Morphine Sulfate (morphine) 2 mg Q4H PRN IV PAIN LEVEL 7-10 Last administered on 11/02/16 17:02; Admin Dose 2 MG; Start 11/01/16 at 00:00 Diagnostic Test (Pha) (Accu-Chek) 1 ea 02 XX ; Start 11/02/16 at 02:00 Acetaminophen (Tylenol Tab) 500 mg Q4H PRN PO PAIN AND OR ELEVATED TEMP Last administered on 11/04/16 01:52; Admin Dose 500 MG; Start 11/01/16 at 03:30 Allopurinol (Zyloprim) 100 mg DAILY PO Last administered on 11/05/16 08:11; Admin Dose 100 MG; Start 11/01/16 at 09:00 Benazepril HCl (Lotensin) 40 mg DAILY PO Last administered on 11/05/16 08:06; Admin Dose 40 MG; Start 11/01/16 at 09:00 Cinacalcet (Sensipar) 30 mg BID PO Last administered on 11/05/16 08:06; Admin Dose 30 MG; Start 11/01/16 at 09:00 Epoetin Eze (Epogen (Neserd)) 6,000 units TuThSa@17 SC Last administered on 17:52; Admin Dose 6,000 UNITS; Start 11/02/16 at 17:00 Loratadine (Claritin) 10 mg DAILY PO Last administered on 11/05/16 08:05; Admin Dose 10 MG; Start 11/01/16 at 09:00 Al Hydrox/Mg Hydrox/Simethicone (Mag-Al Plus) 30 ml Q6H PRN PO GASTROINTESTINAL UPSET Last administered on 11/01/16 10:54; Admin Dose 30 ML; Start 11/01/16 at 04:00 Pantoprazole (Protonix Iv) 40 mg BID@18 IV Last administered on 11/05/16 05 :59; Admin Dose 40 MG; Start 11/01/16 at 06:00 Hydralazine HCl (Apresoline) 10 mg Q4H PRN IV ELEVATED BLOOD PRESSURE Last administered on 11/05/16 03:47; Admin Dose 10 MG; Start 11/02/16 at 14:00 Nifedipine (Procardia Xl) 30 mg DAILY PO Last administered on 11/05/16 08:06; Admin Dose 30 MG; Start 11/02/16 at 14:00 Miscellaneous Information 1 ea NOTE XX ; Start 11/04/16 at 12:00 Glucose (Glutose) 15 gm Q15M PRN PO DECREASED GLUCOSE; Start 11/04/16 at 12:00 Glucose (Glutose) 22.5 gm Q15M PRN PO DECREASED GLUCOSE; Start 11/04/16 at 12: 00 Dextrose (D50w Syringe) 25 ml Q15M PRN IV DECREASED GLUCOSE; Start 11/04/16 at 12:00 Dextrose (D50w Syringe) 50 ml Q15M PRN IV DECREASED GLUCOSE; Start 11/04/16 at 12:00 Glucagon (Glucagen) 1 mg Q15M PRN IM DECREASED GLUCOSE; Start 11/04/16 at 12:00 Glucose (Glutose) 15 gm Q15M PRN BUCCAL DECREASED GLUCOSE; Start 11/04/16 at 12 :00 TAE BARAKAT Nov 05, 2016 14:04
--- NOTE | 2016-11-05 15:32 | CONS ---
Date/Time of Note Date/Time of Note DATE: 11/05/16 TIME: 15:30 Assessment/Plan Assessment/Plan Additional Assessment/Plan 61 yo male with 1) Severe Symptomatic Anemia, Improved after PRBC 2) Baseline anemia, Chronic, CKD 3) ESRD on HD TTS 4) LUE AVF 5) DM with Renal complication ESRD 6) Chronic HTN HD TTS S/p HD UF as tolerated Cont GHANSHYAM with HD S/p EGD Colonoscopy today Thank you for the opportunity to participate in the care of MR Herbert. Consultation Date/Type/Reason Admit Date/Time Oct 31, 2016 at 21:13 Initial Consult Date 11/01/16 Type of Consultation: Renal Referring Provider: RAJAN STAHL 24 HR Interval Summary Constitutional: No requiring O2 Exam/Review of Systems Vital Signs Vitals Vital Signs Date Time Temp Pulse Resp B/P Pulse Ox O2 Delivery O2 Flow Rate FiO2 11/05/16 12:56 98.0 55 18 198/83 98 11/04/16 19:30 Room Air 11/04/16 15:10 2.0 Intake and Output 11/04/16 11/04/16 11/05/16 15:00 23:00 07:00 Intake Total 750 ml 1200 ml 2270 ml Output Total 3800 ml Balance -3050 ml 1200 ml 2270 ml Results Result Diagram: 11/05/16 0729 11/05/16 0729 Results 24 hrs Laboratory Tests Test 11/04/16 17:03 11/04/16 20:26 11/05/16 07:29 11/05/16 07:52 Bedside Glucose 122 158 128 White Blood Count 8.1 Red Blood Count 3.49 #L Hemoglobin 10.5 #L Hematocrit 31.8 #L Mean Corpuscular Volume 91.1 Mean Corpuscular Hemoglobin 30.1 Mean Corpuscular Hemoglobin Concent 33.0 Red Cell Distribution Width 16.9 H Platelet Count 178 Mean Platelet Volume 11.8 H Neutrophils % 72.1 Lymphocytes % 11.1 L Monocytes % 11.4 H Eosinophils % 4.6 Basophils % 0.6 Nucleated Red Blood Cells % 0.0 Neutrophils # 5.9 Lymphocytes # 0.9 Monocytes # 0.9 Eosinophils # 0.4 Basophils # 0.1 Nucleated Red Blood Cells # 0.0 Sodium Level 139 Potassium Level 4.5 Chloride Level 99 Carbon Dioxide Level 29 Anion Gap 16 Blood Urea Nitrogen 45 H Creatinine 9.58 H Glucose Level 135 Calcium Level 8.4 Test 11/05/16 12:10 Bedside Glucose 120 Medications Medications Current Medications Ondansetron HCl (Zofran Inj) 4 mg Q6H PRN IV NAUSEA AND/OR VOMITING Last administered on 11/02/16 20:14; Admin Dose 4 MG; Start 11/01/16 at 00:00 Nitroglycerin (Nitroglycerin (Sl Tab) 0.4 Mg) 1 tab Q5M PRN SL CHEST PAIN; Start 11/01/16 at 00:00 Morphine Sulfate (morphine) 2 mg Q4H PRN IV PAIN LEVEL 7-10 Last administered on 11/02/16 17:02; Admin Dose 2 MG; Start 11/01/16 at 00:00 Diagnostic Test (Pha) (Accu-Chek) 1 ea 02 XX ; Start 11/02/16 at 02:00 Acetaminophen (Tylenol Tab) 500 mg Q4H PRN PO PAIN AND OR ELEVATED TEMP Last administered on 11/04/16 01:52; Admin Dose 500 MG; Start 11/01/16 at 03:30 Allopurinol (Zyloprim) 100 mg DAILY PO Last administered on 11/05/16 08:11; Admin Dose 100 MG; Start 11/01/16 at 09:00 Benazepril HCl (Lotensin) 40 mg DAILY PO Last administered on 11/05/16 08:06; Admin Dose 40 MG; Start 11/01/16 at 09:00 Cinacalcet (Sensipar) 30 mg BID PO Last administered on 11/05/16 08:06; Admin Dose 30 MG; Start 11/01/16 at 09:00 Epoetin Eze (Epogen (Neserd)) 6,000 units TuThSa@17 SC Last administered on 17:52; Admin Dose 6,000 UNITS; Start 11/02/16 at 17:00 Loratadine (Claritin) 10 mg DAILY PO Last administered on 11/05/16 08:05; Admin Dose 10 MG; Start 11/01/16 at 09:00 Al Hydrox/Mg Hydrox/Simethicone (Mag-Al Plus) 30 ml Q6H PRN PO GASTROINTESTINAL UPSET Last administered on 11/01/16 10:54; Admin Dose 30 ML; Start 11/01/16 at 04:00 Pantoprazole (Protonix Iv) 40 mg BID@06,18 IV Last administered on 11/05/16 05 :59; Admin Dose 40 MG; Start 11/01/16 at 06:00 Hydralazine HCl (Apresoline) 10 mg Q4H PRN IV ELEVATED BLOOD PRESSURE Last administered on 11/05/16 03:47; Admin Dose 10 MG; Start 11/02/16 at 14:00 Miscellaneous Information 1 ea NOTE XX ; Start 11/04/16 at 12:00 Glucose (Glutose) 15 gm Q15M PRN PO DECREASED GLUCOSE; Start 11/04/16 at 12:00 Glucose (Glutose) 22.5 gm Q15M PRN PO DECREASED GLUCOSE; Start 11/04/16 at 12: 00 Dextrose (D50w Syringe) 25 ml Q15M PRN IV DECREASED GLUCOSE; Start 11/04/16 at 12:00 Dextrose (D50w Syringe) 50 ml Q15M PRN IV DECREASED GLUCOSE; Start 11/04/16 at 12:00 Glucagon (Glucagen) 1 mg Q15M PRN IM DECREASED GLUCOSE; Start 11/04/16 at 12:00 Glucose (Glutose) 15 gm Q15M PRN BUCCAL DECREASED GLUCOSE; Start 11/04/16 at 12 :00 Nifedipine (Procardia Xl) 30 mg BID PO ; Start 11/05/16 at 21:00 RAPHAEL WINTERS MD Nov 05, 2016 15:32
[2016-11-05] MEDS ORDERED: PROPOFOL 20 ML ONE ×2 (17:36→18:14)
--- NOTE | 2016-11-05 18:04 | HPN ---
Date/Time of Note Date/Time of Note DATE: 11/05/16 TIME: 18:04 Interval H&P Admission Note Pt. seen H&P reviewed: No system changes ALY PARRY MD Nov 05, 2016 18:04
--- NOTE | 2016-11-05 18:09 | OPPN ---
Date/Time of Note Date/Time of Note DATE: 11/05/16 TIME: 18:04 Proc Note GI Procedure Date 11/05/16 Pre-procedure Diagnosis * Anemia Post-procedure Diagnosis Impression: * Rectal polyp 2. Ablated * Multiple small AVMs in the proximal ascending colon * Moderate-sized internal hemorrhoids * Otherwise normal colonoscopy to cecum Plan: High fiber diet Review pathology as soon as available [Screening colonoscopy in 5-10 years] . Procedure Performed: Colonoscopy (With polyp ablation) Surgeon ALY PARRY MD Engraver Automatic none Anesthesia Type: MAC Anesthesiologist: VIVIANE CESAR MD Tourniquet Time none EBL none Transfusion required none Biopsy 1: none Polyp 1: Rectal polyp 2 Grafts/Implants none Tubes/Drains none Complication(s) none Pt Condition post procedure: stable Disposition: PACU Indications: other (Anemia) Procedure Description After informed consent, with the patient/relatives understanding the procedure, its indications and potential risks and complications, including but not limited to: Allergic reaction, bleeding, perforation, infection, and after all pertinent questions were answered to the patient's satisfaction, the patient/ relatives signed the witnessed informed consent. Following this, premedication was administered slowly IV push under careful cardiovascular and respiratory monitoring with pulse OXIMETRY, automatic blood pressure, and community facilitator. Once the sedative effect was achieved, the patient was placed in the left lateral decubitus position, digital rectal examination was performed. The colonoscope was then introduced and advanced under visual control throughout all segments of the colon including: the rectum, sigmoid, descending colon, splenic flexure, transverse colon, hepatic flexure, ascending colon and finally reaching the cecum which was clearly identified by transillumination, finger indentation and the ileocecal valve. Careful examination of the mucosa of the lower gastrointestinal tract both on insertion as well as withdrawal of the instrument disclosed the following findings: PREPARATION QUALITY: [Adequate], RECTAL EXAM: The anorectal area was visualized examined and digital rectal examination performed with the following findings: No evidence of perirectal disease, no masses. COLONIC MUCOSA: The mucosa of all segments of the colon was carefully examined and showed the following findings: There are 2 small sessile polyps in the rectum. Ablated. Moderate-sized internal hemorrhoids are present. Otherwise the examined mucosa appears within normal limits. There is no evidence of inflammatory changes, diverticular formation, other neoplasms, vascular malformation, or any other abnormality. The instrument was then withdrawn, the patient tolerated the procedure well and was transferred out of the Endoscopy Suite awake and in good condition to continue recovery under observation. Copies To: CC: ALY PARRY MD, MORDO MD Nov 05, 2016 18:09
[2016-11-06] VITALS (18 sets, daily range): BP systolic 110–164; BP diastolic 53–70; PULSE 56–61; RESP 18–19
[2016-11-06] MEDS: ACCU-CHEK XX SCH (02:00)
[2016-11-06] MEDS: PANTOPRAZOLE 40 MG INJ IV SCH ×2 (06:57→17:36)
[2016-11-06 08:09] LABS: BASOPHIL # 0.1 10^3/ul (0.0-0.1); EOSINOPHILS # 0.3 10^3/ul (0.0-0.5); EOSINOPHILS % 4.3 % (0.0-7.0); HEMATOCRIT 29.4 % (42.0-52.0); HEMOGLOBIN 9.6 g/dl (14.0-18.0); LYMPHOCYTES # 0.8 10^3/ul (0.8-2.9); LYMPHOCYTES % 11.5 % (15.0-51.0); MEAN CORPUSCULAR HEMOGLOBIN 29.8 pg (29.0-33.0); MEAN CORPUSCULAR HGB CONC 32.7 g/dl (32.0-37.0); MEAN CORPUSCULAR VOLUME 91.3 fl (82.0-101.0); MEAN PLATELET VOLUME 11.5 fl (7.4-10.4); MONOCYTE # 0.6 10^3/ul (0.3-0.9); MONOCYTES % 8.4 % (0.0-11.0); NEUTROPHIL # 5.1 10^3/ul (1.6-7.5); NEUTROPHILS % 74.5 % (39.0-77.0); PLATELET COUNT 169 10^3/UL (140-415); RED BLOOD COUNT 3.22 10^6/ul (4.70-6.10); RED CELL DISTRIBUTION WIDTH 16.4 % (11.5-14.5); WHITE BLOOD COUNT 6.8 10^3/ul (4.8-10.8)
[2016-11-06] MEDS: INSULIN ASPART [NOVOLOG] 3 ML PEN SC SCH ×4 (08:31→20:34)
[2016-11-06 08:32] LABS: CALCIUM 7.8 mg/dl (8.4-10.2); CREATININE 10.91 mg/dl (0.61-1.24); POTASSIUM 4.4 mmol/L (3.5-5.1)
[2016-11-06] MEDS: LORATADINE 10 MG TAB PO SCH (09:48)
[2016-11-06] MEDS: ALLOPURINOL 100 MG TAB PO SCH (09:48)
[2016-11-06] MEDS: CINACALCET 30 MG TAB PO SCH ×2 (09:48→20:26)
[2016-11-06] MEDS: BENAZEPRIL 20 MG TAB PO SCH (09:49)
[2016-11-06] MEDS: NIFEdipine (XL) 30 MG TAB PO SCH (09:49)
--- NOTE | 2016-11-06 12:09 | PN ---
Date/Time of Note Date/Time of Note DATE: 11/06/16 TIME: 12:05 Assessment/Plan VTE Prophylaxis VTE Prophylaxis Intervention: contraindicated, SCD's VTE Contraindication Reason: bleeding Lines/Catheters IV Catheter Type (from [facility]): Peripheral IV Urinary Cath still in place: No Assessment/Plan Chief Complaint/Hosp Course A/P: 61-year-old male being admitted to the telemetry floor for: #1 chest pain: Troponins are negative 3 -has ruled out for ACS. Presently denies chest pain. -Continue nifedipine and benazepril. -Follow-up cardiology recommendations #2 symptomatic anemia: 2 units of PRBCs given to the patient earlier this admission, and again stool occult test is positive. Patient had EGD 3 days ago that showed 2 small antral gastric ulcerations, otherwise benign endoscopic appearance. No stigmata of recent bleeding. Colonoscopy results showed:Rectal polyp 2. Ablated, Multiple small AVMs in the proximal ascending colon, Moderate-sized internal hemorrhoids. hemoglobin today 9.6, had PRBC transfusion 2 days ago. -Continue Protonix twice daily IV. Zofran as needed nausea. -Follow-up iron studies #3 diabetes mellitus:continue insulin sliding scale #4 end-stage renal disease: BUN is 51. Patient does not appear uremic. -Dialysis per renal recommendations, normally he is Tuesday schedule. Will avoid nephrotoxic agents #5 coronary artery disease: -Holding aspirin at this time secondary to #2. - Will continue statin. #6 elevated BNP: Patient had a BNP level of 14,000 on admission. -Monitor #7 DVT and GI prophylaxis: SCDs, Protonix 8. Hypertension: Continue BLADIMIR inhibitor, calcium channel farzad, and hydralazine IV as needed for systolic BP greater than 160 Dispo: Likely home in 24 hours Problems: Subjective 24 Hr Interval Summary Free Text/Dictation Patient had dialysis earlier today. Had colonoscopy yesterday as well, denies any upper or lower bleeding. Exam/Review of Systems Vital Signs Vitals Vital Signs Date Time Temp Pulse Resp B/P Pulse Ox O2 Delivery O2 Flow Rate FiO2 11/06/16 11:39 98.0 63 18 153/67 98 11/05/16 18:59 Room Air 11/04/16 15:10 2.0 Intake and Output 11/05/16 11/05/16 11/06/16 15:00 23:00 07:00 Intake Total 420 ml 980 ml Output Total 3500 ml Balance 420 ml -2520 ml Exam General: lying in bed, sleeping HEENT: Atraumatic, normocephalic. The pupils are equal, round and reactive. Extraocular motor are intact Neck: Supple with full range of motion. No rigidity or meningismus Chest: Nontender Lungs: Clear to auscultation bilaterally no crackles rales or wheezing Heart: Normal S1-S2, Regular rhythm and rate. No murmur Abdomen: Soft, some tenderness to palpation at the epigastric region, normal bowel sounds, nondistended Extremities: Normal to inspection, no edema no cyanosis Neurologic: Normal mental status, speech normal, cranial nerves II through XII are intact, motor and sensory are intact, no focal weakness Results Result Diagram: 11/06/1618 11/06/16 0718 Results 24 hrs Laboratory Tests Test 11/05/16 12:10 11/05/16 20:49 11/06/16 02:13 11/06/16 06:38 Bedside Glucose 120 184 157 Lab Scanned Report BLOOD TRANSFUSION Test 11/06/16 07:18 11/06/16 08:24 White Blood Count 6.8 Red Blood Count 3.22 L Hemoglobin 9.6 L Hematocrit 29.4 L Mean Corpuscular Volume 91.3 Mean Corpuscular Hemoglobin 29.8 Mean Corpuscular Hemoglobin Concent 32.7 Red Cell Distribution Width 16.4 H Platelet Count 169 Mean Platelet Volume 11.5 H Neutrophils % 74.5 Lymphocytes % 11.5 L Monocytes % 8.4 Eosinophils % 4.3 Basophils % 1.0 Nucleated Red Blood Cells % 0.0 Neutrophils # 5.1 Lymphocytes # 0.8 Monocytes # 0.6 Eosinophils # 0.3 Basophils # 0.1 Nucleated Red Blood Cells # 0.0 Sodium Level 140 Potassium Level 4.4 Chloride Level 103 Carbon Dioxide Level 25 Anion Gap 16 Blood Urea Nitrogen 53 H Creatinine 10.91 H Glucose Level 119 Calcium Level 7.8 L Bedside Glucose 151 Medications Medications Current Medications Ondansetron HCl (Zofran Inj) 4 mg Q6H PRN IV NAUSEA AND/OR VOMITING Last administered on 11/02/16t 20:14; Admin Dose 4 MG; Start 11/01/16 at 00:00 Nitroglycerin (Nitroglycerin (Sl Tab) 0.4 Mg) 1 tab Q5M PRN SL CHEST PAIN; Start 11/01/16 at 00:00 Morphine Sulfate (morphine) 2 mg Q4H PRN IV PAIN LEVEL 7-10 Last administered on 11/02/16 17:02; Admin Dose 2 MG; Start 11/01/16 at 00:00 Diagnostic Test (Pha) (Accu-Chek) 1 ea 02 XX ; Start 11/02/16 at 02:00 Acetaminophen (Tylenol Tab) 500 mg Q4H PRN PO PAIN AND OR ELEVATED TEMP Last administered on 11/04/16 01:52; Admin Dose 500 MG; Start 11/01/16 at 03:30 Allopurinol (Zyloprim) 100 mg DAILY PO Last administered on 11/06/16 09:48; Admin Dose 100 MG; Start 11/01/16 at 09:00 Benazepril HCl (Lotensin) 40 mg DAILY PO Last administered on 11/06/16 09:49; Admin Dose 40 MG; Start 11/01/16 at 09:00 Cinacalcet (Sensipar) 30 mg BID PO Last administered on 11/06/16 09:48; Admin Dose 30 MG; Start 11/01/16 at 09:00 Epoetin Eze (Epogen (Neserd)) 6,000 units TuThSa@17 SC Last administered on 17:52; Admin Dose 6,000 UNITS; Start 11/02/16 at 17:00 Loratadine (Claritin) 10 mg DAILY PO Last administered on 11/06/16 09:48; Admin Dose 10 MG; Start 11/01/16 at 09:00 Al Hydrox/Mg Hydrox/Simethicone (Mag-Al Plus) 30 ml Q6H PRN PO GASTROINTESTINAL UPSET Last administered on 11/01/16 10:54; Admin Dose 30 ML; Start 11/01/16 at 04:00 Pantoprazole (Protonix Iv) 40 mg BID@18 IV Last administered on 11/06/16 06 :57; Admin Dose 40 MG; Start 11/01/16 at 06:00 Hydralazine HCl (Apresoline) 10 mg Q4H PRN IV ELEVATED BLOOD PRESSURE Last administered on 11/05/16 18:45; Admin Dose 10 MG; Start 11/02/16 at 14:00 Miscellaneous Information 1 ea NOTE XX ; Start 11/04/16 at 12:00 Glucose (Glutose) 15 gm Q15M PRN PO DECREASED GLUCOSE; Start 11/04/16 at 12:00 Glucose (Glutose) 22.5 gm Q15M PRN PO DECREASED GLUCOSE; Start 11/04/16 at 12: 00 Dextrose (D50w Syringe) 25 ml Q15M PRN IV DECREASED GLUCOSE; Start 11/04/16 at 12:00 Dextrose (D50w Syringe) 50 ml Q15M PRN IV DECREASED GLUCOSE; Start 11/04/16 at 12:00 Glucagon (Glucagen) 1 mg Q15M PRN IM DECREASED GLUCOSE; Start 11/04/16 at 12:00 Glucose (Glutose) 15 gm Q15M PRN BUCCAL DECREASED GLUCOSE; Start 11/04/16 at 12 :00 Nifedipine (Procardia Xl) 30 mg BID PO Last administered on 11/06/16t 09:49; Admin Dose 30 MG; Start 11/05/16 at 21:00 RAJAN STAHL Nov 06, 2016 12:09
--- NOTE | 2016-11-06 12:27 | CONS ---
Date/Time of Note Date/Time of Note DATE: 11/06/16 TIME: 12:23 Assessment/Plan Assessment/Plan Chief Complaint/Hosp Course IMPRESSION: 1. Chest pain, in the setting of severe anemia, but history of coronary bypass graft surgery.-improved now with negative trop x 3/NL EF by echo this admit 2. Abnormal electrocardiogram with lateral T-wave inversions. 3. Severe anemia s/p transfusions with gastric ulcers/AVM seen by EGD 4. Anemia/gastrointestinal bleed. 5. Hypertension, under reasonable control. 6. Diabetes mellitus. 7. End-stage renal disease, on hemodialysis. 8. Increased BNP. 9. Bradycardia-stable Recc: -Tele -serial ecg's -Increase benazepril and procardia and f/u BP closely -Follow Hgb closely -Transfuse PRBC's as necessary Problems: Consultation Date/Type/Reason Admit Date/Time Oct 31, 2016 at 21:13 Initial Consult Date 11/02/16 Type of Consultation: cardiology Reason for Consultation Chest pain Referring Provider: RAJAN STAHL Exam/Review of Systems Vital Signs Vitals Vital Signs Date Time Temp Pulse Resp B/P Pulse Ox O2 Delivery O2 Flow Rate FiO2 11/06/16 11:39 98.0 63 18 153/67 98 11/05/16 18:59 Room Air 11/04/16 15:10 2.0 Intake and Output 11/05/16 11/05/16 11/06/16 15:00 23:00 07:00 Intake Total 420 ml 980 ml Output Total 3500 ml Balance 420 ml -2520 ml Exam Review of Systems: CONSTITUTIONAL: No fevers, chills. PULMONARY: No sob CARDIOVASCULAR: No chest pain/palpitations GASTROINTESTINAL: No nausea/vomiting. GENITOURINARY: No hematuria/dysuria. MUSCULOSKELETAL: No myagias/arthalgias. PSYCHIATRIC: The patient denies depression. NEUROLOGIC: No weakness Constitutional: alert, oriented Psych: no complaints Head: normocephalic ENMT: mucosa pink and moist Neck: jvd (9 cm water), supple Respiratory: diminished breath sounds (at baes/B) Cardiovascular: regular rate and rhythm Gastrointestinal: non-tender, soft Musculoskeletal: muscle tone (normal) Extremities: edema (trace bilateral) Neurological: other (No focal deficits) Results Result Diagram: 11/06/16 0718 11/06/16 0718 Results 24 hrs Laboratory Tests Test 11/05/16 20:49 11/06/16 02:13 11/06/16 06:38 11/06/16 07:18 Bedside Glucose 184 157 Lab Scanned Report BLOOD TRANSFUSION White Blood Count 6.8 Red Blood Count 3.22 L Hemoglobin 9.6 L Hematocrit 29.4 L Mean Corpuscular Volume 91.3 Mean Corpuscular Hemoglobin 29.8 Mean Corpuscular Hemoglobin Concent 32.7 Red Cell Distribution Width 16.4 H Platelet Count 169 Mean Platelet Volume 11.5 H Neutrophils % 74.5 Lymphocytes % 11.5 L Monocytes % 8.4 Eosinophils % 4.3 Basophils % 1.0 Nucleated Red Blood Cells % 0.0 Neutrophils # 5.1 Lymphocytes # 0.8 Monocytes # 0.6 Eosinophils # 0.3 Basophils # 0.1 Nucleated Red Blood Cells # 0.0 Sodium Level 140 Potassium Level 4.4 Chloride Level 103 Carbon Dioxide Level 25 Anion Gap 16 Blood Urea Nitrogen 53 H Creatinine 10.91 H Glucose Level 119 Calcium Level 7.8 L Test 11/06/16 08:24 Bedside Glucose 151 Medications Medications Current Medications Ondansetron HCl (Zofran Inj) 4 mg Q6H PRN IV NAUSEA AND/OR VOMITING Last administered on 11/02/16 20:14; Admin Dose 4 MG; Start 11/01/16 at 00:00 Nitroglycerin (Nitroglycerin (Sl Tab) 0.4 Mg) 1 tab Q5M PRN SL CHEST PAIN; Start 11/01/16 at 00:00 Morphine Sulfate (morphine) 2 mg Q4H PRN IV PAIN LEVEL 7-10 Last administered on 11/02/16 17:02; Admin Dose 2 MG; Start 11/01/16 at 00:00 Diagnostic Test (Pha) (Accu-Chek) 1 ea 02 XX ; Start 11/02/16 at 02:00 Acetaminophen (Tylenol Tab) 500 mg Q4H PRN PO PAIN AND OR ELEVATED TEMP Last administered on 11/04/16 01:52; Admin Dose 500 MG; Start 11/01/16 at 03:30 Allopurinol (Zyloprim) 100 mg DAILY PO Last administered on 11/06/16 09:48; Admin Dose 100 MG; Start 11/01/16 at 09:00 Benazepril HCl (Lotensin) 40 mg DAILY PO Last administered on 11/06/16 09:49; Admin Dose 40 MG; Start 11/01/16 at 09:00 Cinacalcet (Sensipar) 30 mg BID PO Last administered on 11/06/16 09:48; Admin Dose 30 MG; Start 11/01/16 at 09:00 Epoetin Eze (Epogen (Neserd)) 6,000 units TuThSa@17 SC Last administered on 17:52; Admin Dose 6,000 UNITS; Start 11/02/16 at 17:00 Loratadine (Claritin) 10 mg DAILY PO Last administered on 11/06/16 09:48; Admin Dose 10 MG; Start 11/01/16 at 09:00 Al Hydrox/Mg Hydrox/Simethicone (Mag-Al Plus) 30 ml Q6H PRN PO GASTROINTESTINAL UPSET Last administered on 11/01/16 10:54; Admin Dose 30 ML; Start 11/01/16 at 04:00 Pantoprazole (Protonix Iv) 40 mg BID@,18 IV Last administered on 11/06/16 06 :57; Admin Dose 40 MG; Start 11/01/16 at 06:00 Hydralazine HCl (Apresoline) 10 mg Q4H PRN IV ELEVATED BLOOD PRESSURE Last administered on 11/05/16 18:45; Admin Dose 10 MG; Start 11/02/16 at 14:00 Miscellaneous Information 1 ea NOTE XX ; Start 11/04/16 at 12:00 Glucose (Glutose) 15 gm Q15M PRN PO DECREASED GLUCOSE; Start 11/04/16 at 12:00 Glucose (Glutose) 22.5 gm Q15M PRN PO DECREASED GLUCOSE; Start 11/04/16 at 12: 00 Dextrose (D50w Syringe) 25 ml Q15M PRN IV DECREASED GLUCOSE; Start 11/04/16 at 12:00 Dextrose (D50w Syringe) 50 ml Q15M PRN IV DECREASED GLUCOSE; Start 11/04/16 at 12:00 Glucagon (Glucagen) 1 mg Q15M PRN IM DECREASED GLUCOSE; Start 11/04/16 at 12:00 Glucose (Glutose) 15 gm Q15M PRN BUCCAL DECREASED GLUCOSE; Start 11/04/16 at 12 :00 Nifedipine (Procardia Xl) 30 mg BID PO Last administered on 11/06/16t 09:49; Admin Dose 30 MG; Start 11/05/16 at 21:00 TAE BARAKAT Nov 06, 2016 12:27
--- NOTE | 2016-11-06 14:06 | PN ---
Date/Time of Note Date/Time of Note DATE: 11/06/16 TIME: 14:05 Assessment/Plan VTE Prophylaxis VTE Prophylaxis Intervention: other Assessment/Plan Assessment/Plan 1) Severe Symptomatic Anemia, Improved after PRBC 2) Baseline anemia, Chronic, CKD 3) ESRD on HD TTS 4) LUE AVF 5) DM with Renal complication ESRD 6) Chronic HTN 012069 stable from renal perspective Subjective 24 Hr Interval Summary Constitutional: no complaints Exam/Review of Systems Vital Signs Vitals Vital Signs Date Time Temp Pulse Resp B/P Pulse Ox O2 Delivery O2 Flow Rate FiO2 11/06/16 12:41 57 11/06/16 11:39 98.0 18 153/67 98 11/05/16 18:59 Room Air 11/04/16 15:10 2.0 Intake and Output 11/05/16 11/05/16 11/06/16 15:00 23:00 07:00 Intake Total 420 ml 980 ml Output Total 3500 ml Balance 420 ml -2520 ml Exam Constitutional: alert, oriented Psych: no complaints Head: normocephalic Eyes: nl conjunctiva ENMT: nl external ears & nose Neck: non-tender, supple Respiratory: clear to auscultation Cardiovascular: regular rate and rhythm Gastrointestinal: soft Extremities: normal pulses Results Result Diagram: 11/06/16 0718 11/06/16 0718 Results 24 hrs Laboratory Tests Test 11/05/16 20:49 11/06/16 02:13 11/06/16 06:38 11/06/16 07:18 Bedside Glucose 184 157 Lab Scanned Report BLOOD TRANSFUSION White Blood Count 6.8 Red Blood Count 3.22 L Hemoglobin 9.6 L Hematocrit 29.4 L Mean Corpuscular Volume 91.3 Mean Corpuscular Hemoglobin 29.8 Mean Corpuscular Hemoglobin Concent 32.7 Red Cell Distribution Width 16.4 H Platelet Count 169 Mean Platelet Volume 11.5 H Neutrophils % 74.5 Lymphocytes % 11.5 L Monocytes % 8.4 Eosinophils % 4.3 Basophils % 1.0 Nucleated Red Blood Cells % 0.0 Neutrophils # 5.1 Lymphocytes # 0.8 Monocytes # 0.6 Eosinophils # 0.3 Basophils # 0.1 Nucleated Red Blood Cells # 0.0 Sodium Level 140 Potassium Level 4.4 Chloride Level 103 Carbon Dioxide Level 25 Anion Gap 16 Blood Urea Nitrogen 53 H Creatinine 10.91 H Glucose Level 119 Calcium Level 7.8 L Test 11/06/16 08:24 11/06/16 12:31 Bedside Glucose 151 219 Medications Medications Current Medications Ondansetron HCl (Zofran Inj) 4 mg Q6H PRN IV NAUSEA AND/OR VOMITING Last administered on 11/02/16 20:14; Admin Dose 4 MG; Start 11/01/16 at 00:00 Nitroglycerin (Nitroglycerin (Sl Tab) 0.4 Mg) 1 tab Q5M PRN SL CHEST PAIN; Start 11/01/16 at 00:00 Morphine Sulfate (morphine) 2 mg Q4H PRN IV PAIN LEVEL 7-10 Last administered on 11/02/16 17:02; Admin Dose 2 MG; Start 11/01/16 at 00:00 Diagnostic Test (Pha) (Accu-Chek) 1 ea 02 XX ; Start 11/02/16 at 02:00 Acetaminophen (Tylenol Tab) 500 mg Q4H PRN PO PAIN AND OR ELEVATED TEMP Last administered on 11/04/16 01:52; Admin Dose 500 MG; Start 11/01/16 at 03:30 Allopurinol (Zyloprim) 100 mg DAILY PO Last administered on 11/06/16 09:48; Admin Dose 100 MG; Start 11/01/16 at 09:00 Benazepril HCl (Lotensin) 40 mg DAILY PO Last administered on 11/06/16 09:49; Admin Dose 40 MG; Start 11/01/16 at 09:00 Cinacalcet (Sensipar) 30 mg BID PO Last administered on 11/06/16 09:48; Admin Dose 30 MG; Start 11/01/16 at 09:00 Epoetin Eze (Epogen (Neserd)) 6,000 units TuThSa@17 SC Last administered on 17:52; Admin Dose 6,000 UNITS; Start 11/02/16 at 17:00 Loratadine (Claritin) 10 mg DAILY PO Last administered on 11/06/16 09:48; Admin Dose 10 MG; Start 11/01/16 at 09:00 Al Hydrox/Mg Hydrox/Simethicone (Mag-Al Plus) 30 ml Q6H PRN PO GASTROINTESTINAL UPSET Last administered on 11/01/16 10:54; Admin Dose 30 ML; Start 11/01/16 at 04:00 Pantoprazole (Protonix Iv) 40 mg BID@,18 IV Last administered on 11/06/16 06 :57; Admin Dose 40 MG; Start 11/01/16 at 06:00 Hydralazine HCl (Apresoline) 10 mg Q4H PRN IV ELEVATED BLOOD PRESSURE Last administered on 11/05/16 18:45; Admin Dose 10 MG; Start 11/02/16 at 14:00 Miscellaneous Information 1 ea NOTE XX ; Start 11/04/16 at 12:00 Glucose (Glutose) 15 gm Q15M PRN PO DECREASED GLUCOSE; Start 11/04/16 at 12:00 Glucose (Glutose) 22.5 gm Q15M PRN PO DECREASED GLUCOSE; Start 11/04/16 at 12: 00 Dextrose (D50w Syringe) 25 ml Q15M PRN IV DECREASED GLUCOSE; Start 11/04/16 at 12:00 Dextrose (D50w Syringe) 50 ml Q15M PRN IV DECREASED GLUCOSE; Start 11/04/16 at 12:00 Glucagon (Glucagen) 1 mg Q15M PRN IM DECREASED GLUCOSE; Start 11/04/16 at 12:00 Glucose (Glutose) 15 gm Q15M PRN BUCCAL DECREASED GLUCOSE; Start 11/04/16 at 12 :00 Nifedipine (Procardia Xl) 60 mg DAILY PO ; Start 11/07/16 at 09:00 Nifedipine (Procardia Xl) 30 mg QHS PO ; Start 11/06/16 at 21:00 MARIA TERESA UGALDE MD Nov 06, 2016 14:06
[2016-11-06] MEDS: EPOETIN ALFA (NESRD) 3,000 UNITS/ML VIAL SC SCH (17:38)
[2016-11-06] MEDS ORDERED: NIFEdipine (XL) 30 MG TAB PO SCH (21:00)
[2016-11-07] VITALS (8 sets, daily range): BP systolic 124–150; BP diastolic 59–66; PULSE 52–61; RESP 17–18
[2016-11-07] MEDS: ACCU-CHEK XX SCH (02:06)
[2016-11-07] MEDS: PANTOPRAZOLE 40 MG INJ IV SCH (05:49)
[2016-11-07 06:59] LABS: BASOPHIL # 0.1 10^3/ul (0.0-0.1); BASOPHILS % 0.9 % (0.0-2.0); EOSINOPHILS # 0.4 10^3/ul (0.0-0.5); EOSINOPHILS % 4.9 % (0.0-7.0); HEMATOCRIT 34.5 % (42.0-52.0); HEMOGLOBIN 11.5 g/dl (14.0-18.0); LYMPHOCYTES % 12.3 % (15.0-51.0); MEAN CORPUSCULAR HEMOGLOBIN 30.6 pg (29.0-33.0); MEAN CORPUSCULAR HGB CONC 33.3 g/dl (32.0-37.0); MEAN CORPUSCULAR VOLUME 91.8 fl (82.0-101.0); MONOCYTE # 0.7 10^3/ul (0.3-0.9); MONOCYTES % 8.6 % (0.0-11.0); NEUTROPHIL # 5.8 10^3/ul (1.6-7.5); PLATELET COUNT 210 10^3/UL (140-415); RED BLOOD COUNT 3.76 10^6/ul (4.70-6.10)
[2016-11-07] MEDS: INSULIN ASPART [NOVOLOG] 3 ML PEN SC SCH ×2 (07:55→12:42)
[2016-11-07] MEDS ORDERED: NIFEdipine (XL) 60 MG TAB PO SCH (09:00)
[2016-11-07] MEDS: CINACALCET 30 MG TAB PO SCH (09:14)
[2016-11-07] MEDS: ALLOPURINOL 100 MG TAB PO SCH (09:15)
[2016-11-07] MEDS: BENAZEPRIL 20 MG TAB PO SCH (09:15)
[2016-11-07] MEDS: LORATADINE 10 MG TAB PO SCH (09:16)
--- NOTE | 2016-11-07 10:53 | PDOCDIS ---
Discharge Instructions CONDITION Patient Condition: Stable HOME CARE INSTRUCTIONS: Special Diet: RENAL, 1800 CRUZITO ADA DIET ACTIVITY: Activity Restrictions: Slowly Increase Activity FOLLOW UP/APPOINTMENTS Follow-up Plan Please take your medications as prescribed, see your doctor in the clinic in 1 week. RAJAN STAHL Nov 07, 2016 10:53
[2016-11-07] MEDS ORDERED: NIFE30TA2 PO (10:55)
[2016-11-07] MEDS ORDERED: NIT4 SL (10:55)
[2016-11-07] MEDS ORDERED: NIFE60TA7 PO (10:55)
[2016-11-07] MEDS ORDERED: PANT40TA4 PO (10:55)
--- NOTE | 2016-11-07 11:56 | DS ---
DATE OF ADMISSION: 10/31/2016 DATE OF DISCHARGE: 11/07/2016 HISTORY OF PRESENT ILLNESS/HOSPITAL COURSE: This is a 61-year- old male, originally admitted on 11/01/2016, being discharged home on November 07, 2016. The patient came in initially with chest pain symptoms. He ruled out for acute coronary syndrome, was seen by cardiology team, GI team, and also renal team. He has history of end-stage renal disease and underwent hemodialysis as regularly scheduled. He also was found with anemia and had a stool occult test positive. He was given 2 units PRBC, and he had an EGD performed that showed 2 small antral gastric ulcerations. Otherwise, benign endoscopic appearance. He also had a colonoscopy performed that showed rectal polyps x2, which were ablated. Multiple small AVMs were also found in the proximal ascending colon and also moderate-size internal hemorrhoids. After transfusion, his hemoglobin remained stable. He was placed on Protonix IV b.i.d. He was able to ambulate and tolerate a clear diet. He continued dialysis as regularly scheduled, and after getting clearance from the consulting teams, he will be discharged home today in improved condition. DISCHARGE MEDICATIONS/INSTRUCTIONS: He will be sent with the following medications: 1. Nifedipine 60 mg daily and also nifedipine 30 mg q.h.s. 2. Nitroglycerin 0.4 mg sublingual every 5 minutes p.r.n. 3. Tylenol 500 mg q.4h. p.r.n. 4. Allopurinol 100 mg daily. 5. Aspirin 81 mg daily. 6. Benazepril 40 mg daily. 7. Sensipar 30 mg b.i.d. 8. Epogen 6000 units 3 times a week with dialysis. 9. Fenofibrate 145 mg daily. 10. Gemfibrozil 600 mg b.i.d. 11. NPH insulin 2 units subcu t.i.d. 12. Loratadine 10 mg daily. 13. Protonix 40 mg p.o. b.i.d. Continue to follow up with regular doctor in clinic in next 1-2 weeks. FINAL DIAGNOSES: 1. Chest pain. Ruled out for acute coronary syndrome. 2. Symptomatic anemia, status post PRBC transfusion. 3. Small antral gastric ulcerations, status post EGD. No stigmata of any recent bleeding. 4. Rectal polyp x2 ablated. 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 5. Essential hypertension. 6. Type 2 diabetes. 7. End-stage renal disease, on dialysis. 8. History of coronary artery disease. TIME SPENT: Time spent discharging the patient, 50 minutes. Dictated By: Morgan Servin MD /anthony/lucille /Document#: [id number]
--- NOTE | 2016-11-07 12:19 | PN ---
Date/Time of Note Date/Time of Note DATE: 11/07/16 TIME: 12:18 Assessment/Plan VTE Prophylaxis VTE Prophylaxis Intervention: other Assessment/Plan Assessment/Plan TE Prophylaxis VTE Prophylaxis Intervention: other Assessment/Plan Assessment/Plan 1) Severe Symptomatic Anemia, Improved after PRBC 2) Baseline anemia, Chronic, CKD 3) ESRD on HD TTS 4) LUE AVF 5) DM with Renal complication ESRD 6) Chronic HTN [id number] stable from renal perspective [id number] hd am if stays Subjective Exam/Review of Systems Vital Signs Vitals Vital Signs Date Time Temp Pulse Resp B/P Pulse Ox O2 Delivery O2 Flow Rate FiO2 11/07/16 11:11 98.5 58 17 124/59 100 11/05/16 18:59 Room Air 11/04/16 15:10 2.0 Intake and Output 11/06/16 11/06/16 11/07/16 15:00 23:00 07:00 Intake Total 750 ml 400 ml Output Total 3000 ml Balance -2250 ml 400 ml Exam Constitutional: alert, oriented, well developed Eyes: nl conjunctiva Neck: supple Respiratory: clear to auscultation Cardiovascular: nl pulses, regular rate and rhythm Gastrointestinal: nl liver, spleen, soft Extremities: normal pulses Results Result Diagram: 11/07/16 0550 11/06/16 0718 Results 24 hrs Laboratory Tests Test 11/06/16 12:31 11/06/16 17:28 11/06/16 20:28 11/07/16 02:02 Bedside Glucose 219 95 186 103 Test 11/07/16 05:50 11/07/16 06:20 11/07/16 08:27 White Blood Count 8.0 Red Blood Count 3.76 L Hemoglobin 11.5 L Hematocrit 34.5 L Mean Corpuscular Volume 91.8 Mean Corpuscular Hemoglobin 30.6 Mean Corpuscular Hemoglobin Concent 33.3 Red Cell Distribution Width 16.0 H Platelet Count 210 # Mean Platelet Volume 11.0 H Neutrophils % 73.0 Lymphocytes % 12.3 L Monocytes % 8.6 Eosinophils % 4.9 Basophils % 0.9 Nucleated Red Blood Cells % 0.0 Neutrophils # 5.8 Lymphocytes # 1.0 Monocytes # 0.7 Eosinophils # 0.4 Basophils # 0.1 Nucleated Red Blood Cells # 0.0 Lab Scanned Report BLOOD TRANSFUSION Bedside Glucose 124 Medications Medications Current Medications Ondansetron HCl (Zofran Inj) 4 mg Q6H PRN IV NAUSEA AND/OR VOMITING Last administered on 11/02/16 20:14; Admin Dose 4 MG; Start 11/01/16 at 00:00 Nitroglycerin (Nitroglycerin (Sl Tab) 0.4 Mg) 1 tab Q5M PRN SL CHEST PAIN; Start 11/01/16 at 00:00 Morphine Sulfate (morphine) 2 mg Q4H PRN IV PAIN LEVEL 7-10 Last administered on 11/02/16 17:02; Admin Dose 2 MG; Start 11/01/16 at 00:00 Diagnostic Test (Pha) (Accu-Chek) 1 ea 02 XX Last administered on 11/07/16 02: 06; Admin Dose 1 EA; Start 11/02/16 at 02:00 Acetaminophen (Tylenol Tab) 500 mg Q4H PRN PO PAIN AND OR ELEVATED TEMP Last administered on 11/04/16 01:52; Admin Dose 500 MG; Start 11/01/16 at 03:30 Allopurinol (Zyloprim) 100 mg DAILY PO Last administered on 11/07/16 09:15; Admin Dose 100 MG; Start 11/01/16 at 09:00 Benazepril HCl (Lotensin) 40 mg DAILY PO Last administered on 11/07/16 09:15; Admin Dose 40 MG; Start 11/01/16 at 09:00 Cinacalcet (Sensipar) 30 mg BID PO Last administered on 11/07/16 09:14; Admin Dose 30 MG; Start 11/01/16 at 09:00 Epoetin Eze (Epogen (Neserd)) 6,000 units TuThSa@17 SC Last administered on 17:38; Admin Dose 6,000 UNITS; Start 11/02/16 at 17:00 Loratadine (Claritin) 10 mg DAILY PO Last administered on 11/07/16 09:16; Admin Dose 10 MG; Start 11/01/16 at 09:00 Al Hydrox/Mg Hydrox/Simethicone (Mag-Al Plus) 30 ml Q6H PRN PO GASTROINTESTINAL UPSET Last administered on 11/01/16 10:54; Admin Dose 30 ML; Start 11/01/16 at 04:00 Pantoprazole (Protonix Iv) 40 mg BID@06,18 IV Last administered on 11/07/16 05 :49; Admin Dose 40 MG; Start 11/01/16 at 06:00 Hydralazine HCl (Apresoline) 10 mg Q4H PRN IV ELEVATED BLOOD PRESSURE Last administered on 11/05/16 18:45; Admin Dose 10 MG; Start 11/02/16 at 14:00 Miscellaneous Information 1 ea NOTE XX ; Start 11/04/16 at 12:00 Glucose (Glutose) 15 gm Q15M PRN PO DECREASED GLUCOSE; Start 11/04/16 at 12:00 Glucose (Glutose) 22.5 gm Q15M PRN PO DECREASED GLUCOSE; Start 11/04/16 at 12: 00 Dextrose (D50w Syringe) 25 ml Q15M PRN IV DECREASED GLUCOSE; Start 11/04/16 at 12:00 Dextrose (D50w Syringe) 50 ml Q15M PRN IV DECREASED GLUCOSE; Start 11/04/16 at 12:00 Glucagon (Glucagen) 1 mg Q15M PRN IM DECREASED GLUCOSE; Start 11/04/16 at 12:00 Glucose (Glutose) 15 gm Q15M PRN BUCCAL DECREASED GLUCOSE; Start 11/04/16 at 12 :00 Nifedipine (Procardia Xl) 60 mg DAILY PO Last administered on 11/07/16 09:15; Admin Dose 60 MG; Start 11/07/16 at 09:00 Nifedipine (Procardia Xl) 30 mg QHS PO Last administered on 11/06/16 20:26; Admin Dose 30 MG; Start 11/06/16 at 21:00 MARIA TERESA UGALDE MD Nov 07, 2016 12:19
--- NOTE | 2016-11-07 13:27 | CONS ---
Date/Time of Note Date/Time of Note DATE: 11/07/16 TIME: 13:25 Assessment/Plan Assessment/Plan Chief Complaint/Hosp Course IMPRESSION: 1. Chest pain, in the setting of severe anemia, but history of coronary bypass graft surgery.-improved now with negative trop x 3/NL EF by echo this admit 2. Abnormal electrocardiogram with lateral T-wave inversions. 3. Severe anemia s/p transfusions with gastric ulcers/AVM seen by EGD 4. Anemia/gastrointestinal bleed. 5. Hypertension, under reasonable control. 6. Diabetes mellitus. 7. End-stage renal disease, on hemodialysis. 8. Increased BNP. 9. Bradycardia-stable Recc: -Tele -serial ecg's -Continue benazepril and procardia and f/u BP closely -Follow Hgb closely -D/C planning if asymptomatic wuith card given for outpatient f/u and stress testing Problems: Consultation Date/Type/Reason Admit Date/Time Oct 31, 2016 at 21:13 Initial Consult Date 11/02/16 Type of Consultation: cardiology Reason for Consultation chest pain Referring Provider: RAJAN STAHL Exam/Review of Systems Vital Signs Vitals Vital Signs Date Time Temp Pulse Resp B/P Pulse Ox O2 Delivery O2 Flow Rate FiO2 11/07/16 12:00 57 11/07/16 11:11 98.5 17 124/59 100 11/05/16 18:59 Room Air 11/04/16 15:10 2.0 Intake and Output 11/06/16 11/06/16 11/07/16 15:00 23:00 07:00 Intake Total 750 ml 400 ml Output Total 3000 ml Balance -2250 ml 400 ml Exam Review of Systems: CONSTITUTIONAL: No fevers, chills. PULMONARY: No sob CARDIOVASCULAR: No chest pain/palpitations GASTROINTESTINAL: No nausea/vomiting. GENITOURINARY: No hematuria/dysuria. MUSCULOSKELETAL: No myagias/arthalgias. PSYCHIATRIC: The patient denies depression. NEUROLOGIC: No weakness Constitutional: alert, oriented Psych: no complaints Head: normocephalic ENMT: mucosa pink and moist Neck: jvd (9 cm water) Respiratory: clear to auscultation Cardiovascular: regular rate and rhythm Gastrointestinal: non-tender, soft Musculoskeletal: muscle tone (normal) Extremities: edema (none) Neurological: other (No focal deficits) Results Result Diagram: 10/1/17 0550 11/06/16 0718 Results 24 hrs Laboratory Tests Test 11/06/16 17:28 11/06/16 20:28 11/07/16 02:02 11/07/16 05:50 Bedside Glucose 95 186 103 White Blood Count 8.0 Red Blood Count 3.76 L Hemoglobin 11.5 L Hematocrit 34.5 L Mean Corpuscular Volume 91.8 Mean Corpuscular Hemoglobin 30.6 Mean Corpuscular Hemoglobin Concent 33.3 Red Cell Distribution Width 16.0 H Platelet Count 210 # Mean Platelet Volume 11.0 H Neutrophils % 73.0 Lymphocytes % 12.3 L Monocytes % 8.6 Eosinophils % 4.9 Basophils % 0.9 Nucleated Red Blood Cells % 0.0 Neutrophils # 5.8 Lymphocytes # 1.0 Monocytes # 0.7 Eosinophils # 0.4 Basophils # 0.1 Nucleated Red Blood Cells # 0.0 Test 11/07/16 06:20 11/07/16 08:27 11/07/16 12:36 Lab Scanned Report BLOOD TRANSFUSION Bedside Glucose 124 186 Medications Medications Current Medications Ondansetron HCl (Zofran Inj) 4 mg Q6H PRN IV NAUSEA AND/OR VOMITING Last administered on 11/02/16 20:14; Admin Dose 4 MG; Start 11/01/16 at 00:00 Nitroglycerin (Nitroglycerin (Sl Tab) 0.4 Mg) 1 tab Q5M PRN SL CHEST PAIN; Start 11/01/16 at 00:00 Morphine Sulfate (morphine) 2 mg Q4H PRN IV PAIN LEVEL 7-10 Last administered on 11/02/16 17:02; Admin Dose 2 MG; Start 11/01/16 at 00:00 Diagnostic Test (Pha) (Accu-Chek) 1 ea 02 XX Last administered on 11/07/16 02: 06; Admin Dose 1 EA; Start 11/02/16 at 02:00 Acetaminophen (Tylenol Tab) 500 mg Q4H PRN PO PAIN AND OR ELEVATED TEMP Last administered on 11/04/16 01:52; Admin Dose 500 MG; Start 11/01/16 at 03:30 Allopurinol (Zyloprim) 100 mg DAILY PO Last administered on 11/07/16 09:15; Admin Dose 100 MG; Start 11/01/16 at 09:00 Benazepril HCl (Lotensin) 40 mg DAILY PO Last administered on 11/07/16 09:15; Admin Dose 40 MG; Start 11/01/16 at 09:00 Cinacalcet (Sensipar) 30 mg BID PO Last administered on 11/07/16 09:14; Admin Dose 30 MG; Start 11/01/16 at 09:00 Epoetin Eze (Epogen (Neserd)) 6,000 units TuThSa@17 SC Last administered on 17:38; Admin Dose 6,000 UNITS; Start 11/02/16 at 17:00 Loratadine (Claritin) 10 mg DAILY PO Last administered on 11/07/16 09:16; Admin Dose 10 MG; Start 11/01/16 at 09:00 Al Hydrox/Mg Hydrox/Simethicone (Mag-Al Plus) 30 ml Q6H PRN PO GASTROINTESTINAL UPSET Last administered on 11/01/16 10:54; Admin Dose 30 ML; Start 11/01/16 at 04:00 Pantoprazole (Protonix Iv) 40 mg BID@,18 IV Last administered on 11/07/16 05 :49; Admin Dose 40 MG; Start 11/01/16 at 06:00 Hydralazine HCl (Apresoline) 10 mg Q4H PRN IV ELEVATED BLOOD PRESSURE Last administered on 11/05/16 18:45; Admin Dose 10 MG; Start 11/02/16 at 14:00 Miscellaneous Information 1 ea NOTE XX ; Start 11/04/16 at 12:00 Glucose (Glutose) 15 gm Q15M PRN PO DECREASED GLUCOSE; Start 11/04/16 at 12:00 Glucose (Glutose) 22.5 gm Q15M PRN PO DECREASED GLUCOSE; Start 11/04/16 at 12: 00 Dextrose (D50w Syringe) 25 ml Q15M PRN IV DECREASED GLUCOSE; Start 11/04/16 at 12:00 Dextrose (D50w Syringe) 50 ml Q15M PRN IV DECREASED GLUCOSE; Start 11/04/16 at 12:00 Glucagon (Glucagen) 1 mg Q15M PRN IM DECREASED GLUCOSE; Start 11/04/16 at 12:00 Glucose (Glutose) 15 gm Q15M PRN BUCCAL DECREASED GLUCOSE; Start 11/04/16 at 12 :00 Nifedipine (Procardia Xl) 60 mg DAILY PO Last administered on 11/07/16 09:15; Admin Dose 60 MG; Start 11/07/16 at 09:00 Nifedipine (Procardia Xl) 30 mg QHS PO Last administered on 11/06/16 20:26; Admin Dose 30 MG; Start 11/06/16 at 21:00 TAE BARAKAT Nov 07, 2016 13:27
== END 2016-11-07 16:10 | disposition home or self-care (01) | DRG 811 ==
LOC: E/R 19:09 → TEL 21:13
PROVIDERS: ADMIT Family Medicine; ATTEND Family Medicine
PROC: 30233N1 Transfusion of Nonautologous Red Blood Cells into Peripheral Vein, Percutaneous Approach (ICD-10-PCS; principal; 2016-10-31)
PROC: 5A1D70Z Performance of Urinary Filtration, Intermittent, Less than 6 Hours Per Day (ICD-10-PCS; 2016-11-02)
PROC: 0DB68ZX Excision of Stomach, Via Natural or Artificial Opening Endoscopic, Diagnostic (ICD-10-PCS; 2016-11-03)
PROC: 0D5P8ZZ Destruction of Rectum, Via Natural or Artificial Opening Endoscopic (ICD-10-PCS; 2016-11-05)
DX: D64.89 Other specified anemias (principal); K55.21 Angiodysplasia of colon with hemorrhage; N18.6 End stage renal disease; K25.4 Chronic or unspecified gastric ulcer with hemorrhage; I12.0 Hypertensive chronic kidney disease with stage 5 chronic kidney disease or end stage renal disease; E11.22 Type 2 diabetes mellitus with diabetic chronic kidney disease; R07.9 Chest pain, unspecified; I25.10 Atherosclerotic heart disease of native coronary artery without angina pectoris; R79.89 Other specified abnormal findings of blood chemistry; Z95.1 Presence of aortocoronary bypass graft; E78.5 Hyperlipidemia, unspecified; Z99.2 Dependence on renal dialysis; Z87.891 Personal history of nicotine dependence; K20.9 Esophagitis, unspecified; K62.1 Rectal polyp; K64.8 Other hemorrhoids; R00.1 Bradycardia, unspecified
CPT/HCPCS: 36430; 71010; 80048; 80053; 80061; 82270; 82550; 82553; 82728; 82962; 83036; 83540; 83690; 83735; 83880; 84443; 84466; 84484; 85025; 85610; 85730; 86850; 86900; 86901; 86920; 87081; 88305; 88312; 90935; 93005; 93306; C9113; J0360; J0885; J1815; J2270; J2405; J7040; P9016

== ENCOUNTER 2016-12-02 10:13 | Observation (INO) | payer MEDICARE, OTHER ==
[~2016-12-02] VITALS: Ht 172.7 cm; Wt 86.0 kg
[2016-12-02] VITALS (11 sets, daily range): BP systolic 146–182; BP diastolic 62–92; PULSE 57–63; RESP 16; Ht 172.7 cm; Wt 86.0 kg
[~2016-12-02 10:13] MED LIST changes: +NIFE60TA7 PO; +NIT4 SL
[2016-12-02] MEDS ORDERED: ASPIRIN 81 MG TAB PO STA (10:36)
[2016-12-02] MEDS ORDERED: NITROGLYCERIN 2% 1 GM OINT PKT TD STA (10:36)
[2016-12-02] MEDS ORDERED: NITROGLYCERIN (SL) 0.4 MG TAB SL PRN ×2 (11:00→15:30)
--- NOTE | 2016-12-02 11:21 | RADRPT ---
PROCEDURE: Chest x-ray CLINICAL INDICATION: Chest pain TECHNIQUE: Chest single view COMPARISON: 10/31/2016 FINDINGS: There post CABG changes. Stable mild cardiomegaly and an sclerotic aortic calcification seen. The p ulmonary vessels are normal in caliber. There is persistent linear left lower lobe scarring. Lungs o therwise clear. Costophrenic angles sharp. Bony thorax is unremarkable. IMPRESSION: No acute cardiopulmonary disease. Stable cardiomegaly and atherosclerotic aortic calcification Persistent left lower lung scarring Status post CABG RPTAT: HH .Zack Lees MD, MD Date Time Electronically viewed and signed by .Zack Lees MD, on 12/02/2016 11:15 .W/
[2016-12-02] MEDS ORDERED: ACETAMINOPHEN 325 MG TAB PO PRN ×2 (13:30→15:30)
[2016-12-02] MEDS ORDERED: ONDANSETRON 4 MG INJ IV PRN ×2 (13:30→15:30)
--- NOTE | 2016-12-02 13:55 | ERD ---
ER Documentation Chief Complaint Chief Complaint chest pain x 1 hour ago, took 2 nitros mild relief HPI Patient is a 61-year-old male with coronary disease, hypertension, diabetes, and renal disease who presents with chest pain. The patient took 2 nitroglycerin 1 hour ago. He feels tired. He has shortness of breath with minimal exertion. He had dialysis on Tuesday and was due for dialysis today but has not had it as of yet. Upon review of old medical records the patient has multiple visits with admissions. His primary doctor is Dr. Kyle Leonardo. ROS All systems reviewed and are negative except as per history of present illness. Medications Home Meds Active Scripts Nitroglycerin* (Nitrostat*) 0.4 Mg Tab.subl, 1 TAB SL Q5M Y for CHEST PAIN, #10 Prov:RAJAN STAHL S. 11/07/16 Nifedipine (Procardia Xl) 30 Mg Tab.er.24, 30 MG PO QHS, #30 TAB 2 Refills Prov:RAJAN STAHL S. 11/07/16 Nifedipine (Afeditab CR) 60 Mg Tablet.sa, 60 MG PO DAILY, #30 2 Refills Prov:RAJAN STAHL S. 11/07/16 Pantoprazole* (Pantoprazole*) 40 Mg Tablet., 40 MG PO BID, #30 3 Refills Prov:RAJAN STAHL S. 11/07/16 Benazepril Hcl* (Benazepril Hcl*) 20 Mg Tablet, 40 MG PO DAILY for 7 Days, #7 TAB Prov:MELISSA HADDAD MD 07/20/16 Epoetin vick* (Epogen*) 3,000 Unit/1 Ml Vial, 6000 UNITS [facility] for 30 Days, VIAL 2 Refills Prov:RAJAN STAHL S. 03/23/16 Reported Medications Acetaminophen* (Acetaminophen*) 500 MG Extra Strength Tablet, 500 MG PO Q4H Y for PAIN AND OR ELEVATED TEMP, TAB 07/16/16 Loratadine* (Loratadine*) 10 Mg Tablet, 10 MG PO DAILY, #30 TAB 03/16/16 Aspirin* (Aspirin* EC) 81 Mg Tablet., 81 MG PO DAILY, TAB 03/16/16 Fenofibrate Nanocrystallized* (Fenofibrate*) 145 Mg Tablet, 145 MG PO DAILY, TAB 03/16/16 Cinacalcet* (Sensipar*) 30 Mg Tab, 30 MG PO BID, TAB 03/16/16 Gemfibrozil* (Gemfibrozil*) 600 Mg Tablet, 600 MG PO BID, TAB 03/16/16 Allopurinol* (Allopurinol*) 100 Mg Tablet, 100 MG PO DAILY, TAB 03/16/16 Insulin Human Nph (Novolin-N) 100 Units/Ml Susp, 2 UNITS SQ TID 03/16/16 Allergies Allergies: Coded Allergies: No Known Drug Allergies (Unverified Allergy, Mild, 12/02/16) PMhx/Soc History of Surgery: Yes Anesthesia Reaction: No Hx Neurological Disorder: No Hx Respiratory Disorders: No Hx Cardiac Disorders: Yes (HTN, CAD) Hx Psychiatric Problems: No Hx Miscellaneous Medical Probl: Yes (Overweight esrd, dialysis ) Hx Alcohol Use: No Hx Substance Use: No Hx Tobacco Use: No Smoking Status: Former smoker FmHx Family History: No coronary disease Physical Exam Vitals Vital Signs Date Time Temp Pulse Resp B/P Pulse Ox O2 Delivery O2 Flow Rate FiO2 12/02/16 12:30 59 20 183/69 10 12/02/16 11:36 Nasal Cannula 12/02/16 10:16 98.1 63 18 111/55 99 Physical Exam Const: Moderate distress Head: Atraumatic Eyes: Normal Conjunctiva ENT: Normal External Ears, Nose and Mouth. Neck: Full range of motion..~ No meningismus. Resp: Clear to auscultation bilaterally Cardio: Regular rate and rhythm, no murmurs Abd: Soft, non tender, non distended. Normal bowel sounds Skin: No petechiae or rashes Back: No midline or flank tenderness Ext: No cyanosis, or edema Neur: Awake and alert Psych: Normal Mood and Affect Result Diagram: 12/02/16 1110 12/02/16 1110 Results 24 hrs Laboratory Tests Test 12/02/16 11:10 White Blood Count 6.310^3/ul Red Blood Count 2.4310^6/ul Hemoglobin 7.3g/dl Hematocrit 22.1% Mean Corpuscular Volume 90.9fl Mean Corpuscular Hemoglobin 30.0pg Mean Corpuscular Hemoglobin Concent 33.0g/dl Red Cell Distribution Width 13.6% Platelet Count 87225^3/UL Mean Platelet Volume 13.1fl Neutrophils % 70.9% Lymphocytes % 14.6% Monocytes % 8.9% Eosinophils % 3.8% Basophils % 1.3% Nucleated Red Blood Cells % 0.0/100WBC Neutrophils # 4.510^3/ul Lymphocytes # 0.910^3/ul Monocytes # 0.610^3/ul Eosinophils # 0.210^3/ul Basophils # 0.110^3/ul Nucleated Red Blood Cells # 0.010^3/ul Sodium Level 138mmol/L Potassium Level 4.5mmol/L Chloride Level 97mmol/L Carbon Dioxide Level 25mmol/L Anion Gap 21 Blood Urea Nitrogen 47mg/dl Creatinine 10.36mg/dl Glucose Level 167mg/dl Calcium Level 8.8mg/dl Troponin I 0.028ng/ml Current Medications Medications (Trade) Dose Ordered Sig/Josefina Route PRN Reason Start Time Stop Time Status Last Admin Dose Admin Aspirin (Aspirin) 162 mg ONCE STAT PO 12/02/16 10:36 12/02/16 10:37 DC 12/02/16 11:35 Nitroglycerin (Nitroglycerin 2% Oint) 1 inch ONCE STAT TD 12/02/16 10:36 12/02/16 10:37 DC 12/02/16 10:36 Nitroglycerin (Nitroglycerin (Sl Tab) 0.4 Mg) 1 tab Q5M UP TO 3 DOSES PRN SL CHEST PAIN 12/02/16 11:00 12/02/16 11:35 Ondansetron HCl (Zofran Inj) 4 mg ER BRIDGE PRN IV NAUSEA AND/OR VOMITING 12/02/16 13:30 12/03/16 13:29 Acetaminophen (Tylenol Tab) 650 mg ER BRIDGE PRN PO MILD PAIN/FEVER 12/02/16 13:30 12/03/16 13:29 Procedures/MDM EKG #1 read by me: Rate/Rhythm: Regular rate and rhythm at a rate of 62 Intervals: Normal Impression: No evidence of ischemia or arrhythmia EKG #2 read by me: Rate/Rhythm: Sinus bradycardia at a rate of 58 Intervals: Normal Impression: Bradycardia without ischemia Chest x-ray shows no acute cardiopulmonary process per radiology. Patient is a 61-year-old male with multiple cardiac risk factors who presents with chest pain and shortness of breath. He was given aspirin nitroglycerin. He was found to have anemia with a hemoglobin of 7.3 but will not be transfused unless he gets under 7. The patient will be admitted to the care of the panel team. The patient will need dialysis while he is in the hospital but his current potassium is 4.5. I am concerned for acute coronary syndrome. I doubt pneumonia, pneumothorax, pulmonary embolism, or aortic dissection. Departure Diagnosis: Primary Impression: CRF (chronic renal failure) Chronic kidney disease stage: unspecified stage Qualified Code: N18.9 - Chronic renal failure, unspecified CKD stage Additional Impressions: Anemia Anemia type: unspecified type Qualified Code: D64.9 - Anemia, unspecified type Chest pain Chest pain type: unspecified Qualified Code: R07.9 - Chest pain, unspecified type Condition: CHARLES Oakes MD Dec 02, 2016 13:55
[2016-12-02] MEDS ORDERED: BISACODYL 10 MG SUPP PR PRN (15:30)
[2016-12-02] MEDS ORDERED: MAGNESIUM HYDROXIDE 30ML CUP PO PRN (15:30)
[2016-12-02] MEDS ORDERED: DOCUSATE SODIUM 100 MG CAP PO PRN (15:30)
[2016-12-02] MEDS ORDERED: HYDROCODONE/APAP (5/325) TAB PO PRN ×2 (15:30)
[2016-12-02] MEDS ORDERED: NACL 0.9% 3 ML SYG IV SCH (15:30)
[2016-12-02] MEDS ORDERED: ACETAMINOPHEN 650 MG SUPP PR PRN (15:30)
[2016-12-02] MEDS ORDERED: morphine 2 MG INJ IV PRN (15:30)
[2016-12-02] MEDS ORDERED: ACETAMINOPHEN 500 MG TAB PO PRN (15:30)
--- NOTE | 2016-12-02 16:08 | HP ---
Date/Time of Note Date/Time of Note DATE: 12/02/16 TIME: 16:05 Assessment/Plan VTE Prophylaxis VTE Prophylaxis Intervention: SCD's Lines/Catheters [facility] [place] [facility] Urinary Cath still in place: No Assessment/Plan Chief Complaint/Hosp Course Assessment and plan 1. Chest pain. Rule out ACS. We will get scrap metal burner consultation given patient's cardiac history. Will follow up on serial troponins. 2. Anemia. Patient has history of gastric ulcerations. Will recheck H&H and transfuse PRBC as needed. Will get director of student financial services consultation again. 3. Diabetes. Continue insulin regimen. Will adjust as needed. 4. End-stage renal disease. Will get theatre program director consultation. Plan for dialysis per theatre program director. 5. History of CAD. Continue on statin medication. Admission process time greater than 40 minutes Discussed plan of care with Dr. Servin Problems: HPI/ROS Admit Date/Time Admit Date/Time Dec 02, 2016 at 13:09 Hx of Present Illness This is a 61-year-old male with history of end-stage renal disease (receives dialysis on Tuesday//Tuesday), CAD, diabetes, status post CABG, anemia , hypertension, as the gastric ulcerations, who came to [facility] due to reports of increased weakness. Patient did report that he had been having some chest pain with associated shortness of breath with on exertion at around 10 AM this morning. He reportedly took a nitro pill that relieves his chest pain. Given that was recently discharged from [facility] on November 07, 2016 for similar issues. On examination he was noted to be anemic again with hemoglobin of 7.3 and hematocrit of 22.1. Of note his previous one was noted at 11.5 hemoglobin and 34.5 hematocrit prior to this admission. Initial troponin was negative. X-ray of his chest did show no acute cardiopulmonary process and stable cardiomegaly. He remained afebrile. Denies any sick contacts. Also noted with incisional disease. We will evaluate him for the aformentiond issues. ROS 12 point review of systems obtained and entirely negative except as mentioned in the history of present illness PMH/Family/Social Past Medical History Medical/surgical history 1.end-stage renal disease (receives dialysis on Tuesday//Tuesday), CAD , diabetes, status post CABG, anemia, hypertension, as the gastric ulcerations, Family History Significant Family History: no pertinent family hx Social History Alcohol Use: none Smoking Status: Former smoker Drug Use: none Exam/Review of Systems Vital Signs Vitals Vital Signs Date Time Temp Pulse Resp B/P Pulse Ox O2 Delivery O2 Flow Rate FiO2 12/02/16 14:25 58 20 173/68 98 Room Air 12/02/16 10:16 98.1 Exam Constitutional: alert, oriented Psych: nl mood/affect Head: normocephalic Eyes: nl conjunctiva Neck: supple, No jvd Respiratory: clear to auscultation, normal air movement Cardiovascular: regular rate and rhythm Gastrointestinal: non-tender, soft Musculoskeletal: nl extremities to inspection Extremities: normal pulses Neurological: INSTRUCTOR NURSE II-XII intact, nl mental status, nl speech Labs Result Diagram: 12/02/16 1110 12/02/16 1110 Medications Medications Current Medications Acetaminophen (Tylenol Tab) 500 mg Q4H PRN PO PAIN AND OR ELEVATED TEMP; Start 12/02/16 at 15:30; Status UNV Allopurinol (Zyloprim) 100 mg DAILY PO ; Start 12/03/16 at 09:00; Status UNV Aspirin (Halfprin) 81 mg DAILY PO ; Start 12/03/16 at 09:00; Status UNV Benazepril HCl (Lotensin) 40 mg DAILY PO ; Start 12/03/16 at 09:00; Status UNV Cinacalcet (Sensipar) 30 mg BID PO ; Start 12/02/16 at 21:00; Status UNV Epoetin Eze (Epogen (Neserd)) 6,000 units TuThSa@17 MD ; Start 12/02/16 at 17: 00; Status UNV Fenofibrate (Tricor) 145 mg DAILY PO ; Start 12/03/16 at 09:00; Status UNV Gemfibrozil (Lopid) 600 mg BID PO ; Start 12/02/16 at 21:00; Status UNV Loratadine (Claritin) 10 mg DAILY PO ; Start 12/03/16 at 09:00; Status UNV Nifedipine (Procardia Xl) 60 mg DAILY PO ; Start 12/03/16 at 09:00; Status UNV Nifedipine (Procardia Xl) 30 mg QHS PO ; Start 12/02/16 at 21:00; Status UNV Nitroglycerin (Nitroglycerin (Sl Tab) 0.4 Mg) 1 tab Q5M PRN SL CHEST PAIN; Start 12/02/16 at 15:30; Status UNV Pantoprazole (Protonix Tab) 40 mg BID PO ; Start 12/02/16 at 21:00; Status UNV Ondansetron HCl (Zofran Inj) 4 mg Q6H PRN IV NAUSEA AND/OR VOMITING; Start at 15:30; Status UNV Acetaminophen (Tylenol Tab) 650 mg Q6H PRN PO PAIN LEVEL 1-3 OR FEVER; Start 12/02/16 at 15:30; Status UNV Acetaminophen (Tylenol Supp) 650 mg Q6H PRN IN PAIN LEVEL 1-3 OR FEVER; Start 12/02/16 at 15:30; Status UNV Acetaminophen/ Hydrocodone Bitart ([place] (5/325)) 1 tab Q6H PRN PO MODERATE PAIN LEVEL 4-6; Start 12/02/16 at 15:30; Status UNV Acetaminophen/ Hydrocodone Bitart ([place] (5/325)) 2 tab Q6H PRN PO SEVERE PAIN LEVEL 7-10; Start 12/02/16 at 15:30; Status UNV Morphine Sulfate (morphine) 2 mg Q4H PRN IV SEVERE PAIN LEVEL 7-10; Start at 15:30; Status UNV Docusate Sodium (Colace) 100 mg Q12H PRN PO CONSTIPATION; Start 12/02/16 at 15 :30; Status UNV Magnesium Hydroxide (Milk Of Mag) 30 ml DAILY PRN PO CONSTIPATION; Start 12/02 at 15:30; Status UNV Bisacodyl (Dulcolax Supp) 10 mg DAILY PRN IN CONSTIPATION; Start 12/02/16 at 15:30; Status UNV Pantoprazole (Protonix Iv) 40 mg DAILY@06 IV ; Start 12/03/16 at 06:00; Status UNV Miscellaneous Information (* Miscellaneous Pharmacy Order) Discontinue current oral sulfonylur... ONCE ONCE XX ; Start 12/02/16 at 15:30; Stop 12/02/16 at 15:31; Status UNV Diagnostic Test (Pha) (Accu-Chek) 1 ea 02 XX ; Start 12/03/16 at 02:00; Status UNV Insulin Glargine (Lantus) 13 unit DAILY@08 SC ; Start 12/03/16 at 08:00; Status UNV Miscellaneous Information (* Miscellaneous Pharmacy Order) HYPOGLYCEMIA PROTOCOL w... ONCE ONCE XX ; Start 12/02/16 at 15:30; Stop 12/02/16 at 15:31 ; Status UNV Miscellaneous Information (* Miscellaneous Pharmacy Order) Discontinue all previ... ONCE ONCE XX ; Start 12/02/16 at 15:30; Stop 12/02/16 at 15:31; Status UNV CHRISTIANO LAO Dec 02, 2016 16:08
--- NOTE | 2016-12-02 16:08 | HP ---
Date/Time of Note Date/Time of Note DATE: 12/02/16 TIME: 16:05 Assessment/Plan VTE Prophylaxis VTE Prophylaxis Intervention: SCD's Lines/Catheters IV Catheter Type (from [facility]): Saline Lock Urinary Cath still in place: No Assessment/Plan Chief Complaint/Hosp Course Assessment and plan 1. Chest pain. Rule out ACS. We will get proof press operator consultation given patient's cardiac history. Will follow up on serial troponins. 2. Anemia. Patient has history of gastric ulcerations. Will recheck H&H and transfuse PRBC as needed. Will get bulb grower consultation again. 3. Diabetes. Continue insulin regimen. Will adjust as needed. 4. End-stage renal disease. Will get way inspector consultation. Plan for dialysis per way inspector. 5. History of CAD. Continue on statin medication. Admission process time greater than 40 minutes Discussed plan of care with Dr. Servin Problems: HPI/ROS Admit Date/Time Admit Date/Time Dec 02, 2016 at 13:09 Hx of Present Illness This is a 61-year-old male with history of end-stage renal disease (receives dialysis on Tuesday//Tuesday), CAD, diabetes, status post CABG, anemia , hypertension, as the gastric ulcerations, who came to [facility] due to reports of increased weakness. Patient did report that he had been having some chest pain with associated shortness of breath with on exertion at around 10 AM this morning. He reportedly took a nitro pill that relieves his chest pain. Given that was recently discharged from [facility] on November 07, 2016 for similar issues. On examination he was noted to be anemic again with hemoglobin of 7.3 and hematocrit of 22.1. Of note his previous one was noted at 11.5 hemoglobin and 34.5 hematocrit prior to this admission. Initial troponin was negative. X-ray of his chest did show no acute cardiopulmonary process and stable cardiomegaly. He remained afebrile. Denies any sick contacts. Also noted with incisional disease. We will evaluate him for the aformentiond issues. ROS 12 point review of systems obtained and entirely negative except as mentioned in the history of present illness PMH/Family/Social Past Medical History Medical/surgical history 1.end-stage renal disease (receives dialysis on Tuesday//Tuesday), CAD , diabetes, status post CABG, anemia, hypertension, as the gastric ulcerations, Family History Significant Family History: no pertinent family hx Social History Alcohol Use: none Smoking Status: Former smoker Drug Use: none Exam/Review of Systems Vital Signs Vitals Vital Signs Date Time Temp Pulse Resp B/P Pulse Ox O2 Delivery O2 Flow Rate FiO2 12/02/16 14:25 58 20 173/68 98 Room Air 12/02/16 10:16 98.1 Exam Constitutional: alert, oriented Psych: nl mood/affect Head: normocephalic Eyes: nl conjunctiva Neck: supple, No jvd Respiratory: clear to auscultation, normal air movement Cardiovascular: regular rate and rhythm Gastrointestinal: non-tender, soft Musculoskeletal: nl extremities to inspection Extremities: normal pulses Neurological: [place] II-XII intact, nl mental status, nl speech Labs Result Diagram: 12/02/16 1110 12/02/16 1110 Medications Medications Current Medications Acetaminophen (Tylenol Tab) 500 mg Q4H PRN PO PAIN AND OR ELEVATED TEMP; Start 12/02/16 at 15:30; Status UNV Allopurinol (Zyloprim) 100 mg DAILY PO ; Start 12/03/16 at 09:00; Status UNV Aspirin (Halfprin) 81 mg DAILY PO ; Start 12/03/16 at 09:00; Status UNV Benazepril HCl (Lotensin) 40 mg DAILY PO ; Start 12/03/16 at 09:00; Status UNV Cinacalcet (Sensipar) 30 mg BID PO ; Start 12/02/16 at 21:00; Status UNV Epoetin Eze (Epogen (Neserd)) 6,000 units TuThSa@17 [place] ; Start 12/02/16 at 17: 00; Status UNV Fenofibrate (Tricor) 145 mg DAILY PO ; Start 12/03/16 at 09:00; Status UNV Gemfibrozil (Lopid) 600 mg BID PO ; Start 12/02/16 at 21:00; Status UNV Loratadine (Claritin) 10 mg DAILY PO ; Start 12/03/16 at 09:00; Status UNV Nifedipine (Procardia Xl) 60 mg DAILY PO ; Start 12/03/16 at 09:00; Status UNV Nifedipine (Procardia Xl) 30 mg QHS PO ; Start 12/02/16 at 21:00; Status UNV Nitroglycerin (Nitroglycerin (Sl Tab) 0.4 Mg) 1 tab Q5M PRN SL CHEST PAIN; Start 12/02/16 at 15:30; Status UNV Pantoprazole (Protonix Tab) 40 mg BID PO ; Start 12/02/16 at 21:00; Status UNV Ondansetron HCl (Zofran Inj) 4 mg Q6H PRN IV NAUSEA AND/OR VOMITING; Start at 15:30; Status UNV Acetaminophen (Tylenol Tab) 650 mg Q6H PRN PO PAIN LEVEL 1-3 OR FEVER; Start 12/02/16 at 15:30; Status UNV Acetaminophen (Tylenol Supp) 650 mg Q6H PRN [place] PAIN LEVEL 1-3 OR FEVER; Start 12/02/16 at 15:30; Status UNV Acetaminophen/ Hydrocodone Bitart ([place] (5/325)) 1 tab Q6H PRN PO MODERATE PAIN LEVEL 4-6; Start 12/02/16 at 15:30; Status UNV Acetaminophen/ Hydrocodone Bitart ([place] (5/325)) 2 tab Q6H PRN PO SEVERE PAIN LEVEL 7-10; Start 12/02/16 at 15:30; Status UNV Morphine Sulfate (morphine) 2 mg Q4H PRN IV SEVERE PAIN LEVEL 7-10; Start at 15:30; Status UNV Docusate Sodium (Colace) 100 mg Q12H PRN PO CONSTIPATION; Start 12/02/16 at 15 :30; Status UNV Magnesium Hydroxide (Milk Of Mag) 30 ml DAILY PRN PO CONSTIPATION; Start 12/02 at 15:30; Status UNV Bisacodyl (Dulcolax Supp) 10 mg DAILY PRN [place] CONSTIPATION; Start 12/02/16 at 15:30; Status UNV Pantoprazole (Protonix Iv) 40 mg DAILY@06 IV ; Start 12/03/16 at 06:00; Status UNV Miscellaneous Information (* Miscellaneous Pharmacy Order) Discontinue current oral sulfonylur... ONCE ONCE XX ; Start 12/02/16 at 15:30; Stop 12/02/16 at 15:31; Status UNV Diagnostic Test (Pha) (Accu-Chek) 1 ea 02 XX ; Start 12/03/16 at 02:00; Status UNV Insulin Glargine (Lantus) 13 unit DAILY@08 SC ; Start 12/03/16 at 08:00; Status UNV Miscellaneous Information (* Miscellaneous Pharmacy Order) HYPOGLYCEMIA PROTOCOL w... ONCE ONCE XX ; Start 12/02/16 at 15:30; Stop 12/02/16 at 15:31 ; Status UNV Miscellaneous Information (* Miscellaneous Pharmacy Order) Discontinue all previ... ONCE ONCE XX ; Start 12/02/16 at 15:30; Stop 12/02/16 at 15:31; Status UNV CHRISTIANO LAO Dec 02, 2016 16:08
--- NOTE | 2016-12-02 16:08 | HP ---
Date/Time of Note Date/Time of Note DATE: 12/02/16 TIME: 16:05 Assessment/Plan VTE Prophylaxis VTE Prophylaxis Intervention: SCD's Lines/Catheters IV C[facility]ter Type (from [facility]): Saline Lock Urinary Cath still in place: No Assessment/Plan Chief Complaint/Hosp Course Assessment and plan 1. Chest pain. Rule out ACS. We will get tung nut grower consultation given patient's cardiac history. Will follow up on serial troponins. 2. Anemia. Patient has history of gastric ulcerations. Will recheck H&H and transfuse PRBC as needed. Will get engineer station mainline consultation again. 3. Diabetes. Continue insulin regimen. Will adjust as needed. 4. End-stage renal disease. Will get ornamental metal worker helper consultation. Plan for dialysis per ornamental metal worker helper. 5. History of CAD. Continue on statin medication. Admission process time greater than 40 minutes Discussed plan of care with Dr. Servin Problems: HPI/ROS Admit Date/Time Admit Date/Time Dec 02, 2016 at 13:09 Hx of Present Illness This is a 61-year-old male with history of end-stage renal disease (receives dialysis on Tuesday//Tuesday), CAD, diabetes, status post CABG, anemia , hypertension, as the gastric ulcerations, who came to [facility] due to reports of increased weakness. Patient did report that he had been having some chest pain with associated shortness of breath with on exertion at around 10 AM this morning. He reportedly took a nitro pill that relieves his chest pain. Given that was recently discharged from [facility] on November 07, 2016 for similar issues. On examination he was noted to be anemic again with hemoglobin of 7.3 and hematocrit of 22.1. Of note his previous one was noted at 11.5 hemoglobin and 34.5 hematocrit prior to this admission. Initial troponin was negative. X-ray of his chest did show no acute cardiopulmonary process and stable cardiomegaly. He remained afebrile. Denies any sick contacts. Also noted with incisional disease. We will evaluate him for the aformentiond issues. ROS 12 point review of systems obtained and entirely negative except as mentioned in the history of present illness PMH/Family/Social Past Medical History Medical/surgical history 1.end-stage renal disease (receives dialysis on Tuesday//Tuesday), CAD , diabetes, status post CABG, anemia, hypertension, as the gastric ulcerations, Family History Significant Family History: no pertinent family hx Social History Alcohol Use: none Smoking Status: Former smoker Drug Use: none Exam/Review of Systems Vital Signs Vitals Vital Signs Date Time Temp Pulse Resp B/P Pulse Ox O2 Delivery O2 Flow Rate FiO2 12/02/16 14:25 58 20 173/68 98 Room Air 12/02/16 10:16 98.1 Exam Constitutional: alert, oriented Psych: nl mood/affect Head: normocephalic Eyes: nl conjunctiva Neck: supple, No jvd Respiratory: clear to auscultation, normal air movement Cardiovascular: regular rate and rhythm Gastrointestinal: non-tender, soft Musculoskeletal: nl extremities to inspection Extremities: normal pulses Neurological: STAFFING RN II-XII intact, nl mental status, nl speech Labs Result Diagram: 12/02/16 1110 12/02/16 1110 Medications Medications Current Medications Acetaminophen (Tylenol Tab) 500 mg Q4H PRN PO PAIN AND OR ELEVATED TEMP; Start 12/02/16 at 15:30; Status UNV Allopurinol (Zyloprim) 100 mg DAILY PO ; Start 12/03/16 at 09:00; Status UNV Aspirin (Halfprin) 81 mg DAILY PO ; Start 12/03/16 at 09:00; Status UNV Benazepril HCl (Lotensin) 40 mg DAILY PO ; Start 12/03/16 at 09:00; Status UNV Cinacalcet (Sensipar) 30 mg BID PO ; Start 12/02/16 at 21:00; Status UNV Epoetin Eze (Epogen (Neserd)) 6,000 units TuThSa@17 [place] ; Start 12/02/16 at 17: 00; Status UNV Fenofibrate (Tricor) 145 mg DAILY PO ; Start 12/03/16 at 09:00; Status UNV Gemfibrozil (Lopid) 600 mg BID PO ; Start 12/02/16 at 21:00; Status UNV Loratadine (Claritin) 10 mg DAILY PO ; Start 12/03/16 at 09:00; Status UNV Nifedipine (Procardia Xl) 60 mg DAILY PO ; Start 12/03/16 at 09:00; Status UNV Nifedipine (Procardia Xl) 30 mg QHS PO ; Start 12/02/16 at 21:00; Status UNV Nitroglycerin (Nitroglycerin (Sl Tab) 0.4 Mg) 1 tab Q5M PRN SL CHEST PAIN; Start 12/02/16 at 15:30; Status UNV Pantoprazole (Protonix Tab) 40 mg BID PO ; Start 12/02/16 at 21:00; Status UNV Ondansetron HCl (Zofran Inj) 4 mg Q6H PRN IV NAUSEA AND/OR VOMITING; Start at 15:30; Status UNV Acetaminophen (Tylenol Tab) 650 mg Q6H PRN PO PAIN LEVEL 1-3 OR FEVER; Start 12/02/16 at 15:30; Status UNV Acetaminophen (Tylenol Supp) 650 mg Q6H PRN [place] PAIN LEVEL 1-3 OR FEVER; Start 12/02/16 at 15:30; Status UNV Acetaminophen/ Hydrocodone Bitart ([place] (5/325)) 1 tab Q6H PRN PO MODERATE PAIN LEVEL 4-6; Start 12/02/16 at 15:30; Status UNV Acetaminophen/ Hydrocodone Bitart ([place] (5/325)) 2 tab Q6H PRN PO SEVERE PAIN LEVEL 7-10; Start 12/02/16 at 15:30; Status UNV Morphine Sulfate (morphine) 2 mg Q4H PRN IV SEVERE PAIN LEVEL 7-10; Start at 15:30; Status UNV Docusate Sodium (Colace) 100 mg Q12H PRN PO CONSTIPATION; Start 12/02/16 at 15 :30; Status UNV Magnesium Hydroxide (Milk Of Mag) 30 ml DAILY PRN PO CONSTIPATION; Start 12/02 at 15:30; Status UNV Bisacodyl (Dulcolax Supp) 10 mg DAILY PRN [place] CONSTIPATION; Start 12/02/16 at 15:30; Status UNV Pantoprazole (Protonix Iv) 40 mg DAILY@06 IV ; Start 12/03/16 at 06:00; Status UNV Miscellaneous Information (* Miscellaneous Pharmacy Order) Discontinue current oral sulfonylur... ONCE ONCE XX ; Start 12/02/16 at 15:30; Stop 12/02/16 at 15:31; Status UNV Diagnostic Test (Pha) (Accu-Chek) 1 ea 02 XX ; Start 12/03/16 at 02:00; Status UNV Insulin Glargine (Lantus) 13 unit DAILY@08 SC ; Start 12/03/16 at 08:00; Status UNV Miscellaneous Information (* Miscellaneous Pharmacy Order) HYPOGLYCEMIA PROTOCOL w... ONCE ONCE XX ; Start 12/02/16 at 15:30; Stop 12/02/16 at 15:31 ; Status UNV Miscellaneous Information (* Miscellaneous Pharmacy Order) Discontinue all previ... ONCE ONCE XX ; Start 12/02/16 at 15:30; Stop 12/02/16 at 15:31; Status UNV CHRISTIANO LAO Dec 02, 2016 16:08
[2016-12-02] MEDS ORDERED: hydrALAzine 20 MG INJ IV PRN (16:30)
[2016-12-02] MEDS ORDERED: GLUCAGON 1 MG INJ IM PRN (16:30)
[2016-12-02] MEDS ORDERED: GLUCOSE GEL 15 GRAM TUBE PO PRN ×2 (16:30)
[2016-12-02] MEDS ORDERED: GLUCOSE GEL 15 GRAM TUBE BUCCAL PRN (16:30)
[2016-12-02] MEDS ORDERED: DEXTROSE 50% 50 ML SYRINGE IV PRN ×2 (16:30)
[2016-12-02] MEDS: INSULIN ASPART [NOVOLOG] 3 ML PEN SC SCH ×3 (17:34→20:33)
--- NOTE | 2016-12-02 17:54 | CONS ---
Date/Time of Note Date/Time of Note DATE: 12/02/16 TIME: 17:37 Assessment/Plan Assessment/Plan Chief Complaint/Hosp Course Assessment: Anemia-likely due to chronic disease End-stage renal disease Chest Pain History of CAD Plan: Stool for OB No over sign of GI bleed will continue to monitor need for EGD Colonoscopy Patient seen in collaboration with Chief Complaint/Reason for Visit: Anemia History of Present Illness: Pleasant 61-year-old male with multiple comorbidities including history of CAD with CABG, diabetes, hypertension, ESRD, chronic anemia history of gastritis, gastric ulcers, and rectal polyps. He came to the ER for increased weakness and chest pain with associated shortness of breath. Workup has been initiated for chest pain shortness of breath. Labs show patient to be anemic hemoglobin 7.3 patient was recently discharged from [facility] in the beginning of November with a hemoglobin 11.5. Patient denies hematemesis, hematochezia, nausea, vomiting, abdominal pain, unintentional weight loss, pyrosis, or diarrhea. Does have occasional constipation with dark stools patient currently is on iron supplements. He had a colonoscopy and upper endoscopy about 1 month ago showing gastritis and polyps. No overt signs of GI bleed and recent endoscopy,completed. Anemia likely due to chronic disease however will check for stool for OB and continue to closely monitor patient. Positive for stool OB or any change in condition we will move forward with endoscopies. Past Medical History: Diabetes Hypertension CAD- with CABG about 5 years ago Gastritis Gastric ulcer Anemia Polyps EGD/Colonoscopy last month Allergies: No known drug allergy Family History: No family history of colon cancer Social History: Smoking Denies drinking alcohol Denies drug use PHYSICAL EXAMINATION: GENERAL: Well developed, well nourished, alert & oriented x 3, in no acute distress SKIN: No lesions, no stigmata chronic liver disease, no evidence of bleeding diathesis, midline scar, left lower arm fistula LYMPHATIC: No palpable lymphadenopathy. HEAD: Normocephalic, atraumatic, no tenderness. EYES: Pupils equal reactive to light and accommodation, full extraocular movements, sclera clear, non-icteric, no discharge. EARS/NOSE AND THROAT: Ears normal, nose normal, oropharynx normal, oral membranes well hydrated without lesions. NECK: Supple, no masses, thyroid normal, JVP within normal limits, carotids normal without bruits. CHEST: Inspection within normal limits. CARDIOVASCULAR: Heart: Regular rate and rhythm, no murmurs, gallops or rubs. Peripheral pulses present within normal limits, no cyanosis, clubbing or edemas. No pulsatile abdominal mass RESPIRATORY: Lungs clear to auscultation and percussion, no wheezing, no rubs GASTROINTESTINAL AND LIVER: Abdomen: Soft, non tenderness, non-distended, no hernias, no masses, no organomegaly, no ascites, no guarding, no rebound tenderness, normoactive bowel sounds. Rectal: Deferred. GENITOURINARY: Male genitalia within normal limits. EXTREMITIES: No cyanosis, clubbing or edema. Problems: Consultation Date/Type/Reason Admit Date/Time Dec 02, 2016 at 13:09 Date of Consultation: Dec 02, 2016 Type of Consultation: GI Reason for Consultation Anemia Review of Systems: A 12 system, review was conducted and is negative except as noted in the HPI or here. Gastrointestinal and liver: Positive for constipation, acid reflux Negative for: Anorexia, dysphagia, odynophagia, nausea, vomiting, early satiety, bloating , abdominal pain, food intolerance, diarrhea, change in bowel habits, laxative use, hematemesis, melena, hematochezia, and rectal symptoms, incontinence, jaundice. Psychological: nl mood/affect Past Medical History Medical History: coronary artery disease, diabetes, GERD, hypertension Past Surgical History Past Surgical Hx: coronary bypass surgery, other (Fistula left lower arm) Social History Alcohol Use: none Smoking Status: Former smoker Drug Use: none Exam/Review of Systems Vital Signs Vitals Vital Signs Date Time Temp Pulse Resp B/P Pulse Ox O2 Delivery O2 Flow Rate FiO2 12/02/16 16:16 57 12/02/16 14:25 20 173/68 98 Room Air 12/02/16 10:16 98.1 Results Result Diagram: 12/02/16 1637 12/02/16 1110 Results 24 hrs Laboratory Tests Test 12/02/16 11:10 12/02/16 16:37 12/02/16 16:59 White Blood Count 6.3 # Red Blood Count 2.43 #L Hemoglobin 7.3 #L 6.9 *L Hematocrit 22.1 #L 20.2 L Mean Corpuscular Volume 90.9 Mean Corpuscular Hemoglobin 30.0 Mean Corpuscular Hemoglobin Concent 33.0 Red Cell Distribution Width 13.6 Platelet Count 166 # Mean Platelet Volume 13.1 H Neutrophils % 70.9 Lymphocytes % 14.6 L Monocytes % 8.9 Eosinophils % 3.8 Basophils % 1.3 Nucleated Red Blood Cells % 0.0 Neutrophils # 4.5 Lymphocytes # 0.9 Monocytes # 0.6 Eosinophils # 0.2 Basophils # 0.1 Nucleated Red Blood Cells # 0.0 Sodium Level 138 Potassium Level 4.5 Chloride Level 97 Carbon Dioxide Level 25 Anion Gap 21 H Blood Urea Nitrogen 47 H Creatinine 10.36 H Glucose Level 167 Hemoglobin A1c 5.6 Calcium Level 8.8 Troponin I 0.028 0.023 Creatine Kinase 89 Creatine Kinase Index 1.4 Creatinine Kinase MB (Mass) 1.25 Bedside Glucose 114 Medications Medications Current Medications Allopurinol (Zyloprim) 100 mg DAILY PO ; Start 12/03/16 at 09:00 Aspirin (Halfprin) 81 mg DAILY PO ; Start 12/03/16 at 09:00 Benazepril HCl (Lotensin) 40 mg DAILY PO ; Start 12/03/16 at 09:00 Cinacalcet (Sensipar) 30 mg BID PO ; Start 12/02/16 at 21:00 Epoetin Eze (Epogen ([place])) 6,000 units TuThSa@17 [place] ; Start 12/02/16 at 17:00 Fenofibrate (Tricor) 145 mg DAILY PO ; Start 12/03/16 at 09:00 Gemfibrozil (Lopid) 600 mg BID PO ; Start 12/02/16 at 21:00 Loratadine (Claritin) 10 mg DAILY PO ; Start 12/03/16 at 09:00 Nifedipine (Procardia Xl) 60 mg DAILY PO ; Start 12/03/16 at 09:00 Nifedipine (Procardia Xl) 30 mg QHS PO ; Start 12/02/16 at 21:00 Nitroglycerin (Nitroglycerin (Sl Tab) 0.4 Mg) 1 tab Q5M PRN SL CHEST PAIN; Start 12/02/16 at 15:30 Pantoprazole (Protonix Tab) 40 mg BID@06,18 PO ; Start 12/02/16 at 18:00 Ondansetron HCl (Zofran Inj) 4 mg Q6H PRN IV NAUSEA AND/OR VOMITING; Start at 15:30 Acetaminophen (Tylenol Tab) 650 mg Q6H PRN PO PAIN LEVEL 1-3 OR FEVER; Start 12/02/16 at 15:30 Acetaminophen (Tylenol Supp) 650 mg Q6H PRN [place] PAIN LEVEL 1-3 OR FEVER; Start 12/02/16 at 15:30 Acetaminophen/ Hydrocodone Bitart ([place] (5/325)) 1 tab Q6H PRN PO MODERATE PAIN LEVEL 4-6; Start 12/02/16 at 15:30 Acetaminophen/ Hydrocodone Bitart ([place] (5/325)) 2 tab Q6H PRN PO SEVERE PAIN LEVEL 7-10; Start 12/02/16 at 15:30 Morphine Sulfate (morphine) 2 mg Q4H PRN IV SEVERE PAIN LEVEL 7-10; Start at 15:30 Docusate Sodium (Colace) 100 mg Q12H PRN PO CONSTIPATION; Start 12/02/16 at 15 :30 Magnesium Hydroxide (Milk Of Mag) 30 ml DAILY PRN PO CONSTIPATION; Start 12/02 at 15:30 Bisacodyl (Dulcolax Supp) 10 mg DAILY PRN [place] CONSTIPATION; Start 12/02/16 at 15:30 Diagnostic Test (Pha) (Accu-Chek) 1 ea 02 XX ; Start 12/03/16 at 02:00 Insulin Glargine (Lantus) 13 unit DAILY@08 SC ; Start 12/03/16 at 08:00 Hydralazine HCl (Apresoline) 10 mg Q4H PRN IV SBP>160; Start 12/02/16 at 16:30 Miscellaneous Information 1 ea NOTE XX ; Start 12/02/16 at 16:30 Glucose (Glutose) 15 gm Q15M PRN PO DECREASED GLUCOSE; Start 12/02/16 at 16:30 Glucose (Glutose) 22.5 gm Q15M PRN PO DECREASED GLUCOSE; Start 12/02/16 at 16: 30 Dextrose (D50w Syringe) 25 ml Q15M PRN IV DECREASED GLUCOSE; Start 12/02/16 at 16:30 Dextrose (D50w Syringe) 50 ml Q15M PRN IV DECREASED GLUCOSE; Start 12/02/16 at 16:30 Glucagon (Glucagen) 1 mg Q15M PRN IM DECREASED GLUCOSE; Start 12/02/16 at 16: 30 Glucose (Glutose) 15 gm Q15M PRN BU[place] DECREASED GLUCOSE; Start 12/02/16 at 16:30 Influenza Virus Vaccine (Fluzone) 0.5 ml ONCE ONCE IM* ; Start 12/03/16 at 14: 00; Stop 12/03/16 at 14:01 Copies To: CC: ALY PARRY MD, VICTORIA Dec 02, 2016 17:48
[2016-12-02] MEDS: PANTOPRAZOLE (EC) 40 MG TAB PO SCH (17:59)
[2016-12-02] MEDS: EPOETIN 3000 UNITS/1 ML INJ (ESRD) SC SCH (17:59)
[2016-12-02] MEDS: NIFEdipine (XL) 60 MG TAB PO SCH (20:18)
[2016-12-02] MEDS: CINACALCET 30 MG TAB PO SCH (20:19)
[2016-12-02] MEDS: GEMFIBROZIL 600 MG TAB PO SCH (20:19)
[2016-12-02] MEDS ORDERED: NIFEdipine (XL) 30 MG TAB PO SCH (21:00)
[2016-12-02] MEDS ORDERED: LORAZEPAM 2 MG INJ IV PRN (23:00)
[2016-12-03] VITALS (11 sets, daily range): BP systolic 109–166; BP diastolic 54–72; PULSE 63–72; RESP 16–18
--- NOTE | 2016-12-03 01:56 | CONS ---
DATE OF ADMISSION: 12/02/2016 DATE OF CONSULTATION: 12/02/2016 REASON FOR CONSULTATION: Dyspnea on exertion and per consulting physician chest pain although the p atient denies to me at this time. REQUESTING PHYSICIAN: Dick Fernando from the hospitalist service. HISTORY OF PRESENT ILLNESS: Mr. Herbert is a 61-year-old male with a history of coronary artery dis ease, status post coronary bypass graft surgery 5 years prior, hypertension, anemia, diabetes mellit us, end-stage renal disease on hemodialysis, who presents with complaints of severe dyspnea on exert ion, generalized weakness and per chart biopsy chest pain although at this time the patient denies c hest pain to me. Additionally, upon arrival in the emergency department, temperature 98.1, blood pr essure 111/55, pulse 60, respirations 18, saturating 99%. Patient's labs revealed a white count of 6.3, hemoglobin 7.3, platelet count 166. Sodium 138, potassium 4.5, creatinine of 10.3, BUN 47. Tr oponin negative. The patient underwent a chest x-ray revealing no acute cardiopulmonary abnormaliti es, stable cardiomegaly status post CABG, persistent left lung scarring. Patient's electrocardiogra m revealed normal sinus rhythm at a rate of 62, normal axis, normal intervals, borderline inferior Q 's and lateral biphasic T-wave abnormalities isolated to lead aVL. The patient was subsequently adm itted to the floor and since admit to the floor, has had a significant elevated systolic blood press ure greater than 170s, most recently 140s, a pulse in the 60s. PAST MEDICAL HISTORY: As above in HPI. MEDICATIONS CURRENTLY IN HOSPITAL: 1. Allopurinol. 2. Aspirin 81 mg daily. 3. Benazepril 40 mg daily. 4. Tricor 145 mg daily. 5. Claritin 10 mg daily. 6. Procardia 60 mg daily. 7. Insulin Lopid 600 mg b.i.d. 8. Procardia 30 mg at bedtime. 9. Protonix. 10. Hydralazine p.r.n. 11. Sublingual nitroglycerin p.r.n. 12. Zofran p.r.n. 13. Tylenol p.r.n. 14. [place] p.r.n. 15. Dulcolax p.r.n. ALLERGIES: NO KNOWN DRUG ALLERGIES. SOCIAL HISTORY: No tobacco, ETOH or illicit drug use. FAMILY HISTORY: No history of sudden cardiac or early CAD. REVIEW OF SYSTEMS: As above in HPI. CONSTITUTIONAL: No fevers, chills. PULMONARY: Shortness of breath. CARDIOVASCULAR: Chest pain per report. GASTROINTESTINAL: No vomiting. GENITOURINARY: No hematuria but end-stage renal disease. PSYCHIATRIC: No documented psych history. NEUROLOGIC: No documented history of CVA. ENDOCRINE: Diabetes mellitus. PHYSICAL EXAMINATION: VITAL SIGNS: Temperature of 98.1, blood pressure most recently 146/60, pulse 61, respiratory rate 1 6, satting 90%. GENERAL: The patient is alert, awake, in no acute distress. NECK: JVP approximately 8 to 9 cm water. CHEST: Fair air movement throughout. HEART: Regular rate and rhythm. Normal S1, S2, I/ systolic murmur, nondisplaced PMI. ABDOMEN: Positive bowel sounds, soft. EXTREMITIES: No pitting edema, 1+ pulses bilaterally posterior tibial. LABORATORIES: As above in HPI. Most recently from today troponins negative x3. Hemoglobin 6.9. IMAGING STUDIES: As above in HPI. No further imaging studies for my review at this time. ECG: As above in HPI. No further electrocardiograms for my review at this time. IMPRESSION: 1. Dyspnea on exertion. Assess for acute coronary syndrome. 2. Chest pain per report. Assess for acute coronary syndrome. 3. Diastolic dysfunction by most recent echo, 04/05/2016 revealing preserved ejection fraction. 4. Abnormal electrocardiogram, assess for acute coronary syndrome. 5. Anemia, severe. 6. End-stage renal disease on hemodialysis. 7. Dyslipidemia. 8. Diabetes mellitus. RECOMMENDATIONS: 1. At this time, would maintain patient on telemetry monitoring to follow rhythm and rate closely. 2. Check serial EKGs to assess for any significant ongoing changes. EKG in the morning, EKG for co mplaints of chest pain or change in rhythm. 3. Continue the patient's current Procardia with up titration to improve overall systolic blood pre ssure control. 4. Continue the patient's benazepril at this time. 5. Additionally, continue the patient's Lopid and check the patient's fasting lipid panel and adjus t Lopid and Tricor as necessary. Unclear if the patient needs to be on both of these, unlikely; the y are both fibrates, and therefore will likely discontinue one. 6. Hemodialysis for volume removal. 7. Complete the patient's rule out for myocardial infarction and continue to check serial EKGs, ass ess for ongoing changes and if the patient does rule out for myocardial infarction, I believe this p atient would benefit from further risk stratification inpatient with a cardiac stress to be schedule d to take place first thing in the morning. Thank you for allowing me to take part in the care of this patient. I will continue to follow very closely with you with further recommendations to be made as the patient progresses [facility]. Dictated By: TAE LANDAVERDE/FATOU Conf#: [id number] DID#: [id number] CC: RAJAN STAHL; DICK FERNANDO CELL TECHNICIAN;*[facility]*
[2016-12-03] MEDS: ACCU-CHEK XX SCH (02:00)
[2016-12-03] MEDS ORDERED: PANTOPRAZOLE 40 MG INJ IV SCH (06:00)
[2016-12-03] MEDS: PANTOPRAZOLE (EC) 40 MG TAB PO SCH ×2 (07:05→17:48)
[2016-12-03] MEDS: INSULIN ASPART [NOVOLOG] 3 ML PEN SC SCH ×7 (07:55→21:00)
[2016-12-03] MEDS: INSULIN GLARGINE [LANtus] 3 ML PEN SC SCH (08:55)
[2016-12-03] MEDS: ALLOPURINOL 100 MG TAB PO SCH (08:57)
[2016-12-03] MEDS: ASPIRIN (EC) 81 MG TAB PO SCH (08:57)
[2016-12-03] MEDS: LORATADINE 10 MG TAB PO SCH (08:57)
[2016-12-03] MEDS: GEMFIBROZIL 600 MG TAB PO SCH ×2 (08:57→21:38)
[2016-12-03] MEDS: BENAZEPRIL 20 MG TAB PO SCH (08:58)
[2016-12-03] MEDS: CINACALCET 30 MG TAB PO SCH ×2 (08:58→21:38)
[2016-12-03] MEDS ORDERED: NIFEdipine (XL) 60 MG TAB PO SCH (09:00)
[2016-12-03] MEDS ORDERED: FENOFIBRATE 145 MG TAB PO SCH (09:00)
--- NOTE | 2016-12-03 11:16 | PN ---
Date/Time of Note Date/Time of Note DATE: 12/03/16 TIME: 11:13 Assessment/Plan VTE Prophylaxis VTE Prophylaxis Intervention: ambulation, SCD's Lines/Catheters IV [facility]ter Type [facility]from [facility] [place] Urinary Cath still in place: No Assessment/Plan Chief Complaint/Hosp Course Assessment: Anemia-likely due to chronic disease End-stage renal disease Chest Pain History of CAD Plan: Stool for OB- no bm as of yet HGB stable after 1 unit of blood No over signs of GI bleed will continue to monitor need for EGD Colonoscopy Pt c/o constipation- continue stool softener, will order MiraLAX prn Patient seen in collaboration with Subjective: Course reviewed with nursing staff Patient interviewed and examined All labs, imaging and other results reviewed The patient doing well, no c/o abd pain, or hematemesis, rectal bleeding Status post hemodialysis yesterday PHYSICAL EXAMINATION: GENERAL: Well developed, well nourished, alert & oriented x 3, in no acute distress SKIN: No lesions, no stigmata chronic liver disease, no evidence of bleeding diathesis, midline scar, left lower arm fistula LYMPHATIC: No palpable lymphadenopathy. HEAD: Normocephalic, atraumatic, no tenderness. EYES: Pupils equal reactive to light and accommodation, full extraocular movements, sclera clear, non-icteric, no discharge. EARS/NOSE AND THROAT: Ears normal, nose normal, oropharynx normal, oral membranes well hydrated without lesions. NECK: Supple, no masses, thyroid normal, JVP within normal limits, carotids normal without bruits. CHEST: Inspection within normal limits. CARDIOVASCULAR: Heart: Regular rate and rhythm, no murmurs, gallops or rubs. Peripheral pulses present within normal limits, no cyanosis, clubbing or edemas. No pulsatile abdominal mass RESPIRATORY: Lungs clear to auscultation and percussion, no wheezing, no rubs GASTROINTESTINAL AND LIVER: Abdomen: Soft, non tenderness, non-distended, no hernias, no masses, no organomegaly, no ascites, no guarding, no rebound tenderness, normoactive bowel sounds. Rectal: Deferred. GENITOURINARY: Male genitalia within normal limits. EXTREMITIES: No cyanosis, clubbing or edema. Problems: Exam/Review of Systems Vital Signs Vitals Vital Signs Date Time Temp Pulse Resp B/P Pulse Ox O2 Delivery O2 Flow Rate FiO2 12/03/16 08:51 65 12/03/16 07:16 97.8 18 114/54 100 12/02/16 14:25 Room Air Intake and Output 12/02/16 12/02/16 12/03/16 15:00 23:00 07:00 Intake Total 1000 ml 620 ml Output Total 4000 ml Balance -3000 ml 620 ml Results Result Diagram: 12/03/16 0735 12/03/16 0735 Results 24 hrs Laboratory Tests Test 12/02/16 16:37 12/02/16 16:59 12/02/16 20:26 12/02/16 22:22 Hemoglobin 6.9 *L Hematocrit 20.2 L Creatine Kinase 89 102 Creatine Kinase Index 1.4 1.3 Creatinine Kinase MB (Mass) 1.25 1.28 Troponin I 0.023 0.039 Bedside Glucose 114 147 Test 12/02/16 22:34 12/03/16 07:35 12/03/16 08:31 Bedside Glucose 141 120 White Blood Count 6.5 Red Blood Count 2.88 L Hemoglobin 8.5 #L Hematocrit 26.5 #L Mean Corpuscular Volume 92.0 Mean Corpuscular Hemoglobin 29.5 Mean Corpuscular Hemoglobin Concent 32.1 Red Cell Distribution Width 13.9 Platelet Count 156 Mean Platelet Volume 12.4 H Neutrophils % 66.9 Lymphocytes % 15.9 Monocytes % 10.7 Eosinophils % 4.8 Basophils % 1.4 Nucleated Red Blood Cells % 0.0 Neutrophils # 4.3 Lymphocytes # 1.0 Monocytes # 0.7 Eosinophils # 0.3 Basophils # 0.1 Nucleated Red Blood Cells # 0.0 Sodium Level 141 Potassium Level 4.6 Chloride Level 101 Carbon Dioxide Level 29 Anion Gap 16 Blood Urea Nitrogen 36 #H Creatinine 8.74 H Glucose Level 114 # Hemoglobin A1c 5.5 Calcium Level 8.8 Phosphorus Level 4.9 Magnesium Level 2.5 Total Bilirubin 0.0 L Direct Bilirubin 0.00 Indirect Bilirubin 0.0 Aspartate Amino Transf (AST/SGOT) 14 L Alanine Aminotransferase (ALT/SGPT) 22 Alkaline Phosphatase 86 Total Protein 6.9 Albumin 3.9 Globulin 3.00 Albumin/Globulin Ratio 1.30 Triglycerides Level 234 H Cholesterol Level 148 LDL Cholesterol, Calculated 77 HDL Cholesterol 24 L Cholesterol/HDL Ratio 6.1 Thyroid Stimulating Hormone (TSH) 1.790 Free Thyroxine Index 2.13 Thyroxine (T4) 5.7 Triiodothyronine (T3) Uptake 37.3 Medications Medications Current Medications Allopurinol (Zyloprim) 100 mg DAILY PO Last administered on 12/03/16 08:57; Admin Dose 100 MG; Start 12/03/16 at 09:00 Aspirin (Halfprin) 81 mg DAILY PO Last administered on 12/03/16 08:57; Admin Dose 81 MG; Start 12/03/16 at 09:00 Benazepril HCl (Lotensin) 40 mg DAILY PO ; Start 12/03/16 at 09:00 Cinacalcet (Sensipar) 30 mg BID PO Last administered on 12/03/16 08:58; Admin Dose 30 MG; Start 12/02/16 at 21:00 Epoetin Eze (Epogen (Esrd)) 6,000 units TuThSa@17 SC Last administered on 17:59; Admin Dose 6,000 UNITS; Start 12/02/16 at 17:00 Gemfibrozil (Lopid) 600 mg BID PO Last administered on 12/03/16 08:57; Admin Dose 600 MG; Start 12/02/16 at 21:00 Loratadine (Claritin) 10 mg DAILY PO Last administered on 12/03/16 08:57; Admin Dose 10 MG; Start 12/03/16 at 09:00 Nitroglycerin (Nitroglycerin (Sl Tab) 0.4 Mg) 1 tab Q5M PRN SL CHEST PAIN; Start 12/02/16 at 15:30 Pantoprazole (Protonix Tab) 40 mg BID@06,18 PO Last administered on 12/03/16 07:05; Admin Dose 40 MG; Start 12/02/16 at 18:00 Ondansetron HCl (Zofran Inj) 4 mg Q6H PRN IV NAUSEA AND/OR VOMITING; Start at 15:30 Acetaminophen (Tylenol Tab) 650 mg Q6H PRN PO PAIN LEVEL 1-3 OR FEVER; Start 12/02/16 at 15:30 Acetaminophen (Tylenol Supp) 650 mg Q6H PRN [place] PAIN LEVEL 1-3 OR FEVER; Start 12/02/16 at 15:30 Acetaminophen/ Hydrocodone Bitart ([place] (5/325)) 1 tab Q6H PRN PO MODERATE PAIN LEVEL 4-6 Last administered on 12/02/16 22:54; Admin Dose 1 TAB; Start 12/02/16 at 15:30 Acetaminophen/ Hydrocodone Bitart ([place] (5/325)) 2 tab Q6H PRN PO SEVERE PAIN LEVEL 7-10; Start 12/02/16 at 15:30 Morphine Sulfate (morphine) 2 mg Q4H PRN IV SEVERE PAIN LEVEL 7-10; Start at 15:30 Docusate Sodium (Colace) 100 mg Q12H PRN PO CONSTIPATION Last administered on 12/03/16 07:05; Admin Dose 100 MG; Start 12/02/16 at 15:30 Magnesium Hydroxide (Milk Of Mag) 30 ml DAILY PRN PO CONSTIPATION; Start 12/02 at 15:30 Bisacodyl (Dulcolax Supp) 10 mg DAILY PRN [place] CONSTIPATION; Start 12/02/16 at 15:30 Diagnostic Test (Pha) (Accu-Chek) 1 ea 02 XX ; Start 12/03/16 at 02:00 Insulin Glargine (Lantus) 13 unit DAILY@08 SC Last administered on 12/03/16 08:55; Admin Dose 13 UNIT; Start 12/03/16 at 08:00 Hydralazine HCl (Apresoline) 10 mg Q4H PRN IV SBP>160 Last administered on 04:12; Admin Dose 10 MG; Start 12/02/16 at 16:30 Miscellaneous Information 1 ea NOTE XX ; Start 12/02/16 at 16:30 Glucose (Glutose) 15 gm Q15M PRN PO DECREASED GLUCOSE; Start 12/02/16 at 16:30 Glucose (Glutose) 22.5 gm Q15M PRN PO DECREASED GLUCOSE; Start 12/02/16 at 16: 30 Dextrose (D50w Syringe) 25 ml Q15M PRN IV DECREASED GLUCOSE; Start 12/02/16 at 16:30 Dextrose (D50w Syringe) 50 ml Q15M PRN IV DECREASED GLUCOSE; Start 12/02/16 at 16:30 Glucagon (Glucagen) 1 mg Q15M PRN IM DECREASED GLUCOSE; Start 12/02/16 at 16: 30 Glucose (Glutose) 15 gm Q15M PRN BUCCAL DECREASED GLUCOSE; Start 12/02/16 at 16:30 Influenza Virus Vaccine (Fluzone) 0.5 ml ONCE ONCE IM* ; Start 12/03/16 at 14: 00; Stop 12/03/16 at 14:01 Nifedipine (Procardia Xl) 60 mg QHS PO Last administered on 12/02/16t 20:18; Admin Dose 60 MG; Start 12/02/16 at 21:00 Lorazepam (Ativan) 1 mg Q3H PRN IV AGITATION/ANXIETY; Start 12/02/16 at 23:00 UVALDO HART Dec 03, 2016 11:16
[2016-12-03] MEDS ORDERED: POLYETHYLENE GLYCOL 17 GM PACKET PO PRN (11:30)
--- NOTE | 2016-12-03 11:39 | CONS ---
Date/Time of Note Date/Time of Note DATE: 12/03/16 TIME: 11:37 Consult Date/Type/Reason Admit Date/Time Dec 02, 2016 at 13:09 Initial Consult Date 12/02/16 Type of Consultation: Internal medicine Subjective Patient comfortable this morning. No acute distress. Objective Vital Signs Date Time Temp Pulse Resp B/P Pulse Ox O2 Delivery O2 Flow Rate FiO2 12/03/16 08:51 65 12/03/16 07:16 97.8 18 114/54 100 12/02/16 14:25 Room Air Intake and Output 12/02/16 12/02/16 12/03/16 15:00 23:00 07:00 Intake Total 1000 ml 620 ml Output Total 4000 ml Balance -3000 ml 620 ml Exam GENERAL: Well-nourished well-developed and uncomfortable rest VITAL SIGNS: per chart NECK: Supple. No JVD or lymphadenopathy. CARDIAC EXAM: S1, S2. No added sounds or murmurs. CHEST: clear bilaterally, No added sounds, rales or wheezes ABDOMEN: Soft, nontender. No guarding or rebound. EXTREMITIES: No cyanosis, clubbing or edema. NEUROLOGIC: Generalized weakness. No focal deficits. Results/Medications Result Diagram: 12/03/16 0735 12/03/16 0735 Results 24 hrs Laboratory Tests Test 12/02/16 16:37 12/02/16 16:59 12/02/16 20:26 12/02/16 22:22 Hemoglobin 6.9 *L Hematocrit 20.2 L Creatine Kinase 89 102 Creatine Kinase Index 1.4 1.3 Creatinine Kinase MB (Mass) 1.25 1.28 Troponin I 0.023 0.039 Bedside Glucose 114 147 Test 12/02/16 22:34 12/03/16 07:35 12/03/16 08:31 Bedside Glucose 141 120 White Blood Count 6.5 Red Blood Count 2.88 L Hemoglobin 8.5 #L Hematocrit 26.5 #L Mean Corpuscular Volume 92.0 Mean Corpuscular Hemoglobin 29.5 Mean Corpuscular Hemoglobin Concent 32.1 Red Cell Distribution Width 13.9 Platelet Count 156 Mean Platelet Volume 12.4 H Neutrophils % 66.9 Lymphocytes % 15.9 Monocytes % 10.7 Eosinophils % 4.8 Basophils % 1.4 Nucleated Red Blood Cells % 0.0 Neutrophils # 4.3 Lymphocytes # 1.0 Monocytes # 0.7 Eosinophils # 0.3 Basophils # 0.1 Nucleated Red Blood Cells # 0.0 Sodium Level 141 Potassium Level 4.6 Chloride Level 101 Carbon Dioxide Level 29 Anion Gap 16 Blood Urea Nitrogen 36 #H Creatinine 8.74 H Glucose Level 114 # Hemoglobin A1c 5.5 Calcium Level 8.8 Phosphorus Level 4.9 Magnesium Level 2.5 Total Bilirubin 0.0 L Direct Bilirubin 0.00 Indirect Bilirubin 0.0 Aspartate Amino Transf (AST/SGOT) 14 L Alanine Aminotransferase (ALT/SGPT) 22 Alkaline Phosphatase 86 Total Protein 6.9 Albumin 3.9 Globulin 3.00 Albumin/Globulin Ratio 1.30 Triglycerides Level 234 H Cholesterol Level 148 LDL Cholesterol, Calculated 77 HDL Cholesterol 24 L Cholesterol/HDL Ratio 6.1 Thyroid Stimulating Hormone (TSH) 1.790 Free Thyroxine Index 2.13 Thyroxine (T4) 5.7 Triiodothyronine (T3) Uptake 37.3 Medications Current Medications Allopurinol (Zyloprim) 100 mg DAILY PO Last administered on 12/03/16 08:57; Admin Dose 100 MG; Start 12/03/16 at 09:00 Aspirin (Halfprin) 81 mg DAILY PO Last administered on 12/03/16 08:57; Admin Dose 81 MG; Start 12/03/16 at 09:00 Benazepril HCl (Lotensin) 40 mg DAILY PO ; Start 12/03/16 at 09:00 Cinacalcet (Sensipar) 30 mg BID PO Last administered on 12/03/16 08:58; Admin Dose 30 MG; Start 12/02/16 at 21:00 Epoetin Eze ([facility] (Esrd)) [facility] Last administered on 17:59; Admin Dose 6,000 UNITS; Start 12/02/16 at 17:00 Gemfibrozil (Lopid) 600 mg BID PO Last administered on 12/03/16 08:57; Admin Dose 600 MG; Start 12/02/16 at 21:00 Loratadine (Claritin) 10 mg DAILY PO Last administered on 12/03/16 08:57; Admin Dose 10 MG; Start 12/03/16 at 09:00 Nitroglycerin (Nitroglycerin (Sl Tab) 0.4 Mg) 1 tab Q5M PRN SL CHEST PAIN; Start 12/02/16 at 15:30 Pantoprazole (Protonix Tab) 40 mg BID@06,18 PO Last administered on 12/03/16 07:05; Admin Dose 40 MG; Start 12/02/16 at 18:00 Ondansetron HCl (Zofran Inj) 4 mg Q6H PRN IV NAUSEA AND/OR VOMITING; Start at 15:30 Acetaminophen (Tylenol Tab) 650 mg Q6H PRN PO PAIN LEVEL 1-3 OR FEVER; Start 12/02/16 at 15:30 Acetaminophen (Tylenol Supp) 650 mg Q6H PRN [place] PAIN LEVEL 1-3 OR FEVER; Start 12/02/16 at 15:30 Acetaminophen/ Hydrocodone Bitart ([place] (5/325)) 1 tab Q6H PRN PO MODERATE PAIN LEVEL 4-6 Last administered on 12/02/16 22:54; Admin Dose 1 TAB; Start 12/02/16 at 15:30 Acetaminophen/ Hydrocodone Bitart ([place] (5/325)) 2 tab Q6H PRN PO SEVERE PAIN LEVEL 7-10; Start 12/02/16 at 15:30 Morphine Sulfate (morphine) 2 mg Q4H PRN IV SEVERE PAIN LEVEL 7-10; Start at 15:30 Docusate Sodium (Colace) 100 mg Q12H PRN PO CONSTIPATION Last administered on 12/03/16 07:05; Admin Dose 100 MG; Start 12/02/16 at 15:30 Magnesium Hydroxide (Milk Of Mag) 30 ml DAILY PRN PO CONSTIPATION; Start 12/02 at 15:30 Bisacodyl (Dulcolax Supp) 10 mg DAILY PRN [place] CONSTIPATION; Start 12/02/16 at 15:30 Diagnostic Test (Pha) (Accu-Chek) 1 ea 02 XX ; Start 12/03/16 at 02:00 Insulin Glargine (Lantus) 13 unit DAILY@08 SC Last administered on 12/03/16 08:55; Admin Dose 13 UNIT; Start 12/03/16 at 08:00 Hydralazine HCl (Apresoline) 10 mg Q4H PRN IV SBP>160 Last administered on 04:12; Admin Dose 10 MG; Start 12/02/16 at 16:30 Miscellaneous Information 1 ea NOTE XX ; Start 12/02/16 at 16:30 Glucose (Glutose) 15 gm Q15M PRN PO DECREASED GLUCOSE; Start 12/02/16 at 16:30 Glucose (Glutose) 22.5 gm Q15M PRN PO DECREASED GLUCOSE; Start 12/02/16 at 16: 30 Dextrose (D50w Syringe) 25 ml Q15M PRN IV DECREASED GLUCOSE; Start 12/02/16 at 16:30 Dextrose (D50w Syringe) 50 ml Q15M PRN IV DECREASED GLUCOSE; Start 12/02/16 at 16:30 Glucagon (Glucagen) 1 mg Q15M PRN IM DECREASED GLUCOSE; Start 12/02/16 at 16: 30 Glucose (Glutose) 15 gm Q15M PRN BUCCAL DECREASED GLUCOSE; Start 12/02/16 at 16:30 Influenza Virus Vaccine (Fluzone) 0.5 ml ONCE ONCE IM* ; Start 12/03/16 at 14: 00; Stop 12/03/16 at 14:01 Nifedipine (Procardia Xl) 60 mg QHS PO Last administered on 12/02/16t 20:18; Admin Dose 60 MG; Start 12/02/16 at 21:00 Lorazepam (Ativan) 1 mg Q3H PRN IV AGITATION/ANXIETY; Start 12/02/16 at 23:00 Polyethylene Glycol (Miralax) 17 gm DAILY PRN PO CONSTIPATION; Start 12/03/16 at 11:30; Status UNV Assessment/Plan Chief Complaint/Hosp Course Assessment 1. Anemia questionable GI bleed. Patient has had recent colonoscopy and endoscopy. Currently being followed by GI. 2. End-stage renal failure on hemodialysis 3. Dyspnea rule out ACS. Plan 1. Monitor H&H post transfusion no GI interventions pending at this point in time. 2. Hemodialysis pending 3. Cardiac recommendations Despite discharge tomorrow. Problems: BELINDA LEAL MD, [facility] Dec 03, 2016 11:39
[2016-12-03] MEDS ORDERED: REGADENOSON 0.4 MG/5 ML SYG ONE (11:53)
--- NOTE | 2016-12-03 12:58 | CONS ---
Date/Time of Note Date/Time of Note DATE: 12/03/16 TIME: 12:50 Assessment/Plan Assessment/Plan Chief Complaint/Hosp Course IMPRESSION: 1. Dyspnea on exertion. Assess for acute coronary syndrome.-negative trop x 3 2. Chest pain per report. Assess for acute coronary syndrome. 3. Diastolic dysfunction by most recent echo, 04/05/2016 revealing preserved ejection fraction. 4. Abnormal electrocardiogram, assess for acute coronary syndrome. 5. Anemia, severe. 6. End-stage renal disease on hemodialysis. 7. Dyslipidemia. 8. Diabetes mellitus. Recc: -Tele -resume procardia BID and f/u BP -Continue benazepril -Continue asa -Contnue lopid -Lexiscan stress test today Problems: Consultation Date/Type/Reason Admit Date/Time Dec 02, 2016 at 13:09 Initial Consult Date 12/02/16 Type of Consultation: cardiology Reason for Consultation chest pain Referring Provider: RAJAN STAHL Exam/Review of Systems Vital Signs Vitals Vital Signs Date Time Temp Pulse Resp B/P Pulse Ox O2 Delivery O2 Flow Rate FiO2 12/03/16 12:20 63 12/03/16 07:16 97.8 18 114/54 100 12/02/16 14:25 Room Air Intake and Output 12/02/16 12/02/16 12/03/16 15:00 23:00 07:00 Intake Total 1000 ml 620 ml Output Total 4000 ml Balance -3000 ml 620 ml Exam Review of Systems: CONSTITUTIONAL: No fevers, chills. PULMONARY: No sob CARDIOVASCULAR: No chest pain/palpitations GASTROINTESTINAL: No nausea/vomiting. GENITOURINARY: No hematuria/dysuria. MUSCULOSKELETAL: No myagias/arthalgias. PSYCHIATRIC: The patient denies depression. NEUROLOGIC: No weakness Constitutional: alert, oriented Psych: no complaints Head: normocephalic ENMT: mucosa pink and moist Neck: jvd (9 cm water), supple Respiratory: clear to auscultation Cardiovascular: regular rate and rhythm Gastrointestinal: non-tender, soft Musculoskeletal: muscle tone (normal) Extremities: other (No focal deficits) Results Result Diagram: 12/03/16 0735 12/03/16 0735 Results 24 hrs Laboratory Tests Test 12/02/16 16:37 12/02/16 16:59 12/02/16 20:26 12/02/16 22:22 Hemoglobin 6.9 *L Hematocrit 20.2 L Creatine Kinase 89 102 Creatine Kinase Index 1.4 1.3 Creatinine Kinase MB (Mass) 1.25 1.28 Troponin I 0.023 0.039 Bedside Glucose 114 147 Test 12/02/16 22:34 12/03/16 07:35 12/03/16 08:31 Bedside Glucose 141 120 White Blood Count 6.5 Red Blood Count 2.88 L Hemoglobin 8.5 #L Hematocrit 26.5 #L Mean Corpuscular Volume 92.0 Mean Corpuscular Hemoglobin 29.5 Mean Corpuscular Hemoglobin Concent 32.1 Red Cell Distribution Width 13.9 Platelet Count 156 Mean Platelet Volume 12.4 H Neutrophils % 66.9 Lymphocytes % 15.9 Monocytes % 10.7 Eosinophils % 4.8 Basophils % 1.4 Nucleated Red Blood Cells % 0.0 Neutrophils # 4.3 Lymphocytes # 1.0 Monocytes # 0.7 Eosinophils # 0.3 Basophils # 0.1 Nucleated Red Blood Cells # 0.0 Sodium Level 141 Potassium Level 4.6 Chloride Level 101 Carbon Dioxide Level 29 Anion Gap 16 Blood Urea Nitrogen 36 #H Creatinine 8.74 H Glucose Level 114 # Hemoglobin A1c 5.5 Calcium Level 8.8 Phosphorus Level 4.9 Magnesium Level 2.5 Total Bilirubin 0.0 L Direct Bilirubin 0.00 Indirect Bilirubin 0.0 Aspartate Amino Transf (AST/SGOT) 14 L Alanine Aminotransferase (ALT/SGPT) 22 Alkaline Phosphatase 86 Total Protein 6.9 Albumin 3.9 Globulin 3.00 Albumin/Globulin Ratio 1.30 Triglycerides Level 234 H Cholesterol Level 148 LDL Cholesterol, Calculated 77 HDL Cholesterol 24 L Cholesterol/HDL Ratio 6.1 Thyroid Stimulating Hormone (TSH) 1.790 Free Thyroxine Index 2.13 Thyroxine (T4) 5.7 Triiodothyronine (T3) Uptake 37.3 Medications Medications Current Medications Allopurinol (Zyloprim) 100 mg DAILY PO Last administered on 12/03/16 08:57; Admin Dose 100 MG; Start 12/03/16 at 09:00 Aspirin (Halfprin) 81 mg DAILY PO Last administered on 12/03/16 08:57; Admin Dose 81 MG; Start 12/03/16 at 09:00 Benazepril HCl (Lotensin) 40 mg DAILY PO ; Start 12/03/16 at 09:00 Cinacalcet (Sensipar) 30 mg BID PO Last administered on 12/03/16 08:58; Admin Dose 30 MG; Start 12/02/16 at 21:00 Epoetin Eze (Epogen (Esrd)) 6,000 units TuThSa@17 SC Last administered on 17:59; Admin Dose 6,000 UNITS; Start 12/02/16 at 17:00 Gemfibrozil (Lopid) 600 mg BID PO Last administered on 12/03/16 08:57; Admin Dose 600 MG; Start 12/02/16 at 21:00 Loratadine (Claritin) 10 mg DAILY PO Last administered on 12/03/16 08:57; Admin Dose 10 MG; Start 12/03/16 at 09:00 Nitroglycerin (Nitroglycerin (Sl Tab) 0.4 Mg) 1 tab Q5M PRN SL CHEST PAIN; Start 12/02/16 at 15:30 Pantoprazole (Protonix Tab) 40 mg BID@06,18 PO Last administered on 12/03/16 07:05; Admin Dose 40 MG; Start 12/02/16 at 18:00 Ondansetron HCl (Zofran Inj) 4 mg Q6H PRN IV NAUSEA AND/OR VOMITING; Start at 15:30 Acetaminophen (Tylenol Tab) 650 mg Q6H PRN PO PAIN LEVEL 1-3 OR FEVER; Start 12/02/16 at 15:30 Acetaminophen (Tylenol Supp) 650 mg Q6H PRN [place] PAIN LEVEL 1-3 OR FEVER; Start 12/02/16 at 15:30 Acetaminophen/ Hydrocodone Bitart ([place] (5/325)) 1 tab Q6H PRN PO MODERATE PAIN LEVEL 4-6 Last administered on 12/02/16 22:54; Admin Dose 1 TAB; Start 12/02/16 at 15:30 Acetaminophen/ Hydrocodone Bitart ([place] (5/325)) 2 tab Q6H PRN PO SEVERE PAIN LEVEL 7-10; Start 12/02/16 at 15:30 Morphine Sulfate (morphine) 2 mg Q4H PRN IV SEVERE PAIN LEVEL 7-10; Start at 15:30 Docusate Sodium (Colace) 100 mg Q12H PRN PO CONSTIPATION Last administered on 12/03/16 07:05; Admin Dose 100 MG; Start 12/02/16 at 15:30 Magnesium Hydroxide (Milk Of Mag) 30 ml DAILY PRN PO CONSTIPATION; Start 12/02 at 15:30 Bisacodyl (Dulcolax Supp) 10 mg DAILY PRN [place] CONSTIPATION; Start 12/02/16 at 15:30 Diagnostic Test (Pha) (Accu-Chek) 1 ea 02 XX ; Start 12/03/16 at 02:00 Insulin Glargine (Lantus) 13 unit DAILY@08 SC Last administered on 12/03/16 08:55; Admin Dose 13 UNIT; Start 12/03/16 at 08:00 Hydralazine HCl (Apresoline) 10 mg Q4H PRN IV SBP>160 Last administered on 04:12; Admin Dose 10 MG; Start 12/02/16 at 16:30 Miscellaneous Information 1 ea NOTE XX ; Start 12/02/16 at 16:30 Glucose (Glutose) 15 gm Q15M PRN PO DECREASED GLUCOSE; Start 12/02/16 at 16:30 Glucose (Glutose) 22.5 gm Q15M PRN PO DECREASED GLUCOSE; Start 12/02/16 at 16: 30 Dextrose (D50w Syringe) 25 ml Q15M PRN IV DECREASED GLUCOSE; Start 12/02/16 at 16:30 Dextrose (D50w Syringe) 50 ml Q15M PRN IV DECREASED GLUCOSE; Start 12/02/16 at 16:30 Glucagon (Glucagen) 1 mg Q15M PRN IM DECREASED GLUCOSE; Start 12/02/16 at 16: 30 Glucose (Glutose) 15 gm Q15M PRN BUCCAL DECREASED GLUCOSE; Start 12/02/16 at 16:30 Influenza Virus Vaccine (Fluzone) 0.5 ml ONCE ONCE IM* ; Start 12/03/16 at 14: 00; Stop 12/03/16 at 14:01 Nifedipine (Procardia Xl) 60 mg QHS PO Last administered on 12/02/16 20:18; Admin Dose 60 MG; Start 12/02/16 at 21:00 Lorazepam (Ativan) 1 mg Q3H PRN IV AGITATION/ANXIETY; Start 12/02/16 at 23:00 Polyethylene Glycol (Miralax) 17 gm DAILY PRN PO CONSTIPATION; Start 12/03/16 at 11:30 TAE BARAKAT Dec 03, 2016 12:58
--- NOTE | 2016-12-03 13:48 | RADRPT ---
Vent Rate: 60 bpm RR Interval: 0 msec [place] Interval: 154 msec QRS Duration: 100 msec QT Interval: 488 msec QTC Interval: 488 msec P-R-T [place]: 31 - 43 - 64 degrees Normal sinus rhythm Prolonged QT Abnormal ECG Electronically Signed By: Piero Junior [id number]
--- NOTE | 2016-12-03 13:48 | RADRPT ---
Vent Rate: 60 bpm RR Interval: 0 msec [place] Interval: 154 msec QRS Duration: 100 msec QT Interval: 488 msec QTC Interval: 488 msec P-R-T [place]: 31 - 43 - 64 degrees Normal sinus rhythm Prolonged QT Abnormal ECG Electronically Signed By: Piero Junior [id number]
--- NOTE | 2016-12-03 13:48 | RADRPT ---
Vent Rate: 60 bpm RR Interval: 0 msec [place] Interval: 154 msec QRS Duration: 100 msec QT Interval: 488 msec QTC Interval: 488 msec P-R-T [place]: 31 - 43 - 64 degrees Normal sinus rhythm Prolonged QT Abnormal ECG Electronically Signed By: Piero Junior [id number]
--- NOTE | 2016-12-03 13:54 | RADRPT ---
PROCEDURE: Lexiscan myocardial perfusion study CLINICAL INDICATION: 61 -year-old patient complaining of chest pain. TECHNIQUE: Lexiscan 0.4 mg intravenously separate acquisition gated myocardial perfusion SPECT usi ng Tc 99m Myoview proximately 30.0 mCi intravenously at stress and Tc-99m Myoview, proximately 10.0 mCi intravenously at rest was performed using the rest/stress sequence. Poststress Myoview SPECT im ages were obtained in the supine position. COMPARISON: No prior studies. FINDINGS: Perfusion images reveal no evidence of perfusion defects. Lexiscan post stress gated SPECT images demonstrate no wall motion abnormalities. IMPRESSION: 1. No evidence of perfusion defects. 2. No wall motion abnormalities. 3. The left ventricle ejection fraction at stress is 58%. Call report was made to Dr. Paige at 01:52 p.m. on December 03, 2016. RPTAT: HH .Nancy Matthew MD, Date Time Electronically viewed and signed by .Nancy Matthew MD, on 12/03/2016 13:53 .L/
[2016-12-03] MEDS ORDERED: INFLUENZA VIRUS VACCINE 0.5 ML SYG IM* ONE (14:00)
--- NOTE | 2016-12-03 18:45 | CONS ---
Date/Time of Note Date/Time of Note DATE: 12/03/16 TIME: 18:41 Assessment/Plan Assessment/Plan Additional Assessment/Plan 61 yo Male with 1) Chest pain R/o ACS 2) ESRD on HD, TTS 3) Anemia, Chronic, CKD 4) DM with renal complication, ESRD 5) Chronic HTN Cont Maintenance HD TTS schedule S/p HD yesterday Next HD tomorrow am will order GHANSHYAM with HD BP well controlled. Cont current treatment and plan. Consultation Date/Type/Reason Admit Date/Time Dec 02, 2016 at 13:09 Type of Consultation: Renal Reason for Consultation ESRD Referring Provider: CHRISTIANO LAO Hx of Present Illness 1-year-old male with history of end-stage renal disease (Tuesday// Tuesday), CAD, diabetes, status post CABG, anemia, hypertension, as the gastric ulcerations, who came to [facility] with chest pain, Currently without complaints. S/p HD last night without complication. Nephrology consulted for ESRD. Constitutional: No requiring O2 Psychological: no complaints Past Medical History Medical History: coronary artery disease, diabetes, GERD, hypertension Past Surgical History Past Surgical Hx: coronary bypass surgery, other (Fistula left lower arm) Family History Significant Family History: no pertinent family hx Social History Alcohol Use: none Smoking Status: Former smoker Drug Use: none Exam/Review of Systems Vital Signs Vitals Vital Signs Date Time Temp Pulse Resp B/P Pulse Ox O2 Delivery O2 Flow Rate FiO2 12/03/16 17:40 98.6 78 18 136/64 100 12/02/16 14:25 Room Air Intake and Output 12/02/16 12/02/16 12/03/16 15:00 23:00 07:00 Intake Total 1000 ml 620 ml Output Total 4000 ml Balance -3000 ml 620 ml Exam Constitutional: alert, oriented, No distress Psych: No anxiety Head: atraumatic, normocephalic Eyes: EOMI Neck: No jvd Respiratory: clear to auscultation, No diminished breath sounds, No labored breathing Cardiovascular: regular rate and rhythm, No edema Gastrointestinal: non-tender, soft Musculoskeletal: nl extremities to inspection Extremities: No edema Neurological: [employer] TRIM II-XII intact, nl mental status, No lethargic Skin: No diaphoresis Results Result Diagram: 12/03/16 0735 12/03/16 0735 Results 24 hrs Laboratory Tests Test 12/02/16 20:26 12/02/16 22:22 12/02/16 22:34 12/03/16 07:35 Bedside Glucose 147 141 Creatine Kinase 102 Creatine Kinase Index 1.3 Creatinine Kinase MB (Mass) 1.28 Troponin I 0.039 White Blood Count 6.5 Red Blood Count 2.88 L Hemoglobin 8.5 #L Hematocrit 26.5 #L Mean Corpuscular Volume 92.0 Mean Corpuscular Hemoglobin 29.5 Mean Corpuscular Hemoglobin Concent 32.1 Red Cell Distribution Width 13.9 Platelet Count 156 Mean Platelet Volume 12.4 H Neutrophils % 66.9 Lymphocytes % 15.9 Monocytes % 10.7 Eosinophils % 4.8 Basophils % 1.4 Nucleated Red Blood Cells % 0.0 Neutrophils # 4.3 Lymphocytes # 1.0 Monocytes # 0.7 Eosinophils # 0.3 Basophils # 0.1 Nucleated Red Blood Cells # 0.0 Sodium Level 141 Potassium Level 4.6 Chloride Level 101 Carbon Dioxide Level 29 Anion Gap 16 Blood Urea Nitrogen 36 #H Creatinine 8.74 H Glucose Level 114 # Hemoglobin A1c 5.5 Calcium Level 8.8 Phosphorus Level 4.9 Magnesium Level 2.5 Total Bilirubin 0.0 L Direct Bilirubin 0.00 Indirect Bilirubin 0.0 Aspartate Amino Transf (AST/SGOT) 14 L Alanine Aminotransferase (ALT/SGPT) 22 Alkaline Phosphatase 86 Total Protein 6.9 Albumin 3.9 Globulin 3.00 Albumin/Globulin Ratio 1.30 Triglycerides Level 234 H Cholesterol Level 148 LDL Cholesterol, Calculated 77 HDL Cholesterol 24 L Cholesterol/HDL Ratio 6.1 Thyroid Stimulating Hormone (TSH) 1.790 Free Thyroxine Index 2.13 Thyroxine (T4) 5.7 Triiodothyronine (T3) Uptake 37.3 Test 12/03/16 08:31 12/03/16 13:40 12/03/16 17:47 Bedside Glucose 120 90 106 Medications Medications Current Medications Allopurinol (Zyloprim) 100 mg DAILY PO Last administered on 12/03/16 08:57; Admin Dose 100 MG; Start 12/03/16 at 09:00 Aspirin (Halfprin) 81 mg DAILY PO Last administered on 12/03/16 08:57; Admin Dose 81 MG; Start 12/03/16 at 09:00 Benazepril HCl (Lotensin) 40 mg DAILY PO ; Start 12/03/16 at 09:00 Cinacalcet (Sensipar) 30 mg BID PO Last administered on 12/03/16 08:58; Admin Dose 30 MG; Start 12/02/16 at 21:00 Epoetin Eze (Epogen (Esrd)) 6,000 units TuThSa@17 SC Last administered on 17:59; Admin Dose 6,000 UNITS; Start 12/02/16 at 17:00 Gemfibrozil (Lopid) 600 mg BID PO Last administered on 12/03/16 08:57; Admin Dose 600 MG; Start 12/02/16 at 21:00 Loratadine (Claritin) 10 mg DAILY PO Last administered on 12/03/16 08:57; Admin Dose 10 MG; Start 12/03/16 at 09:00 Nitroglycerin (Nitroglycerin (Sl Tab) 0.4 Mg) 1 tab Q5M PRN SL CHEST PAIN; Start 12/02/16 at 15:30 Pantoprazole (Protonix Tab) 40 mg BID@,18 PO Last administered on 12/03/16 17:48; Admin Dose 40 MG; Start 12/02/16 at 18:00 Ondansetron HCl (Zofran Inj) 4 mg Q6H PRN IV NAUSEA AND/OR VOMITING; Start at 15:30 Acetaminophen (Tylenol Tab) 650 mg Q6H PRN PO PAIN LEVEL 1-3 OR FEVER; Start 12/02/16 at 15:30 Acetaminophen (Tylenol Supp) 650 mg Q6H PRN [place] PAIN LEVEL 1-3 OR FEVER; Start 12/02/16 at 15:30 Acetaminophen/ Hydrocodone Bitart ([place] (5/325)) 1 tab Q6H PRN PO MODERATE PAIN LEVEL 4-6 Last administered on 12/02/16 22:54; Admin Dose 1 TAB; Start 12/02/16 at 15:30 Acetaminophen/ Hydrocodone Bitart ([place] (5/325)) 2 tab Q6H PRN PO SEVERE PAIN LEVEL 7-10; Start 12/02/16 at 15:30 Morphine Sulfate (morphine) 2 mg Q4H PRN IV SEVERE PAIN LEVEL 7-10; Start at 15:30 Docusate Sodium (Colace) 100 mg Q12H PRN PO CONSTIPATION Last administered on 12/03/16 07:05; Admin Dose 100 MG; Start 12/02/16 at 15:30 Magnesium Hydroxide (Milk Of Mag) 30 ml DAILY PRN PO CONSTIPATION; Start 12/02 at 15:30 Bisacodyl (Dulcolax Supp) 10 mg DAILY PRN [place] CONSTIPATION; Start 12/02/16 at 15:30 Diagnostic Test (Pha) (Accu-Chek) 1 ea 02 XX ; Start 12/03/16 at 02:00 Insulin Glargine (Lantus) 13 unit DAILY@08 SC Last administered on 12/03/16 08:55; Admin Dose 13 UNIT; Start 12/03/16 at 08:00 Hydralazine HCl (Apresoline) 10 mg Q4H PRN IV SBP>160 Last administered on 04:12; Admin Dose 10 MG; Start 12/02/16 at 16:30 Miscellaneous Information 1 ea NOTE XX ; Start 12/02/16 at 16:30 Glucose (Glutose) 15 gm Q15M PRN PO DECREASED GLUCOSE; Start 12/02/16 at 16:30 Glucose (Glutose) 22.5 gm Q15M PRN PO DECREASED GLUCOSE; Start 12/02/16 at 16: 30 Dextrose (D50w Syringe) 25 ml Q15M PRN IV DECREASED GLUCOSE; Start 12/02/16 at 16:30 Dextrose (D50w Syringe) 50 ml Q15M PRN IV DECREASED GLUCOSE; Start 12/02/16 at 16:30 Glucagon (Glucagen) 1 mg Q15M PRN IM DECREASED GLUCOSE; Start 12/02/16 at 16: 30 Glucose (Glutose) 15 gm Q15M PRN BUCCAL DECREASED GLUCOSE; Start 12/02/16 at 16:30 Nifedipine (Procardia Xl) 60 mg QHS PO Last administered on 12/02/16 20:18; Admin Dose 60 MG; Start 12/02/16 at 21:00 Lorazepam (Ativan) 1 mg Q3H PRN IV AGITATION/ANXIETY; Start 12/02/16 at 23:00 Polyethylene Glycol (Miralax) 17 gm DAILY PRN PO CONSTIPATION; Start 12/03/16 at 11:30 RAPHAEL WINTERS MD Dec 03, 2016 18:45
[2016-12-03] MEDS: NIFEdipine (XL) 60 MG TAB PO SCH (21:38)
[2016-12-04] VITALS (20 sets, daily range): BP systolic 105–166; BP diastolic 56–73; PULSE 60–70; RESP 16–18
--- NOTE | 2016-12-04 01:26 | CARRPT ---
DATE OF PROCEDURE: 12/03/2016 TYPE OF PROCEDURE: Lexiscan Cardiolite stress test, electrocardiogram portion. INDICATION: Chest pain, assess for ischemia. BASELINE VITAL SIGNS AND ELECTROCARDIOGRAM: Pulse 64, blood pressure 150/70. Electrocardiogram rev eals normal sinus rhythm, rate of 64, normal axis, normal intervals, lateral T-wave inversions. PROCEDURE: The patient underwent standard Lexiscan infusion protocol over 10 seconds followed by ra diolabeled tracer. The patient's test was stopped due to completion of protocol. Maximal achieved blood pressure during the test 123/59. Maximum heart rate during the test 77. ELECTROCARDIOGRAM FINDINGS: The patient did not develop any new Lexiscan-induced ST or T-wave sr es from baseline abnormalities. No documented PVCs. SYMPTOMS: The patient had complaints of shortness of breath during stress test that resolved in rec overy. No chest pain. IMPRESSION: 1. No Lexiscan-induced ST or T-wave changes from baseline abnormalities that are diagnostic for car diac ischemia. 2. Complaints of shortness of breath during stress test that resolved in recovery. 3. No complaints of chest pain. 4. No documented premature ventricular contractions during stress. 5. Report of nuclear images to follow in separate dictation. Dictated By: TAE LANDAVERDE/FATOU Conf#: [id number] DID#: [id number] CC: RAJAN STAHL;*EndCC*
[2016-12-04] MEDS: ACCU-CHEK XX SCH (02:00)
[2016-12-04] MEDS: PANTOPRAZOLE (EC) 40 MG TAB PO SCH ×2 (05:41→17:33)
[2016-12-04] MEDS: INSULIN ASPART [NOVOLOG] 3 ML PEN SC SCH ×6 (07:55→17:32)
[2016-12-04] MEDS: ASPIRIN (EC) 81 MG TAB PO SCH (08:47)
[2016-12-04] MEDS: GEMFIBROZIL 600 MG TAB PO SCH (08:47)
[2016-12-04] MEDS: CINACALCET 30 MG TAB PO SCH (08:47)
[2016-12-04] MEDS: ALLOPURINOL 100 MG TAB PO SCH (08:47)
[2016-12-04] MEDS: BENAZEPRIL 20 MG TAB PO SCH (08:47)
[2016-12-04] MEDS: LORATADINE 10 MG TAB PO SCH (08:47)
[2016-12-04] MEDS: INSULIN GLARGINE [LANtus] 3 ML PEN SC SCH (08:51)
--- NOTE | 2016-12-04 10:53 | PN ---
Date/Time of Note Date/Time of Note DATE: 12/04/16 TIME: 10:52 Assessment/Plan VTE Prophylaxis VTE Prophylaxis Intervention: other Assessment/Plan Assessment/Plan 1) Chest pain R/o ACS 2) ESRD on HD, TTS 3) Anemia, Chronic, CKD 4) DM with renal complication, ESRD 5) Chronic HTN [id number] no cp hd per plan Exam/Review of Systems Vital Signs Vitals Vital Signs Date Time Temp Pulse Resp B/P Pulse Ox O2 Delivery O2 Flow Rate FiO2 12/04/16 08:26 67 12/04/16 07:59 98.0 18 120/56 98 12/02/16 14:25 Room Air Intake and Output 12/03/16 12/03/16 12/04/16 15:00 23:00 07:00 Intake Total 420 ml 300 ml Balance 420 ml 300 ml Exam Constitutional: alert, oriented Psych: no complaints Head: normocephalic Eyes: nl conjunctiva ENMT: nl external ears & nose Neck: supple Respiratory: clear to auscultation Cardiovascular: regular rate and rhythm Gastrointestinal: soft Musculoskeletal: nl extremities to inspection Results Result Diagram: 12/04/16 0619 12/04/16 0619 Results 24 hrs Laboratory Tests Test 12/03/16 13:40 12/03/16 17:47 12/03/16 21:39 12/04/16 05:22 Bedside Glucose 90 106 129 Lab Scanned Report BLOOD TRANSFUSION Test 12/04/16 06:19 12/04/16 08:08 White Blood Count 7.2 Red Blood Count 2.95 L Hemoglobin 8.8 L Hematocrit 27.1 L Mean Corpuscular Volume 91.9 Mean Corpuscular Hemoglobin 29.8 Mean Corpuscular Hemoglobin Concent 32.5 Red Cell Distribution Width 14.0 Platelet Count 177 Mean Platelet Volume 12.2 H Neutrophils % 70.0 Lymphocytes % 14.3 L Monocytes % 10.0 Eosinophils % 4.0 Basophils % 1.3 Nucleated Red Blood Cells % 0.0 Neutrophils # 5.0 Lymphocytes # 1.0 Monocytes # 0.7 Eosinophils # 0.3 Basophils # 0.1 Nucleated Red Blood Cells # 0.0 Prothrombin Time 13.8 Prothrombin Time Ratio 1.1 INR International Normalized Ratio 1.06 Activated Partial Thromboplast Time 28.6 Thrombin Time 15.9 Sodium Level 140 Potassium Level 5.0 Chloride Level 97 Carbon Dioxide Level 26 Anion Gap 22 H Blood Urea Nitrogen 48 #H Creatinine 11.09 #H Glucose Level 99 Calcium Level 8.3 L Phosphorus Level 5.2 H Magnesium Level 2.9 H Bedside Glucose 89 Medications Medications Current Medications Allopurinol (Zyloprim) 100 mg DAILY PO Last administered on 12/04/16 08:47; Admin Dose 100 MG; Start 12/03/16 at 09:00 Aspirin (Halfprin) 81 mg DAILY PO Last administered on 12/04/16 08:47; Admin Dose 81 MG; Start 12/03/16 at 09:00 Benazepril HCl (Lotensin) 40 mg DAILY PO Last administered on 12/04/16 08:47 ; Admin Dose 40 MG; Start 12/03/16 at 09:00 Cinacalcet (Sensipar) 30 mg BID PO Last administered on 12/04/16 08:47; Admin Dose 30 MG; Start 12/02/16 at 21:00 Epoetin Eze (Epogen (Esrd)) 6,000 units TuThSa@17 SC Last administered on 17:59; Admin Dose 6,000 UNITS; Start 12/02/16 at 17:00 Gemfibrozil (Lopid) 600 mg BID PO Last administered on 12/04/16 08:47; Admin Dose 600 MG; Start 12/02/16 at 21:00 Loratadine (Claritin) 10 mg DAILY PO Last administered on 12/04/16 08:47; Admin Dose 10 MG; Start 12/03/16 at 09:00 Nitroglycerin (Nitroglycerin (Sl Tab) 0.4 Mg) 1 tab Q5M PRN SL CHEST PAIN; Start 12/02/16 at 15:30 Pantoprazole (Protonix Tab) 40 mg BID@06,18 PO Last administered on 12/04/16 05:41; Admin Dose 40 MG; Start 12/02/16 at 18:00 Ondansetron HCl (Zofran Inj) 4 mg Q6H PRN IV NAUSEA AND/OR VOMITING; Start at 15:30 Acetaminophen (Tylenol Tab) 650 mg Q6H PRN PO PAIN LEVEL 1-3 OR FEVER; Start 12/02/16 at 15:30 Acetaminophen (Tylenol Supp) 650 mg Q6H PRN [place] PAIN LEVEL 1-3 OR FEVER; Start 12/02/16 at 15:30 Acetaminophen/ Hydrocodone Bitart ([place] (5/325)) 1 tab Q6H PRN PO MODERATE PAIN LEVEL 4-6 Last administered on 12/02/16 22:54; Admin Dose 1 TAB; Start 12/02/16 at 15:30 Acetaminophen/ Hydrocodone Bitart ([place] (5/325)) 2 tab Q6H PRN PO SEVERE PAIN LEVEL 7-10; Start 12/02/16 at 15:30 Morphine Sulfate (morphine) 2 mg Q4H PRN IV SEVERE PAIN LEVEL 7-10; Start at 15:30 Docusate Sodium (Colace) 100 mg Q12H PRN PO CONSTIPATION Last administered on 12/03/16 07:05; Admin Dose 100 MG; Start 12/02/16 at 15:30 Magnesium Hydroxide (Milk Of Mag) 30 ml DAILY PRN PO CONSTIPATION; Start 12/02 at 15:30 Bisacodyl (Dulcolax Supp) 10 mg DAILY PRN [place] CONSTIPATION; Start 12/02/16 at 15:30 Diagnostic Test (Pha) (Accu-Chek) 1 ea 02 XX ; Start 12/03/16 at 02:00 Insulin Glargine (Lantus) 13 unit DAILY@08 SC Last administered on 12/04/16 08:51; Admin Dose 13 UNIT; Start 12/03/16 at 08:00 Hydralazine HCl (Apresoline) 10 mg Q4H PRN IV SBP>160 Last administered on 04:12; Admin Dose 10 MG; Start 12/02/16 at 16:30 Miscellaneous Information 1 ea NOTE XX ; Start 12/02/16 at 16:30 Glucose (Glutose) 15 gm Q15M PRN PO DECREASED GLUCOSE; Start 12/02/16 at 16:30 Glucose (Glutose) 22.5 gm Q15M PRN PO DECREASED GLUCOSE; Start 12/02/16 at 16: 30 Dextrose (D50w Syringe) 25 ml Q15M PRN IV DECREASED GLUCOSE; Start 12/02/16 at 16:30 Dextrose (D50w Syringe) 50 ml Q15M PRN IV DECREASED GLUCOSE; Start 12/02/16 at 16:30 Glucagon (Glucagen) 1 mg Q15M PRN IM DECREASED GLUCOSE; Start 12/02/16 at 16: 30 Glucose (Glutose) 15 gm Q15M PRN BUCCAL DECREASED GLUCOSE; Start 12/02/16 at 16:30 Nifedipine (Procardia Xl) 60 mg QHS PO Last administered on 12/03/16t 21:38; Admin Dose 60 MG; Start 12/02/16 at 21:00 Lorazepam (Ativan) 1 mg Q3H PRN IV AGITATION/ANXIETY; Start 12/02/16 at 23:00 Polyethylene Glycol (Miralax) 17 gm DAILY PRN PO CONSTIPATION; Start 12/03/16 at 11:30 MARIA TERESA UGALDE MD Dec 04, 2016 10:53
[2016-12-04] MEDS ORDERED: PANT40TA4 PO (11:44)
--- NOTE | 2016-12-04 11:45 | PDOCDIS ---
Discharge Instructions DIAGNOSIS Discharge Diagnosis 1. Chest pain. 2. Anemia. 3. Diabetes. 4. End-stage renal disease. 5. History of CAD. CONDITION Patient Condition: Stable HOME CARE INSTRUCTIONS: Diet Instructions: Low Fat /CholesterolSpecial Diet: carbohydrate controlled FOLLOW UP/APPOINTMENTS Follow-up Plan 1. Follow up with Dr. Olson in one week. 2. Follow up with your dialysis center for your regular scheduled dialysis 3. Follow up with Dr. Paige in one week CHRISTIANO LAO Dec 04, 2016 11:45
--- NOTE | 2016-12-04 14:56 | PN ---
Date/Time of Note Date/Time of Note DATE: 12/04/16 TIME: 14:54 Assessment/Plan VTE Prophylaxis VTE Prophylaxis Intervention: ambulation, SCD's Assessment/Plan Chief Complaint/Hosp Course Assessment: Anemia-likely due to chronic disease End-stage renal disease Chest Pain History of CAD Plan: Stool for OB- was not able to send in Hgb remains stable No over signs of GI bleed EGD/Colonoscopy not warranted at this time Ok to d/c from GI point of view Patient seen in collaboration with Subjective: Course reviewed with nursing staff Patient interviewed and examined All labs, imaging and other results reviewed The patient doing well, no c/o hematemesis, or rectal bleeding bm x1 stated brown in color denies melena or rectal bleed. Anemia stable Ok to d/c from GI point of view PHYSICAL EXAMINATION: GENERAL: Well developed, well nourished, alert & oriented x 3, in no acute distress SKIN: No lesions, no stigmata chronic liver disease, no evidence of bleeding diathesis, midline scar, left lower arm fistula LYMPHATIC: No palpable lymphadenopathy. HEAD: Normocephalic, atraumatic, no tenderness. EYES: Pupils equal reactive to light and accommodation, full extraocular movements, sclera clear, non-icteric, no discharge. EARS/NOSE AND THROAT: Ears normal, nose normal, oropharynx normal, oral membranes well hydrated without lesions. NECK: Supple, no masses, thyroid normal, JVP within normal limits, carotids normal without bruits. CHEST: Inspection within normal limits. CARDIOVASCULAR: Heart: Regular rate and rhythm, no murmurs, gallops or rubs. Peripheral pulses present within normal limits, no cyanosis, clubbing or edemas. No pulsatile abdominal mass RESPIRATORY: Lungs clear to auscultation and percussion, no wheezing, no rubs GASTROINTESTINAL AND LIVER: Abdomen: Soft, non tenderness, non-distended, no hernias, no masses, no organomegaly, no ascites, no guarding, no rebound tenderness, normoactive bowel sounds. Rectal: Deferred. GENITOURINARY: Male genitalia within normal limits. EXTREMITIES: No cyanosis, clubbing or edema. Problems: Exam/Review of Systems Vital Signs Vitals Vital Signs Date Time Temp Pulse Resp B/P Pulse Ox O2 Delivery O2 Flow Rate FiO2 12/04/16 12:35 98.0 65 18 121/57 98 10/26/17 14:25 Room Air Intake and Output 12/03/16 12/03/16 12/04/16 15:00 23:00 07:00 Intake Total 420 ml 300 ml Balance 420 ml 300 ml Results Result Diagram: 12/04/16 0619 12/04/16 0619 Results 24 hrs Laboratory Tests Test 12/03/16 17:47 12/03/16 21:39 12/04/16 05:22 12/04/16 06:19 Bedside Glucose 106 129 Lab Scanned Report BLOOD TRANSFUSION White Blood Count 7.2 Red Blood Count 2.95 L Hemoglobin 8.8 L Hematocrit 27.1 L Mean Corpuscular Volume 91.9 Mean Corpuscular Hemoglobin 29.8 Mean Corpuscular Hemoglobin Concent 32.5 Red Cell Distribution Width 14.0 Platelet Count 177 Mean Platelet Volume 12.2 H Neutrophils % 70.0 Lymphocytes % 14.3 L Monocytes % 10.0 Eosinophils % 4.0 Basophils % 1.3 Nucleated Red Blood Cells % 0.0 Neutrophils # 5.0 Lymphocytes # 1.0 Monocytes # 0.7 Eosinophils # 0.3 Basophils # 0.1 Nucleated Red Blood Cells # 0.0 Prothrombin Time 13.8 Prothrombin Time Ratio 1.1 INR International Normalized Ratio 1.06 Activated Partial Thromboplast Time 28.6 Thrombin Time 15.9 Sodium Level 140 Potassium Level 5.0 Chloride Level 97 Carbon Dioxide Level 26 Anion Gap 22 H Blood Urea Nitrogen 48 #H Creatinine 11.09 #H Glucose Level 99 Calcium Level 8.3 L Phosphorus Level 5.2 H Magnesium Level 2.9 H Test 12/04/16 08:08 12/04/16 12:12 Bedside Glucose 89 106 Medications Medications Current Medications Allopurinol (Zyloprim) 100 mg DAILY PO Last administered on 12/04/16 08:47; Admin Dose 100 MG; Start 12/03/16 at 09:00 Aspirin (Halfprin) 81 mg DAILY PO Last administered on 12/04/16 08:47; Admin Dose 81 MG; Start 12/03/16 at 09:00 Benazepril HCl (Lotensin) 40 mg DAILY PO Last administered on 12/04/16 08:47 ; Admin Dose 40 MG; Start 12/03/16 at 09:00 Cinacalcet (Sensipar) 30 mg BID PO Last administered on 12/04/16 08:47; Admin Dose 30 MG; Start 12/02/16 at 21:00 Epoetin Eze (Epogen (Esrd)) 6,000 units TuThSa@17 SC Last administered on 17:59; Admin Dose 6,000 UNITS; Start 12/02/16 at 17:00 Gemfibrozil (Lopid) 600 mg BID PO Last administered on 12/04/16 08:47; Admin Dose 600 MG; Start 12/02/16 at 21:00 Loratadine (Claritin) 10 mg DAILY PO Last administered on 12/04/16 08:47; Admin Dose 10 MG; Start 12/03/16 at 09:00 Nitroglycerin (Nitroglycerin (Sl Tab) 0.4 Mg) 1 tab Q5M PRN SL CHEST PAIN; Start 12/02/16 at 15:30 Pantoprazole (Protonix Tab) 40 mg BID@06,18 PO Last administered on 12/04/16 05:41; Admin Dose 40 MG; Start 12/02/16 at 18:00 Ondansetron HCl (Zofran Inj) 4 mg Q6H PRN IV NAUSEA AND/OR VOMITING; Start at 15:30 Acetaminophen (Tylenol Tab) 650 mg Q6H PRN PO PAIN LEVEL 1-3 OR FEVER; Start 12/02/16 at 15:30 Acetaminophen (Tylenol Supp) 650 mg Q6H PRN ND PAIN LEVEL 1-3 OR FEVER; Start 12/02/16 at 15:30 Acetaminophen/ Hydrocodone Bitart ([place] (5/325)) 1 tab Q6H PRN PO MODERATE PAIN LEVEL 4-6 Last administered on 12/02/16 22:54; Admin Dose 1 TAB; Start 12/02/16 at 15:30 Acetaminophen/ Hydrocodone Bitart ([place] (5/325)) 2 tab Q6H PRN PO SEVERE PAIN LEVEL 7-10; Start 12/02/16 at 15:30 Morphine Sulfate (morphine) 2 mg Q4H PRN IV SEVERE PAIN LEVEL 7-10; Start at 15:30 Docusate Sodium (Colace) 100 mg Q12H PRN PO CONSTIPATION Last administered on 12/03/16 07:05; Admin Dose 100 MG; Start 12/02/16 at 15:30 Magnesium Hydroxide (Milk Of Mag) 30 ml DAILY PRN PO CONSTIPATION; Start 12/02 at 15:30 Bisacodyl (Dulcolax Supp) 10 mg DAILY PRN ND CONSTIPATION; Start 12/02/16 at 15:30 Diagnostic Test (Pha) (Accu-Chek) 1 ea 02 XX ; Start 12/03/16 at 02:00 Insulin Glargine (Lantus) 13 unit DAILY@08 SC Last administered on 12/04/16 08:51; Admin Dose 13 UNIT; Start 12/03/16 at 08:00 Hydralazine HCl (Apresoline) 10 mg Q4H PRN IV SBP>160 Last administered on 04:12; Admin Dose 10 MG; Start 12/02/16 at 16:30 Miscellaneous Information 1 ea NOTE XX ; Start 12/02/16 at 16:30 Glucose (Glutose) 15 gm Q15M PRN PO DECREASED GLUCOSE; Start 12/02/16 at 16:30 Glucose (Glutose) 22.5 gm Q15M PRN PO DECREASED GLUCOSE; Start 12/02/16 at 16: 30 Dextrose (D50w Syringe) 25 ml Q15M PRN IV DECREASED GLUCOSE; Start 12/02/16 at 16:30 Dextrose (D50w Syringe) 50 ml Q15M PRN IV DECREASED GLUCOSE; Start 12/02/16 at 16:30 Glucagon (Glucagen) 1 mg Q15M PRN IM DECREASED GLUCOSE; Start 12/02/16 at 16: 30 Glucose (Glutose) 15 gm Q15M PRN BUCCAL DECREASED GLUCOSE; Start 12/02/16 at 16:30 Nifedipine (Procardia Xl) 60 mg QHS PO Last administered on 12/03/16 21:38; Admin Dose 60 MG; Start 12/02/16 at 21:00 Lorazepam (Ativan) 1 mg Q3H PRN IV AGITATION/ANXIETY; Start 12/02/16 at 23:00 Polyethylene Glycol (Miralax) 17 gm DAILY PRN PO CONSTIPATION; Start 12/03/16 at 11:30 UVALDO HART Dec 04, 2016 14:56
[2016-12-04] MEDS: EPOETIN 3000 UNITS/1 ML INJ (ESRD) SC SCH (19:28)
--- NOTE | 2016-12-11 14:33 | DS ---
Date/Time of Note Date/Time of Note DATE: 12/11/16 TIME: 14:25 Discharge Summary Admission/Discharge Info Admit Date/Time Dec 02, 2016 at 13:09 Discharge Date/Time Dec 04, 2016 at 20:22 Discharge Diagnosis 1. Chest pain. 2. Anemia. 3. Diabetes. 4. End-stage renal disease. 5. History of CAD. Patient Condition: Stable Consults 1. Dr. Pancho Luevano 2. Dr. Ramírez Lopez 3. Dr. Ford Paige 4. Dr. Eyad Olson Hx of Present Illness This is a 61-year-old male with history of end-stage renal disease (receives dialysis on Tuesday//Tuesday), CAD, diabetes, status post CABG, anemia , hypertension, as the gastric ulcerations, who came to [facility] due to reports of increased weakness. Patient did report that he had been having some chest pain with associated shortness of breath with on exertion at around 10 AM this morning. He reportedly took a nitro pill that relieves his chest pain. Given that was recently discharged from [facility] on November 07, 2016 for similar issues. On examination he was noted to be anemic again with hemoglobin of 7.3 and hematocrit of 22.1. Of note his previous one was noted at 11.5 hemoglobin and 34.5 hematocrit prior to this admission. Initial troponin was negative. X-ray of his chest did show no acute cardiopulmonary process and stable cardiomegaly. He remained afebrile. Denies any sick contacts. Also noted with incisional disease. We will evaluate him for the aformentiond issues. Hospital Course This is a 61-year-old male with history of end-stage renal disease who receives dialysis on Tuesday//Tuesday, CAD, diabetes, status post CABG, anemia, hypertension, gastric ulcerations, came to [facility] due to reports of increased weakness. Patient reportedly had been having some chest pain with associated shortness of breath on exertion around 10 AM on the morning of admission. He reportedly took an extra pill that would lead to chest pain. Of note he was recently at [facility] in November 07 for similar issues. He was again noted to be anemic with hemoglobin of 7.3 and hematocrit of 20.1. He had an x-ray of the chest that showed no acute cardiopulmonary process. He denies any sick contacts. He did get hooker operator to see him for possible GI bleed. Patient was also seen by papier mache molder for his chest pain and reported cardiac history. Of note he had a recent colonoscopy and endoscopy and likely is anemia was from his CKD. Did rule him out for ACS. Serial troponins were negative and he did have a stress test that showed no ST-T wave changes from baseline that are diagnostic for cardiac ischemia. After reviewed by hooker operator no further endoscopy or colonoscopy was needed at this time. Anemia was likely due to chronic disease. He was transfused blood products with good response. He was also seen by dietary supervisor for his incisional disease and placed on dialysis. The plan of care was discussed with the patient and patient did verbalize understanding. On the day of discharge patient was in stable condition Discussed plan of care with Dr. Stahl [facility] Active Scripts Pantoprazole* (Pantoprazole*) 40 Mg Tablet.dr, 40 MG PO BID, #30 3 Refills Prov:CHRISTIANO LAO 12/04/16 Nitroglycerin* (Nitrostat*) 0.4 Mg Tab.subl, 1 TAB SL Q5M Y for CHEST PAIN, #10 Prov:RAJAN STAHL S. 11/07/16 Nifedipine (Procardia Xl) 30 Mg Tab.er.24, 30 MG PO QHS, #30 TAB 2 Refills Prov:RAJAN STAHL S. 11/07/16 Nifedipine (Afeditab CR) 60 Mg Tablet.sa, 60 MG PO DAILY, #30 2 Refills Prov:RAJAN STAHL S. 11/07/16 Benazepril Hcl* (Benazepril Hcl*) 20 Mg Tablet, 40 MG PO DAILY for 7 Days, #7 TAB Prov:MELISSA HADDAD MD 07/20/16 Epoetin vick* (Epogen*) 3,000 Unit/1 Ml Vial, 6000 UNITS SC [facility]@17 for 30 Days, VIAL 2 Refills Prov:RAJAN STAHL S. 03/23/16 Reported Medications Acetaminophen* (Acetaminophen*) 500 MG Extra Strength Tablet, 500 MG PO Q4H Y for PAIN AND OR ELEVATED TEMP, TAB 07/16/16 Loratadine* (Loratadine*) 10 Mg Tablet, 10 MG PO DAILY, #30 TAB 03/16/16 Aspirin* (Aspirin* EC) 81 Mg Tablet., 81 MG PO DAILY, TAB 03/16/16 Fenofibrate Nanocrystallized* (Fenofibrate*) 145 Mg Tablet, 145 MG PO DAILY, TAB 03/16/16 Cinacalcet* (Sensipar*) 30 Mg Tab, 30 MG PO BID, TAB 03/16/16 Gemfibrozil* (Gemfibrozil*) 600 Mg Tablet, 600 MG PO BID, TAB 03/16/16 Allopurinol* (Allopurinol*) 100 Mg Tablet, 100 MG PO DAILY, TAB 03/16/16 Insulin Human Nph (Novolin-N) 100 Units/Ml Susp, 2 UNITS SQ TID 03/16/16 Follow-up Plan 1. Follow up with Dr. Olson in one week. 2. Follow up with your dialysis center for your regular scheduled dialysis 3. Follow up with Dr. Paige in one week Primary Care Provider Kyle Leonardo MD Time spent on discharge: > 30 minutes CHRISTIANO LAO Dec 11, 2016 14:33
--- NOTE | 2016-12-11 14:33 | DS ---
Date/Time of Note Date/Time of Note DATE: 12/11/16 TIME: 14:25 Discharge Summary Admission/Discharge Info Admit Date/Time Dec 02, 2016 at 13:09 Discharge Date/Time Dec 04, 2016 at 20:22 Discharge Diagnosis 1. Chest pain. 2. Anemia. 3. Diabetes. 4. End-stage renal disease. 5. History of CAD. Patient Condition: Stable Consults 1. Dr. Pancho Leuvano 2. Dr. Ramírez Lopez 3. Dr. Ford Paige 4. Dr. Eyad Olson Hx of Present Illness This is a 61-year-old male with history of end-stage renal disease (receives dialysis on Tuesday//Tuesday), CAD, diabetes, status post CABG, anemia , hypertension, as the gastric ulcerations, who came to [facility] due to reports of increased weakness. Patient did report that he had been having some chest pain with associated shortness of breath with on exertion at around 10 AM this morning. He reportedly took a nitro pill that relieves his chest pain. Given that was recently discharged from [facility] on November 07, 2016 for similar issues. On examination he was noted to be anemic again with hemoglobin of 7.3 and hematocrit of 22.1. Of note his previous one was noted at 11.5 hemoglobin and 34.5 hematocrit prior to this admission. Initial troponin was negative. X-ray of his chest did show no acute cardiopulmonary process and stable cardiomegaly. He remained afebrile. Denies any sick contacts. Also noted with incisional disease. We will evaluate him for the aformentiond issues. Hospital Course This is a 61-year-old male with history of end-stage renal disease who receives dialysis on Tuesday//Tuesday, CAD, diabetes, status post CABG, anemia, hypertension, gastric ulcerations, came to [facility] due to reports of increased weakness. Patient reportedly had been having some chest pain with associated shortness of breath on exertion around 10 AM on the morning of admission. He reportedly took an extra pill that would lead to chest pain. Of note he was recently at [facility] in November 07 for similar issues. He was again noted to be anemic with hemoglobin of 7.3 and hematocrit of 20.1. He had an x-ray of the chest that showed no acute cardiopulmonary process. He denies any sick contacts. He did get hammerer to see him for possible GI bleed. Patient was also seen by parole supervisor for his chest pain and reported cardiac history. Of note he had a recent colonoscopy and endoscopy and likely is anemia was from his CKD. Did rule him out for ACS. Serial troponins were negative and he did have a stress test that showed no ST-T wave changes from baseline that are diagnostic for cardiac ischemia. After reviewed by hammerer no further endoscopy or colonoscopy was needed at this time. Anemia was likely due to chronic disease. He was transfused blood products with good response. He was also seen by critical care transport nurse for his incisional disease and placed on dialysis. The plan of care was discussed with the patient and patient did verbalize understanding. On the day of discharge patient was in stable condition Discussed plan of care with Dr. Stahl [facility] Active Scripts Pantoprazole* (Pantoprazole*) 40 Mg Tablet.dr, 40 MG PO BID, #30 3 Refills Prov:CHRISTIANO LAO 12/04/16 Nitroglycerin* (Nitrostat*) 0.4 Mg Tab.subl, 1 TAB SL Q5M Y for CHEST PAIN, #10 Prov:RAJAN STAHL S. 11/07/16 Nifedipine (Procardia Xl) 30 Mg Tab.er.24, 30 MG PO QHS, #30 TAB 2 Refills Prov:RAJAN STAHL S. 11/07/16 Nifedipine (Afeditab CR) 60 Mg Tablet.sa, 60 MG PO DAILY, #30 2 Refills Prov:RAJAN STAHL S. 11/07/16 Benazepril Hcl* (Benazepril Hcl*) 20 Mg Tablet, 40 MG PO DAILY for 7 Days, #7 TAB Prov:MELISSA HADDAD MD 07/20/16 Epoetin vick* (Epogen*) 3,000 Unit/1 Ml Vial, 6000 UNITS SC [facility] for [facility] Days, VIAL 2 Refills Prov:RAJAN STAHL S. 03/23/16 Reported Medications Acetaminophen* (Acetaminophen*) 500 MG Extra Strength Tablet, 500 MG PO Q4H Y for PAIN AND OR ELEVATED TEMP, TAB 07/16/16 Loratadine* (Loratadine*) 10 Mg Tablet, 10 MG PO DAILY, #30 TAB 03/16/16 Aspirin* (Aspirin* EC) 81 Mg Tablet., 81 MG PO DAILY, TAB 03/16/16 Fenofibrate Nanocrystallized* (Fenofibrate*) 145 Mg Tablet, 145 MG PO DAILY, TAB 03/16/16 Cinacalcet* (Sensipar*) 30 Mg Tab, 30 MG PO BID, TAB 03/16/16 Gemfibrozil* (Gemfibrozil*) 600 Mg Tablet, 600 MG PO BID, TAB 03/16/16 Allopurinol* (Allopurinol*) 100 Mg Tablet, 100 MG PO DAILY, TAB 03/16/16 Insulin Human Nph (Novolin-N) 100 Units/Ml Susp, 2 UNITS SQ TID 03/16/16 Follow-up Plan 1. Follow up with Dr. Olson in one week. 2. Follow up with your dialysis center for your regular scheduled dialysis 3. Follow up with Dr. Paige in one week Primary Care Provider Kyle Leonardo MD Time spent on discharge: > 30 minutes CHRISTIANO LAO Dec 11, 2016 14:33
--- NOTE | 2016-12-11 14:33 | DS ---
Date/Time of Note Date/Time of Note DATE: 12/11/16 TIME: 14:25 Discharge Summary Admission/Discharge Info Admit Date/Time Dec 02, 2016 at 13:09 Discharge Date/Time Dec 04, 2016 at 20:22 Discharge Diagnosis 1. Chest pain. 2. Anemia. 3. Diabetes. 4. End-stage renal disease. 5. History of CAD. Patient Condition: Stable Consults 1. Dr. Pancho Luevano 2. Dr. Ramírez Lopez 3. Dr. Ford Paige 4. Dr. Eyad Olson Hx of Present Illness This is a 61-year-old male with history of end-stage renal disease (receives dialysis on Tuesday//Tuesday), CAD, diabetes, status post CABG, anemia , hypertension, as the gastric ulcerations, who came to [facility] due to reports of increased weakness. Patient did report that he had been having some chest pain with associated shortness of breath with on exertion at around 10 AM this morning. He reportedly took a nitro pill that relieves his chest pain. Given that was recently discharged from [facility] on November 07, 2016 for similar issues. On examination he was noted to be anemic again with hemoglobin of 7.3 and hematocrit of 22.1. Of note his previous one was noted at 11.5 hemoglobin and 34.5 hematocrit prior to this admission. Initial troponin was negative. X-ray of his chest did show no acute cardiopulmonary process and stable cardiomegaly. He remained afebrile. Denies any sick contacts. Also noted with incisional disease. We will evaluate him for the aformentiond issues. Hospital Course This is a 61-year-old male with history of end-stage renal disease who receives dialysis on Tuesday//Tuesday, CAD, diabetes, status post CABG, anemia, hypertension, gastric ulcerations, came to [facility] due to reports of increased weakness. Patient reportedly had been having some chest pain with associated shortness of breath on exertion around 10 AM on the morning of admission. He reportedly took an extra pill that would lead to chest pain. Of note he was recently at [facility] in November 07 for similar issues. He was again noted to be anemic with hemoglobin of 7.3 and hematocrit of 20.1. He had an x-ray of the chest that showed no acute cardiopulmonary process. He denies any sick contacts. He did get development expert to see him for possible GI bleed. Patient was also seen by biology faculty member for his chest pain and reported cardiac history. Of note he had a recent colonoscopy and endoscopy and likely is anemia was from his CKD. Did rule him out for ACS. Serial troponins were negative and he did have a stress test that showed no ST-T wave changes from baseline that are diagnostic for cardiac ischemia. After reviewed by development expert no further endoscopy or colonoscopy was needed at this time. Anemia was likely due to chronic disease. He was transfused blood products with good response. He was also seen by varitype operator for his incisional disease and placed on dialysis. The plan of care was discussed with the patient and patient did verbalize understanding. On the day of discharge patient was in stable condition Discussed plan of care with Dr. Stahl [facility] Active Scripts Pantoprazole* (Pantoprazole*) 40 Mg Tablet.dr, 40 MG PO BID, #30 3 Refills Prov:CHRISTIANO LAO 12/04/16 Nitroglycerin* (Nitrostat*) 0.4 Mg Tab.subl, 1 TAB SL Q5M Y for CHEST PAIN, #10 Prov:RAJAN STAHL S. 11/07/16 Nifedipine (Procardia Xl) 30 Mg Tab.er.24, 30 MG PO QHS, #30 TAB 2 Refills Prov:RAJAN STAHL S. 11/07/16 Nifedipine (Afeditab CR) 60 Mg Tablet.sa, 60 MG PO DAILY, #30 2 Refills Prov:RAJAN STAHL S. 11/07/16 Benazepril Hcl* (Benazepril Hcl*) 20 Mg Tablet, 40 MG PO DAILY for 7 Days, #7 TAB Prov:MELISSA HADDAD MD 07/20/16 Epoetin vick* (Epogen*) 3,000 Unit/1 Ml Vial, 6000 UNITS [facility], VIAL 2 Refills Prov:RAJAN STAHL S. 03/23/16 Reported Medications Acetaminophen* (Acetaminophen*) 500 MG Extra Strength Tablet, 500 MG PO Q4H Y for PAIN AND OR ELEVATED TEMP, TAB 07/16/16 Loratadine* (Loratadine*) 10 Mg Tablet, 10 MG PO DAILY, #30 TAB 03/16/16 Aspirin* (Aspirin* EC) 81 Mg Tablet., 81 MG PO DAILY, TAB 03/16/16 Fenofibrate Nanocrystallized* (Fenofibrate*) 145 Mg Tablet, 145 MG PO DAILY, TAB 03/16/16 Cinacalcet* (Sensipar*) 30 Mg Tab, 30 MG PO BID, TAB 03/16/16 Gemfibrozil* (Gemfibrozil*) 600 Mg Tablet, 600 MG PO BID, TAB 03/16/16 Allopurinol* (Allopurinol*) 100 Mg Tablet, 100 MG PO DAILY, TAB 03/16/16 Insulin Human Nph (Novolin-N) 100 Units/Ml Susp, 2 UNITS SQ TID 03/16/16 Follow-up Plan 1. Follow up with Dr. Olson in one week. 2. Follow up with your dialysis center for your regular scheduled dialysis 3. Follow up with Dr. Paige in one week Primary Care Provider Kyle Leonardo MD Time spent on discharge: > 30 minutes CHRISTIANO LAO Dec 11, 2016 14:33
== END 2016-12-04 20:22 | disposition home or self-care (01) ==
LOC: E/R 10:13 → TEL 13:09
PROVIDERS: ADMIT Hospitalist; ATTEND Hospitalist
DX: R07.9 Chest pain, unspecified (principal); E11.22 Type 2 diabetes mellitus with diabetic chronic kidney disease; N18.6 End stage renal disease; D64.9 Anemia, unspecified; E78.5 Hyperlipidemia, unspecified; R06.02 Shortness of breath
CPT/HCPCS: 36415; 36430; 71010; 78452; 80048; 80053; 80061; 82270; 82550; 82553; 82962; 83036; 83735; 84100; 84436; 84443; 84479; 84484; 85014; 85018; 85025; 85049; 85610; 85670; 85730; 86850; 86900; 86901; 86920; 87081; 90686; 90935; 93005; 93017; 99285; A9500; A9505; G0378; J0360; J1815; J2785; P9016; J0886

== ENCOUNTER 2017-08-22 09:36 | Day surgery (SDC) | END 2017-08-22 18:23 | disposition home or self-care (01) ==